=== PATIENT | female | born 1960 | race Caucasian/White ===

== ENCOUNTER 2019-05-01 16:54 | Observation (INO) | payer OTHER, SELFPAY ==
[2019-05-01 16:55] VITALS: BP 184/118; PULSE 87; RESP 17; TEMP 36.2; O2SAT 96; BMI 70.7
--- NOTE | 2019-05-01 18:08 | CT_ITS ---
HISTORY: PT STATED LOWER ABDOM PAIN, CONSTIPATION TECHNIQUE: Helically acquired images were obtained of the abdomen and pelvis without oral and with IV contrast. A radiation dose optimization technique was used for this scan. CONTRAST: 100 cc Isovue-300 administered intravenously. No oral contrast. COMPARISON: None FINDINGS: # of images incl. paperwork: 528 LOWER CHEST: No acute or concerning findings lung bases. LIVER: Heterogenous steatosis. Mild hepatomegaly. No focal mass. GALLBLADDER AND BILIARY TREE: Status post cholecystectomy. No intra- or extrahepatic biliary ductal dilation. KIDNEYS AND URETERS: Normal renal size and position. No hydronephrosis. ADRENAL GLANDS: Non-enlarged. SPLEEN: Normal size, no mass. PANCREAS: No pancreatic inflammation or mass. BOWEL: Normal appendix. No obstruction or inflammation of the bowel. Scattered left-sided colonic diverticula, no diverticulitis. Mildly prominent stool throughout the large bowel. Small hiatal hernia contains gastric fundus. LYMPH NODES: No enlarged mesenteric or retroperitoneal lymph nodes. PERITONEUM: No ascites or free air. No other fluid collection. VESSELS: No abdominal aortic aneurysm. URINARY BLADDER: Unremarkable. REPRODUCTIVE ORGANS: Bilateral tubal ligation clips. Small uterine fibroids. Ovaries unremarkable. PERINEUM: Subcutaneous edema in the bilateral medial buttocks at the level of the distal to the anus. No abscess. ABDOMINAL WALL: No concerning findings. BONES: No acute osseous abnormality. Degenerative changes lumbar spine with mild right scoliosis. CT/Abdomen/Pelvis W IV Cont ONLY IMPRESSION: Subcutaneous edema in the bilateral medial buttocks at the level of the distal to the anus. This could represent cellulitis or noninfectious edema. Please correlate with physical examination. No abscess. No other acute findings. Hepatic steatosis with mild hepatomegaly. Mildly prominent stool suggestive of constipation. Individualized dose optimization techniques were used for this CT. at 1947 Reported and signed by: iPeter Knutson MD Electronically Signed: Pieter Knutson, at 19:46 EDT Tel , Service support ,
[2019-05-01 18:20] VITALS: PULSE 88; RESP 18
[2019-05-01] MEDS: 0.9% Normal Saline 1,000 ML 1000 ML IV (18:34)
[2019-05-01] MEDS: Morphine 4 MG/ML Syringe IV (18:34)
[2019-05-01 18:51] LABS: Absolute Lymphocyte Count 1.03 X10^3/uL (0.83-4.51); Basophil# 0.03 X10^3/uL; Basophil% 0.2 % (0-1); Eosinophil# 0.22 X10^3/uL; Eosinophils% 1.6 % (0-5); Hematocrit 39.5 % (37-47); Hemoglobin 12.6 g/dL (12.0-15.0); Lymphocyte # 1.03 X10^3/ul (4.0); Lymphocyte % 7.5 % (19-41); Mean Corp Hgb Conc 31.9 g/dL (32-36); Mean Corpuscular Hgb 27.9 pg (27.0-32.0); Mean Corpuscular Volume 87.6 fL (81-99); Mean Platelet Vol. 9.9 fl (6.2-12.0); Monocyte# 1.81 X10^3/uL; Monocyte% 13.2 % (0-10); NRBC Flagged by Analyzer 0 % (0-5); Neutrophil # 10.51 X10^3/uL (2.7-7.7); Neutrophil % 76.9 % (47-70); POSITIVE DIFFERENTIAL YES; Platelet Count 384 K/mm3 (150-450); RBC Distribution Width CV 14.7 % (11.6-14.6); RBC Distribution Width SD 47.5 fl (35.1-43.9); Red Blood Count 4.51 M/mm3 (4.2-5.4); White Blood Count 13.7 K/mm3 (4.4-11.0)
[2019-05-01 19:07] LABS: Differential Indicated SCAN CRITERIA MET
[2019-05-01 19:10] LABS: ALB/GLOB Ratio 0.5 RATIO (0.9-2.4); AST(SGOT) 31 U/L (15-37); Alanine Aminotransfer ALT/SGPT 30 U/L (13-56); Albumin, Serum 2.5 g/dL (3.2-5.0); Alkaline Phosphatase 99 U/L (45-117); Anion Gap 7 (5-15); BUN 18 mg/dL (7-18); BUN/Creat Ratio 19.1 RATIO (10-20); Calcium,Total 9.1 mg/dL (8.5-10.1); Chloride 103 mmol/L (98-107); Creatinine, Serum 0.94 mg/dL (0.55-1.02); EST Glomerular Filtration Rate 65 mL/min (>60); Est Glom Filt Rate - Afr Amer 79 mL/min (>60); Estimated Creatinine Clearance 66.61 ml/min; Globulin 4.7 g/dL (2.2-4.2); Glucose 103 mg/dL (74-106); Lipase 57 U/L (73-393); Potassium 4.5 mmol/L (3.5-5.1); Protein, Total 7.2 g/dL (6.4-8.2); Sodium Level 138 mmol/L (136-145)
[2019-05-01 19:49] LABS: Platelet Estimate ADEQUATE (ADEQ); Red Cell Morphology NORM C+C NORMAL (NORM C&C)
[2019-05-01 20:02] LABS: Bacteria 0 SEEN /hpf (None Seen); Mucous, Urine 0 SEEN /hpf (<or=2+)
[2019-05-01 20:03] LABS: Color, Urine Yellow (Yellow); Glucose, Dipstick Normal (Normal); Ketone-Dipstick 15 mg/dl (Negative); Leukocyte Esterase-Dipstick 100 /ul (Negative); Nitrite-Dipstick Negative (Negative); Occult Blood-Urine 50 /ul (Negative); Protein-Dipstick 15 mg/dl (Negative); Urine Bilirubin Dipstick Negative (Negative); Urine Clarity Sl. Cloudy (Clear); Urine Urobilinogen Normal (Normal); Urine pH 6.5 (5.0 - 8.0)
[2019-05-01 20:19] LABS: Red Blood Cells-Urine 0-5 SEEN /hpf (0-5); Squamous Epithelial Cells - UA 5-10 SEEN /hpf (5-10); White Blood Cells 5-10 SEEN /hpf (0-5)
[2019-05-01 20:20] LABS: Transitional Epithelial - Ur 0-5 SEEN /hpf (0-5)
--- NOTE | 2019-05-01 21:17 | ED.DCSUM_ITS ---
- ER Visit Summary Date of Service: 05/01/19 Chief Complaint: Constipation History of Present Illness: The patient is a 59 F with constipation for several days. Patient also reports rectal pain and is concerned she has a hemorrhoid. No history of hemorrhoids. She is having fevers at home. She is having intermittent diarrhea. She tried Imodium with no improvement. She also tried Preparation H with no improvement. No history of diverticulitis. No history of abdominal surgeries. Physical Examination: Afebrile and vital signs unremarkable except blood pressure 184/118. Heart regular. Lungs clear. Abdomen tender in the lower hemiabdomen. Rectal exam chaperoned by Barbara JAIMES. She had erythema surrounding her buttocks and anus. No evidence of abscess. No masses or active bleeding noted. Test Results: White count 13.7. CMP and lipase normal. Urinalysis unremarkable. CT showed bilateral buttock edema concerning for cellulitis. She has constipation without obstruction. Emergency Department Course and Treatment: Patient received fluids, pain medicine. I believe she developed cellulitis from frequent and intermittent constipation with diarrhea and it is causing her rectal pain. She was treated with Unasyn. Hospitalist will observe. Treatment Plan: As above Disposition: [facility] observation Impression: 1. Bilateral buttock cellulitis 2. Constipation This note was generated with [employer] dictation software. It may contain incorrect words, spelling, and punctuation that were not noted in review of the chart prior to signing ED Disposition - Plan for ED Patient: Referrals: Fam Long [Primary Care Provider] -
[2019-05-01 21:46] VITALS: BP 169/71; PULSE 92; RESP 18; TEMP 37.1
[2019-05-01 22:23] VITALS: BP 140/74; PULSE 100; RESP 18; TEMP 37.5; O2SAT 99; BMI 70.7; BMI 73.1
[2019-05-01 22:26] VITALS: BP 145/94
--- NOTE | 2019-05-01 22:42 | HP.PCM_ITS ---
Problem List (1) Depression Status: Acute (2) Cellulitis Status: Acute (3) HTN (hypertension) Status: Chronic (4) Hypothyroidism Status: Acute (5) Hyperlipidemia Status: Acute (6) Personal history of DVT (deep vein thrombosis) Status: Acute History of Present Illness Date of Admission: 05/01/19 Chief Complaint: Rectal pain The patient is a 59 year old F with PMH as below who presented with perianal pain/rectal pain has been going on for a few days. She states that on Wednesday she had an episode of diarrhea and then the following morning she had pain in her anal area. She then developed fevers and chills and presented to the ER today with an elevated white count. CT scan of her abdomen and pelvis demonstrated stranding consistent with cellulitis but no abscess. She was started on IV Unasyn in the ER and she did not feel like she would be able to go home and therefore had asked for admission. Past Medical History Past Medical History (Chronic Problems): Chronic Problems HTN (hypertension) (Chronic) Allergies cephalexin [From Keflex] Allergy (Verified 05/01/19 22:39) Upset Stomach codeine Allergy (Verified 05/01/19 22:39) Upset Stomach Home Medications: Ambulatory Orders Medication Instructions Recorded Apixaban [Eliquis] 2.5 mg PO BID 05/01/19 Ascorbic Acid [Vitamin C] 1,000 mg PO DAILY 05/01/19 Bupropion HCl [Bupropion HCl Sr] 1 tab PO BID 05/01/19 Buspirone HCl 15 mg PO BID 05/01/19 Celecoxib [Celebrex] 200 mg PO DAILY 05/01/19 Enalapril Maleate 20 mg PO DAILY 05/01/19 Furosemide [Lasix] 40 mg PO DAILY 05/01/19 Lansoprazole [Prevacid] 30 mg PO DAILY 05/01/19 Levothyroxine [Synthroid] 200 mcg PO DAILY 05/01/19 Metoprolol Tartrate 50 mg PO BID 05/01/19 Surgical History: cholecystectomy, herniorrhaphy, - - Thyroidectomy, parathyroidectomy, Smoking Status: Former smoker Tobacco Use: Cigarettes Alcohol: None Drugs: None - *Family History Maternal History Items: Heart Disease Paternal History Items: Diabetes, - - Aneurysm Review of Systems Constitutional: Reports: Chills, Fever HEENT: Denies: Head Aches, Sinus Congestion, Sinus Drainage Cardiovascular: Denies: Chest Pain, Palpitations Respiratory: Denies: Cough, Shortness of breath at rest, Sputum production Gastrointestinal: Reports: - - Perianal pain. Denies: Abdominal Pain, Nausea, Vomiting Genitourinary: Denies: Dysuria Musculoskeletal: Denies: Joint Pain, Joint Tenderness Skin: Denies: Rash, Wounds Neurological: Denies: Numbness, Tingling, Focal weakness Psychiatric: Denies: Anxiety, Depression Hematologic/ Lymphatic: Denies: Easy Bruising, Easy Bleeding VTE Information - Inpt Only VTE Present on Admission: No Patient Problems: Active and Suspected Problems Depression (Acute) Cellulitis (Acute) Hypothyroidism (Acute) Hyperlipidemia (Acute) Personal history of DVT (deep vein thrombosis) (Acute) - Physical Exam General: Alert, Oriented x3, Cooperative, No apparent distress HEENT: Atraumatic, PERRLA, EOMI, Normocephalic Oral: Moist Mucosa Neck: Supple, No JVD Lungs: Clear to auscultation, Normal air movement, No rhonchi, No wheeze, No rales, Diminished Cardiovascular: Regular rate, Regular Rhythm, Normal S1, Normal S2, No murmurs Abdomen: Soft, Non Tender, Non-Distended, No Hepato-splenomegaly, Obese Extremities: No edema, Capillary Refill Less than 3 Seconds Skin: No breakdown, - - Slight redness in her perianal region without extension into either buttock Neurological: Neuro grossly intact, Sensory exam intact to light touch and pain Psych/Mental Status: Normal Affect, Appropriate Vital Signs Temp Pulse Resp BP Pulse Ox 99.5 F H 100 18 145/94 H 99 05/01/19 22:23 05/01/19 22:23 05/01/19 22:23 05/01/19 22:26 05/01/19 22:23 Oxygen Delivery Method Room Air Weight: 465 lb Body Mass Index (BMI) 70.7 Laboratory Tests Past 24 Hrs 05/01/19 05/01/19 05/01/19 18:35 18:35 19:50 WBC 13.7 H RBC 4.51 Hgb 12.6 Hct 39.5 MCV 87.6 MCH 27.9 MCHC 31.9 L RDW Std Deviation 47.5 H RDW Coeff of Jose Rafael 14.7 H Plt Count 384 MPV 9.9 Immature Gran % (Auto) 0.600 Neut % (Auto) 76.9 H Lymph % (Auto) 7.5 L [place] % (Auto) 13.2 H Eos % (Auto) 1.6 Baso % (Auto) 0.2 Absolute Neuts (auto) Not Reportable Absolute Lymphs (auto) 1.03 Absolute Nucleated RBC 0.00 Nucleated RBC % 0 Differential Comment SEE COMMENT Diff Path Review May foll Platelet Estimate ADEQUATE RBC Morphology NORM C+C Sodium 138 Potassium 4.5 Chloride 103 Carbon Dioxide 28.0 Anion Gap 7 BUN 18 Creatinine 0.94 Estim Creat Clear Calc 66.61 Est GFR (MDRD) Af Amer 79 Est GFR (MDRD) Non-Af 65 BUN/Creatinine Ratio 19.1 Glucose 103 Calcium 9.1 Total Bilirubin 0.60 AST 31 ALT 30 Alkaline Phosphatase 99 Total Protein 7.2 Albumin 2.5 L Globulin 4.7 H Albumin/Globulin Ratio 0.5 L Lipase 57 L Urine Color Yellow Urine Clarity Sl. Cloudy Urine pH 6.5 Ur Specific [place] 1.010 Urine Protein 15 H Urine Glucose (UA) Normal Urine Ketones 15 H Urine Occult Blood 50 H Urine Nitrite Negative Urine Bilirubin Negative Urine Urobilinogen Normal Ur Leukocyte Esterase 100 H Urine RBC 0-5 SEEN Urine WBC 5-10 SEEN Ur Squamous Epith Cells 5-10 SEEN Ur Transition Epith Cell 0-5 SEEN Urine Bacteria 0 SEEN Urine Mucus 0 SEEN Assessment/Plan All Active Problems Depression (Acute) Cellulitis (Acute) Hypothyroidism (Acute) Hyperlipidemia (Acute) Personal history of DVT (deep vein thrombosis) (Acute) 1. Perianal cellulitis -Leukocytosis 13.7, no other signs of sepsis -She has an upset stomach from Keflex therefore we will proceed with Unasyn -IV fluids at 100 2. 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 Hypothyroidism after thyroidectomy -Stable -Continue with Synthroid 4. HTN -Blood pressures in the 140s to 160s -Continue with metoprolol, will hold Lasix since she is getting fluids -Continue with lisinopril 5. GERD -Stable -Continue with PPI 6. Anxiety/depression -Stable -Continue with Wellbutrin and BuSpar DVT: Eliquis Code Visit OBSV E&M: 69733 Initial observation care L2
[2019-05-02] VITALS (7 sets, daily range): BP systolic 112–134; BP diastolic 61–77; PULSE 74–95; RESP 18; TEMP 37.2–38.1; O2SAT 94–98
[2019-05-02] MEDS: Acetaminophen 325 MG Tablet 650 MG PO ×2 (01:07→07:07)
[2019-05-02] MEDS: 0.9% Normal Saline 1,000 ML 100 ML IV ×2 (01:08→06:49)
[2019-05-02] MEDS: Levothyroxine 100 MCG Tablet 200 MCG PO (04:57)
[2019-05-02 06:30] LABS: Basophil# 0.04 X10^3/uL; Basophil% 0.3 % (0-1); Eosinophils% 0.7 % (0-5); Hematocrit 34.7 % (37-47); Hemoglobin 11.2 g/dL (12.0-15.0); Lymphocyte % 9.3 % (19-41); Mean Corp Hgb Conc 32.3 g/dL (32-36); Mean Corpuscular Hgb 28.1 pg (27.0-32.0); Mean Corpuscular Volume 87.2 fL (81-99); Mean Platelet Vol. 8.9 fl (6.2-12.0); Monocyte# 2.06 X10^3/uL; Monocyte% 14.7 % (0-10); NRBC Flagged by Analyzer 0 % (0-5); Neutrophil # 10.43 X10^3/uL (2.7-7.7); Neutrophil % 74.2 % (47-70); POSITIVE DIFFERENTIAL YES; Platelet Count 327 K/mm3 (150-450); RBC Distribution Width CV 14.6 % (11.6-14.6); RBC Distribution Width SD 46.5 fl (35.1-43.9); Red Blood Count 3.98 M/mm3 (4.2-5.4)
[2019-05-02 06:55] LABS: Anion Gap 8 (5-15); BUN 12 mg/dL (7-18); BUN/Creat Ratio 14.5 RATIO (10-20); Calcium,Total 8.5 mg/dL (8.5-10.1); Chloride 104 mmol/L (98-107); Creatinine, Serum 0.83 mg/dL (0.55-1.02); EST Glomerular Filtration Rate 76 mL/min (>60); Est Glom Filt Rate - Afr Amer 91 mL/min (>60); Estimated Creatinine Clearance 75.44 ml/min; Glucose 153 mg/dL (74-106); Potassium 3.3 mmol/L (3.5-5.1); Sodium Level 139 mmol/L (136-145)
[2019-05-02 06:58] LABS: Differential Indicated SCAN CRITERIA MET
[2019-05-02 06:59] LABS: Differential Comment SCANNED; Toxic Granulation 1+
[2019-05-02] MEDS: HYDROcodone Bitartrate/Apap 5/325 Tablet PO (09:42)
[2019-05-02] MEDS: Lisinopril 20 MG Tablet PO (09:43)
[2019-05-02] MEDS: busPIRone 15 MG TABLET PO (09:43)
[2019-05-02] MEDS: buPROPion (SR) 150 MG Tablet.SA PO (09:43)
[2019-05-02] MEDS: Celecoxib 200 MG Capsule PO (09:43)
[2019-05-02] MEDS: Pantoprazole Sodium 40 MG Tablet PO (09:43)
[2019-05-02] MEDS: APIXABAN 2.5 MG TABLET PO (09:44)
[2019-05-02] MEDS: Metoprolol Tartrate 50 MG Tablet PO (09:48)
[2019-05-02 11:50] LABS: Pathologist Review Reviewed
[2019-05-02 11:51] LABS: Pathologist Review Reviewed
--- NOTE | 2019-05-02 15:47 | DCINST_ITS ---
- Discharge Diagnoses Current Active Problems: Current Active and Chronic Problems Depression (Acute) Cellulitis (Acute) HTN (hypertension) (Chronic) Hypothyroidism (Acute) Hyperlipidemia (Acute) Personal history of DVT (deep vein thrombosis) (Acute) You will use the following diet at home:: No restrictions Your food should be the consistency of: Regular Your liquids should be the consistency of: Regular/Thin Discharge Activity: Return to Normal Activity Weight Bearing Status: Full weight bearing Allergies/Adverse Reactions: Allergies cephalexin [From Keflex] Allergy (Verified 05/01/19 22:39) Upset Stomach codeine Allergy (Verified 05/01/19 22:39) Upset Stomach Medications to take at Discharge Apixaban [Eliquis] 2.5 mg PO BID 05/01/19 Ascorbic Acid [Vitamin C] 1,000 mg PO DAILY 05/01/19 Bupropion HCl [Bupropion HCl Sr] 1 tab PO BID 05/01/19 Buspirone HCl 15 mg PO BID 05/01/19 Celecoxib [Celebrex] 200 mg PO DAILY 05/01/19 Enalapril Maleate 20 mg PO DAILY 05/01/19 Furosemide [Lasix] 40 mg PO DAILY 05/01/19 Lansoprazole [Prevacid] 30 mg PO DAILY 05/01/19 Levothyroxine [Synthroid] 200 mcg PO DAILY 05/01/19 Metoprolol Tartrate 50 mg PO BID 05/01/19 Cefdinir [Omnicef [equiv]] 300 mg PO BID #20 cap 05/02/19 Hydrocodone Bitart/Apap 5-325 [[place] 5/325] 2 tablet PO Q6H PRN PRN 7 Days #30 tablet 05/02/19 Triamcinolone 0.1% Cream [Kenalog] 1 applic TOPICAL BID #1 tube 05/02/19 The following prescriptions were given: Triamcinolone 0.1% Cream [Kenalog] 1 applic TOPICAL BID #1 tube Hydrocodone Bitart/Apap 5-325 [[place] 5/325] 2 tablet PO Q6H PRN PRN 7 Days #30 tablet PRN Reason: Severe Pain (6-07/20) Transmission Status: Received by ABILIO [id number] Cefdinir [Omnicef [equiv]] 300 mg PO BID #20 cap Primary Care Physician: Fam Long [Primary Care Provider] - Please follow up with your Primary Care Physician in: at next visit Test Results: Test results from this visit will be discussed in further detail at your follow- up appointment, if applicable.
--- NOTE | 2019-05-04 08:28 | PCM.DC.SUM ---
Discharge Date and Diagnosis Date of Admission: 05/01/19 Date of Discharge: 05/02/19 - Primary Discharge Diagnosis #1 perianal cellulitis #2 perianal contact dermatitis from stool #3 morbid obesity #4 hypertension - Secondary Discharge Diagnosis Chronic Problems HTN (hypertension) (Chronic) Hospital Course and Treatment Operations: None Procedures: None Summary of Care Provided: The patient is a 59 year old F was seen in the emergency room at [facility] with a chief complaint of rectal pain and constipation. Examination in the emergency room revealed her perirectal area to be reddened and tender, white blood cell count was elevated at 13.7. CT exam showed bilateral buttocks edema concerning for cellulitis. Patient was placed in observation status on PCU and placed on IV antibiotics, she was examined the following day and there was noted to be redness around the perirectal area-I was concerned that she also had contact dermatitis from stool contact on the buttocks-patient was morbidly obese and unable to carry out basic hygiene properly. On 05/02/2019, patient was seen and examined: On examination she appeared in good health and spirits, patient is morbidly obese. Vital signs as documented. Skin: Examination of the skin around the perirectal area reveals it to be reddened and tender, there are no open areas and no discharge noted from the area.. Neck without JVD. Lungs clear. Heart exam notable for regular rhythm, normal sounds and absence of murmurs, rubs or gallops. Abdomen unremarkable and without evidence of organomegaly, masses, or abdominal aortic enlargement. Extremities nonedematous. Neuro: Cranial nerves II through XII are grossly intact, no focal motor deficits were noted, sensation to light touch and pinprick is intact. Psych: Patient is alert and oriented x3, she does not appear anxious or depressed On 05/02/19, patient was seen and examined and felt to be in stable condition for discharge - Physical Exam Vital Signs Temp Pulse Resp BP Pulse Ox 99.0 F 74 18 128/77 H 98 05/02/19 16:23 05/02/19 16:23 05/02/19 16:23 05/02/19 16:23 05/02/19 16:23 Oxygen Delivery Method Room Air Weight: 218.3 kg Body Mass Index (BMI) 73.1 Intake and Output for Last 24 Hours 05/02/19 05/03/19 05/04/19 23:59 23:59 23:59 Intake Total 3037 Balance 3037 Discharge Activity: Return to Normal Activity Weight Bearing Status: Full weight bearing Home Medications: Medications to take at Discharge Apixaban [Eliquis] 2.5 mg PO BID 05/01/19 Ascorbic Acid [Vitamin C] 1,000 mg PO DAILY 05/01/19 Bupropion HCl [Bupropion HCl Sr] 1 tab PO BID 05/01/19 Buspirone HCl 15 mg PO BID 05/01/19 Celecoxib [Celebrex] 200 mg PO DAILY 05/01/19 Enalapril Maleate 20 mg PO DAILY 05/01/19 Furosemide [Lasix] 40 mg PO DAILY 05/01/19 Lansoprazole [Prevacid] 30 mg PO DAILY 05/01/19 Levothyroxine [Synthroid] 200 mcg PO DAILY 05/01/19 Metoprolol Tartrate 50 mg PO BID 05/01/19 Cefdinir [Omnicef [equiv]] 300 mg PO BID #20 cap 05/02/19 Hydrocodone Bitart/Apap 5-325 [[place] 5/325] 2 tab PO Q6H PRN PRN 7 Days #30 tab 05/02/19 Triamcinolone 0.1% Cream [Kenalog] 1 applic TOPICAL BID #1 tube 05/02/19 Following Prescrptions Were Given to Patient: Triamcinolone 0.1% Cream [Kenalog] 1 applic TOPICAL BID #1 tube Hydrocodone Bitart/Apap 5-325 [[place] 5/325] 2 tab PO Q6H PRN PRN 7 Days #30 tab PRN Reason: Severe Pain (6-07/20) Transmission Status: Received by ABILIO [address] Cefdinir [Omnicef [equiv]] 300 mg PO BID #20 cap Primary Care Physician: Fam Long [Primary Care Provider] - Please follow up with your Primary Care Physician in: at next visit Disposition: Home Minutes spent on discharge:: 32 Patient Condition:: Stable Medical Necessity - Tobacco Use Smoking Status: Former smoker Tobacco Use: Cigarettes Meaningful Use Info Meaningful Use Diagnoses (Choose all that apply): None applicable Code Visit OBSV E&M: 27898 Observation care discharge
== END 2019-05-02 15:48 | disposition home or self-care (01) ==
LOC: ED 18:17 → PCU 23:53
PROVIDERS: Admitting Provider Family Medicine; Emergency Provider Emergency Medicine; Family Provider Student in an Organized Health Care Education/Training Program; PCP Student in an Organized Health Care Education/Training Program; Visit Provider Internal Medicine
DX: K61.0 Anal abscess (principal); L24.9 Irritant contact dermatitis, unspecified cause; K59.00 Constipation, unspecified; L03.317 Cellulitis of buttock; E78.5 Hyperlipidemia, unspecified; I10 Essential (primary) hypertension; F32.9 Major depressive disorder, single episode, unspecified; E89.0 Postprocedural hypothyroidism; K21.9 Gastro-esophageal reflux disease without esophagitis; F41.9 Anxiety disorder, unspecified; E66.01 Morbid (severe) obesity due to excess calories; Z68.45 Body mass index [BMI] 70 or greater, adult; Z71.3 Dietary counseling and surveillance; Z79.899 Other long term (current) drug therapy; Z79.01 Long term (current) use of anticoagulants; Z87.891 Personal history of nicotine dependence; Z86.711 Personal history of pulmonary embolism; Z86.718 Personal history of other venous thrombosis and embolism
CPT/HCPCS: 36415; 74177; 80048; 80053; 81001; 83690; 85025; 96361; 96365; 96366; 96375; 97802; 99218; 99285; J7030; Q9967; G0378; J0295

== ENCOUNTER 2022-11-06 20:13 | Inpatient (IN) | payer OTHER, SELFPAY ==
[2022-11-06 20:14] VITALS: BP 97/69; PULSE 107; RESP 16; TEMP 37.3; O2SAT 95; BMI 60.0
--- NOTE | 2022-11-06 21:46 | EDS_ITS ---
HPI History of Present Illness Chief Complaint: Fever Informant: patient and spouse/S.O. Narrative Narrative: Patient presents with abdominal pain nausea vomiting fevers. Patient states she started with this a few days ago. She was eating and toe over the last about 24 hours. She is not really drinking. She has had fevers. She has had pain in the right flank but it is more in the right lower quadrant now. She has had gallbladder out but still has her appendix. She has never had kidney stone. She denies any urinary symptoms. She has not had diarrhea. No chest pain trouble breathing. She is on Eliquis for history of DVT and PEs but not having symptoms of this. She is not reporting any bleeding. Patient's states that the symptoms really all started yesterday. She has been eating and drinking totally normally. Last night she started to have pain in her right flank and right lower quadrant. She really is not eating or drinking today. She has had high fevers. When her fever goes up she is a little bit confused. When the fever goes down its better. Although patient denied any urinary symptoms, the states she is urinating more frequently today especially since she is not drinking fluids. [facility] Medical History (Updated 11/07/22 @ 00:[address] Pierce Meyer MD) Arthritis Depression DVT (deep venous thrombosis) Hyperlipidemia Hyperlipidemia Hypothyroid Morbid obesity Home Medications apixaban 2.5 mg tablet 2.5 mg PO BID 05/01/19 [History Last Taken Unknown] ascorbic acid (vitamin C) 1,000 mg tablet 1,000 mg PO DAILY 05/01/19 [History Last Taken Unknown] bupropion HCl 150 mg tablet,12 hr sustained-release 1 tab PO BID 05/01/19 [History Last Taken Unknown] buspirone 15 mg tablet 15 mg PO BID 05/01/19 [History Last Taken Unknown] celecoxib 200 mg capsule 200 mg PO DAILY 05/01/19 [History Last Taken Unknown] enalapril maleate 20 mg tablet 20 mg PO DAILY 05/01/19 [History Last Taken Unknown] furosemide 40 mg tablet 40 mg PO DAILY 05/01/19 [History Last Taken Unknown] lansoprazole 30 mg capsule,delayed release 30 mg PO DAILY 05/01/19 [History Last Taken Unknown] levothyroxine 50 mcg tablet 200 mcg PO DAILY 05/01/19 [History Last Taken Unknown] metoprolol tartrate 50 mg tablet 50 mg PO BID 05/01/19 [History Last Taken Unknown] cefdinir 300 mg capsule 300 mg PO BID #20 caps 05/02/19 [Rx Last Taken Unknown] triamcinolone acetonide 0.1 % topical cream 1 applic topical BID #1 tube 05/02/19 [Rx Last Taken Unknown] Allergy/AdvReac Type Severity Reaction Status Date / Time cephalexin [From Keflex] Allergy Upset Verified 11/06/22 20:18 Stomach codeine Allergy Upset Verified 11/06/22 20:18 Stomach Family History (Updated 11/06/22 @ 23:[address] Prudence Vasquez MD) Mother Heart disease Hypertension Father Diabetes Aneurysm Surgical History (Updated 11/06/22 @ 23:[address] Prudence Vasquez MD) History of herniorrhaphy History of parathyroidectomy Hx of cholecystectomy Hx of thyroidectomy Social History household members: spouse Smoking Status: Former smoker alcohol intake: never substance use type: does not use ROS ROS ED Constitutional Constitutional ED: Reports fever(s) Eyes Eyes: Denies change in vision ENT ENT ED: Denies rhinorrhea or sore throat Cardiovascular Cardiovascular: Denies chest pain, palpitations or racing heartbeat Respiratory/Chest Respiratory/Chest: Denies cough or dyspnea Gastrointestinal Gastrointestinal: Reports abdominal pain, diarrhea, nausea and vomiting Genitourinary Genitourinary ED: Denies dysuria, hematuria or urinary frequency Musculoskeletal Musculoskeletal: Reports back pain and other Details: Right flank pain. Integumentary Denies rash Neurologic Neurologic: Denies headache(s) Psychiatric Psychiatric: Denies anxiety Endocrine Endocrinology: Denies polydipsia or polyuria Hematologic/Lymphatic Hematologic/Lymphatic: Denies easy bleeding or easy bruising EXAM Physical Exam Narrative Exam Narrative: Patient is awake and alert. She is a little slow to answer questions but seems to be accurate other than on the timing of things. She does know her medications and her histories. She is ANO x3. HEENT: Mouth looks dry. No trauma. Neck shows no JVD or meningismus Lungs seem clear to auscultation and her saturations are normal on room air. Heart is tachycardic at about 115. But it is regular and appears to be sinus on the monitor. I hear no murmur. Peripheral pulses are equal. Abdomen is obese but bowel sounds are normal. She does have some tenderness toward the right lower quadrant but its not rebound. I see no rash. Mild CVA tenderness when reaching behind the patient. No notable suprapubic area tenderness Extremities are large but no specific asymmetry or tenderness is noted. Again, patient is ANO x3 but is a little bit slow to answer. I think her 's history is likely the most accurate. Const Vital Signs: 11/06/22 20:14 11/06/22 21:17 Temperature 99.1 F Temperature Source Temporal Pulse Rate 107 H Respiratory Rate 16 Respiratory Effort Normal Respiratory Pattern Normal Blood Pressure 97/69 Blood Pressure Mean 78 Pulse Ox 95 Oxygen Delivery Method Room Air MDM MDM MDM Narrative Medical decision making narrative: Patient CBC shows elevated hemoglobin of 15 for likely due to hemoconcentration with dehydration. White count is very high at 30,000 likely from infection. Electrolytes showed low bicarb, mildly low potassium, elevated BUN and elevated creatinine consistent with acute kidney injury. I did review prior labs that were available in the computer from outpatient and her normal creatinine would be closer to 0.8. This does show a significant acute kidney injury and her history is consistent with dehydration as a major source of this. Glucose is mildly elevated 154. Liver function test showed mild elevations of AST and bilirubin and alk phos. But she is not really having tenderness up high on the right. Its more low in the right flank. Lactate was found down to us and was 6.9 showing significant elevation. Patient's urine is cloudy, large leukocyte esterase, elevated urine white cells and 3+ bacteria. All of this is consistent with a UTI. Considering she has pain that radiates into her right flank this is most consistent with pyelonephritis. With her high heart rate, low blood pressure, white count, lactate over 6 and UTI I think this does represent sepsis with multiple organ dysfunction. Her blood pressure is running about 90-95/60 right now. She is only gotten 1 L of fluid in though. With her current weight, she would need approximately 5375 cc of fluid. This is a very large amount to give acutely. We have gotten 1 L of fluid and are ready. The nurses put in the second IV and is starting second liter. I have put an order for third liter. This would be closer to an appropriate fluid bolus for an ideal body weight at her height even if she had a 30 BMI. She can be reassessed after that. She is more alert. She is answering questions quicker. Her heart rate is already come down 30 bpm. Her blood pressure is about the same though. But she has shown clear clinical improvement. With her illness, mild confusion with fever, blood pressure, heart rate, elevated lactate and infection she will be placed in the ICU. I discussed all these details with hospitalist is coming down the department to see the patient We are still awaiting CT to be done. I had originally ordered a CT with contrast. However, with her acute kidney injury we will do 1 without contrast. She should have enough intraperitoneal fat to be able to see stranding or other acute issues. Lab Data Attestation: I reviewed the patient's lab results. Labs: Laboratory Results - last 24 hr 11/06/22 11/06/22 11/06/22 22:44 22:44 23:18 RBC 5.16 Hgb 15.4 H Hct 49.8 H MCV 96.5 MCH 29.8 MCHC 30.9 L RDW Std Deviation 51.0 H RDW Coeff of Jose Rafael 14.2 Plt Count 302 MPV 10.2 Immature Gran % (Auto) 4.200 H Neut % (Auto) 86.2 H Lymph % (Auto) 2.0 L [place] % (Auto) 6.5 Eos % (Auto) 0.6 Baso % (Auto) 0.5 Absolute Neuts (auto) 26.4 H Absolute Lymphs (auto) 0.60 L Nucleated RBC % 0 Sodium 143 Potassium 3.3 L Chloride 108 H Carbon Dioxide 18.0 L Anion Gap 17 H BUN 33 H Creatinine 2.77 H Estim Creat Clear Calc 21.79 Est GFR (MDRD) Af Amer 22 L Est GFR (MDRD) Non-Af 19 L BUN/Creatinine Ratio 11.9 Glucose 154 H Calcium 10.0 Total Bilirubin 1.10 H AST 62 H ALT 43 Alkaline Phosphatase 136 H Total Protein 7.0 Albumin 3.1 L Globulin 3.9 Albumin/Globulin Ratio 0.8 L Lipase 71 L Urine Color Yellow Urine Clarity Cloudy Urine pH 6.0 Ur Specific [place] 1.015 Urine Protein 15 H Urine Glucose (UA) Normal Urine Ketones Negative Urine Occult Blood 250 H Urine Nitrite Negative Urine Bilirubin Negative Urine Urobilinogen Normal Ur Leukocyte Esterase 500 H Urine RBC 10-25 SEEN Urine WBC 10-25 SEEN Ur Squamous Epith Cells 0 SEEN Urine Bacteria 3+ Urine Mucus 0 SEEN Critical Care Time Critical Care Time: Yes Critical care time (excluding procedures): 30-74 minutes, Discussing w/Patient &/or Family/Textile Slitting Machine Operator, Discussing w/Consultants, Arranging Admission or Transfer, Performing Direct Patient Care at Bedside and - (40 minutes, repeat evaluations, repeat fluids, antibiotics, reviewing results, reviewing old records, discussing with hospitalist.) Discharge Plan Dx/Rx/DC Orders Clinical Impression: Pyelonephritis, Sepsis, Acute kidney injury, Acidosis, lactic Disposition Disposition: Acute Care [facility]
[2022-11-06 22:14] VITALS: BP 91/62; PULSE 100; RESP 22; O2SAT 100
[2022-11-06 22:17] VITALS: BP 91/62; PULSE 100; RESP 22; TEMP 37.2; O2SAT 100
[2022-11-06] MEDS: 0.9% Normal Saline 1,000 ML 1000 ML IV (22:42)
[2022-11-06] MEDS: Ondansetron 4 MG/2 ML Vial IV (22:42)
[2022-11-06 23:04] LABS: Hematocrit 49.8 % (37-47); Hemoglobin 15.4 g/dL (12.0-15.0); Mean Corp Hgb Conc 30.9 g/dL (32-36); Mean Corpuscular Hgb 29.8 pg (27.0-32.0); Mean Corpuscular Volume 96.5 fL (81-99); Mean Platelet Vol. 10.2 fl (6.2-12.0); POSITIVE COUNT YES; POSITIVE DIFFERENTIAL YES; POSITIVE MORPHOLOGY YES; Platelet Count 302 K/mm3 (150-450); RBC Distribution Width CV 14.2 % (11.6-14.6); Red Blood Count 5.16 M/mm3 (4.2-5.4)
[2022-11-06 23:09] LABS: White Blood Count 30.6 K/mm3 (4.4-11.0)
[2022-11-06 23:16] LABS: ALB/GLOB Ratio 0.8 RATIO (0.9-2.4); AST(SGOT) 62 U/L (15-37); Alanine Aminotransfer ALT/SGPT 43 U/L (13-56); Albumin, Serum 3.1 g/dL (3.2-5.0); Alkaline Phosphatase 136 U/L (45-117); Anion Gap 17 (5-15); BUN 33 mg/dL (7-18); BUN/Creat Ratio 11.9 RATIO (10-20); Chloride 108 mmol/L (98-107); Creatinine, Serum 2.77 mg/dL (0.55-1.02); EST Glomerular Filtration Rate 19 mL/min (>60); Est Glom Filt Rate - Afr Amer 22 mL/min (>60); Estimated Creatinine Clearance 21.79 ml/min; Globulin 3.9 g/dL (2.2-4.2); Glucose 154 mg/dL (74-106); Lipase 71 U/L (73-393); Potassium 3.3 mmol/L (3.5-5.1); Sodium Level 143 mmol/L (136-145)
[2022-11-06 23:21] LABS: Mucous, Urine 0 SEEN /hpf (<or=2+); Squamous Epithelial Cells - UA 0 SEEN /hpf (5-10)
[2022-11-06 23:24] LABS: Color, Urine Yellow (Yellow); Glucose, Dipstick Normal (Normal); Ketone-Dipstick Negative (Negative); Leukocyte Esterase-Dipstick 500 /ul (Negative); Nitrite-Dipstick Negative (Negative); Occult Blood-Urine 250 /ul (Negative); Protein-Dipstick 15 mg/dl (Negative); Specific Gravity, Urine 1.015 (1.002-1.030); Urine Bilirubin Dipstick Negative (Negative); Urine Clarity Cloudy (Clear); Urine Urobilinogen Normal (Normal)
[2022-11-06 23:30] LABS: Bacteria 3+ /hpf (None Seen); Red Blood Cells-Urine 10-25 SEEN /hpf (0-5); White Blood Cells 10-25 SEEN /hpf (0-5)
[2022-11-06 23:36] LABS: Differential Indicated MANUAL DIFF
[2022-11-06 23:40] LABS: Eosinophil 1 % (0-5); Lymphocyte 2 % (19-41); Metamyelocyte 14 % (0-1); Monocyte 6 % (0-10); Neutrophil-Band 18 % (0-5); Neutrophil-Segmented 59 % (47-70); Platelet Estimate ADEQUATE (ADEQ); Total Cells Counted 100 (MANUAL DIFF)
--- NOTE | 2022-11-06 23:40 | CT_ITS ---
EXAM: CT ABDOMEN AND PELVIS WITHOUT INTRAVENOUS CONTRAST CLINICAL INDICATION: Pain TECHNIQUE: Helically acquired images were obtained of the abdomen and pelvis without intravenous contrast. This CT exam was performed using one or more of the following dose reduction techniques: automated exposure control, adjustment of the mA and/or kV according to patient size, and/or use of iterative reconstruction technique. This report was created using [employer] report generation technology. COMPARISON: 05/01/2019 FINDINGS: LOWER THORAX: Unremarkable. Lung bases are clear. No cardiomegaly. No significant pericardial effusion. ABDOMEN: LIVER: Hepatomegaly with fatty infiltration. GALLBLADDER AND BILE DUCTS: Cholecystectomy. No intra- or extrahepatic biliary ductal dilation. PANCREAS: Unremarkable. No focal cystic mass. SPLEEN: Unremarkable. Normal size without focal cystic or solid mass. ADRENALS: Unremarkable. No nodules. KIDNEYS AND URETERS: There is a 5 mm stone in the distal right ureter causing mild obstructive changes. Normal renal size and position. STOMACH AND BOWEL: Diverticular disease of the colon but no diverticulitis. No stomach or bowel distention. PELVIS: APPENDIX: The appendix is normal. BLADDER: Unremarkable. REPRODUCTIVE: Small calcified fibroids in the uterus. ABDOMEN and PELVIS: INTRAPERITONEAL SPACE: Unremarkable. No ascites or other fluid collection. No free air. BONES/JOINTS: Diffuse degenerative changes of the spine. No suspicious lytic or blastic abnormality. SOFT TISSUES: Unremarkable. No discrete abdominal or pelvic wall hernia. VASCULATURE: Moderate atherosclerotic changes of the abdominal aorta without aneurysm. LYMPH NODES: Unremarkable. No enlarged lymph nodes. CT/Abdomen/Pelvis without Cont IMPRESSION: There is a 5 mm stone in the distal right ureter causing mild obstructive changes. Electronically Signed: Colt Lopez MD at 0:46 EST ,
[2022-11-06 23:41] LABS: Red Cell Morphology NORM C+C NORMAL (NORM C&C)
[2022-11-06] MEDS: 0.9% Normal Saline 1,000 ML 999 ML IV (23:56)
[2022-11-07] VITALS (27 sets, daily range): BP systolic 74–152; BP diastolic 52–132; PULSE 85–113; RESP 16–24; TEMP 36.2–37.6; O2SAT 92–100; BMI 63.5; BMI 61.4
[2022-11-07 00:02] LABS: Lactic Acid 6.9 mmol/L (0.4-1.9)
[2022-11-07 00:26] LABS: Absolute Lymphocyte Count 0.61 X10^3/uL (0.83-4.51); Absolute Neutrophil Count 24.8 X10^3/uL (2.0-7.7); Lymphocyte # 0.61 X10^3/ul (0.83-4.51); Neutrophil # 24.78 X10^3/uL (2.7-7.7)
[2022-11-07] MEDS: 0.9% Normal Saline 1,000 ML 999 ML IV ×2 (00:32→02:25)
--- NOTE | 2022-11-07 00:39 | ED.RN ---
Per Dr. Meyer pt is to receive 3l of NS.
--- NOTE | 2022-11-07 00:48 | PCM.HP.STD ---
HPI - General General Date of Admission: 11/07/22 Date of Service: 11/07/22 Chief Complaint: Encephalopathy, N/V, R flank pain, urinary frequency. HPI Narrative The patient is a 62 y/o F w/ PMHx: Depression and Anxiety, Hx VTE, HTN, HLD, Former tobacco use, Hypothyroidism s/p thyroidectomy, Morbid Obesity, Hx prior pyelonephritis who presents to the [facility] ED on 11/07/22 with history of onset over the last 12-24 hours of fatigue and malaise, decreased oral intake with onset of nausea and emesis as well as right-sided flank discomfort radiating toward her RLQ with increased urinary frequency with notable fevers and chills and notable confusion with fevers per her spouse prompting spouse to bring her in for evaluation. Work-up in the ED included T99.1, heart rate initially 107 with most recent repeat 100, BP 97/69 with most recent repeat BP 91/62, respiratory rate 16-22, 95 100% on room air, CBC with WBC 30.6, hemoglobin 15.4, platelet 302, CMP remarkable for potassium 3.3, chloride 108, carbon oxide 18, anion gap 17, BUN/creat 33/2.77, glucose 154, total bilirubin 1.10, AST/ALT 62/43, alk phos 136, lipase 71, urinalysis with protein 15, occult blood 250, negative nitrite, leukocyte Estrace 500, urine RBC and WBC 10-25 with 3+ urine bacteria, lactic acid 6.9, urine culture pending per ED, blood culture x2 pending per ED. In the ED patient administered IV zosyn, NS 2L with ongoing infusion based on ideal body weight given notable morbid obese habitus w/ 30 cc/kg as well zofran IV x 1. Discussed with ED physician and CT abdomen and pelvis without contrast has been obtained and is pending upon evaluation of patient. Certainly if any other intra-abdominal processes going on including even potentially acute appendicitis given patient still has her appendix may necessitate alternate intervention or treatment plan. [facility] Medical History (Updated 11/07/22 @ 00:[address] Prudence Vasquez MD) Anxiety and depression Arthritis History of venous thromboembolism HTN (hypertension) Hyperlipidemia Hypothyroid Morbid obesity Home Medications apixaban 2.5 mg tablet 2.5 mg PO BID 05/01/19 [History Last Taken Unknown] ascorbic acid (vitamin C) 1,000 mg tablet 1,000 mg PO DAILY 05/01/19 [History Last Taken Unknown] bupropion HCl 150 mg tablet,12 hr sustained-release 1 tab PO BID 05/01/19 [History Last Taken Unknown] buspirone 15 mg tablet 15 mg PO BID 05/01/19 [History Last Taken Unknown] celecoxib 200 mg capsule 200 mg PO DAILY 05/01/19 [History Last Taken Unknown] enalapril maleate 20 mg tablet 20 mg PO DAILY 05/01/19 [History Last Taken Unknown] furosemide 40 mg tablet 40 mg PO DAILY 05/01/19 [History Last Taken Unknown] lansoprazole 30 mg capsule,delayed release 30 mg PO DAILY 05/01/19 [History Last Taken Unknown] levothyroxine 50 mcg tablet 200 mcg PO DAILY 05/01/19 [History Last Taken Unknown] metoprolol tartrate 50 mg tablet 50 mg PO BID 05/01/19 [History Last Taken Unknown] cefdinir 300 mg capsule 300 mg PO BID #20 caps 05/02/19 [Rx Last Taken Unknown] triamcinolone acetonide 0.1 % topical cream 1 applic topical BID #1 tube 05/02/19 [Rx Last Taken Unknown] hydrocodone-acetaminophen 5-325mg 5mg-325mg 1 - 2 tab PO BID PRN PRN Pain 11/07/22 [History Last Taken Unknown] pregabalin 25 mg capsule 50 mg PO BID 11/07/22 [History Last Taken Unknown] semaglutide (weight loss) 2.4 mg/0.75 mL subcutaneous pen injector (Wegovy) 2.4 mg subcut TH 11/07/22 [History Last Taken Unknown] Allergy/AdvReac Type Severity Reaction Status Date / Time cephalexin [From Keflex] Allergy Upset Verified 11/06/22 20:18 Stomach codeine Allergy Upset Verified 11/06/22 20:18 Stomach Family History (Updated 11/06/22 @ 23:[address] Prudence Vasquez MD) Mother Heart disease Hypertension Father Diabetes Aneurysm Surgical History (Updated 11/06/22 @ 23:[address] Prudence Vasquez MD) History of herniorrhaphy History of parathyroidectomy Hx of cholecystectomy Hx of thyroidectomy Social History (Updated 11/06/22 @ 23:[address] Prudence Vasquez MD) household members: spouse Smoking Status: Former smoker alcohol intake: never substance use type: does not use ROS ROS Narrative Admission Review of Systems: CONSTITUTIONAL: No weight loss, + fever, chills, weakness or fatigue. HEENT: Eyes: No visual loss, blurred vision, double vision or yellow sclerae. Ears, Nose, Throat: No hearing loss, sneezing, congestion, runny nose or sore throat. SKIN: No rash or itching, lesions, wounds. CARDIOVASCULAR: No chest pain, chest pressure or chest discomfort, palpitations, edema, orthopnea, syncopal events. RESPIRATORY: No shortness of breath, cough or sputum, wheezing, hemoptysis. GASTROINTESTINAL: + anorexia, nausea, vomiting, abdominal pain, occasional loose stool, No melena, BRBPR. GENITOURINARY: + Urinary frequency, No dysuria, urgency or retention. NEUROLOGICAL: + Confusion. No headache, dizziness, syncope, paralysis, ataxia, numbness or tingling in the extremities, focal weakness, change in bowel or bladder control, seizure. MUSCULOSKELETAL: + muscle, back pain, joint pain or stiffness. HEMATOLOGIC: No anemia, bleeding or bruising. LYMPHATICS: No enlarged nodes. No history of splenectomy. PSYCHIATRIC: + history of depression or anxiety. ENDOCRINOLOGIC: No reports of sweating, cold or heat intolerance. No polyuria or polydipsia. ALLERGIES: No history of asthma, hives, eczema or rhinitis. Vital Signs Vital Signs Vital Signs: 11/06/22 20:14 11/06/22 21:17 11/06/22 22:14 Temperature 99.1 F Temperature Source Temporal Pulse Rate 107 H 100 Respiratory Rate 16 22 H Respiratory Effort Normal Respiratory Pattern Normal Blood Pressure 97/69 91/62 Blood Pressure Mean 78 71 Pulse Ox 95 100 Oxygen Delivery Method Room Air Room Air 11/06/22 22:17 11/07/22 00:00 Temperature 99 F Temperature Source Temporal Pulse Rate 100 92 Respiratory Rate 22 H 22 H Respiratory Effort Respiratory Pattern Blood Pressure 91/62 92/56 L Blood Pressure Mean 71 68 Pulse Ox 100 100 Oxygen Delivery Method Room Air Room Air Weight Weight: 395 lb Body Mass Index (BMI) 60.0 Physical Exam Narrative Physical Examination: General: Awake, alert, oriented currently to self, place and recent events but had been confused which has been reports has occurred primarily with fevers, currently cooperative, laying in the ED bed, fatigued and ill-appearing. Skin: Normal color, normal turgor, no icterus, no cyanosis. HEENT: AT/NC, EOMI, PERRLA, dry MM, no carotid bruits or JVD noted; however, habitus makes evaluation difficult. Lungs: Diminished, distant, mildly increased respiratory rate but no distress, no rales, ronchi or wheezing. Heart: Improving, still mildly tachycardic with regular rhythm; no gallop, rub audible. Abdomen: Soft, discomfort to bilateral lower quadrant palpation however no rebound or marked guarding, mild right CVA tenderness but not severe although with morbidly obese habitus evaluation difficult, difficult assess distention, distant bowel sounds, unable to discern HSM given habitus. Extremities: No cyanosis, clubbing, or edema. Neurological: Patient awake, alert, oriented as noted, cognitive function improving since fever subsiding, nearing baseline intact; pupils equally reactive to light and accommodation, cranial nerves grossly normal, moving all 4 extremities, no focal deficits, strength moderately to severely global decrease secondary to acute presentation. Psychiatric: Affect appears flat, fatigued, ill-appearing, no acute evidence of depressive or anxiety feelings but does have underlying history. Results Lab / Micro Data Result Diagrams: 11/06/22 22:44 11/06/22 22:44 Labs: Laboratory Results - last 24 hr 11/06/22 22:44: WBC 30.6 H*, RBC 5.16, Hgb 15.4 H, Hct 49.8 H, MCV 96.5, MCH 29.8, MCHC 30.9 L, RDW Std Deviation 51.0 H, RDW Coeff of Jose Rafael 14.2, Plt Count 302, MPV 10.2, Immature Gran % (Auto) [employer], Neut % (Auto) [employer], Lymph % (Auto) [employer], [place] % (Auto) [employer], Eos % (Auto) [employer], Baso % (Auto) [employer], Total Counted 100, Neutrophils % (Manual) 59, Band Neutrophils % 18 H, Lymphocytes % (Manual) 2 L, Monocytes % (Manual) 6, Eosinophils % (Manual) 1, Metamyelocytes % 14 H, Nucleated RBC % [employer], Diff Path Review May , Platelet Estimate ADEQUATE, RBC Morphology NORM C+C 11/06/22 22:44: Sodium 143, Potassium 3.3 L, Chloride 108 H, Carbon Dioxide 18.0 L, Anion Gap 17 H, BUN 33 H, Creatinine 2.77 H, Estim Creat Clear Calc 21.79, Est GFR (MDRD) Af Amer 22 L, Est GFR (MDRD) Non-Af 19 L, BUN/Creatinine Ratio 11.9, Glucose 154 H, Calcium 10.0, Total Bilirubin 1.10 H, AST 62 H, ALT 43, Alkaline Phosphatase 136 H, Total Protein 7.0, Albumin 3.1 L, Globulin 3.9, Albumin/Globulin Ratio 0.8 L, Lipase 71 L 11/06/22 22:44: Lactic Acid 6.9 H* 11/06/22 23:18: Urine Color Yellow, Urine Clarity Cloudy, Urine pH 6.0, Ur Specific [place] 1.015, Urine Protein 15 H, Urine Glucose (UA) Normal, Urine Ketones Negative, Urine Occult Blood 250 H, Urine Nitrite Negative, Urine Bilirubin Negative, Urine Urobilinogen Normal, Ur Leukocyte Esterase 500 H, Urine RBC 10-25 SEEN, Urine WBC 10-25 SEEN, Ur Squamous Epith Cells 0 SEEN, Urine Bacteria 3+, Urine Mucus 0 SEEN Assessment & Plan Assessment/Plan (1) Sepsis: PLAN: Plan The patient is a 62 y/o F w/ PMHx: Depression and Anxiety, Hx VTE, HTN, HLD, Former tobacco use, Hypothyroidism s/p thyroidectomy, Morbid Obesity, Hx prior pyelonephritis who presents to the [facility] ED on 11/07/22 with history of onset over the last 12-24 hours of fatigue and malaise, decreased oral intake with onset of nausea and emesis as well as right-sided flank discomfort radiating toward her RLQ with increased urinary frequency with notable fevers and chills and notable confusion with fevers per her spouse prompting spouse to bring her in for evaluation. #1. Acute Infectious Encephalopathy secondary to Acute Sepsis secondary to Acute Urinary Tract Infection, Suspected Acute Pyelonephritis with [place] and Severe Lactic Acidosis: CT abdomen pelvis without IV contrast is pending upon requested evaluation of patient but given presentation and history as well as labs do suspect pyelonephritis is the likely etiology but again patient does have lower quadrant discomfort especially on the right side and still does have her appendix. 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 Bld cx x 2 obtained in the ED. #2. Acute kidney injury: Secondary to acute presentation as noted. Admission BUN/Cr 33/2.77, prior baseline creatinine noted to be 0.8-0.9. Will aggressively hydrate, hold nephrotoxic medications, obtain FeNa assessment, obtain renal US with repeat level in AM. #3. Hypokalemia: Admission K+ 3.3, magnesium level requested, supplementation given, repeat level in AM. #4. Hyperglycemia: Suspect stress response, AG mildly elevated but UA without ketones, will obtain HgbA1c to be cautious. #5. Hypertension: Given presentation with low BP we will hold patient, resume once appropriate blood pressure and renal function improved for nephrotoxic BP regimen. #6. Anxiety and depression continue patient home BuSpar and bupropion home regimen with hold for sedation given current presentation. #7. Morbid Obesity: Weight loss and lifestyle changes encouraged, patient reports having lost at least 100 pounds and is being assessed later in the year for possible gastric bypass. #8. Hypothyroidism: Status post prior thyroidectomy, we will continue patient home levothyroxine regimen. #9. History VTE: Noted history of multiple clots including PE and DVT, unclear hypercoagulable history, most recent 2009, we will continue patient home apixaban regimen. #10. GERD: We will continue patient home PPI. #11. DAVID: Patient is supposed to use a CPAP but does not. #12. DVT prophylaxis: SCDs, continue home apixaban regimen. Admission Evaluation Time spent evaluating chart, patient history, patient evaluation, care planning and discussion with specialists: 75 minutes. Charges/Coding Visit Charges Inpatient E&M: 10083 Init Hosp L3
[2022-11-07 01:18] LABS: Magnesium 1.7 mg/dL (1.6-2.6)
[2022-11-07] MEDS: 0.9% Normal Saline 1,000 ML 150 ML IV ×4 (01:41→23:48)
[2022-11-07 01:58] LABS: Urine Sodium 38 mmol/L (Not Establ.)
[2022-11-07] MEDS: Potassium Chloride Oral Tablet 20 MEQ 40 MEQ PO ×2 (02:25→06:29)
[2022-11-07] MEDS: fentaNYL 100 MCG/2 ML Ampul 25 MCG IV (02:30)
--- NOTE | 2022-11-07 02:43 | PCM.HOSP.N ---
Hospitalist Note Patient with stools concerning for possible bleeding. Guiac sent. If positive may need to temporarily hold her anticoagulation.
[2022-11-07 02:49] LABS: Reflex Lactate? Y
[2022-11-07 04:02] LABS: Hematocrit 46.4 % (37-47); Hemoglobin 14.2 g/dL (12.0-15.0); Mean Corp Hgb Conc 30.6 g/dL (32-36); Mean Corpuscular Hgb 29.8 pg (27.0-32.0); Mean Corpuscular Volume 97.3 fL (81-99); Mean Platelet Vol. 10.2 fl (6.2-12.0); POSITIVE DIFFERENTIAL YES; POSITIVE MORPHOLOGY YES; Platelet Count 215 K/mm3 (150-450); RBC Distribution Width CV 14.2 % (11.6-14.6); RBC Distribution Width SD 51.2 fl (35.1-43.9); Red Blood Count 4.77 M/mm3 (4.2-5.4); White Blood Count 29.9 K/mm3 (4.4-11.0)
[2022-11-07] MEDS: 0.9% Saline Lock 10 ML Syringe IV (04:02)
[2022-11-07 04:41] LABS: Differential Indicated MANUAL DIFF
[2022-11-07 04:45] LABS: Eosinophil 1 % (0-5); Lymphocyte 3 % (19-41); Metamyelocyte 18 % (0-1); Monocyte 3 % (0-10); Neutrophil-Band 9 % (0-5); Neutrophil-Segmented 66 % (47-70); Total Cells Counted 100 (MANUAL DIFF)
[2022-11-07 04:47] LABS: Absolute Neutrophil Count 27.8 X10^3/uL (2.0-7.7); Neutrophil # 27.82 X10^3/uL (2.7-7.7); Platelet Morphology ADEQ
[2022-11-07 04:53] LABS: Lactic Acid 3.7 mmol/L (0.4-1.9)
[2022-11-07 05:19] LABS: ALB/GLOB Ratio 0.8 RATIO (0.9-2.4); AST(SGOT) 46 U/L (15-37); Alanine Aminotransfer ALT/SGPT 36 U/L (13-56); Albumin, Serum 2.5 g/dL (3.2-5.0); Alkaline Phosphatase 83 U/L (45-117); Anion Gap 11 (5-15); BUN 36 mg/dL (7-18); BUN/Creat Ratio 14.6 RATIO (10-20); Calcium,Total 8.4 mg/dL (8.5-10.1); Chloride 113 mmol/L (98-107); Creatinine, Serum 2.46 mg/dL (0.55-1.02); EST Glomerular Filtration Rate 21 mL/min (>60); Est Glom Filt Rate - Afr Amer 26 mL/min (>60); Estimated Creatinine Clearance 24.53 ml/min; Globulin 3.3 g/dL (2.2-4.2); Glucose 139 mg/dL (74-106); Potassium 3.2 mmol/L (3.5-5.1); Protein, Total 5.8 g/dL (6.4-8.2); Sodium Level 144 mmol/L (136-145)
--- NOTE | 2022-11-07 06:05 | CON.PCM.CC_ITS ---
Assessment & Plan Assessment/Plan (1) Sepsis: PLAN: Plan RECOMMENDATIONS: 1. Continue antimicrobials as ordered. 2. Cystoscopy per urology this morning. 3. Encourage incentive spirometer use and mobilize patient as tolerated. 4. Given the patient's lack of further ICU or pulmonary needs, will sign off. Please call with any additional questions. IMPRESSIONS: 1. Sepsis The patient presented to the hospital with sepsis due to probable urinary tract source of infection/pyelonephritis with acute sepsis related organ dysfunction as evidenced by lactic acidemia and acute kidney injury. The patient has been volume resuscitated and remains hemodynamically stable. She has been initiated on appropriate broad-spectrum antimicrobials. Urology has been consulted with tentative plans for cystoscopy this morning. 2. Acute kidney injury Most likely prerenal in etiology in the setting of sepsis. Creatinine is improving with volume expansion. Continue to monitor urine output. No current indication for renal replacement therapy. 3. Morbid obesity/hypertension/hyperlipidemia/anxiety/hypothyroidism/history of VTE Complicates care, management, recovery and prognosis. Eliquis is currently on hold. Home medications can be resumed from my perspective. This note was generated with [employer] dictation software. It may contain incorrect words, spelling, and punctuation that were not noted in checking the note before signing. HPI Consult Data Date of Consult: 11/08/22 HPI Narrative Reason for Consultation: Sepsis HPI Narrative: The patient is a 62-year-old female, with a history as outlined below, who presented to the emergency department on November 06 with abdominal pain, nausea, vomiting and subjective fevers. The patient does have a history of VTE on anticoagulation, prior tobacco dependency, hypothyroidism and morbid obesity. On presentation to the emergency department, the patient was noted to have a low-grade fever. Her blood pressures were somewhat tenuous with tachypnea note d. Initial laboratory evaluation revealed an elevated white blood cell count of 30,000. 18% bands were noted. Chemistry profile was notable for a creatinine of 2.7 with a potassium of 3.3 and bicarbonate of 18. Anion gap was elevated at 17 with a lactate of 6.9. Urine analysis was positive for leukocyte esterase, 10-25 white cells and 3+ urine bacteria. CT abdomen/pelvis demonstrated a 5 mm stone in the distal right ureter causing mild obstructive changes. The patient received supplemental IV fluid hydration and antimicrobials. She was subsequently admitted to the medical intensive care unit for further management. The patient has remained clinically stable overnight. She has been evaluated by urology with tentative plans for cystoscopy this morning. She does report ongoing diarrhea. [facility] Medical History Anxiety and depression Arthritis History of venous thromboembolism HTN (hypertension) Hyperlipidemia Hypothyroid Morbid obesity Home Medications apixaban 2.5 mg tablet 2.5 mg PO BID 05/01/19 [History Last Taken Unknown] ascorbic acid (vitamin C) 1,000 mg tablet 1,000 mg PO DAILY 05/01/19 [History Last Taken Unknown] bupropion HCl 150 mg tablet,12 hr sustained-release 1 tab PO BID 05/01/19 [History Last Taken Unknown] buspirone 15 mg tablet 15 mg PO BID 05/01/19 [History Last Taken Unknown] celecoxib 200 mg capsule 200 mg PO DAILY 05/01/19 [History Last Taken Unknown] enalapril maleate 20 mg tablet 20 mg PO DAILY 05/01/19 [History Last Taken Unknown] furosemide 40 mg tablet 40 mg PO DAILY 05/01/19 [History Last Taken Unknown] lansoprazole 30 mg capsule,delayed release 30 mg PO DAILY 05/01/19 [History Last Taken Unknown] levothyroxine 50 mcg tablet 200 mcg PO DAILY 05/01/19 [History Last Taken Unk nown] metoprolol tartrate 50 mg tablet 50 mg PO BID 05/01/19 [History Last Taken Unknown] cefdinir 300 mg capsule 300 mg PO BID #20 caps 05/02/19 [Rx Last Taken Unknown] triamcinolone acetonide 0.1 % topical cream 1 applic topical BID #1 tube 05/02/19 [Rx Last Taken Unknown] hydrocodone-acetaminophen 5-325mg 5mg-325mg 1 - 2 tab PO BID PRN PRN Pain 11/07/22 [History Last Taken Unknown] pregabalin 25 mg capsule 50 mg PO BID 11/07/22 [History Last Taken Unknown] semaglutide (weight loss) 2.4 mg/0.75 mL subcutaneous pen injector (Wegovy) 2.4 mg subcut TH 11/07/22 [History Last Taken Unknown] Allergy/AdvReac Type Severity Reaction Status Date / Time cephalexin [From Keflex] Allergy Upset Verified 11/06/22 20:18 Stomach codeine Allergy Upset Verified 11/06/22 20:18 Stomach Family History Mother Heart disease Hypertension Father Diabetes Aneurysm Surgical History History of herniorrhaphy History of parathyroidectomy Hx of cholecystectomy Hx of thyroidectomy Social History household members: spouse Smoking Status: Former smoker alcohol intake: never substance use type: does not use ROS ROS Narrative 10 systems were reviewed with pertinent positives as noted in the HPI above. Physical Exam Const alert, oriented x3 and no apparent distress General Appearance: cooperative Nutritional Appearance: morbidly obese HEENT normocephalic, head/scalp atraumatic and moist oral mucous membranes Eyes PERRL, EOMs intact bilaterally and conjunctivae normal Neck supple General: trachea midline Chest inspection of chest normal Resp normal respiratory effort Auscultation: Negative for rales, rhonchi or wheezes Cardio regular rate and regular rhythm GI normal to inspection, nondistended, normoactive bowel sounds Extremity no clubbing, cyanosis or edema Skin no rashes or lesions noted Neuro CN's II-XII intact bilaterally and no focal motor deficits Psych cooperative and affect normal Lab / Micro Data Result Diagrams: 11/08/22 04:45 11/08/22 04:45 Labs: Laboratory Results - last 24 hr 11/06/22 22:44: WBC 30.6 H*, RBC 5.16, Hgb 15.4 H, Hct 49.8 H, MCV 96.5, MCH 29.8, MCHC 30.9 L, RDW Std Deviation 51.0 H, RDW Coeff of Jose Rafael 14.2, Plt Count 302, MPV 10.2, Immature Gran % (Auto) [employer], Neut % (Auto) [employer], Lymph % (Auto) [employer], [place] % (Auto) [employer], Eos % (Auto) [employer], Baso % (Auto) [employer], Absolute Neuts (auto) 24.8 H, Absolute Lymphs (auto) 0.61 L, Total Counted 100, Neutrophils % (Manual) 59, Band Neutrophils % 18 H, Lymphocytes % (Manual) 2 L, Monocytes % (Manual) 6, Eosinophils % (Manual) 1, Metamyelocytes % 14 H, Nucleated RBC % [employer], Diff Path Review May santos, Platelet Estimate ADEQUATE, RBC Morphology NORM C+C 11/06/22 22:44: Sodium 143, Potassium 3.3 L, Chloride 108 H, Carbon Dioxide 18.0 L, Anion Gap 17 H, BUN 33 H, Creatinine 2.77 H, Estim Creat Clear Calc 21.79, Est GFR (MDRD) Af Amer 22 L, Est GFR (MDRD) Non-Af 19 L, BUN/Creatinine Ratio 11.9, Glucose 154 H, Calcium 10.0, Total Bilirubin 1.10 H, AST 62 H, ALT 43, Alkaline Phosphatase 136 H, Total Protein 7.0, Albumin 3.1 L, Globulin 3.9, Albumin/Globulin Ratio 0.8 L, Lipase 71 L 11/06/22 22:44: Lactic Acid 6.9 H* 11/06/22 22:44: Magnesium 1.7 11/06/22 23:18: Urine Color Yellow, Urine Clarity Cloudy, Urine pH 6.0, Ur Specific [place] 1.015, Urine Protein 15 H, Urine Glucose (UA) Normal, Urine Ketones Negative, Urine Occult Blood 250 H, Urine Nitrite Negative, Urine Bilirubin Negative, Urine Urobilinogen Normal, Ur Leukocyte Esterase 500 H, Urine RBC 10-25 SEEN, Urine WBC 10-25 SEEN, Ur Squamous Epith Cells 0 SEEN, Urine Bacteria 3+, Urine Mucus 0 SEEN 11/06/22 23:18: Ur Random Sodium 38, Urine Creatinine 135.00 11/07/22 03:50: WBC 29.9 H, RBC 4.77, Hgb 14.2, Hct 46.4, MCV 97.3, MCH 29.8, MCHC 30.6 L, RDW Std Deviation 51.2 H, RDW Coeff of Jose Rafael 14.2, Plt Count 215, MPV 10.2, Neut % (Auto) Not Reportable, Absolute Neuts (auto) 27.8 H, Absolute Lymphs (auto) 0.90, Total Counted 100, Neutrophils % (Manual) 66, Band Neutrophi ls % 9 H, Lymphocytes % (Manual) 3 L, Monocytes % (Manual) 3, Eosinophils % (Manual) 1, Metamyelocytes % 18 H, Diff Path Review May santos, Plt Morphology Comment ADEQ, Marguerite Cells NCNK 11/07/22 03:50: Sodium 144, Potassium 3.2 L, Chloride 113 H, Carbon Dioxide 20.0 L, Anion Gap 11, BUN 36 H, Creatinine 2.46 H, Estim Creat Clear Calc 24.53, Est GFR (MDRD) Af Amer 26 L, Est GFR (MDRD) Non-Af 21 L, BUN/Creatinine Ratio 14.6, Glucose 139 H, Calcium 8.4 L, Total Bilirubin 0.90, AST 46 H, ALT 36, Alkaline Phosphatase 83, Total Protein 5.8 L, Albumin 2.5 L, Globulin 3.3, Albumin/Globulin Ratio 0.8 L 11/07/22 03:50: Lactic Acid 3.7 H* Micro: Microbiology 11/07/22 02:25 Stool Stool Occult Blood (ANGELA) - Final Occult Blood Positive Radiology Impression Abdomen/Pelvis CT 11/06/22 23:40 IMPRESSION: There is a 5 mm stone in the distal right ureter causing mild obstructive changes. Electronically Signed: Colt Lopez MD at 0:46 EST , Charges/Coding Visit Charges Inpatient E&M: 66538 Init Hosp L3
[2022-11-07] MEDS: Levothyroxine 100 MCG Tablet 200 MCG PO (06:29)
--- NOTE | 2022-11-07 07:14 | PN.HOSP_ITS ---
Subjective Subjective A 62-year-old admitted with sepsis secondary to suspected pyelonephritis. Admitted to the intensive care unit where patient is currently being managed Objective Data Objective Data Vital Signs: Vital Signs Temp Pulse Resp BP Pulse Ox O2 Del Method 98.6 F 111 H 21 H 112/69 98 Room Air 11/07/22 06:00 11/07/22 06:00 11/07/22 06:00 11/07/22 06:00 11/07/22 06:00 11/07/22 06:00 Oxygen Delivery Method Room Air Weight: 183.4 kg Body Mass Index (BMI) 61.4 Intake & Output: Intake and Output for Last 24 Hours 11/05/22 11/06/22 11/07/22 23:59 23:59 23:59 Intake Total 1000 / 1000 3827.5 / 3827.5 Output Total 350 / 350 Balance 1000 / 1000 3477.5 / 3477.5 Lab / Micro Data Result Diagrams: 11/07/22 03:50 11/07/22 03:50 Labs: Laboratory Results - last 24 hr 11/06/22 22:44: WBC 30.6 H*, RBC 5.16, Hgb 15.4 H, Hct 49.8 H, MCV 96.5, MCH 29.8, MCHC 30.9 L, RDW Std Deviation 51.0 H, RDW Coeff of Jose Rafael 14.2, Plt Count 302, MPV 10.2, Immature Gran % (Auto) SENIOR QA AUTOMATION ENGINEER, Neut % (Auto) SENIOR QA AUTOMATION ENGINEER, Lymph % (Auto) SENIOR QA AUTOMATION ENGINEER, [place] % (Auto) SENIOR QA AUTOMATION ENGINEER, Eos % (Auto) SENIOR QA AUTOMATION ENGINEER, Baso % (Auto) SENIOR QA AUTOMATION ENGINEER, Absolute Neuts (auto) 24.8 H, Absolute Lymphs (auto) 0.61 L, Total Counted 100, Neutrophils % (Manual) 59, Band Neutrophils % 18 H, Lymphocytes % (Manual) 2 L, Monocytes % (Manual) 6, Eosinophils % (Manual) 1, Metamyelocytes % 14 H, Nucleated RBC % SENIOR QA AUTOMATION ENGINEER, Diff Path Review February, Platelet Estimate ADEQUATE, RBC Morphology NORM C+C 11/06/22 22:44: Sodium 143, Potassium 3.3 L, Chloride 108 H, Carbon Dioxide 18.0 L, Anion Gap 17 H, BUN 33 H, Creatinine 2.77 H, Estim Creat Clear Calc 21.79, Est GFR (MDRD) Af Amer 22 L, Est GFR (MDRD) Non-Af 19 L, BUN/Creatinine Ratio 11.9, Glucose 154 H, Calcium 10.0, Total Bilirubin 1.10 H, AST 62 H, ALT 43, Alkaline Phosphatase 136 H, Total Protein 7.0, Albumin 3.1 L, Globulin 3.9, Albumin/Globulin Ratio 0.8 L, Lipase 71 L 11/06/22 22:44: Lactic Acid 6.9 H* 11/06/22 22:44: Magnesium 1.7 11/06/22 23:18: Urine Color Yellow, Urine Clarity Cloudy, Urine pH 6.0, Ur Specific [place] 1.015, Urine Protein 15 H, Urine Glucose (UA) Normal, Urine Ketones Negative, Urine Occult Blood 250 H, Urine Nitrite Negative, Urine Bilirubin Negative, Urine Urobilinogen Normal, Ur Leukocyte Esterase 500 H, Urine RBC 10-25 SEEN, Urine WBC 10-25 SEEN, Ur Squamous Epith Cells 0 SEEN, Uri ne Bacteria 3+, Urine Mucus 0 SEEN 11/06/22 23:18: Ur Random Sodium 38, Urine Creatinine 135.00 11/07/22 03:50: WBC 29.9 H, RBC 4.77, Hgb 14.2, Hct 46.4, MCV 97.3, MCH 29.8, MCHC 30.6 L, RDW Std Deviation 51.2 H, RDW Coeff of Jose Rafael 14.2, Plt Count 215, MPV 10.2, Neut % (Auto) Not Reportable, Absolute Neuts (auto) 27.8 H, Absolute Lymphs (auto) 0.90, Total Counted 100, Neutrophils % (Manual) 66, Band Neutrophils % 9 H, Lymphocytes % (Manual) 3 L, Monocytes % (Manual) 3, Eosinophils % (Manual) 1, Metamyelocytes % 18 H, Diff Path Review May foll, Plt Morphology Comment ADEQ, [place]ite Cells NCNK 11/07/22 03:50: Sodium 144, Potassium 3.2 L, Chloride 113 H, Carbon Dioxide 20.0 L, Anion Gap 11, BUN 36 H, Creatinine 2.46 H, Estim Creat Clear Calc 24.53, Est GFR (MDRD) Af Amer 26 L, Est GFR (MDRD) Non-Af 21 L, BUN/Creatinine Ratio 14.6, Glucose 139 H, Calcium 8.4 L, Total Bilirubin 0.90, AST 46 H, ALT 36, Alkaline Phosphatase 83, Total Protein 5.8 L, Albumin 2.5 L, Globulin 3.3, Alb umin/Globulin Ratio 0.8 L 11/07/22 03:50: Lactic Acid 3.7 H* Micro: Microbiology 11/07/22 02:25 Stool Stool Occult Blood (ANGELA) - Final Occult Blood Positive Radiography Diagnostic Testing: Radiology Impression Abdomen/Pelvis CT 11/06/22 23:40 IMPRESSION: There is a 5 mm stone in the distal right ureter causing mild obstructive changes. Electronically Signed: Colt Lopez MD at 0:46 EST , Physical Exam Narrative GENERAL: cooperative HEENT: Atraumatic; normocephalic EYES; Anicteric, Normal Conjunctiva NECK; supple, normal thyroid, RESPIRATORY: Diminished to auscultation CARDIOVASCULAR: Regular S1 S2, GI: soft, normoactive bowel sounds, : No Renal angle tenderness; EXTREMITIES: No edema, no clubbing, MUSCULOSKELETAL: no muscle wasting NEURO: Awake; no lateralizing signs. SKIN: No Rash PSYCH; Flat affect Assessment & Plan Assessment/Plan (1) Sepsis: PLAN: Plan A 62-year-old admitted with sepsis secondary to suspected pyelonephritis. Admitted to the intensive care unit where patient is currently being managed 1. Acute metabolic encephalopathy Is secondary to sepsis secondary as a result of acute pyelonephritis 2. Sepsis ? Suspected to be secondary to acute pyelonephritis patient started on broad- spectrum antibiotic therapy IV fluid cultures sent. Patient blood cultures so far positive for gram-positive cocci and vancomycin added to therapy. Patient was seen in consultation by Dr Borrero with urology for right obstructing ureteral calculus for which patient underwent cystoscopy with right stent placement 3. Nephrolithiasis management as discussed above 4. Acute kidney injury ? Suspected to be secondary to ATN as a result of sepsis Baseline creatinine 0.9 creatinine on admission was 2.77 started on IV fluid with monitoring of electrolytes ordered 5. Acute GI bleed ? Stool for guaiac came back positive. Patient is on apixaban held 6. Hypokalemia ? Corrected per protocol repeat labs ordered for a.m. 7. Hypothyroidism ? Following thyroidectomy patient is on replacement therapy with levothyroxine did continue 8. History of multiple VTE's ? Patient is on apixaban held in view of GI bleed 9. Class III obesity with BMI of 61.5 ? Complicating patient's care weight loss advised patient is on semaglutide weight loss 10. Obstructive sleep apnea ? Consistent use of CPAP encouraged 11. GERD ? Patient Protonix at home did continue 12. Essential hypertension ? Patient antihypertensives held on admission 13. DVT prophylaxis -SCDs for now until apixaban is resumed Time spent in the patient's overall evaluation,decision-making process, review of diagnostic data, adjustment of management, discussion with other providers, nursing nursing and ancillary staff involved in patient's care documentation, 55 Minutes Charges/Coding Visit Charges Inpatient E&M: 78279 [facility] Hosp L3
[2022-11-07 07:17] LABS: Hemoglobin A1c 5.2 % (3.8-5.6)
--- NOTE | 2022-11-07 07:28 | PCM.CONS.U ---
Assessment & Plan Assessment/Plan (1) Acidosis, lactic: PLAN: Continue with IV antibiotics medical management (2) Sepsis: PLAN: Continue with antibiotics (3) Right ureteral calculus: PLAN: Cystoscopy stent placement urgently this morning. HPI Consult Data Date of Consult: 11/07/22 HPI Narrative Reason for Consultation: Right ureteral calculi and sepsis HPI Narrative: TAYLER CAMPOS, is a 62 F who presents obstructing stone in the distal right ureter she has elevated white count of 30,000 she had encephalopathy signs of sepsis she has been admitted into the intensive care unit. I was called regarding the patient last night this morning I saw the patient she is clinically stable but working to proceed with a cystoscopy and right stent placement for an obstructing stone and a infection in the right kidney, pyelonephritis with signs of sepsis. [facility] Medical History Anxiety and depression Arthritis History of venous thromboembolism HTN (hypertension) Hyperlipidemia Hypothyroid Morbid obesity Home Medications apixaban 2.5 mg tablet 2.5 mg PO BID 05/01/19 [History Last Taken Unknown] ascorbic acid (vitamin C) 1,000 mg tablet 1,000 mg PO DAILY 05/01/19 [History Last Taken Unknown] bupropion HCl 150 mg tablet,12 hr sustained-release 1 tab PO BID 05/01/19 [History Last Taken Unknown] buspirone 15 mg tablet 15 mg PO BID 05/01/19 [History Last Taken Unknown] celecoxib 200 mg capsule 200 mg PO DAILY 05/01/19 [History Last Taken Unknown] enalapril maleate 20 mg tablet 20 mg PO DAILY 05/01/19 [History Last Taken Unknown] furosemide 40 mg tablet 40 mg PO DAILY 05/01/19 [History Last Taken Unknown] lansoprazole 30 mg capsule,delayed release 30 mg PO DAILY 05/01/19 [History Last Taken Unknown] levothyroxine 50 mcg tablet 200 mcg PO DAILY 05/01/19 [History Last Taken Unknown] metoprolol tartrate 50 mg tablet 50 mg PO BID 05/01/19 [History Last Taken Unknown] cefdinir 300 mg capsule 300 mg PO BID #20 caps 05/02/19 [Rx Last Taken Unknown] triamcinolone acetonide 0.1 % topical cream 1 applic topical BID #1 tube 05/02/19 [Rx Last Taken Unknown] hydrocodone-acetaminophen 5-325mg 5mg-325mg 1 - 2 tab PO BID PRN PRN Pain 11/07/22 [History Last Taken Unknown] pregabalin 25 mg capsule 50 mg PO BID 11/07/22 [History Last Taken Unknown] semaglutide (weight loss) 2.4 mg/0.75 mL subcutaneous pen injector (Wegovy) 2.4 mg subcut TH 11/07/22 [History Last Taken Unknown] Allergy/AdvReac Type Severity Reaction Status Date / Time cephalexin [From Keflex] Allergy Upset Verified 11/06/22 20:18 Stomach codeine Allergy Upset Verified 11/06/22 20:18 Stomach Family History Mother Heart disease Hypertension Father Diabetes Aneurysm Surgical History History of herniorrhaphy History of parathyroidectomy Hx of cholecystectomy Hx of thyroidectomy Social History household members: spouse Smoking Status: Former smoker alcohol intake: never substance use type: does not use ROS Constitutional Constitutional: Denies chills, fever(s) or malaise Eyes Eyes: Denies blurry vision or change in vision ENT HEENT: Reports none Cardiovascular Cardiovascular: Denies chest pain or palpitations Respiratory/Chest Respiratory/Chest: Denies cough or shortness of breath with exertion Gastrointestinal Gastrointestinal: Denies abdominal pain, constipation or diarrhea Musculoskeletal Musculoskeletal: Denies back pain, joint stiffness or joint swelling Integumentary Integumentary: Denies dry skin, jaundice, lesions or rash Neurologic Neurologic: Denies confusion, syncope or weakness Psychiatric Psychiatric: Reports none; Denies anxiety or depression Endocrine Endocrinology: Denies excessive sweating, fatigue or flushing Hematologic/Lymphatic Hematologic/Lymphatic: Denies anemia, easy bleeding or easy bruising Physical Exam Narrative Patient is responsive but fairly lethargic Const alert and oriented x3 General Appearance: cooperative HEENT normocephalic, head/scalp atraumatic, EAC's normal and TM's normal bilaterally Eyes PERRL and EOMs intact bilaterally Pupil: sluggish Neck no lymphadenopathy, supple and no JVD General: trachea midline Lymph Lymphatic: no lymphadenopathy noted, lymphedema and lymphadenopathy Resp normal respiratory effort, normal air movement and clear to auscultation bilaterally Cardio regular rate, regular rhythm and peripheral pulses 2+ throughout GI soft to palpation, non-tender and non-distended Extremity normal capillary refill and no clubbing, cyanosis or edema General Extremity: no tenderness to palpation of joints or extremities Skin no rashes or lesions noted General Skin Exam: turgor normal Lesions: no lesions Rashes: no rashes Neuro CN's II-XII intact bilaterally Speech: speech normal Motor Exam: strength 5/5 throughout; Negative for general weakness Psych thought process normal, cooperative and affect normal Appearance: appropriate Lab / Micro Data Result Diagrams: 11/07/22 03:50 11/07/22 03:50 Labs: Laboratory Results - last 24 hr 11/06/22 22:44: WBC 30.6 H*, RBC 5.16, Hgb 15.4 H, Hct 49.8 H, MCV 96.5, MCH 29.8, MCHC 30.9 L, RDW Std Deviation 51.0 H, RDW Coeff of Jose Rafael 14.2, Plt Count 302, MPV 10.2, Immature Gran % (Auto) MEDICAL CLAIMS PROCESSOR, Neut % (Auto) MEDICAL CLAIMS PROCESSOR, Lymph % (Auto) MEDICAL CLAIMS PROCESSOR, [place] % (Auto) MEDICAL CLAIMS PROCESSOR, Eos % (Auto) MEDICAL CLAIMS PROCESSOR, Baso % (Auto) MEDICAL CLAIMS PROCESSOR, Absolute Neuts (auto) 24.8 H, Absolute Lymphs (auto) 0.61 L, Total Counted 100, Neutrophils % (Manual) 59, Band Neutrophils % 18 H, Lymphocytes % (Manual) 2 L, Monocytes % (Manual) 6, Eosinophils % (Manual) 1, Metamyelocytes % 14 H, Nucleated RBC % MEDICAL CLAIMS PROCESSOR, Diff Path Review May foll, Platelet Estimate ADEQUATE, RBC Morphology NORM C+C 11/06/22 22:44: Sodium 143, Potassium 3.3 L, Chloride 108 H, Carbon Dioxide 18.0 L, Anion Gap 17 H, BUN 33 H, Creatinine 2.77 H, Estim Creat Clear Calc 21.79, Est GFR (MDRD) Af Amer 22 L, Est GFR (MDRD) Non-Af 19 L, BUN/Creatinine Ratio 11.9, Glucose 154 H, Calcium 10.0, Total Bilirubin 1.10 H, AST 62 H, ALT 43, Alkaline Phosphatase 136 H, Total Protein 7.0, Albumin 3.1 L, Globulin 3.9, Albumin/Globulin Ratio 0.8 L, Lipase 71 L 11/06/22 22:44: Lactic Acid 6.9 H* 11/06/22 22:44: Magnesium 1.7 11/06/22 23:18: Urine Color Yellow, Urine Clarity Cloudy, Urine pH 6.0, Ur Specific [place] 1.015, Urine Protein 15 H, Urine Glucose (UA) Normal, Urine Ketones Negative, Urine Occult Blood 250 H, Urine Nitrite Negative, Urine Bilirubin Negative, Urine Urobilinogen Normal, Ur Leukocyte Esterase 500 H, Urine RBC 10-25 SEEN, Urine WBC 10-25 SEEN, Ur Squamous Epith Cells 0 SEEN, Urine Bacteria 3+, Urine Mucus 0 SEEN 11/06/22 23:18: Ur Random Sodium 38, Urine Creatinine 135.00 11/07/22 03:50: WBC 29.9 H, RBC 4.77, Hgb 14.2, Hct 46.4, MCV 97.3, MCH 29.8, MCHC 30.6 L, RDW Std Deviation 51.2 H, RDW Coeff of Jose Rafael 14.2, Plt Count 215, MPV 10.2, Neut % (Auto) Not Reportable, Absolute Neuts (auto) 27.8 H, Absolute Lymphs (auto) 0.90, Total Counted 100, Neutrophils % (Manual) 66, Band Neutrophils % 9 H, Lymphocytes % (Manual) 3 L, Monocytes % (Manual) 3, Eosinophils % (Manual) 1, Metamyelocytes % 18 H, Diff Path Review May foll, Plt Morphology Comment ADEQ, [place] Cells NCNK 11/07/22 03:50: Sodium 144, Potassium 3.2 L, Chloride 113 H, Carbon Dioxide 20.0 L, Anion Gap 11, BUN 36 H, Creatinine 2.46 H, Estim Creat Clear Calc 24.53, Est GFR (MDRD) Af Amer 26 L, Est GFR (MDRD) Non-Af 21 L, BUN/Creatinine Ratio 14.6, Glucose 139 H, Calcium 8.4 L, Total Bilirubin 0.90, AST 46 H, ALT 36, Alkaline Phosphatase 83, Total Protein 5.8 L, Albumin 2.5 L, Globulin 3.3, Albumin/Globulin Ratio 0.8 L 11/07/22 03:50: Hemoglobin A1c 5.2 11/07/22 03:50: Lactic Acid 3.7 H* Micro: Microbiology 11/07/22 02:25 Stool Stool Occult Blood (ANGELA) - Final Occult Blood Positive Radiology Impression Abdomen/Pelvis CT 11/06/22 23:40 IMPRESSION: There is a 5 mm stone in the distal right ureter causing mild obstructive changes. Electronically Signed: Colt Lopez MD at 0:46 EST ,
--- NOTE | 2022-11-07 08:00 | PCM.OPRPT ---
Report of Operation Date of Procedure: 11/07/22 Pre-Operative Diagnosis: Right obstructing ureteral calculus Post-Operative Diagnosis: Same Surgery/Procedure Performed:: Cystoscopy right stent placement Description of Surgical Findings:: Patient was taken back to the operating room after induction of general anesthesia, the patient was placed in dorsolithotomy position. The urethra and genitals were prepped and draped in usual sterile fashion. Using a 21 [place] rigid cystourethroscope the entire length of the urethra was normal then went into the bladder. Identified the trigone the left and right ureteral orifice. I then cannulated the right ureteral orifice and advanced a wire up into the kidney. I then backloaded a 5 [place] open ended catheter over the wire and injected contrast to delineate the anatomy. After the retrograde was performed I then used fluoroscopic images and guidance to advanced a wire up into the kidney and over the 0.038 glidewire I advanced a 6 [place] by 26 cm double pigtail stent. I then pulled the 0.038 Glidewire off and the stent coiled in the kidney bladder good position. The bladder was then drained. We confirmed the position of the stent by fluoroscopy. Patient anesthetic was reversed and was taken back to the PACU in good condition. Surgeon: Pedrito Borrero Type of Anesthesia: General Drains: right stent Admit VTE Documentation VTE Present on Admission: No VTE Mechan Device Prophylaxis: SCD's VTE Pharm Prophylaxis ordered?: No
--- NOTE | 2022-11-07 11:17 | PCM.RX.CS ---
Consult Pharmacy has been consulted to manage selected antiobiotic: Vancomycin Type of Consult: New start Suspected Infection: Sepsis Labs: Sodium 144 mmol/L (136-145) 11/07/22 03:50 Potassium 3.2 mmol/L (3.5-5.1) L 11/07/22 03:50 Chloride 113 mmol/L (98-107) H 11/07/22 03:50 Carbon Dioxide 20.0 mmol/L (21.0-32.0) L 11/07/22 03:50 Anion Gap 11 (5-15) 11/07/22 03:50 BUN 36 mg/dL (7-18) H 11/07/22 03:50 Creatinine 2.46 mg/dL (0.55-1.02) H 11/07/22 03:50 Est GFR (MDRD) Af Amer 26 mL/min (>60) L 11/07/22 03:50 Est GFR (MDRD) Non-Af 21 mL/min (>60) L 11/07/22 03:50 BUN/Creatinine Ratio 14.6 RATIO (10-20) 11/07/22 03:50 Glucose 139 mg/dL (74-106) H 11/07/22 03:50 Microbiology: Microbiology 11/06/22 22:35 Blood Culture (Wb) - Left Hand Blood Culture - Preliminary 11/06/22 22:49 Blood Culture (Wb) - Anticubital Right Blood Culture - Preliminary 11/07/22 02:25 Stool Stool Occult Blood (ANGELA) - Final Occult Blood Positive Weight used for dosin.4 kg Estimated Creatinine Clearance: 42.9ML/MIN Goal Trough: 10-15 mcg/mL Pharmacy Plan for Drug Dosing: Give initial standard dose of 2000mg IV x1, then continue with 1500mg IV q24h per [facility] dosing protocol. Will order a trough to be drawn before the 3rd total dose. The patient's CrCl of 42.9ml/min was calculated using an adjusted body weight. Pharmacy Service will continue to monitor and adjust dosing as required. Follow-Up Labs: Trough Vancomycin Labs to be done on [date and time ordered]: 11/09/22 09:30
--- NOTE | 2022-11-07 15:00 | CASEMGMT ---
RN?CM?PROTECTIVE SIGNAL REPAIRER?CM?to room to meet with patient for initial transition planning/care coordination?assessment.?RN?CM?introduced self and role at [facility].? Pt voices understanding and consents to?assessment?at this time.? Pt resting in bed in no distress at this time.? @ bedside. Pt is A/O at this time and answers all questions appropriately.?? Care providers, pharmacy, and demographics verified/updated at this time.? PCP:?Dr Long Specialists:?[facility] Preferred Pharmacy:?[facility] Insurance:?[facility] Prescription Benefit:??Yes LNOK:? , [employer] Living Arrangements:?Lives w/ in 2-story home w/3 steps to enter. Bedroom and bathroom on 2nd floor. No bathroom on first floor. Pt states she stays upstairs on the 2nd floor and only goes downstairs about 3-4 x's/week. works from home and is w/pt 03/05. He takes meals upstairs to her. Transportation:? DME: Pt uses a cane and RTS. Has a BSC and walker, but states has not taken them out of the box yet. Suppose to wear a PAP, but has not worn it for about a year. She states when she did try it, she would rip it off during the night and it was frustrating. She tried to get used to it for about 3 months. She states will try to use again in the future, as it is a requirement for bariatric surgery. Pt states no need for further DME at this time.?? HHC/SNF:?No hx of either. Pt states if [facility]CU is an option for her to go to, then that is her 1st choice. Otherwise, she refuses a list of other SNF's, stating she will not go anywhere else and will go home. Pt has been a 2-3 assist since admission. Pt states if unable to go to TCU, she will go home and is interested in [facility]. She declines wanting a [facility] list of other options at this time. Pt and voice no further concerns/needs at this time.? PLAN:??TBD. [facility] TCU vs home w/HHC DGiauemiliano BSN?RN?CM
--- NOTE | 2022-11-07 16:29 | CON.PCM.GI_ITS ---
HPI Consult Data Date of Consult: 11/07/22 HPI Narrative Reason for Consultation: GI bleed HPI Narrative: TAYLER CAMPOS, is a 62 F who presents with abdominal pain nausea vomiting fevers. Patient states she started with this a few days ago.? She was eating and toe over the last about 24 hours.? She is not really drinking.? She has had fe vers.? She has had pain in the right flank but it is more in the right lower quadrant now.? She has had gallbladder out but still has her appendix.? She has never had kidney stone.? She denies any urinary symptoms.? She has not had diarrhea.? No chest pain trouble breathing. She is on Eliquis for history of DVT and PEs but not having symptoms of this.? She is not reporting any bleeding. She had a CT scan abdomen pelvis that showed an obstructive uropathy secondary to nephrolithiasis. She underwent a stent placement by urology. I was called to see her due to recurrent abdominal pain and lower GI bleeding. Her stools were checked and they are occult positive. I requested that she get stools checked for enteric pathogen and C. difficile. Her C. difficile toxin, antigen a and B and PCR came back positive. [facility] Medical History Anxiety and depression Arthritis History of venous thromboembolism HTN (hypertension) Hyperlipidemia Hypothyroid Morbid obesity Home Medications apixaban 2.5 mg tablet 2.5 mg PO BID 05/01/19 [History Last Taken Unknown] ascorbic acid (vitamin C) 1,000 mg tablet 1,000 mg PO DAILY 05/01/19 [History Last Taken Unknown] bupropion HCl 150 mg tablet,12 hr sustained-release 1 tab PO BID 05/01/19 [H istory Last Taken Unknown] buspirone 15 mg tablet 15 mg PO BID 05/01/19 [History Last Taken Unknown] celecoxib 200 mg capsule 200 mg PO DAILY 05/01/19 [History Last Taken Unknown] enalapril maleate 20 mg tablet 20 mg PO DAILY 05/01/19 [History Last Taken Unknown] furosemide 40 mg tablet 40 mg PO DAILY 05/01/19 [History Last Taken Unknown] lansoprazole 30 mg capsule,delayed release 30 mg PO DAILY 05/01/19 [History Last Taken Unknown] levothyroxine 50 mcg tablet 200 mcg PO DAILY 05/01/19 [History Last Taken Unknown] metoprolol tartrate 50 mg tablet 50 mg PO BID 05/01/19 [History Last Taken Unkno wn] cefdinir 300 mg capsule 300 mg PO BID #20 caps 05/02/19 [Rx Last Taken Unknown] triamcinolone acetonide 0.1 % topical cream 1 applic topical BID #1 tube 05/02/19 [Rx Last Taken Unknown] hydrocodone-acetaminophen 5-325mg 5mg-325mg 1 - 2 tab PO BID PRN PRN Pain 11/07/22 [History Last Taken Unknown] pregabalin 25 mg capsule 50 mg PO BID 11/07/22 [History Last Taken Unknown] semaglutide (weight loss) 2.4 mg/0.75 mL subcutaneous pen injector (Wegovy) 2.4 mg subcut TH 11/07/22 [History Last Taken Unknown] Allergy/AdvReac Type Severity Reaction Status Date / Time cephalexin [From Keflex] Allergy Upset Verified 11/06/22 20:18 Stomach codeine Allergy Upset Verified 11/06/22 20:18 Stomach Family History Mother Heart disease Hypertension Father Diabetes Aneurysm Surgical History History of herniorrhaphy History of parathyroidectomy Hx of cholecystectomy Hx of thyroidectomy Social History household members: spouse Smoking Status: Former smoker alcohol intake: never substance use type: does not use ROS Constitutional Constitutional: Denies chills, fever(s) or malaise Eyes Eyes: Denies blurry vision or change in vision ENT HEENT: Reports none Cardiovascular Cardiovascular: Denies chest pain or palpitations Respiratory/Chest Respiratory/Chest: Denies cough or shortness of breath with exertion Gastrointestinal Gastrointestinal: Denies abdominal pain, constipation or diarrhea Musculoskeletal Musculoskeletal: Denies back pain, joint stiffness or joint swelling Integumentary Integumentary: Denies dry skin, jaundice, lesions or rash Neurologic Neurologic: Denies confusion, syncope or weakness Psychiatric Psychiatric: Reports none; Denies anxiety or depression Endocrine Endocrinology: Denies excessive sweating, fatigue or flushing Hematologic/Lymphatic Hematologic/Lymphatic: Denies anemia, easy bleeding or easy bruising Physical Exam Const alert and oriented x3 General Appearance: cooperative HEENT normocephalic, head/scalp atraumatic, EAC's normal and TM's normal bilaterally Eyes PERRL and EOMs intact bilaterally Pupil: sluggish Neck no lymphadenopathy, supple and no JVD General: trachea midline Lymph Lymphatic: no lymphadenopathy noted, lymphedema and lymphadenopathy Resp normal respiratory effort, normal air movement and clear to auscultation bilaterally Cardio regular rate, regular rhythm and peripheral pulses 2+ throughout GI soft to palpation, non-tender and non-distended Extremity normal capillary refill and no clubbing, cyanosis or edema General Extremity: no tenderness to palpation of joints or extremities Skin no rashes or lesions noted General Skin Exam: turgor normal Lesions: no lesions Rashes: no rashes Neuro CN's II-XII intact bilaterally Speech: speech normal Motor Exam: strength 5/5 throughout; Negative for general weakness Psych thought process normal, cooperative and affect normal Appearance: appropriate Lab / Micro Data Result Diagrams: 11/07/22 03:50 11/07/22 03:50 Labs: Laboratory Results - last 24 hr 11/06/22 22:44: WBC 30.6 H*, RBC 5.16, Hgb 15.4 H, Hct 49.8 H, MCV 96.5, MCH 29.8, MCHC 30.9 L, RDW Std Deviation 51.0 H, RDW Coeff of Jose Rafael 14.2, Plt Count 302, MPV 10.2, Immature Gran % (Auto) [employer]PER[employer]END[employer], Neut % (Auto) [employer]ENT, Lymph % (Auto) [employer]ENT, [place] % (Auto) [employer] SUPER[employer]ENDENT, Eos % (Auto) [employer]ENT, Baso % (Auto) [employer], Absolute Neuts (auto) 24.8 H, Absolute Lymphs (auto) 0.61 L, Total Counted 100, Neutrophils % (Manual) 59, Band Neutrophils % 18 H, Lymphocytes % (Manual) 2 L, Monocytes % (Manual) 6, Eosinophils % (Manual) 1, Metamyelocytes % 14 H, Nucleated RBC % [employer], Diff Path Review May , Platelet Estimate ADEQUATE, RBC Morphology NORM C+C 11/06/22 22:44: Sodium 143, Potassium 3.3 L, Chloride 108 H, Carbon Dioxide 18.0 L, Anion Gap 17 H, BUN 33 H, Creatinine 2.77 H, Estim Creat Clear Calc 21.79, Est GFR (MDRD) Af Amer 22 L, Est GFR (MDRD) Non-Af 19 L, BUN/Creatinine Ratio 11.9, Glucose 154 H, Calcium 10.0, Total Bilirubin 1.10 H, AST 62 H, ALT 43, Alkaline Phosphatase 136 H, Total Protein 7.0, Albumin 3.1 L, Globulin 3.9, Albumin/Globulin Ratio 0.8 L, Lipase 71 L 11/06/22 22:44: Lactic Acid 6.9 H* 11/06/22 22:44: Magnesium 1.7 11/06/22 23:18: Urine Color Yellow, Urine Clarity Cloudy, Urine pH 6.0, Ur Specific [place] 1.015, Urine Protein 15 H, Urine Glucose (UA) Normal, Urine Ketones Negative, Urine Occult Blood 250 H, Urine Nitrite Negative, Urine Bilirubin Negative, Urine Urobilinogen Normal, Ur Leukocyte Esterase 500 H, Urine RBC 10-25 SEEN, Urine WBC 10-25 SEEN, Ur Squamous Epith Cells 0 SEEN, Urine Bacteria 3+, Urine Mucus 0 SEEN 11/06/22 23:18: Ur Random Sodium 38, Urine Creatinine 135.00 11/07/22 03:50: WBC 29.9 H, RBC 4.77, Hgb 14.2, Hct 46.4, MCV 97.3, MCH 29.8, MCHC 30.6 L, RDW Std Deviation 51.2 H, RDW Coeff of Jose Rafael 14.2, Plt Count 215, MPV 10.2, Neut % (Auto) Not Reportable, Absolute Neuts (auto) 27.8 H, Absolute Lymphs (auto) 0.90, Total Counted 100, Neutrophils % (Manual) 66, Band Neutrophils % 9 H, Lymphocytes % (Manual) 3 L, Monocytes % (Manual) 3, Eosinophils % (Manual) 1, Metamyelocytes % 18 H, Diff Path Review Jeanna graham, Plt Morphology Comment ADEQ, Marguerite Cells NCNK 11/07/22 03:50: Sodium 144, Potassium 3.2 L, Chloride 113 H, Carbon Dioxide 20.0 L, Anion Gap 11, BUN 36 H, Creatinine 2.46 H, Estim Creat Clear Calc 24.53, Est GFR (MDRD) Af Amer 26 L, Est GFR (MDRD) Non-Af 21 L, BUN/Creatinine Ratio 14.6, Glucose 139 H, Calcium 8.4 L, Total Bilirubin 0.90, AST 46 H, ALT 36, Alkaline Phosphatase 83, Total Protein 5.8 L, Albumin 2.5 L, Globulin 3.3, Albumin/Globulin Ratio 0.8 L 11/07/22 03:50: Hemoglobin A1c 5.2 11/07/22 03:50: Lactic Acid 3.7 H* Micro: Microbiology 11/07/22 02:25 Stool Enteric Bacteriology - Final 11/07/22 02:25 Stool C. difficile GDH Antigen & Toxins - Final 11/07/22 02:25 Stool C. difficile DNA Amplification - Final 11/06/22 22:49 Blood Culture (Wb) - Anticubital Right Blood Culture - Preliminary 11/06/22 22:35 Blood Culture (Wb) - Left Hand Blood Culture - Preliminary 11/07/22 02:25 Stool Stool Occult Blood (ANGELA) - Final Occult Blood Positive Radiology Impression Abdomen/Pelvis CT 11/06/22 23:40 IMPRESSION: There is a 5 mm stone in the distal right ureter causing mild obstructive changes. Electronically Signed: Colt Lopez MD at 0:46 EST , Assessment & Plan Assessment/Plan (1) C. difficile colitis: PLAN: Septic shock secondary to obstructive uropathy plus C. difficile colitis resulting in bloody diarrhea .C. difficile confirmed by the presence of a positive A&B antigen for C. difficile, C. difficile toxin positive and PCR positive. Recommend vancomycin 125 mg p.o. every 6 hours [id number]. I d o not think she needs colonoscopy at this time. Recommend serial KUB x-rays to ensure she does not develop megacolon. I would switch the IV vancomycin to IV Flagyl. Charges/Coding Visit Charges Inpatient E&M: 54165 Init Hosp L3
[2022-11-07] MEDS: Potassium Chloride Oral Tablet 20 MEQ PO (17:43)
[2022-11-07] MEDS: Vancomycin 125 MG/5 ML Susp PO.SYRINGE PO ×2 (17:43→23:49)
[2022-11-07] MEDS: oxyCODONE 5 MG Tablet PO (20:47)
[2022-11-07] MEDS: MELATONIN 3 MG TABLET PO (20:47)
[2022-11-07] MEDS: buPROPion (SR) 150 MG Tablet.SA PO (20:57)
[2022-11-07] MEDS: Pregabalin 50 MG Capsule PO (20:57)
[2022-11-07] MEDS: busPIRone 15 MG TABLET PO (20:57)
[2022-11-08 02:47] VITALS: BP 119/73; PULSE 112; RESP 16; TEMP 36.6; O2SAT 97
[2022-11-08 05:03] LABS: Absolute Lymphocyte Count 0.78 X10^3/uL (0.83-4.51); Absolute Neutrophil Count 15.1 X10^3/uL (2.0-7.7); Basophil# 0.09 X10^3/uL; Basophil% 0.5 % (0-1); Hemoglobin 12.8 g/dL (12.0-15.0); Lymphocyte # 0.78 X10^3/ul (0.83-4.51); Lymphocyte % 4.5 % (19-41); Mean Corp Hgb Conc 30.5 g/dL (32-36); Mean Corpuscular Hgb 29.4 pg (27.0-32.0); Mean Corpuscular Volume 96.6 fL (81-99); Mean Platelet Vol. 10.8 fl (6.2-12.0); Monocyte# 1.13 X10^3/uL; Monocyte% 6.5 % (0-10); NRBC Flagged by Analyzer 0 % (0-5); Neutrophil # 15.13 X10^3/uL (2.7-7.7); Neutrophil % 86.4 % (47-70); POSITIVE MORPHOLOGY YES; Platelet Count 161 K/mm3 (150-450); RBC Distribution Width CV 14.4 % (11.6-14.6); RBC Distribution Width SD 50.7 fl (35.1-43.9); Red Blood Count 4.35 M/mm3 (4.2-5.4); White Blood Count 17.5 K/mm3 (4.4-11.0)
[2022-11-08 05:08] LABS: Differential Indicated SCAN CRITERIA MET
[2022-11-08 05:27] LABS: Anion Gap 10 (5-15); BUN 53 mg/dL (7-18); Calcium,Total 8.7 mg/dL (8.5-10.1); Chloride 117 mmol/L (98-107); Creatinine, Serum 3.12 mg/dL (0.55-1.02); EST Glomerular Filtration Rate 16 mL/min (>60); Est Glom Filt Rate - Afr Amer 20 mL/min (>60); Estimated Creatinine Clearance 19.34 ml/min; Glucose 128 mg/dL (74-106); Magnesium 1.4 mg/dL (1.6-2.6); Phosphorus 3.2 mg/dL (2.5-4.9); Sodium Level 146 mmol/L (136-145)
[2022-11-08] MEDS: Vancomycin 125 MG/5 ML Susp PO.SYRINGE PO ×4 (05:40→23:24)
[2022-11-08] MEDS: 0.9% Normal Saline 1,000 ML 150 ML IV ×3 (05:41→23:24)
[2022-11-08] MEDS: Levothyroxine 100 MCG Tablet 200 MCG PO (05:45)
[2022-11-08 06:24] LABS: Differential Comment SCANNED
[2022-11-08 07:44] VITALS: O2SAT 95
--- NOTE | 2022-11-08 07:49 | PN.HOSP_ITS ---
Subjective Subjective Patient did develop bloody diarrhea following her admission. Studies for C. difficile came back positive patient subsequently placed on p.o. vancomycin Objective Data Objective Data Vital Signs: Vital Signs Temp Pulse Resp BP Pulse Ox O2 Del Method 97.9 F 112 H 16 119/73 95 Room Air 11/08/22 02:47 11/08/22 02:47 11/08/22 02:47 11/08/22 02:47 11/08/22 07:44 11/08/22 07:44 Oxygen Delivery Method Room Air Weight: 185.4 kg Body Mass Index (BMI) 61.4 Intake & Output: Intake and Output for Last 24 Hours 11/06/22 11/07/22 11/08/22 23:59 23:59 23:59 Intake Total 1000 / 1000 6497.5 / 6497.5 932.5 / 932.5 Output Total 350 / 350 Balance 1000 / 1000 6147.5 / 6147.5 932.5 / 932.5 Lab / Micro Data Result Diagrams: 11/08/22 04:45 11/08/22 04:45 Labs: Laboratory Results - last 24 hr 11/08/22 04:45: WBC 17.5 H, RBC 4.35, Hgb 12.8, Hct 42.0, MCV 96.6, MCH 29.4, MCHC 30.5 L, RDW Std Deviation 50.7 H, RDW Coeff of Jose Rafael 14.4, Plt Count 161, MPV 10.8, Immature Gran % (Auto) 2.100 H, Neut % (Auto) 86.4 H, Lymph % (Auto) 4.5 L , [place] % (Auto) 6.5, Eos % (Auto) 0.0, Baso % (Auto) 0.5, Absolute Neuts (auto) 15.1 H, Absolute Lymphs (auto) 0.78 L, Nucleated RBC % 0, Differential Comment SCANNED 11/08/22 04:45: Sodium 146 H, Potassium 4.0, Chloride 117 H, Carbon Dioxide 19.0 L, Anion Gap 10, BUN 53 H, Creatinine 3.12 H, Estim Creat Clear Calc 19.34, Est GFR (MDRD) Af Amer 20 L, Est GFR (MDRD) Non-Af 16 L, BUN/Creatinine Ratio 17.0, Glucose 128 H, Calcium 8.7, Phosphorus 3.2, Magnesium 1.4 L Micro: Microbiology 11/06/22 22:49 Blood Culture (Wb) - Anticubital Right Blood Culture - Preliminary Gram negative maurice 11/06/22 22:35 Blood Culture (Wb) - Left Hand Blood Culture - Preliminary Gram negative maurice 11/07/22 02:25 Stool Enteric Bacteriology - Final 11/07/22 02:25 Stool C. difficile GDH Antigen & Toxins - Final 11/07/22 02:25 Stool C. difficile DNA Amplification - Final 11/07/22 02:25 Stool Stool Occult Blood (ANGELA) - Final Occult Blood Positive Physical Exam Narrative GENERAL: cooperative HEENT: Atraumatic; normocephalic EYES; Anicteric, Normal Conjunctiva NECK; supple, normal thyroid, RESPIRATORY: Diminished to auscultation CARDIOVASCULAR: Regular S1 S2, GI: soft, normoactive bowel sounds, : No Renal angle tenderness; EXTREMITIES: No edema, no clubbing, MUSCULOSKELETAL: no muscle wasting NEURO: Awake; no lateralizing signs. SKIN: No Rash PSYCH; Flat affect Assessment & Plan Assessment/Plan (1) Sepsis: PLAN: Plan A 62-year-old admitted with sepsis secondary to suspected pyelonephritis. Admitted to the intensive care unit where patient is currently being managed 1. Acute metabolic encephalopathy Is secondary to sepsis secondary as a result of acute pyelonephritis 2. Sepsis ? Suspected to be secondary to acute pyelonephritis as well as C. difficile colitis. Patient started on broad-spectrum antibiotic therapy IV fluid cultures sent. Patient was seen in consultation by Dr Borrero with urology for right obstructing ureteral calculus for which patient underwent cystoscopy with right stent placement ? 11/08/2022; patient blood cultures so far positive for gram-negative rods final identification and sensitivities pending 3. Nephrolithiasis ? Management as discussed above 4. Acute C. difficile colitis ? Patient started on p.o. vancomycin Case discussed with Dr. Lauren 5. Acute kidney injury ? Suspected to be secondary to ATN as a result of sepsis Baseline creatinine 0.9 creatinine on admission was 2.77 started on IV fluid with monitoring of electrolytes ordered ? 11/08/2022 patient kidney function continues to worsen on IV fluid consultation placed to nephrology 6. Acute GI bleed ? Stool for guaiac came back positive. Patient is on apixaban held ? 11/08/2022 patient with GI bleed secondary to C. difficile colitis as well as concomitant use of apixaban which is currently being held. Patient is on p.o. vancomycin for the C. difficile 7. Hypokalemia ? Corrected per protocol repeat labs ordered for a.m. 8. Hypothyroidism ? Following thyroidectomy patient is on replacement therapy with levothyroxine did continue 9. History of multiple VTE's ? Patient is on apixaban held in view of GI bleed ? 10. Class III obesity with BMI of 61.5 ? Complicating patient's care weight loss advised patient is on semaglutide weight loss 11. Obstructive sleep apnea ? Consistent use of CPAP encouraged 12. GERD ? Patient Protonix at home did continue 13. Essential hypertension ? Patient antihypertensives held on admission 14. DVT prophylaxis -SCDs for now until apixaban is resumed 15. Hypomagnesemia ? Corrected per protocol repeat magnesium ordered for a.m. Time spent in the patient's overall evaluation,decision-making process, review of diagnostic data, adjustment of management, discussion with other providers, nursing nursing and ancillary staff involved in patient's care documentation, 55 Minutes Charges/Coding Visit Charges Inpatient E&M: 07293 [facility] Hosp L3
[2022-11-08 08:00] VITALS: BP 140/80; PULSE 100; RESP 18; TEMP 36.9; O2SAT 98
[2022-11-08] MEDS: Potassium Chloride Oral Tablet 20 MEQ PO ×2 (08:18→17:01)
[2022-11-08] MEDS: FLU VACC QS2022-23(6MOS UP)/PF 60 MCG/0.5 ML SYRINGE IM (09:54)
[2022-11-08] MEDS: busPIRone 15 MG TABLET PO ×2 (09:55→22:12)
[2022-11-08] MEDS: APIXABAN 2.5 MG TABLET (WCH) PO ×2 (09:56→22:12)
[2022-11-08] MEDS: buPROPion (SR) 150 MG Tablet.SA PO ×2 (09:57→22:13)
[2022-11-08] MEDS: Pregabalin 50 MG Capsule PO ×2 (10:52→22:10)
[2022-11-08] MEDS: oxyCODONE 5 MG Tablet PO ×2 (13:11→22:10)
[2022-11-08 14:00] VITALS: BP 125/76; PULSE 108; RESP 18; TEMP 37.1; O2SAT 98
--- NOTE | 2022-11-08 17:23 | CON.PCM.RE_ITS ---
Assessment & Plan Assessment/Plan (1) Acute kidney injury: (2) Hypernatremia: (3) Metabolic acidosis: (4) Hypomagnesemia: (5) Sepsis: PLAN: Plan Impression/Plan: The patient is a 62-year-old woman with past history of hypertension, VTE on oral anticoagulation, hypothyroidism, hyperlipidemia, morbid obesity, and depression/anxiety. The patient was admitted to the hospital on 10/30/2022 with sepsis due to right pyelonephritis, right obstructing ureteral stone, and C. difficile colitis. Nephrology is asked to see the patient because of PARIS. Acute kidney injury. There is no prior history of chronic kidney disease. The last available serum creatinine in April 2019 was normal at 0.89 mg/dL. The patient presented to the hospital with serum creatinine of 2.77 mg/dL on 11/06/2022. Serum creatinine has increased to 3.12 mg deciliter today. Initial PARIS was likely due to prerenal azotemia related to sepsis syndrome and volume depletion. The patient was also on MARIA E inhibitor, diuretic, and Banks 2 inhibitor prior to admission. Prerenal PARIS has likely progressed to ischemic ATN. Low suspicion for other causes of PARIS at this point. Agree with current volume expansion using isotonic crystalloid. The patient does not appear to be volume overloaded, and she still has significant diarrhea and poor appetite. She is not hyperkalemic. Although she has low serum bicarbonate level, it has been relatively stable. Therefore, there is no need for kidney replacement therapy today. Recheck renal function, volume status, electrolytes, and acid-base status again tomorrow. Metabolic acidosis. Likely due to PARIS along with diarrhea from C. difficile colitis. Serum bicarbonate level is low but stable at 19 mmol/L today. No need for supplemental sodium bicarbonate at this point. We will continue to monitor serum bicarbonate. Hypernatremia. The patient has mild hyponatremia due to relative dehydration with diarrhea and poor p.o. intake. Continue to encourage oral fluid intake when she is thirsty. Recheck serum sodium tomorrow. Hypokalemia. The patient had a potassium level of 3.2 mmol/L on 11/07/2022. I suspect patient has GI loss of potassium and magnesium as the initial cause of hypokalemia. Serum potassium level is better today at 4.0 mmol/L although she is on potassium chloride supplementation. Since renal function has declined and potassium level is now back to normal rang e, I would stop potassium chloride supplementation for now. We can treat potassium deficit on a day-to-day basis. Hypomagnesemia. Magnesium level is just slightly low at 1.4 mg/dL. I suspect that hypomagnesemia is also from GI loss. The patient was treated with IV magnesium sulfate today. Recheck magnesium level tomorrow. Sepsis. The patient is being treated for complicated UTI/pyelonephritis and C. difficile colitis. The patient is status post right ureteral stent for obstructing nephrolithiasis. Antimicrobial as per hospital medicine service. Antimicrobial are appropriately dosed for the patient's renal function. HPI Consult Data Date of Consult: 11/08/22 HPI Narrative Reason for Consultation: PARIS HPI Narrative: The patient is a 62-year-old woman with past history of hypertension, VTE on oral anticoagulation, hypothyroidism, hyperlipidemia, morbid obesity, and depression/anxiety. The patient was admitted to the hospital on 11/07/2022 with pyelonephritis and acute encephalopathy. She was found to have right obstructing ureteral nephrolithiasis. She is status post right ureteral stent placement. The patient is subsequently been diagnosed with C. difficile colitis as well. Nephrology is asked to see the patient because of PARIS. The patient has no prior history of chronic kidney disease. However, last available serum creatinine before this admission was from April 2019. At that time, serum creatinine was 0.83 mg/dL. On presentation to the hospital, serum creatinine was 2.77 mg/dL on 11/06/2022. Serum creatinine has increased to 3.12 mg/dL today on 11/08/2022. The patient reports right flank pain that began on 11/05/2022. Prior to 11/05/2022, the patient had been feeling well. She reports poor oral intake since 11/05/2022 with diarrhea starting after admission to the hospital. There is no current chest pain. She does have mild shortness of breath. There is intermittent nausea without vomiting. Her appetite remains poor. She denies increasing edema of the lower extremities. Prior to admission, the patient had been on enalapril, furosemide, and celecoxib. [facility] Medical History Anxiety and depression Arthritis History of venous thromboembolism HTN (hypertension) Hyperlipidemia Hypothyroid Morbid obesity Home Medications apixaban 2.5 mg tablet 2.5 mg PO BID 05/01/19 [History Last Taken Unknown] ascorbic acid (vitamin C) 1,000 mg tablet 1,000 mg PO DAILY 05/01/19 [History Last Taken Unknown] bupropion HCl 150 mg tablet,12 hr sustained-release 1 tab PO BID 05/01/19 [History Last Taken Unknown] buspirone 15 mg tablet 15 mg PO BID 05/01/19 [History Last Taken Unknown] celecoxib 200 mg capsule 200 mg PO DAILY 05/01/19 [History Last Taken Unknown] enalapril maleate 20 mg tablet 20 mg PO DAILY 05/01/19 [History Last Taken Unknown] furosemide 40 mg tablet 40 mg PO DAILY 05/01/19 [History Last Taken Unknown] lansoprazole 30 mg capsule,delayed release 30 mg PO DAILY 05/01/19 [History Last Taken Unknown] levothyroxine 50 mcg tablet 200 mcg PO DAILY 05/01/19 [History Last Taken Unknown] metoprolol tartrate 50 mg tablet 50 mg PO BID 05/01/19 [History Last Taken Unk nown] cefdinir 300 mg capsule 300 mg PO BID #20 caps 05/02/19 [Rx Last Taken Unknown] triamcinolone acetonide 0.1 % topical cream 1 applic topical BID #1 tube 05/02/19 [Rx Last Taken Unknown] hydrocodone-acetaminophen 5-325mg 5mg-325mg 1 - 2 tab PO BID PRN PRN Pain 11/07/22 [History Last Taken Unknown] pregabalin 25 mg capsule 50 mg PO BID 11/07/22 [History Last Taken Unknown] semaglutide (weight loss) 2.4 mg/0.75 mL subcutaneous pen injector (Wegovy) 2.4 mg subcut TH 11/07/22 [History Last Taken Unknown] Allergy/AdvReac Type Severity Reaction Status Date / Time cephalexin [From Keflex] Allergy Upset Verified 11/06/22 20:18 Stomach codeine Allergy Upset Verified 11/06/22 20:18 Stomach Family History Mother Heart disease Hypertension Father Diabetes Aneurysm Surgical History History of herniorrhaphy History of parathyroidectomy Hx of cholecystectomy Hx of thyroidectomy Social History household members: spouse Smoking Status: Former smoker alcohol intake: never substance use type: does not use ROS ROS Narrative 07/20 ROS was done and is otherwise noncontributory to what is already docu mented in [facility]. Physical Exam Narrative General: Alert and oriented x3, NAD. HEENT: Normocephalic, atraumatic, PERRLA, EOMI, hearing is intact, mucous membrane dry without erythema. Neck: Supple, no JVD, trachea is midline. Cardiovascular: Normal S1, S2. No rubs, murmurs, or gallops. Lungs: Decreased breath sound at bases bilaterally. Abdomen: Obese, normal bowel sound, soft, nontender, no guarding or rebound. Extremities: No clubbing, cyanosis, or edema. Musculoskeletal: Full passive range of motion, no joint swelling. Psychiatric: Normal mood and affect. Skin: Warm and dry without rash. Neurologic: No focal neurologic deficit, cranial nerves II through XII are grossly intact. Lab / Micro Data Result Diagrams: 11/08/22 04:45 11/08/22 04:45 Labs: Laboratory Results - last 24 hr 11/08/22 04:45: WBC 17.5 H, RBC 4.35, Hgb 12.8, Hct 42.0, MCV 96.6, MCH 29.4, MCHC 30.5 L, RDW Std Deviation 50.7 H, RDW Coeff of Jose Rafael 14.4, Plt Count 161, MPV 10.8, Immature Gran % (Auto) 2.100 H, Neut % (Auto) 86.4 H, Lymph % (Auto) 4.5 L , [place] % (Auto) 6.5, Eos % (Auto) 0.0, Baso % (Auto) 0.5, Absolute Neuts (auto) 15.1 H, Absolute Lymphs (auto) 0.78 L, Nucleated RBC % 0, Differential Comment SCANNED 11/08/22 04:45: Sodium 146 H, Potassium 4.0, Chloride 117 H, Carbon Dioxide 19.0 L, Anion Gap 10, BUN 53 H, Creatinine 3.12 H, Estim Creat Clear Calc 19.34, Est GFR (MDRD) Af Amer 20 L, Est GFR (MDRD) Non-Af 16 L, BUN/Creatinine Ratio 17.0, Glucose 128 H, Calcium 8.7, Phosphorus 3.2, Magnesium 1.4 L Micro: Microbiology 11/06/22 22:35 Blood Culture (Wb) - Left Hand Blood Culture - Preliminary Gram negative maurice 11/06/22 22:49 Blood Culture (Wb) - Anticubital Right Blood Culture - Preliminary Escherichia coli Enterobacter cloacae complex 11/06/22 23:18 Urine, Clean Catch Urine Culture - Preliminary Presumptive E. coli 11/07/22 02:25 Stool Enteric Bacteriology - Final 11/07/22 02:25 Stool C. difficile GDH Antigen & Toxins - Final 11/07/22 02:25 Stool C. difficile DNA Amplification - Final
[2022-11-08 20:43] VITALS: RESP 16; O2SAT 95
[2022-11-08 20:51] VITALS: BP 148/77; PULSE 115; RESP 18; TEMP 37.7; O2SAT 95
[2022-11-08] MEDS: MELATONIN 3 MG TABLET PO (22:10)
[2022-11-09 02:00] VITALS: BP 122/79; PULSE 99; RESP 16; TEMP 37.2; O2SAT 95
[2022-11-09] MEDS: Vancomycin 125 MG/5 ML Susp PO.SYRINGE PO ×4 (05:03→23:48)
[2022-11-09] MEDS: Levothyroxine 100 MCG Tablet 200 MCG PO (05:04)
[2022-11-09 06:51] LABS: Absolute Lymphocyte Count 0.82 X10^3/uL (0.83-4.51); Absolute Neutrophil Count 9.8 X10^3/uL (2.0-7.7); Basophil# 0.05 X10^3/uL; Basophil% 0.4 % (0-1); Eosinophil# 0.05 X10^3/uL; Eosinophils% 0.4 % (0-5); Hematocrit 37.6 % (37-47); Hemoglobin 12.1 g/dL (12.0-15.0); Lymphocyte # 0.82 X10^3/ul (0.83-4.51); Lymphocyte % 6.9 % (19-41); Mean Corp Hgb Conc 32.2 g/dL (32-36); Mean Corpuscular Hgb 30.1 pg (27.0-32.0); Mean Corpuscular Volume 93.5 fL (81-99); Monocyte# 1.14 X10^3/uL; Monocyte% 9.6 % (0-10); NRBC Flagged by Analyzer 0 % (0-5); Neutrophil # 9.76 X10^3/uL (2.7-7.7); Neutrophil % 82.1 % (47-70); POSITIVE MORPHOLOGY YES; Platelet Count 145 K/mm3 (150-450); RBC Distribution Width CV 14.6 % (11.6-14.6); RBC Distribution Width SD 50.4 fl (35.1-43.9); Red Blood Count 4.02 M/mm3 (4.2-5.4); White Blood Count 11.9 K/mm3 (4.4-11.0)
[2022-11-09 06:53] LABS: Differential Indicated SCAN CRITERIA MET
[2022-11-09 07:24] LABS: Anion Gap 10 (5-15); BUN 51 mg/dL (7-18); BUN/Creat Ratio 18.1 RATIO (10-20); Calcium,Total 8.9 mg/dL (8.5-10.1); Chloride 116 mmol/L (98-107); Creatinine, Serum 2.81 mg/dL (0.55-1.02); EST Glomerular Filtration Rate 18 mL/min (>60); Est Glom Filt Rate - Afr Amer 22 mL/min (>60); Estimated Creatinine Clearance 21.48 ml/min; Glucose 119 mg/dL (74-106); Magnesium 2.1 mg/dL (1.6-2.6); Platelet Estimate SLT DEC (ADEQ); Potassium 3.9 mmol/L (3.5-5.1); Sodium Level 144 mmol/L (136-145)
--- NOTE | 2022-11-09 07:45 | PN.HOSP_ITS ---
Subjective Subjective Abdominal pain improving, reports appetite improving as well and her diarrhea she believes is also somewhat better. Objective Data Objective Data Vital Signs: Vital Signs Temp Pulse Resp BP Pulse Ox O2 Del Method 98.9 F 99 16 122/79 H 95 Room Air 11/09/22 02:00 11/09/22 02:00 11/09/22 02:00 11/09/22 02:00 11/09/22 02:00 11/09/22 02:00 Oxygen Delivery Method Room Air Weight: 183.2 kg Body Mass Index (BMI) 61.4 Intake & Output: Intake and Output for Last 24 Hours 11/07/22 11/08/22 11/09/22 23:59 23:59 23:59 Intake Total 6497.5 / 6497.5 3261.5 / 3261.5 1050 / 1050 Output Total 350 / 350 300 / 300 Balance 6147.5 / 6147.5 3261.5 / 2961.5 750 / 750 Lab / Micro Data Result Diagrams: 11/09/22 06:13 11/09/22 06:13 Labs: Laboratory Results - last 24 hr 11/09/22 06:13: WBC 11.9 H, RBC 4.02 L, Hgb 12.1, Hct 37.6, MCV 93.5, MCH 30.1, MCHC 32.2 D, RDW Std Deviation 50.4 H, RDW Coeff of Jose Rafael 14.6, Plt Count 145 L, MPV 11.0, Immature Gran % (Auto) 0.600, Neut % (Auto) 82.1 H, Lymph % (Auto) 6.9 L, [place] % (Auto) 9.6, Eos % (Auto) 0.4, Baso % (Auto) 0.4, Absolute Neuts (auto) 9.8 H, Absolute Lymphs (auto) 0.82 L, Nucleated RBC % 0, Platelet Estimate SLT 11/09/22 06:13: Sodium 144, Potassium 3.9, Chloride 116 H, Carbon Dioxide 18.0 L , Anion Gap 10, BUN 51 H, Creatinine 2.81 H, Estim Creat Clear Calc 21.48, Est GFR (MDRD) Af Amer 22 L, Est GFR (MDRD) Non-Af 18 L, BUN/Creatinine Ratio 18.1, Glucose 119 H, Calcium 8.9, Magnesium 2.1 Micro: Microbiology 11/06/22 22:35 Blood Culture (Wb) - Left Hand Blood Culture - Preliminary Gram negative maurice 11/06/22 22:49 Blood Culture (Wb) - Anticubital Right Blood Culture - Preliminary Escherichia coli Enterobacter cloacae complex 11/06/22 23:18 Urine, Clean Catch Urine Culture - Preliminary Presumptive E. coli 11/07/22 02:25 Stool Enteric Bacteriology - Final 11/07/22 02:25 Stool C. difficile GDH Antigen & Toxins - Final 11/07/22 02:25 Stool C. difficile DNA Amplification - Final 11/07/22 02:25 Stool Stool Occult Blood (ANGELA) - Final Occult Blood Positive Physical Exam Narrative General: Alert, oriented, no apparent distress HEENT: Atraumatic, normocephalic Eyes: Anicteric, normal conjunctiva, extraocular movements grossly intact Neck: Supple Respiratory: Diminished breath sounds bilaterally secondary to body habitus Cardiovascular: Regular rate and rhythm GI: Soft, nontender, nondistended, no rebound, guarding, rigidity Extremities: No edema Musculoskeletal: Moving all extremities Neuro: No overt focal neurological deficits Skin: No rashes appreciated Psych: Cooperative Assessment & Plan Assessment/Plan (1) Acute kidney injury: (2) Hypernatremia: (3) Metabolic acidosis: (4) Hypomagnesemia: (5) Sepsis: PLAN: Plan #Sepsis secondary to acute pyelonephritis secondary to right obstructing ureteral calculus Was found to have a right obstructing ureteral calculus for which she underwent cystoscopy with right stent placement by Dr. Borrero 11/07 Blood cultures positive for E. coli and Enterobacter clocae complex E. coli sensitivities pending but Enterobacter sensitive only to cefepime, gentamicin, imipenem, tobramycin Will consult infectious disease as given sensitivities may require IV antibiotics or further tailoring of antibiotic therapy #Acute C. difficile colitis On p.o. vancomycin GI consult GI recommended KUBs to monitor for megacolon, ordered for this a.m., read is pending #PARIS Baseline 0.9 and on admission 2.77 Initially felt to be prerenal given her sepsis and volume depletion as well as her medications of MARIA E inhibitor, diuretic, Banks 2 prior to admission Concerned that there had been progression to ischemic ATN Has remained on fluids and does not appear overloaded, still significant diarrhea poor appetite Monitor electrolytes Is slightly improved today #FOBT positive Apixaban was held initially but resumed as it was felt to be positive due to C. difficile colitis P.o. vancomycin GI following Will stop twice daily IV PPI #History of multiple VTE's Maira #Class III obesity with BMI of 61.5 Complicates care #History of GERD Continue home PPI #Acute metabolic encephalopathy [place] to be due to sepsis secondary to acute [place] #DVT ppx: maira Fernandez MD Time spent in the patient's overall evaluation,decision-making process, review of diagnostic data, adjustment of management, discussion with other providers, nursing nursing and ancillary staff involved in patient's care documentation, 30 minutes Charges/Coding Visit Charges Inpatient E&M: 68449 Subs Hosp L2
[2022-11-09 08:54] VITALS: BP 134/72; PULSE 94; RESP 20; TEMP 37.2; O2SAT 95
[2022-11-09] MEDS: Pregabalin 50 MG Capsule PO ×2 (09:04→21:57)
[2022-11-09] MEDS: APIXABAN 2.5 MG TABLET (WCH) PO ×2 (09:04→21:58)
[2022-11-09] MEDS: buPROPion (SR) 150 MG Tablet.SA PO (09:04)
[2022-11-09] MEDS: busPIRone 15 MG TABLET PO ×2 (09:05→21:58)
--- NOTE | 2022-11-09 10:00 | RAD_ITS ---
STUDY: X-RAY - ABDOMEN/PELVIS REASON FOR EXAM: Female, 62 years old. eval for megacolon TECHNIQUE: Abdominal series COMPARISON: None. FINDINGS: Normal visualized lung bases. Nonspecific distention of the stomach and mild diffuse colonic ileus. There is no demonstrated free abdominal air. The visualized liver, spleen and kidneys are grossly normal in size and morphology. Postop change status post cholecystectomy. Ureterovesical stent is noted. Postsurgical changes status post bilateral tubal ligation.. Normal visualized osseous structures. RAD/Abdomen Single View (Portable) IMPRESSION: Nonspecific gastric distention and mild diffuse colonic ileus.. Electronically Signed: Frank Badillo MD at 20:21 EST ,
[2022-11-09] MEDS: 0.9% Saline Lock 10 ML Syringe IV (10:24)
[2022-11-09] MEDS: 0.9% Normal Saline 1,000 ML 150 ML IV ×3 (10:24→23:40)
[2022-11-09] MEDS: Acetaminophen 325 MG Tablet 650 MG PO (10:28)
[2022-11-09 11:31] VITALS: PULSE 80; RESP 18
[2022-11-09] MEDS: Albuterol 2.5 MG/3 ML VIAL.NEB. INHALATION (11:31)
[2022-11-09 13:32] LABS: Pathologist Review Reviewed
[2022-11-09 13:48] LABS: Pathologist Review Reviewed
[2022-11-09 14:16] VITALS: BP 121/77; PULSE 89; RESP 18; TEMP 36.3; O2SAT 98
--- NOTE | 2022-11-09 14:43 | CON.PCM.ID_ITS ---
Assessment & Plan Assessment/Plan (1) Pyelonephritis: (2) Sepsis: PLAN: sepsis with PARIS due to ecoli and enterobacter bacteremia due to R sided pyelo with obstructing stone - R ureteral stent placed 11/07/[address] Borrero. On zosyn. Will change back to cefepime for more reliable enterobacter coverage. Cdiff toxin neg, will cont po vanc. No colitis seen on CT. Will follow, thank you (3) Acute kidney injury: HPI Consult Data Date of Consult: 11/09/22 HPI Narrative Reason for Consultation: bacteremia HPI Narrative: TAYLER CAMPOS, is a 62 F who presented 11/07 with one day h/o R flank pain (stabbing, severe), fatigue, nausea, fever, shakes, chills. No prior h/o kidney stones. Came to ED, admitted on zosyn. Cdiff also (+), started on po vanc. Taken to OR 11/[address] Borrero for R sided stent placement. Feeling better, pain much improved. Full ROS performed and neg except as noted above. [facility] Medical History Anxiety and depression Arthritis History of venous thromboembolism HTN (hypertension) Hyperlipidemia Hypothyroid Morbid obesity Home Medications ascorbic acid (vitamin C) 1,000 mg tablet 500 mg PO DAILY vitamin 05/01/19 [History Last Taken Unknown] bupropion HCl 150 mg tablet,12 hr sustained-release 1 tab PO BID depression 05/01/19 [History Last Taken Unknown] buspirone 15 mg tablet 15 mg PO BID anxiety 05/01/19 [History Last Taken Unknown] celecoxib 200 mg capsule 200 mg PO DAILY pain 05/01/19 [History Last Taken Unknown] enalapril maleate 20 mg tablet 20 mg PO BID bp 05/01/19 [History Last Taken Unknown] furosemide 40 mg tablet 40 mg PO DAILY water pill 05/01/19 [History Last Taken Unknown] lansoprazole 30 mg capsule,delayed release 30 mg PO DAILY gerd 05/01/19 [History Last Taken Unknown] levothyroxine 50 mcg tablet 200 mcg PO DAILY thyroid 05/01/19 [History Last Taken Unknown] metoprolol tartrate 50 mg tablet 50 mg PO BID bp 05/01/19 [History Last Taken Unknown] triamcinolone acetonide 0.1 % topical cream 1 applic topical BID #1 tube 05/02/19 [Rx Last Taken Unknown] hydrocodone-acetaminophen 5-325mg 5mg-325mg 1 - 2 tab PO BID PRN PRN Pain 11/07/22 [History Last Taken Unknown] pregabalin 25 mg capsule 50 mg PO BID pain 11/07/22 [History Last Taken Unknown] semaglutide (weight loss) 2.4 mg/0.75 mL subcutaneous pen injector (Wegovy) 2.4 mg subcut TH weight loss 11/07/22 [History Last Taken Unknown] apixaban 2.5 mg tablet (Eliquis) 2.5 mg PO BID dvt 11/09/22 [History Last Taken Unknown] estradiol 0.01% (0.1 mg/gram) vaginal cream 1 appful vaginal MOWEFR hormone 11/09/22 [History Last Taken Unknown] multivitamin 1 tab PO DAILY vitamin 11/09/22 [History Last Taken Unknown] pregabalin 25 mg capsule (Lyrica) 25 mg PO DAILY pain 11/09/22 [History Last Taken Unknown] topiramate 100 mg tablet (Topamax) 100 mg PO DAILY pain 11/09/22 [History Last Taken Unknown] Allergy/AdvReac Type Severity Reaction Status Date / Time cephalexin [From Keflex] Allergy Upset Verified 11/06/22 20:18 Stomach codeine Allergy Upset Verified 11/06/22 20:18 Stomach Family History Mother Heart disease Hypertension Father Diabetes Aneurysm Surgical History History of herniorrhaphy History of parathyroidectomy Hx of cholecystectomy Hx of thyroidectomy Social History household members: spouse Smoking Status: Former smoker alcohol intake: never substance use type: does not use Physical Exam Const alert, oriented x3 and no apparent distress General Appearance: cooperative and well developed HEENT normocephalic and head/scalp atraumatic Eyes PERRL and EOMs intact bilaterally Neck supple and No nodes Resp normal air movement and clear to auscultation bilaterally Cardio regular rate and regular rhythm GI soft to palpation, non-tender and non-distended Extremity General Extremity: edema Skin no rashes or lesions noted Neuro CN's II-XII intact bilaterally Lab / Micro Data Attestation: I reviewed the patient's lab results. Result Diagrams: 11/09/22 06:13 11/09/22 06:13 Labs: Laboratory Results - last 24 hr 11/06/22 22:44: Diff Path Review Reviewed 11/07/22 03:50: Diff Path Review Reviewed 11/09/22 06:13: WBC 11.9 H, RBC 4.02 L, Hgb 12.1, Hct 37.6, MCV 93.5, MCH 30.1, MCHC 32.2 D, RDW Std Deviation 50.4 H, RDW Coeff of Jose Rafael 14.6, Plt Count 145 L, MPV 11.0, Immature Gran % (Auto) 0.600, Neut % (Auto) 82.1 H, Lymph % (Auto) 6.9 L, [place] % (Auto) 9.6, Eos % (Auto) 0.4, Baso % (Auto) 0.4, Absolute Neuts (auto) 9.8 H, Absolute Lymphs (auto) 0.82 L, Nucleated RBC % 0, Platelet Estimate SLT 11/09/22 06:13: Sodium 144, Potassium 3.9, Chloride 116 H, Carbon Dioxide 18.0 L , Anion Gap 10, BUN 51 H, Creatinine 2.81 H, Estim Creat Clear Calc 21.48, Est GFR (MDRD) Af Amer 22 L, Est GFR (MDRD) Non-Af 18 L, BUN/Creatinine Ratio 18.1, Glucose 119 H, Calcium 8.9, Magnesium 2.1 Micro: Microbiology 11/06/22 23:18 Urine, Clean Catch Urine Culture - Final Presumptive E. coli 11/06/22 22:49 Blood Culture (Wb) - Anticubital Right Blood Culture - Preliminary Escherichia coli Enterobacter cloacae complex 11/06/22 22:35 Blood Culture (Wb) - Left Hand Blood Culture - Final Gram negative maurice Gram negative maurice#2
--- NOTE | 2022-11-09 14:44 | PN.RENAL_ITS ---
Subjective Subjective No new complaints Objective Data Objective Data Vital Signs: Vital Signs Temp Pulse Resp BP Pulse Ox O2 Del Method 97.3 F L 89 18 121/77 H 98 Room Air 11/09/22 14:16 11/09/22 14:16 11/09/22 14:16 11/09/22 14:16 11/09/22 14:16 11/09/22 14:16 Oxygen Delivery Method Room Air Weight: 183.2 kg Body Mass Index (BMI) 61.4 Intake & Output: Intake and Output for Last 24 Hours 11/07/22 11/08/22 11/09/22 23:59 23:59 23:59 Intake Total 6497.5 / 6497.5 3261.5 / 3261.5 1100 / 1100 Output Total 350 / 350 300 / 300 Balance 6147.5 / 6147.5 3261.5 / 2961.5 800 / 800 Lab / Micro Data Result Diagrams: 11/09/22 06:13 11/09/22 06:13 Labs: Laboratory Results - last 24 hr 11/06/22 22:44: Diff Path Review Reviewed 11/07/22 03:50: Diff Path Review Reviewed 11/09/22 06:13: WBC 11.9 H, RBC 4.02 L, Hgb 12.1, Hct 37.6, MCV 93.5, MCH 30.1, MCHC 32.2 D, RDW Std Deviation 50.4 H, RDW Coeff of Jose Rafael 14.6, Plt Count 145 L, MPV 11.0, Immature Gran % (Auto) 0.600, Neut % (Auto) 82.1 H, Lymph % (Auto) 6.9 L, [place] % (Auto) 9.6, Eos % (Auto) 0.4, Baso % (Auto) 0.4, Absolute Neuts (auto) 9.8 H, Absolute Lymphs (auto) 0.82 L, Nucleated RBC % 0, Platelet Estimate SLT 11/09/22 06:13: Sodium 144, Potassium 3.9, Chloride 116 H, Carbon Dioxide 18.0 L , Anion Gap 10, BUN 51 H, Creatinine 2.81 H, Estim Creat Clear Calc 21.48, Est GFR (MDRD) Af Amer 22 L, Est GFR (MDRD) Non-Af 18 L, BUN/Creatinine Ratio 18.1, Glucose 119 H, Calcium 8.9, Magnesium 2.1 Micro: Microbiology 11/06/22 23:18 Urine, Clean Catch Urine Culture - Final Presumptive E. coli 11/06/22 22:49 Blood Culture (Wb) - Anticubital Right Blood Culture - Preliminary Escherichia coli Enterobacter cloacae complex 11/06/22 22:35 Blood Culture (Wb) - Left Hand Blood Culture - Final Gram negative maurice Gram negative maurice#2 11/07/22 02:25 Stool Enteric Bacteriology - Final 11/07/22 02:25 Stool C. difficile GDH Antigen & Toxins - Final 11/07/22 02:25 Stool C. difficile DNA Amplification - Final 11/07/22 02:25 Stool Stool Occult Blood (ANGELA) - Final Occult Blood Positive Physical Exam Narrative General: Alert and oriented x3, NAD. HEENT: Normocephalic, atraumatic, PERRLA, EOMI, hearing is intact, mucous membrane dry without erythema. Neck: Supple, no JVD, trachea is midline. Cardiovascular: Normal S1, S2. No rubs, murmurs, or gallops. Lungs: Decreased breath sound at bases bilaterally. Abdomen: Obese, normal bowel sound, soft, nontender, no guarding or rebound. Extremities: No clubbing, cyanosis, or edema. Musculoskeletal: Full passive range of motion, no joint swelling. Psychiatric: Normal mood and affect. Skin: Warm and dry without rash. Neurologic: No focal neurologic deficit, cranial nerves II through XII are grossly intact. Assessment & Plan Assessment/Plan (1) Acute kidney injury: (2) Hypernatremia: (3) Metabolic acidosis: (4) Hypomagnesemia: (5) Sepsis: PLAN: Plan Impression/Plan: The patient is a 62-year-old woman with past history of hypertension, VTE on oral anticoagulation, hypothyroidism, hyperlipidemia, morbid obesity, and depression/anxiety. The patient was admitted to the hospital on 10/30/2022 with sepsis due to right pyelonephritis, right obstructing ureteral stone, and C. difficile colitis. Nephrology is asked to see the patient because of PARIS. Acute renal failure. Her primary care physician is Dr. Fam Long. Last known baseline creatinine is 1.09 as of February 2022. Came in with a creatinine of 2.4, peaked yesterday, somewhat better today. CT abdomen shows 5 mm kidney stone in the right ureter, s/p stenting Urine culture and blood culture positive for E. coli, blood also positive for Enterobacter Urine analysis has leukocytes consistent with UTI/pyelonephritis Acute renal failure is likely ATN. Creatinine is improving somewhat.
--- NOTE | 2022-11-09 14:56 | CASEMGMT ---
Spoke with ID who states pt may dc on IV antibiotics. RN CM in to pt room, pt lying in bed in no distress. Pt is declining SNF placement as [facility] cannot take her. Pt would like [facility] only. She states should she need IV atb her will be able to learn and perform. Discussed [facility] expectations. Provided pt with a verbal local in network list of Infusion companies, pt chose [facility]. TC to [facility] to see if able to accept pt for SN, PT and OT. Will await returned call from Kathy.
--- NOTE | 2022-11-09 15:41 | CHAPLAIN ---
Type of Pastoral Visit _x__ Initial Visit ___ Follow-up Visit ___ On-call Visit ___ General Patient Visit ___ Spiritual Assessment ___ Family Conference ___ Bereavement ___ Rapid Response ___ Code Blue ___ Other (describe below) Pastoral Care Referral From _x__ Patient ___ Family ___ Nurse ___ Physician ___ Lamp Decorator ___ Salesperson Surgical Appliances ___ Other (describe below) Sacrament/Intervention _x__ Active listening ___ Anointing ___ Holiness ___ Bereavement ___ Communion ___ Yudi exploration ___ ___ Life review _x__ Prayer ___ Reconciliation ___ Sacrament of Sick ___ Supportive presence ___ Wedding ___ Other (describe below) Pastoral Comments patient states she is feeling much better and has good family support; pt says that she has a yudi connection and does not have any worries at this time; prayer is welcomed
[2022-11-09] MEDS: oxyCODONE 5 MG Tablet PO (21:57)
[2022-11-09] MEDS: MELATONIN 3 MG TABLET PO (21:57)
[2022-11-09 22:00] VITALS: BP 144/85; PULSE 100; RESP 18; TEMP 37.3; O2SAT 96
[2022-11-10 03:29] VITALS: BP 139/75; PULSE 100; RESP 16; TEMP 37.2; O2SAT 96
[2022-11-10] MEDS: Levothyroxine 100 MCG Tablet 200 MCG PO (05:03)
[2022-11-10] MEDS: Vancomycin 125 MG/5 ML Susp PO.SYRINGE PO ×4 (05:04→22:58)
[2022-11-10] MEDS: 0.9% Normal Saline 1,000 ML 150 ML IV ×2 (05:59→14:31)
[2022-11-10 06:48] LABS: Absolute Lymphocyte Count 1.09 X10^3/uL (0.83-4.51); Absolute Neutrophil Count 7.6 X10^3/uL (2.0-7.7); Basophil# 0.06 X10^3/uL; Basophil% 0.5 % (0-1); Eosinophil# 0.24 X10^3/uL; Eosinophils% 2.2 % (0-5); Hematocrit 36.1 % (37-47); Hemoglobin 11.5 g/dL (12.0-15.0); Lymphocyte # 1.09 X10^3/ul (0.83-4.51); Lymphocyte % 9.8 % (19-41); Mean Corp Hgb Conc 31.9 g/dL (32-36); Mean Corpuscular Hgb 29.7 pg (27.0-32.0); Mean Corpuscular Volume 93.3 fL (81-99); Mean Platelet Vol. 10.7 fl (6.2-12.0); Monocyte# 1.82 X10^3/uL; Monocyte% 16.4 % (0-10); NRBC Flagged by Analyzer 0.3 % (0-5); Neutrophil # 7.56 X10^3/uL (2.7-7.7); Neutrophil % 68.4 % (47-70); POSITIVE DIFFERENTIAL YES; Platelet Count 131 K/mm3 (150-450); RBC Distribution Width CV 14.6 % (11.6-14.6); Red Blood Count 3.87 M/mm3 (4.2-5.4); White Blood Count 11.1 K/mm3 (4.4-11.0)
[2022-11-10 06:53] LABS: Differential Indicated SCAN CRITERIA MET
[2022-11-10 07:11] LABS: Differential Comment SCANNED
[2022-11-10 07:30] LABS: Anion Gap 7 (5-15); BUN 40 mg/dL (7-18); BUN/Creat Ratio 17.2 RATIO (10-20); Calcium,Total 8.9 mg/dL (8.5-10.1); Chloride 116 mmol/L (98-107); Creatinine, Serum 2.33 mg/dL (0.55-1.02); EST Glomerular Filtration Rate 23 mL/min (>60); Est Glom Filt Rate - Afr Amer 27 mL/min (>60); Glucose 104 mg/dL (74-106); Sodium Level 143 mmol/L (136-145)
--- NOTE | 2022-11-10 08:54 | PN.HOSP_ITS ---
Subjective Subjective Continues to have some abdominal pain, improving, bowel movements lessening. Has been able to get up and move around and does not feel like she will need placed on discharge Objective Data Objective Data Vital Signs: Vital Signs Temp Pulse Resp BP Pulse Ox O2 Del Method 99.0 F 100 16 139/75 H 96 Room Air 11/10/22 03:29 11/10/22 03:29 11/10/22 03:29 11/10/22 03:29 11/10/22 03:29 11/10/22 03:29 Oxygen Delivery Method Room Air Weight: 183.2 kg Body Mass Index (BMI) 61.4 Intake & Output: Intake and Output for Last 24 Hours 11/08/22 11/09/22 11/10/22 23:59 23:59 23:59 Intake Total 3261.5 / 3261.5 3115.83 / 3115.83 947.5 / 947.5 Output Total 300 / 300 Balance 3261.5 / 2961.5 2815.83 / 2815.83 947.5 / 947.5 Lab / Micro Data Result Diagrams: 11/10/22 06:00 11/10/22 06:00 Labs: Laboratory Results - last 24 hr 11/06/22 22:44: Diff Path Review Reviewed 11/07/22 03:50: Diff Path Review Reviewed 11/10/22 06:00: WBC 11.1 H, RBC 3.87 L, Hgb 11.5 L, Hct 36.1 L, MCV 93.3, MCH 29.7, MCHC 31.9 L, RDW Std Deviation 50.0 H, RDW Coeff of Jose Rafael 14.6, Plt Count 131 L, MPV 10.7, Immature Gran % (Auto) 2.700 H, Neut % (Auto) 68.4, Lymph % (Auto) 9.8 L, [place] % (Auto) 16.4 H, Eos % (Auto) 2.2, Baso % (Auto) 0.5, Absolute Neuts (auto) 7.6, Absolute Lymphs (auto) 1.09, Nucleated RBC % 0.3, Differential Comment SCANNED, Diff Path Review February11/10/22 06:00: Sodium 143, Potassium 4.0, Chloride 116 H, Carbon Dioxide 20.0 L , Anion Gap 7, BUN 40 H, Creatinine 2.33 H, Estim Creat Clear Calc 25.90, Est GFR (MDRD) Af Amer 27 L, Est GFR (MDRD) Non-Af 23 L, BUN/Creatinine Ratio 17.2, Glucose 104, Calcium 8.9 Micro: Microbiology 11/06/22 22:49 Blood Culture (Wb) - Anticubital Right Blood Culture - Final Escherichia coli Enterobacter cloacae complex 11/06/22 23:18 Urine, Clean Catch Urine Culture - Final Presumptive E. coli 11/06/22 22:35 Blood Culture (Wb) - Left Hand Blood Culture - Final Gram negative maurice Gram negative maurice#2 11/07/22 02:25 Stool Enteric Bacteriology - Final 11/07/22 02:25 Stool C. difficile GDH Antigen & Toxins - Final 11/07/22 02:25 Stool C. difficile DNA Amplification - Final 11/07/22 02:25 Stool Stool Occult Blood (ANGELA) - Final Occult Blood Positive Radiography Diagnostic Testing: Radiology Impression KUB X-Ray 11/09/22 10:00 IMPRESSION: Nonspecific gastric distention and mild diffuse colonic ileus.. Electronically Signed: Frank Badillo MD at 20:21 EST Reading Location ID and State: [address] [place] [address] , Service support , Physical Exam Narrative General: Alert, oriented, no apparent distress HEENT: Atraumatic, normocephalic Eyes: Anicteric, normal conjunctiva, extraocular movements grossly intact Neck: Supple Respiratory: Diminished breath sounds bilaterally secondary to body habitus Cardiovascular: Regular rate and rhythm GI: Soft, nontender, nondistended, no rebound, guarding, rigidity Extremities: No edema Musculoskeletal: Moving all extremities Neuro: No overt focal neurological deficits Skin: No rashes appreciated Psych: Cooperative Assessment & Plan Assessment/Plan (1) Acute kidney injury: (2) Hypernatremia: (3) Metabolic acidosis: (4) Hypomagnesemia: (5) Sepsis: PLAN: Plan #Sepsis secondary to acute pyelonephritis secondary to right obstructing ureteral calculus Was found to have a right obstructing ureteral calculus for which she underwent cystoscopy with right stent placement by Dr. Borrero 11/07 Blood cultures positive for E. coli and Enterobacter clocae complex E. coli sensitivities pending but Enterobacter sensitive only to cefepime, gentamicin, imipenem, tobramycin Will consult infectious disease as given sensitivities may require IV antibiotics or further tailoring of antibiotic therapy 11/10: Antibiotics changed from cefepime will change to ertapenem for 7 more days at discharge and will need 1 dose prior to discharge and additionally will take p.o. vancomycin for 10 more days. We will need to verify plan for stent removal with urology prior to discharge and then can likely DC home tomorrow if continuing to do well #Acute C. difficile colitis On p.o. vancomycin GI consult GI recommended KUBs to monitor for megacolon, ordered for this a.m., read is pending 11/10: KUB nonspecific, will repeat in the a.m. but abdomen benign #PARIS Baseline 0.9 and on admission 2.77 Initially felt to be prerenal given her sepsis and volume depletion as well as her medications of MARIA E inhibitor, diuretic, Banks 2 prior to admission Concerned that there had been progression to ischemic ATN Has remained on fluids and does not appear overloaded, still significant diarrhea poor appetite Monitor electrolytes Is slightly improved today #FOBT positive Apixaban was held initially but resumed as it was felt to be positive due to C. difficile colitis P.o. vancomycin GI following Will stop twice daily IV PPI #History of multiple VTE's Imaniqudarin #Class III obesity with BMI of 61.5 Complicates care #History of GERD Continue home PPI #Acute metabolic encephalopathy?resolved [place] to be due to sepsis secondary to acute Pyelo #DVT ppx: maira Fernandez MD Time spent in the patient's overall evaluation,decision-making process, review of diagnostic data, adjustment of management, discussion with other providers, nursing nursing and ancillary staff involved in patient's care documentation, 30 minutes Charges/Coding Visit Charges Inpatient E&M: 89290 Subs Hosp L2
[2022-11-10 09:20] VITALS: BP 143/80; PULSE 92; RESP 18; TEMP 36.8; O2SAT 97
[2022-11-10] MEDS: Pregabalin 50 MG Capsule PO ×2 (09:33→21:17)
[2022-11-10] MEDS: oxyCODONE 5 MG Tablet PO ×2 (09:33→21:17)
[2022-11-10] MEDS: Acetaminophen 325 MG Tablet 650 MG PO ×2 (09:34→17:52)
[2022-11-10] MEDS: APIXABAN 2.5 MG TABLET (WCH) PO ×2 (09:35→22:58)
[2022-11-10] MEDS: buPROPion (SR) 150 MG Tablet.SA PO (09:35)
[2022-11-10] MEDS: busPIRone 15 MG TABLET PO ×2 (10:36→23:20)
--- NOTE | 2022-11-10 10:37 | PCM.PN.ID ---
Physical Exam Narrative Feeling better, no fever, abd pain improved Const alert and no apparent distress Resp normal air movement and clear to auscultation bilaterally Cardio regular rate and regular rhythm GI soft to palpation, non-tender and non-distended Skin no rashes or lesions noted ID ID: Route of nutrition/ use of supplements: [] Nutritional Intake: [] IV Site: [] Boyce Catheter: [] Assessment & Plan Assessment/Plan (1) Pyelonephritis: (2) Sepsis: PLAN: sepsis with PARIS due to ecoli and enterobacter bacteremia due to R sided pyelo with obstructing stone - R ureteral stent placed 11/07/[address] Borrero. On cefepime. Cdiff toxin neg, will cont po vanc. No colitis seen on CT. Discussed options with her. Will order 7 more days IV ertapenem at discharge, along with po vanc x10 more days. Will need midline if ok with nephrology. Will need dose of ertapenem 500mg prior to discharge. Will follow, d/w supervisor case loading (3) Acute kidney injury:
--- NOTE | 2022-11-10 11:12 | CASEMGMT ---
Addendum entered by Christine Lau 11/10/22 14:09: Faxed IV rx to [facility]. Addendum entered by Christine Lau 11/10/22 13:52: Received notification of benefits for IV atb- Home infusion covered at 90% after $3000.00 DED met /$13.43 met to date. Once $4000.00 OOP met then covered at 100%/$57.95 met to date, cost per week is $637.77 for supplies and Ertapenem.?RN CM in to pt room, she states this is fine to proceed with and her will be the cg to administer. She denies need for RN CM to call him to discuss. She states she has already discussed with him. Notified [facility] of anticipated dc and to proceed. Addendum entered by Christine Lau 11/10/22 13:41: Updated [facility] Kathy that pt should dc tomorrow with IV atb x 7 days. Original Note: Received confirmation from Kathy at [facility] that pt is accepted. Spoke with ID who has given rx for IV atb Ertapenem for 7 days pending nephrology ok with midline and first dose to be given at hospital. Referral for IV atb sent via careport to [facility].
[2022-11-10 12:32] LABS: Pathologist Review Reviewed
--- NOTE | 2022-11-10 15:07 | PCM.PN.REN ---
Subjective Subjective No new complaints. Says she has been voiding okay. Objective Data Objective Data Vital Signs: Vital Signs Temp Pulse Resp BP Pulse Ox O2 Del Method 98.2 F 92 18 143/80 H 97 Room Air 11/10/22 09:20 11/10/22 09:20 11/10/22 09:20 11/10/22 09:20 11/10/22 09:20 11/10/22 09:25 Oxygen Delivery Method Room Air Weight: 183.2 kg Body Mass Index (BMI) 61.4 Intake & Output: Intake and Output for Last 24 Hours 11/08/22 11/09/22 11/10/22 23:59 23:59 23:59 Intake Total 3261.5 / 3261.5 3115.83 / 3115.83 2547.5 / 2547.5 Output Total 300 / 300 Balance 3261.5 / 2961.5 2815.83 / 2815.83 2547.5 / 2547.5 Lab / Micro Data Result Diagrams: 11/10/22 06:00 11/10/22 06:00 Labs: Laboratory Results - last 24 hr 11/10/22 06:00: WBC 11.1 H, RBC 3.87 L, Hgb 11.5 L, Hct 36.1 L, MCV 93.3, MCH 29.7, MCHC 31.9 L, RDW Std Deviation 50.0 H, RDW Coeff of Jose Rafael 14.6, Plt Count 131 L, MPV 10.7, Immature Gran % (Auto) 2.700 H, Neut % (Auto) 68.4, Lymph % (Auto) 9.8 L, [place] % (Auto) 16.4 H, Eos % (Auto) 2.2, Baso % (Auto) 0.5, Absolute Neuts (auto) 7.6, Absolute Lymphs (auto) 1.09, Nucleated RBC % 0.3, Differential Comment SCANNED, Diff Path Review Reviewed 11/10/22 06:00: Sodium 143, Potassium 4.0, Chloride 116 H, Carbon Dioxide 20.0 L, Anion Gap 7, BUN 40 H, Creatinine 2.33 H, Estim Creat Clear Calc 25.90, Est GFR (MDRD) Af Amer 27 L, Est GFR (MDRD) Non-Af 23 L, BUN/Creatinine Ratio 17.2, Glucose 104, Calcium 8.9 Micro: Microbiology 11/06/22 22:49 Blood Culture (Wb) - Anticubital Right Blood Culture - Final Escherichia coli Enterobacter cloacae complex 11/06/22 23:18 Urine, Clean Catch Urine Culture - Final Presumptive E. coli 11/06/22 22:35 Blood Culture (Wb) - Left Hand Blood Culture - Final Gram negative maurice Gram negative maurice#2 11/07/22 02:25 Stool Enteric Bacteriology - Final 11/07/22 02:25 Stool C. difficile GDH Antigen & Toxins - Final 11/07/22 02:25 Stool C. difficile DNA Amplification - Final 11/07/22 02:25 Stool Stool Occult Blood (ANGELA) - Final Occult Blood Positive Radiography Diagnostic Testing: Radiology Impression KUB X-Ray 11/09/22 10:00 IMPRESSION: Nonspecific gastric distention and mild diffuse colonic ileus.. Electronically Signed: Frank Badillo MD at 20:21 EST Reading Location ID and State: [facility] / [place] , Service support , Physical Exam Narrative General: Alert and oriented x3, NAD. HEENT: Normocephalic, atraumatic, PERRLA, EOMI, hearing is intact, mucous membrane dry without erythema. Neck: Supple, no JVD, trachea is midline. Cardiovascular: Normal S1, S2. No rubs, murmurs, or gallops. Lungs: Decreased breath sound at bases bilaterally. Abdomen: Obese, normal bowel sound, soft, nontender, no guarding or rebound. Extremities: No clubbing, cyanosis, or edema. Musculoskeletal: Full passive range of motion, no joint swelling. Psychiatric: Normal mood and affect. Skin: Warm and dry without rash. Neurologic: No focal neurologic deficit, cranial nerves II through XII are grossly intact. Assessment & Plan Assessment/Plan (1) Acute kidney injury: (2) Hypernatremia: (3) Metabolic acidosis: (4) Hypomagnesemia: (5) Sepsis: PLAN: Plan Impression/Plan: The patient is a 62-year-old woman with past history of hypertension, VTE on oral anticoagulation, hypothyroidism, hyperlipidemia, morbid obesity, and depression/anxiety. The patient was admitted to the hospital on 10/30/2022 with sepsis due to right pyelonephritis, right obstructing ureteral stone, and C. difficile colitis. Nephrology is asked to see the patient because of PARIS. Acute renal failure. Her primary care physician is Dr. Fam Long. Last known baseline creatinine is 1.09 as of February 2022. Came in with a creatinine of 2.4, peak 2.8, somewhat better today. CT abdomen shows 5 mm kidney stone in the right ureter, s/p stenting Urine culture and blood culture positive for E. coli, blood also positive for Enterobacter Urine analysis has leukocytes consistent with UTI/pyelonephritis Acute renal failure is likely ATN. Creatinine is improving somewhat. electrolytes are acceptable. Blood pressure is stable. No further workup from nephrology standpoint. Since baseline creatinine is normal/close to normal and okay with PICC line or midline as necessary
[2022-11-10 17:44] VITALS: BP 143/91; PULSE 80; RESP 20; TEMP 36.7; O2SAT 100
[2022-11-10] MEDS: 0.9% Saline Lock 10 ML Syringe IV (17:50)
[2022-11-10] MEDS: MELATONIN 3 MG TABLET PO (21:17)
[2022-11-10 21:20] VITALS: BP 152/91; PULSE 87; RESP 18; TEMP 36.6; O2SAT 98
[2022-11-10 22:49] VITALS: BP 152/91; PULSE 87; RESP 16; TEMP 36.7; O2SAT 98
[2022-11-11] VITALS (10 sets, daily range): BP systolic 133–159; BP diastolic 76–96; PULSE 80–96; RESP 16–18; TEMP 36.6–36.9; O2SAT 95–99
[2022-11-11] MEDS: Vancomycin 125 MG/5 ML Susp PO.SYRINGE PO ×3 (05:00→17:25)
[2022-11-11] MEDS: Levothyroxine 100 MCG Tablet 200 MCG PO (05:00)
[2022-11-11 06:20] LABS: Hematocrit 37.6 % (37-47); Hemoglobin 11.9 g/dL (12.0-15.0); Mean Corp Hgb Conc 31.6 g/dL (32-36); Mean Corpuscular Hgb 29.6 pg (27.0-32.0); Mean Corpuscular Volume 93.5 fL (81-99); Mean Platelet Vol. 10.8 fl (6.2-12.0); POSITIVE COUNT YES; POSITIVE DIFFERENTIAL YES; POSITIVE MORPHOLOGY YES; Platelet Count 151 K/mm3 (150-450); RBC Distribution Width CV 14.4 % (11.6-14.6); RBC Distribution Width SD 50.2 fl (35.1-43.9); Red Blood Count 4.02 M/mm3 (4.2-5.4)
[2022-11-11 06:37] LABS: Differential Indicated MANUAL DIFF
[2022-11-11 06:50] LABS: Anion Gap 7 (5-15); BUN 35 mg/dL (7-18); BUN/Creat Ratio 18.1 RATIO (10-20); Calcium,Total 9.1 mg/dL (8.5-10.1); Chloride 114 mmol/L (98-107); Creatinine, Serum 1.93 mg/dL (0.55-1.02); EST Glomerular Filtration Rate 28 mL/min (>60); Est Glom Filt Rate - Afr Amer 34 mL/min (>60); Estimated Creatinine Clearance 31.27 ml/min; Glucose 107 mg/dL (74-106); Sodium Level 142 mmol/L (136-145)
[2022-11-11 06:51] LABS: Total Cells Counted 100 (MANUAL DIFF)
[2022-11-11 06:52] LABS: Neutrophil-Band 4 % (0-5); Neutrophil-Segmented 66 % (47-70)
[2022-11-11 06:55] LABS: Eosinophil 2 % (0-5); Lymphocyte 9 % (19-41); Metamyelocyte 2 % (0-1); Monocyte 15 % (0-10); Myelocyte 2 % (0-0); Platelet Estimate ADEQUATE (ADEQ)
[2022-11-11 06:58] LABS: Red Cell Morphology NORM C+C NORMAL (NORM C&C)
[2022-11-11 07:01] LABS: Absolute Lymphocyte Count 1.08 X10^3/uL (0.83-4.51); Absolute Neutrophil Count 8.4 X10^3/uL (2.0-7.7); Lymphocyte # 1.08 X10^3/ul (0.83-4.51)
--- NOTE | 2022-11-11 07:17 | PCM.PN.HOSP ---
Objective Data Objective Data Vital Signs: Vital Signs Temp Pulse Resp BP Pulse Ox O2 Del Method 98.0 F 88 18 133/89 H 95 Room Air 11/11/22 05:01 11/11/22 05:01 11/11/22 05:01 11/11/22 05:01 11/11/22 06:48 11/11/22 06:48 Oxygen Delivery Method Room Air Weight: 183.2 kg Body Mass Index (BMI) 61.4 Intake & Output: Intake and Output for Last 24 Hours 11/09/22 11/10/22 11/11/22 23:59 23:59 23:59 Intake Total 3115.83 / 3115.83 3575.0 / 3575.0 Output Total 300 / 300 275 / 275 Balance 2815.83 / 2815.83 3300.0 / 3300.0 Lab / Micro Data Result Diagrams: 11/11/22 06:08 11/11/22 06:08 Labs: Laboratory Results - last 24 hr 11/10/22 06:00: Diff Path Review Reviewed 11/10/22 06:00: Sodium 143, Potassium 4.0, Chloride 116 H, Carbon Dioxide 20.0 L, Anion Gap 7, BUN 40 H, Creatinine 2.33 H, Estim Creat Clear Calc 25.90, Est GFR (MDRD) Af Amer 27 L, Est GFR (MDRD) Non-Af 23 L, BUN/Creatinine Ratio 17.2, Glucose 104, Calcium 8.9 11/11/22 06:08: WBC 12.0 H, RBC 4.02 L, Hgb 11.9 L, Hct 37.6, MCV 93.5, MCH 29.6, MCHC 31.6 L, RDW Std Deviation 50.2 H, RDW Coeff of Jose Rafael 14.4, Plt Count 151, MPV 10.8, Neut % (Auto) Not Reportable, Absolute Neuts (auto) 8.4 H, Absolute Lymphs (auto) 1.08, Total Counted 100, Neutrophils % (Manual) 66, Band Neutrophils % 4, Lymphocytes % (Manual) 9 L, Monocytes % (Manual) 15 H, Eosinophils % (Manual) 2, Metamyelocytes % 2 H, Myelocytes % 2 H, Diff Path Review May foll, Platelet Estimate ADEQUATE, RBC Morphology NORM C+C 11/11/22 06:08: Sodium 142, Potassium 4.0, Chloride 114 H, Carbon Dioxide 21.0, Anion Gap 7, BUN 35 H, Creatinine 1.93 H, Estim Creat Clear Calc 31.27, Est GFR (MDRD) Af Amer 34 L, Est GFR (MDRD) Non-Af 28 L, BUN/Creatinine Ratio 18.1, Glucose 107 H, Calcium 9.1 Micro: Microbiology 11/06/22 22:49 Blood Culture (Wb) - Anticubital Right Blood Culture - Final Escherichia coli Enterobacter cloacae complex 11/06/22 23:18 Urine, Clean Catch Urine Culture - Final Presumptive E. coli 11/06/22 22:35 Blood Culture (Wb) - Left Hand Blood Culture - Final Gram negative maurice Gram negative maurice#2 11/07/22 02:25 Stool Enteric Bacteriology - Final 11/07/22 02:25 Stool C. difficile GDH Antigen & Toxins - Final 11/07/22 02:25 Stool C. difficile DNA Amplification - Final 11/07/22 02:25 Stool Stool Occult Blood (ANGELA) - Final Occult Blood Positive Assessment & Plan Assessment/Plan (1) Acute kidney injury: (2) Hypernatremia: (3) Metabolic acidosis: (4) Hypomagnesemia: (5) Sepsis: PLAN: Plan #Sepsis secondary to acute pyelonephritis secondary to right obstructing ureteral calculus Was found to have a right obstructing ureteral calculus for which she underwent cystoscopy with right stent placement by Dr. Borrero 11/07 Blood cultures positive for E. coli and Enterobacter clocae complex E. coli sensitivities pending but Enterobacter sensitive only to cefepime, gentamicin, imipenem, tobramycin Will consult infectious disease as given sensitivities may require IV antibiotics or further tailoring of antibiotic therapy 11/10: Antibiotics changed from cefepime will change to ertapenem for 7 more days at discharge and will need 1 dose prior to discharge and additionally will take p.o. vancomycin for 10 more days. We will need to verify plan for stent removal with urology prior to discharge and then can likely DC home tomorrow if continuing to do well 11/11: We will discuss with urology today, midline, will transition to ertapenem at discharge #Acute C. difficile colitis On p.o. vancomycin GI consult GI recommended KUBs to monitor for megacolon, ordered for this a.m., read is pending 11/10: KUB nonspecific, will repeat in the a.m. but abdomen benign 11/11: KUB today #PARIS Baseline 0.9 and on admission 2.77 Initially felt to be prerenal given her sepsis and volume depletion as well as her medications of MARIA E inhibitor, diuretic, Banks 2 prior to admission Concerned that there had been progression to ischemic ATN Has remained on fluids and does not appear overloaded, still significant diarrhea poor appetite Monitor electrolytes Is slightly improved today 11/11: Continues to improve, no further nephrology work-up #FOBT positive Apixaban was held initially but resumed as it was felt to be positive due to C. difficile colitis P.o. vancomycin GI following Will stop twice daily IV PPI #History of multiple VTE's Maira #Class III obesity with BMI of 61.5 Complicates care #History of GERD Continue home PPI #Acute metabolic encephalopathy?resolved [place] to be due to sepsis secondary to acute Pyelo #DVT ppx: maira Fernandez MD Time spent in the patient's overall evaluation,decision-making process, review of diagnostic data, adjustment of management, discussion with other providers, nursing nursing and ancillary staff involved in patient's care documentation, 30 minutes
--- NOTE | 2022-11-11 10:45 | RAD_ITS ---
STUDY: X-RAY - ABDOMEN/PELVIS REASON FOR EXAM: Female, 62 years old. Monitor for megacolon TECHNIQUE: Single AP view of the abdomen / pelvis. COMPARISON: Comparison is made with prior study dated 11/09/2022. FINDINGS: There is an unremarkable bowel gas pattern. A right-sided double-J stent catheter is seen. This is unchanged. Bilateral tubal ligation clips are seen. Prior cholecystectomy. Normal visualized osseous structures. RAD/Abdomen Single View (Portable) IMPRESSION: Nonspecific gas pattern. Stable appearance of the right double-J stent catheter Electronically Signed: Fred Monet MD at 14:55 EST ,
--- NOTE | 2022-11-11 11:05 | PCM.PN.REN ---
Subjective Subjective Follow-up on acute kidney injury. Baseline creatinine is normal, improving rather fast. I came over to see patient but she was on the procedure, case was discussed with the patient's relative Objective Data Objective Data Vital Signs: Vital Signs Temp Pulse Resp BP Pulse Ox O2 Del Method 98 F 90 16 147/81 H 97 Room Air 11/11/22 08:44 11/11/22 08:44 11/11/22 08:44 11/11/22 08:44 11/11/22 08:44 11/11/22 08:44 Oxygen Delivery Method Room Air Weight: 183.2 kg Body Mass Index (BMI) 61.4 Intake & Output: Intake and Output for Last 24 Hours 11/09/22 11/10/22 11/11/22 23:59 23:59 23:59 Intake Total 3115.83 / 3115.83 3575.0 / 3575.0 Output Total 300 / 300 275 / 275 Balance 2815.83 / 2815.83 3300.0 / 3300.0 Lab / Micro Data Attestation: I reviewed the patient's lab results. Result Diagrams: 11/11/22 06:08 11/11/22 06:08 Labs: Laboratory Results - last 24 hr 11/10/22 06:00: Diff Path Review Reviewed 11/11/22 06:08: WBC 12.0 H, RBC 4.02 L, Hgb 11.9 L, Hct 37.6, MCV 93.5, MCH 29.6, MCHC 31.6 L, RDW Std Deviation 50.2 H, RDW Coeff of Jose Rafael 14.4, Plt Count 151, MPV 10.8, Neut % (Auto) Not Reportable, Absolute Neuts (auto) 8.4 H, Absolute Lymphs (auto) 1.08, Total Counted 100, Neutrophils % (Manual) 66, Band Neutrophils % 4, Lymphocytes % (Manual) 9 L, Monocytes % (Manual) 15 H, Eosinophils % (Manual) 2, Metamyelocytes % 2 H, Myelocytes % 2 H, Diff Path Review May , Platelet Estimate ADEQUATE, RBC Morphology NORM C+C 11/11/22 06:08: Sodium 142, Potassium 4.0, Chloride 114 H, Carbon Dioxide 21.0, Anion Gap 7, BUN 35 H, Creatinine 1.93 H, Estim Creat Clear Calc 31.27, Est GFR (MDRD) Af Amer 34 L, Est GFR (MDRD) Non-Af 28 L, BUN/Creatinine Ratio 18.1, Glucose 107 H, Calcium 9.1 Micro: Microbiology 11/06/22 22:49 Blood Culture (Wb) - Anticubital Right Blood Culture - Final Escherichia coli Enterobacter cloacae complex 11/06/22 23:18 Urine, Clean Catch Urine Culture - Final Presumptive E. coli 11/06/22 22:35 Blood Culture (Wb) - Left Hand Blood Culture - Final Gram negative maurice Gram negative maurice#2 11/07/22 02:25 Stool Enteric Bacteriology - Final 11/07/22 02:25 Stool C. difficile GDH Antigen & Toxins - Final 11/07/22 02:25 Stool C. difficile DNA Amplification - Final 11/07/22 02:25 Stool Stool Occult Blood (ANGELA) - Final Occult Blood Positive Assessment & Plan Assessment/Plan (1) Metabolic acidosis: PLAN: It is improving, no need for supplemental bicarb (2) Acute kidney injury: PLAN: Creatinine moving down around the past, urine output is good, no need for dialysis (3) Hypernatremia: PLAN: That has finally normalized
[2022-11-11] MEDS: oxyCODONE 5 MG Tablet PO ×3 (11:43→21:32)
[2022-11-11] MEDS: Acetaminophen 325 MG Tablet 650 MG PO ×3 (11:43→21:32)
--- NOTE | 2022-11-11 12:19 | CASEMGMT ---
Addendum entered by Christine Lau 11/11/22 13:49: [facility] responded via careport that delivery of med will be this evening and they have spoken with pt. Original Note: Midline insertion info sent via careport to [facility] with plan for SOC tomorrow morning from [facility].
[2022-11-11 12:40] LABS: Pathologist Review Reviewed
[2022-11-11] MEDS: 0.9% Saline Lock 10 ML Syringe IV ×2 (12:40→16:08)
[2022-11-11] MEDS: buPROPion (SR) 150 MG Tablet.SA PO (12:52)
[2022-11-11] MEDS: APIXABAN 2.5 MG TABLET (WCH) PO ×2 (12:52→21:32)
[2022-11-11] MEDS: busPIRone 15 MG TABLET PO ×2 (12:52→21:31)
[2022-11-11] MEDS: Pregabalin 50 MG Capsule PO ×2 (12:56→21:32)
--- NOTE | 2022-11-11 15:15 | DCINST_ITS ---
Discharge Instructions Diet Discharge Diet: Carb Control Diet Activity Discharge Activity: - (Continue with physical therapy on discharge) Follow Up Care Test Results: Test results from this visit will be discussed in further detail at your follow- up appointment, if applicable. Discharge Plan Admission Admit Date/Time: 11/07/22 00:48 Primary Reason for Your Visit: Fatigue and nausea Attending Provider: Callie Fernandez Primary Care Provider: Fam Long Consulting Providers: Prudence Vasquez ; Joaquin Luong ; Pedrito Borrero ; Shaista Luu ; Clint Kamara ; Aniceto Leblanc Instructions Patient Instructions: Having a Ureteral Stent, Clostridium Difficile Infection, ED Kidney Stone w/ Colic Additional Instructions / Restrictions: DISCHARGE INSTRUCTIONS PLEASE READ *Please take this with you to your next doctors appointment* ?Due to your infection in your urine and blood you will be discharged on ertapenem 1 g daily for another 7 days and you will need a weekly BMP, CBC, LFTs which can be faxed to [phone]. ? Due to your infection in your stool you will also need to take vancomycin (Firvanq) every 6 hours at home for another 10 days ?You will need to call Dr. Borrero's office (urologist) upon discharge to set up an appointment to have your stent removed (ph [phone]) - Would recommend lab work (BMP) to check your kidney function in 3 to 5 days through your primary care physician's office. Please call their office upon discharge to obtain order for lab work. ?Your kidney function has continued to improve during hospitalization but it is recommended that you follow-up with nephrology (kidney doctor), Dr. Luu, upon discharge. Please call his office to schedule hospital follow-up appointment ?Due to your kidney function your celecoxib and enalapril have been held. Please do not resume this until your physician follows up on your kidney function and gives you further instruction. Also be important that you do not take ibuprofen/Aleve or any other NSAIDs until approved by your doctor and your kidney function improves. ? You indicated that you are no longer taking the furosemide (water pill) to this has been discontinued from your medication list ?Due to your kidney stone your Topamax has been discontinued as this increases your risk of kidney stones ?You are diagnosed with a kidney stone so will be important that you drink plenty of fluids. -Please call your primary care provider's office upon discharge to schedule a hospital follow up within 1 week. -For any concerning signs or symptoms please call 911 or proceed to the nearest emergency department Discharge Orders/Prescriptions Prescriptions: New ertapenem 1 gram recon soln 0.5 g IV Q24H 7 Days Qty: 7 0RF Rx Instructions: weekly bmp, cbc, LFT. Fax to [phone] dx: GNR bacteremia Firvanq 25 mg/mL Recon Soln 125 mg PO Q6 10 Days Qty: 200 0RF Continued bupropion HCl 150 MG tablet sustained-release 12 hr 1 tab PO BID ascorbic acid (vitamin C) 1,000 MG tablet 500 mg PO DAILY levothyroxine 50 MCG tablet 200 mcg PO DAILY lansoprazole 30 MG capsule 30 mg PO DAILY metoprolol tartrate 50 MG tablet 50 mg PO BID buspirone 15 MG tablet 15 mg PO BID triamcinolone acetonide 1 APPLIC cream 1 applic topical BID Qty: 1 0RF pregabalin 25 mg capsule 50 mg PO BID Label Comments: TAKE 2 CAPSULES BY MOUTH EVERY MORNING 1 CAPSULE IN THE AFTERNOON AND 2 CAPSULES AT BEDTIME Rx Instructions: takes 50 mg am and pm, and 25 mg in afternoon Wegovy 2.4 mg/0.75 mL pen injector 2.4 mg SUBCUT TH Label Comments: INJECT 0.75 ML SUBCUTANEOUSLY ONE TIME A WEEK. hydrocodone-acetaminophen 5-325 mg tablet 1 - 2 tab PO BID PRN PRN (Reason: Pain) Label Comments: TAKE 1-2 TABLETS BY MOUTH TWICE DAILY NEEDED FOR PAIN (KNEE PAIN) FOR UP TO 30 DAYS. multivitamin Tablet 1 tab PO DAILY estradiol 0.01 % (0.1 mg/gram) Cream 1 appful VAGINAL MOWEFR Rx Instructions: m,w,f, apply pea sized amt vaginally pregabalin [Lyrica] 25 mg Capsule 25 mg PO DAILY Rx Instructions: takes 50 mg am, and pm, takes 25 mg in afternoon Eliquis 2.5 mg Tablet 2.5 mg PO BID Discontinued celecoxib 200 MG capsule 200 mg PO DAILY furosemide 40 MG tablet 40 mg PO DAILY Hold Instructions: Resume on 11/18/22. Would advise weighing yourself daily and if you gain more than 2 pounds in 24 hours to please call your primary care physician or if you begin having increasing swelling in your legs as you may need to resume this medication. enalapril maleate 20 MG tablet 20 mg PO BID topiramate [Topamax] 100 mg Tablet 100 mg PO DAILY Referrals / Follow Up: Shaista Luu MD [Med Staff - Consulting] - See Referral Note (Please call upon discharge to schedule hospital follow-up appointment) Pedrito Borrero MD [Med Staff - Active Staff] - See Referral Note (Please call the urology office within 1 week to schedule your outpatient removal of your ureteral stent) Fam Long [Primary Care Provider] - Within 1 Week Disposition Disposition (needs filled in before D/C Order can be placed): Home Health Service
--- NOTE | 2022-11-11 15:26 | PCM.DC.SUM ---
Providers Date of Admission: 11/07/22 Date of Discharge: 11/11/22 Primary Care Physician: Fam Long Consultations 11/07/22 01:23 Consult: Soda Dialyzer / Pulmonary Medicine Routine Consulting Provider: Joaquin Luong Reason for Consult: Sepsis, PARIS, Suspect pyelonephritis EMERGENT Consult: No Notified: Yes Date Notified: 11/07/22 Time Notified: 00:49 Method of Notification: Text Consult: Urology Routine Consulting Provider: Pedrito Borrero Reason for Consult: Sepsis, UTI, R ureteral mildly obstructive stone. EMERGENT Consult: No Notified: Yes Date Notified: 11/07/22 Time Notified: 01:01 Method of Notification: Text 11/07/22 02:57 Consult: Gastroenterology Routine Consulting Provider: [facility] Reason for Consult: GI bleed EMERGENT Consult: No Notified: Yes Date Notified: 11/07/22 Time Notified: 02:57 Method of Notification: Text 11/08/22 07:55 Consult: Nephrology Routine Consulting Provider: Shaista Luu Reason for Consult: PARIS EMERGENT Consult: No Notified: Yes Date Notified: 11/08/22 Time Notified: 07:55 Method of Notification: Text 11/09/22 08:06 Consult: Infectious Disease Routine Consulting Provider: Aniceto Leblanc Reason for Consult: bld cx +ecoli and enterobacter, enterobacter only sensitive to IVabx EMERGENT Consult: No Notified: Yes Date Notified: 11/09/22 Time Notified: 08:06 Method of Notification: Answering Service Reason For Visit: SEPSIS, PARIS, PYLONEPHRITIS Diagnosis Discharge Diagnosis (1) Metabolic acidosis: Status: Acute Code(s): E87.20 - Acidosis, unspecified (2) Acute kidney injury: Status: Acute Code(s): N17.9 - Acute kidney failure, unspecified (3) Hypernatremia: Status: Acute Code(s): E87.0 - Hyperosmolality and hypernatremia Plan #Sepsis secondary to acute pyelonephritis secondary to right obstructing ureteral calculus #Acute C. difficile colitis #PARIS #FOBT positive #History of multiple VTE's #Class III obesity with BMI of 61.5 #History of GERD #Acute metabolic encephalopathy?resolved nt's care documentation, 30 minutes Medications at Discharge Home Medications ascorbic acid (vitamin C) 1,000 mg tablet 500 mg PO DAILY vitamin 05/01/19 bupropion HCl 150 mg tablet,12 hr sustained-release 1 tab PO BID depression 05/01/19 buspirone 15 mg tablet 15 mg PO BID anxiety 05/01/19 lansoprazole 30 mg capsule,delayed release 30 mg PO DAILY gerd 05/01/19 levothyroxine 50 mcg tablet 200 mcg PO DAILY thyroid 05/01/19 metoprolol tartrate 50 mg tablet 50 mg PO BID bp 05/01/19 triamcinolone acetonide 0.1 % topical cream 1 applic topical BID #1 tube 05/02/19 hydrocodone-acetaminophen 5-325mg 5mg-325mg 1 - 2 tab PO BID PRN PRN Pain 11/07/22 pregabalin 25 mg capsule 50 mg PO BID pain 11/07/22 semaglutide (weight loss) 2.4 mg/0.75 mL subcutaneous pen injector (Wegovy) 2.4 mg subcut TH weight loss 11/07/22 apixaban 2.5 mg tablet (Eliquis) 2.5 mg PO BID dvt 11/09/22 estradiol 0.01% (0.1 mg/gram) vaginal cream 1 appful vaginal MOWEFR hormone 11/09/22 multivitamin 1 tab PO DAILY vitamin 11/09/22 pregabalin 25 mg capsule (Lyrica) 25 mg PO DAILY pain 11/09/22 ertapenem 1 gram solution for injection 0.5 g IV Q24H 7 days #7 ea 11/10/22 vancomycin 25 mg/mL oral solution (Firvanq) 125 mg (5 mL) PO Q6 10 days #200 mL 11/10/22 Hospital Course Operations - (Cystoscopy with right ureteral stent placement) Summary of Care Provided Minutes Spent on Discharge: 40 Hospital Course: 62-year-old female with a history of VTE, depression, hypertension, hypothyroidism status post thyroidectomy, morbid obesity who presented to [facility] 11/07 with encephalopathy, nausea vomiting, right flank pain, urinary frequency. She had been having pain radiating toward her right lower quadrant with increased urinary frequency and fevers and chills and increasing confusion so she was brought to the ED. There she was found to have a lactic acid of 6.9 and a urinalysis concerning for UTI. Given 2 L of normal saline, broad-spectrum antibiotics, cultures obtained. CT abdomen and pelvis without contrast in the ED showed right-sided kidney stone which was obstructing. Additionally she was found to have PARIS. She had cystoscopy with stent placement on 11/07. Additionally she was noted to have positive FOBT and was found to have C. difficile and was started on treatment for this. Cultures grew E. coli and Enterobacter and given resistance pattern ID was consulted for likely need for IV antibiotics. Nephrology was also on board for the PARIS and GI saw briefly due to the FOBT positive but that was attributed to the C. difficile. She ultimately was transitioned to cefepime and when culture sensitivity came back ID recommended ertapenem for 7 more days after discharge with 1 dose prior to discharge and vancomycin p.o. for 10 more days. Urology contacted and would like to remove stent in office. Her kidney function did improve and all nephrotoxic agents were held, was cleared for discharge by reception centre manager today and recommended outpatient follow-up. On day of discharge she reported abdomen was beginning to feel better and diarrhea was improving, overall generally feeling better discharge instructions as followed: DISCHARGE INSTRUCTIONS PLEASE READ *Please take this with you to your next doctors appointment* ?Due to your infection in your urine and blood you will be discharged on ertapenem 1 g daily for another 7 days and you will need a weekly BMP, CBC, LFTs which can be faxed to [phone]. ? Due to your infection in your stool you will also need to take vancomycin (Firvanq) every 6 hours at home for another 10 days ?You will need to call Dr. Borrero's office (urologist) upon discharge to set up an appointment to have your stent removed (ph?[phone]) - Would recommend lab work (BMP) to check your kidney function in 3 to 5 days through your primary care physician's office.? Please call their office upon discharge to obtain order for lab work. ?Your kidney function has continued to improve during hospitalization but it is recommended that you follow-up with nephrology (kidney doctor), Dr. Luu, upon discharge.? Please call his office to schedule hospital follow-up appointment ?Due to your kidney function your celecoxib and enalapril have been held.? Please do not resume this until your physician follows up on your kidney function and gives you further instruction.? Also be important that you do not take ibuprofen/Aleve or any other NSAIDs until approved by your doctor and your kidney function improves. ? You indicated that you are no longer taking the furosemide (water pill) to this has been discontinued from your medication list ?Due to your kidney stone your Topamax has been discontinued as this increases your risk of kidney stones ?You are diagnosed with a kidney stone so will be important that you drink plenty of fluids. -Please call your primary care provider's office upon discharge to schedule a hospital follow up within 1 week. -For any concerning signs or symptoms please call 911 or proceed to the nearest emergency department Physical Exam Narrative General: Alert, oriented, no apparent distress HEENT: Atraumatic, normocephalic Eyes: Anicteric, normal conjunctiva, extraocular movements grossly intact Neck: Supple Respiratory: Diminished breath sounds bilaterally secondary to body habitus Cardiovascular: Regular rate and rhythm GI: Soft, nontender, nondistended, no rebound, guarding, rigidity Extremities: No edema Musculoskeletal: Moving all extremities Neuro: No overt focal neurological deficits Skin: No rashes appreciated Psych: Cooperative Weight / BMI Weight Weight: 183.2 kg Body Mass Index (BMI) 61.4 ABG / Lab / Microbiology Data Result Diagrams: 11/11/22 06:08 11/11/22 06:08 Laboratory: Laboratory Results - last 24 hr 11/11/22 06:08: WBC 12.0 H, RBC 4.02 L, Hgb 11.9 L, Hct 37.6, MCV 93.5, MCH 29.6, MCHC 31.6 L, RDW Std Deviation 50.2 H, RDW Coeff of Jose Rafael 14.4, Plt Count 151, MPV 10.8, Neut % (Auto) Not Reportable, Absolute Neuts (auto) 8.4 H, Absolute Lymphs (auto) 1.08, Total Counted 100, Neutrophils % (Manual) 66, Band Neutrophils % 4, Lymphocytes % (Manual) 9 L, Monocytes % (Manual) 15 H, Eosinophils % (Manual) 2, Metamyelocytes % 2 H, Myelocytes % 2 H, Diff Path Review Reviewed, Platelet Estimate ADEQUATE, RBC Morphology NORM C+C 11/11/22 06:08: Sodium 142, Potassium 4.0, Chloride 114 H, Carbon Dioxide 21.0, Anion Gap 7, BUN 35 H, Creatinine 1.93 H, Estim Creat Clear Calc 31.27, Est GFR (MDRD) Af Amer 34 L, Est GFR (MDRD) Non-Af 28 L, BUN/Creatinine Ratio 18.1, Glucose 107 H, Calcium 9.1 Microbiology: Microbiology 11/06/22 22:49 Blood Culture (Wb) - Anticubital Right Blood Culture - Final Escherichia coli Enterobacter cloacae complex 11/06/22 23:18 Urine, Clean Catch Urine Culture - Final Presumptive E. coli 11/06/22 22:35 Blood Culture (Wb) - Left Hand Blood Culture - Final Gram negative maurice Gram negative maurice#2 11/07/22 02:25 Stool Enteric Bacteriology - Final 11/07/22 02:25 Stool C. difficile GDH Antigen & Toxins - Final 11/07/22 02:25 Stool C. difficile DNA Amplification - Final 11/07/22 02:25 Stool Stool Occult Blood (ANGELA) - Final Occult Blood Positive Radiography Diagnostic Testing: Radiology Impression KUB X-Ray 11/11/22 10:45 IMPRESSION: Nonspecific gas pattern. Stable appearance of the right double-J stent catheter Electronically Signed: Fred Monet MD at 14:55 EST , D/C Instructions Discharge Diet: Carb Control Diet Meaningful Use Info Meaningful Use Diagnoses (Choose all that apply): None applicable Discharge Plan Admission Admit Date/Time: 11/07/22 00:48 Primary Reason for Your Visit: Fatigue and nausea Attending Provider: Callie Fernandez Primary Care Provider: Fam Long Consulting Providers: Prudence Vasquez ; Joaquin Luong ; Pedrito Borrero ; Shaista Luu ; Clint Kamara ; Aniceto Leblanc Instructions Patient Instructions: Having a Ureteral Stent, Clostridium Difficile Infection, ED Kidney Stone w/ Colic Additional Instructions / Restrictions: DISCHARGE INSTRUCTIONS PLEASE READ *Please take this with you to your next doctors appointment* ?Due to your infection in your urine and blood you will be discharged on ertapenem 1 g daily for another 7 days and you will need a weekly BMP, CBC, LFTs which can be faxed to [phone]. ? Due to your infection in your stool you will also need to take vancomycin (Firvanq) every 6 hours at home for another 10 days ?You will need to call Dr. Borrero's office (urologist) upon discharge to set up an appointment to have your stent removed (ph [phone]) - Would recommend lab work (BMP) to check your kidney function in 3 to 5 days through your primary care physician's office. Please call their office upon discharge to obtain order for lab work. ?Your kidney function has continued to improve during hospitalization but it is recommended that you follow-up with nephrology (kidney doctor), Dr. Luu, upon discharge. Please call his office to schedule hospital follow-up appointment ?Due to your kidney function your celecoxib and enalapril have been held. Please do not resume this until your physician follows up on your kidney function and gives you further instruction. Also be important that you do not take ibuprofen/Aleve or any other NSAIDs until approved by your doctor and your kidney function improves. ? You indicated that you are no longer taking the furosemide (water pill) to this has been discontinued from your medication list ?Due to your kidney stone your Topamax has been discontinued as this increases your risk of kidney stones ?You are diagnosed with a kidney stone so will be important that you drink plenty of fluids. -Please call your primary care provider's office upon discharge to schedule a hospital follow up within 1 week. -For any concerning signs or symptoms please call 911 or proceed to the nearest emergency department Discharge Orders/Prescriptions Prescriptions: New ertapenem 1 gram recon soln 0.5 g IV Q24H 7 Days Qty: 7 0RF Rx Instructions: weekly bmp, cbc, LFT. Fax to [phone] dx: GNR bacteremia Firvanq 25 mg/mL Recon Soln 125 mg PO Q6 10 Days Qty: 200 0RF Continued bupropion HCl 150 MG tablet sustained-release 12 hr 1 tab PO BID ascorbic acid (vitamin C) 1,000 MG tablet 500 mg PO DAILY levothyroxine 50 MCG tablet 200 mcg PO DAILY lansoprazole 30 MG capsule 30 mg PO DAILY metoprolol tartrate 50 MG tablet 50 mg PO BID buspirone 15 MG tablet 15 mg PO BID triamcinolone acetonide 1 APPLIC cream 1 applic topical BID Qty: 1 0RF pregabalin 25 mg capsule 50 mg PO BID Label Comments: TAKE 2 CAPSULES BY MOUTH EVERY MORNING 1 CAPSULE IN THE AFTERNOON AND 2 CAPSULES AT BEDTIME Rx Instructions: takes 50 mg am and pm, and 25 mg in afternoon Wegovy 2.4 mg/0.75 mL pen injector 2.4 mg SUBCUT TH Label Comments: INJECT 0.75 ML SUBCUTANEOUSLY ONE TIME A WEEK. hydrocodone-acetaminophen 5-325 mg tablet 1 - 2 tab PO BID PRN PRN (Reason: Pain) Label Comments: TAKE 1-2 TABLETS BY MOUTH TWICE DAILY NEEDED FOR PAIN (KNEE PAIN) FOR UP TO 30 DAYS. multivitamin Tablet 1 tab PO DAILY estradiol 0.01 % (0.1 mg/gram) Cream 1 appful VAGINAL MOWEFR Rx Instructions: m,w,f, apply pea sized amt vaginally pregabalin [Lyrica] 25 mg Capsule 25 mg PO DAILY Rx Instructions: takes 50 mg am, and pm, takes 25 mg in afternoon Eliquis 2.5 mg Tablet 2.5 mg PO BID Discontinued celecoxib 200 MG capsule 200 mg PO DAILY furosemide 40 MG tablet 40 mg PO DAILY Hold Instructions: Resume on 11/18/22. Would advise weighing yourself daily and if you gain more than 2 pounds in 24 hours to please call your primary care physician or if you begin having increasing swelling in your legs as you may need to resume this medication. enalapril maleate 20 MG tablet 20 mg PO BID topiramate [Topamax] 100 mg Tablet 100 mg PO DAILY Referrals / Follow Up: Shaista Luu MD [Med Staff - Consulting] - See Referral Note (Please call upon discharge to schedule hospital follow-up appointment) Pedrito Borrero MD [Med Staff - Active Staff] - See Referral Note (Please call the urology office within 1 week to schedule your outpatient removal of your ureteral stent) Fam Long [Primary Care Provider] - Within 1 Week Disposition Disposition (needs filled in before D/C Order can be placed): Home Health Service Charges/Coding Visit Charges Inpatient E&M: 44640 Disch Hosp >30min
[2022-11-11] MEDS: MELATONIN 3 MG TABLET PO (21:31)
[2022-11-12] MEDS: Vancomycin 125 MG/5 ML Susp PO.SYRINGE PO ×3 (00:15→12:02)
[2022-11-12 02:23] VITALS: BP 129/77; PULSE 86; RESP 16; TEMP 36.9; O2SAT 95
[2022-11-12] MEDS: Levothyroxine 100 MCG Tablet 200 MCG PO (05:38)
[2022-11-12 06:35] LABS: Hematocrit 37.7 % (37-47); Mean Corp Hgb Conc 31.8 g/dL (32-36); Mean Corpuscular Hgb 29.6 pg (27.0-32.0); Mean Corpuscular Volume 92.9 fL (81-99); Mean Platelet Vol. 10.2 fl (6.2-12.0); POSITIVE COUNT YES; POSITIVE DIFFERENTIAL YES; POSITIVE MORPHOLOGY YES; Platelet Count 190 K/mm3 (150-450); RBC Distribution Width CV 14.1 % (11.6-14.6); RBC Distribution Width SD 48.6 fl (35.1-43.9); Red Blood Count 4.06 M/mm3 (4.2-5.4); White Blood Count 13.8 K/mm3 (4.4-11.0)
[2022-11-12 06:40] LABS: Differential Indicated MANUAL DIFF
[2022-11-12 07:15] LABS: Anion Gap 6 (5-15); BUN 31 mg/dL (7-18); BUN/Creat Ratio 18.2 RATIO (10-20); Calcium,Total 9.2 mg/dL (8.5-10.1); Chloride 113 mmol/L (98-107); EST Glomerular Filtration Rate 33 mL/min (>60); Est Glom Filt Rate - Afr Amer 39 mL/min (>60); Glucose 117 mg/dL (74-106); Potassium 3.9 mmol/L (3.5-5.1); Sodium Level 141 mmol/L (136-145)
[2022-11-12 07:28] VITALS: O2SAT 93
[2022-11-12 07:39] LABS: Blast 1 % (0-0); Eosinophil 6 % (0-5); Lymphocyte 13 % (19-41); Metamyelocyte 8 % (0-1); Monocyte 4 % (0-10); Neutrophil-Band 9 % (0-5); Neutrophil-Segmented 59 % (47-70); Total Cells Counted 100 (MANUAL DIFF)
[2022-11-12 07:40] LABS: Hypersegmented Neutrophils 1+; Platelet Estimate ADEQUATE (ADEQ); Red Cell Morphology NORM C+C NORMAL (NORM C&C)
[2022-11-12 07:41] LABS: Absolute Neutrophil Count 9.3 X10^3/uL (2.0-7.7)
--- NOTE | 2022-11-12 07:48 | PN.HOSP_ITS ---
Subjective Subjective Doing very well today, this was to be discharged yesterday but difficulty obtaining the vancomycin so she was held overnight for safe discharge plan and coordinating medication. No complaints today Objective Data Objective Data Vital Signs: Vital Signs Temp Pulse Resp BP Pulse Ox O2 Del Method 98.4 F 86 16 129/77 H 95 Room Air 11/12/22 02:23 11/12/22 02:23 11/12/22 02:23 11/12/22 02:23 11/12/22 02:23 11/12/22 02:26 Oxygen Delivery Method Room Air Weight: 190.069 kg Body Mass Index (BMI) 61.4 Intake & Output: Intake and Output for Last 24 Hours 11/10/22 11/11/22 11/12/22 23:59 23:59 23:59 Intake Total 3575.0 / 3575.0 1106 / 1106 900 / 900 Output Total 275 / 275 750 / 750 775 / 775 Balance 3300.0 / 3300.0 356 / 356 125 / 125 Lab / Micro Data Result Diagrams: 11/12/22 06:20 11/12/22 06:20 Labs: Laboratory Results - last 24 hr 11/11/22 06:08: Diff Path Review Reviewed 11/12/22 06:20: WBC 13.8 H, RBC 4.06 L, Hgb 12.0, Hct 37.7, MCV 92.9, MCH 29.6, MCHC 31.8 L, RDW Std Deviation 48.6 H, RDW Coeff of Jose Rafael 14.1, Plt Count 190, MPV 10.2, Neut % (Auto) Not Reportable, Absolute Neuts (auto) 9.3 H, Absolute Lymphs (auto) 1.80, Total Counted 100, Neutrophils % (Manual) 59, Band Neutrophils % 9 H, Lymphocytes % (Manual) 13 L, Monocytes % (Manual) 4, Eosinophils % (Manual) 6 H, Metamyelocytes % 8 H, Blast Cells % 1 H*, Diff Path Review May foll, Hypersegmented Neuts 1+ H, Platelet Estimate ADEQUATE, RBC Morphology NORM C+C 11/12/22 06:20: Sodium 141, Potassium 3.9, Chloride 113 H, Carbon Dioxide 22.0, Anion Gap 6, BUN 31 H, Creatinine 1.70 H, Estim Creat Clear Calc 35.50, Est GFR (MDRD) Af Amer 39 L, Est GFR (MDRD) Non-Af 33 L, BUN/Creatinine Ratio 18.2, Glucose 117 H, Calcium 9.2 Micro: Microbiology 11/06/22 22:49 Blood Culture (Wb) - Anticubital Right Blood Culture - Final Escherichia coli Enterobacter cloacae complex 11/06/22 23:18 Urine, Clean Catch Urine Culture - Final Presumptive E. coli 11/06/22 22:35 Blood Culture (Wb) - Left Hand Blood Culture - Final Gram negative maurice Gram negative maurice#2 11/07/22 02:25 Stool Enteric Bacteriology - Final 11/07/22 02:25 Stool C. difficile GDH Antigen & Toxins - Final 11/07/22 02:25 Stool C. difficile DNA Amplification - Final 11/07/22 02:25 Stool Stool Occult Blood (ANGELA) - Final Occult Blood Positive Radiography Diagnostic Testing: Radiology Impression KUB X-Ray 11/11/22 10:45 IMPRESSION: Nonspecific gas pattern. Stable appearance of the right double-J stent catheter Electronically Signed: Fred Monet MD at 14:55 EST , Physical Exam Narrative General: Alert, oriented, no apparent distress HEENT: Atraumatic, normocephalic Eyes: Anicteric, normal conjunctiva, extraocular movements grossly intact Neck: Supple Respiratory: Diminished breath sounds bilaterally secondary to body habitus Cardiovascular: Regular rate and rhythm GI: Soft, nontender, nondistended, no rebound, guarding, rigidity Extremities: No edema Musculoskeletal: Moving all extremities Neuro: No overt focal neurological deficits Skin: No rashes appreciated Psych: Cooperative Assessment & Plan Assessment/Plan (1) Acute kidney injury: (2) Hypernatremia: (3) Metabolic acidosis: (4) Hypomagnesemia: (5) Sepsis: PLAN: Plan #Sepsis secondary to acute pyelonephritis secondary to right obstructing ureteral calculus Was found to have a right obstructing ureteral calculus for which she underwent cystoscopy with right stent placement by Dr. Borrero 11/07 Blood cultures positive for E. coli and Enterobacter clocae complex E. coli sensitivities pending but Enterobacter sensitive only to cefepime, gentamicin, imipenem, tobramycin Will consult infectious disease as given sensitivities may require IV antibiotics or further tailoring of antibiotic therapy 11/10: Antibiotics changed from cefepime will change to ertapenem for 7 more days at discharge and will need 1 dose prior to discharge and additionally will take p.o. vancomycin for 10 more days. We will need to verify plan for stent removal with urology prior to discharge and then can likely DC home tomorrow if continuing to do well 22: Discharged home today, DC was planned yesterday but unable to get in vanc. Patient stable for discharge today #Acute C. difficile colitis On p.o. vancomycin GI consult GI recommended KUBs to monitor for megacolon, ordered for this a.m., read is pending 11/10: KUB nonspecific, will repeat in the a.m. but abdomen benign 11/12: Vancomycin as a.m. patient #PARIS Baseline 0.9 and on admission 2.77 Initially felt to be prerenal given her sepsis and volume depletion as well as her medications of MARIA E inhibitor, diuretic, Banks 2 prior to admission Concerned that there had been progression to ischemic ATN Has remained on fluids and does not appear overloaded, still significant diarrhea poor appetite Monitor electrolytes Is slightly improved today 22: Outpatient blood work, follow-up with PCP and nephrology #FOBT positive Apixaban was held initially but resumed as it was felt to be positive due to C. difficile colitis P.o. vancomycin GI following Will stop twice daily IV PPI #History of multiple VTE's Maira #Class III obesity with BMI of 61.5 Complicates care #History of GERD Continue home PPI #Acute metabolic encephalopathy?resolved [place] to be due to sepsis secondary to acute Pyelo #DVT ppx: maira Fernandez MD Time spent in the patient's overall evaluation,decision-making process, review of diagnostic data, adjustment of management, discussion with other providers, nursing nursing and ancillary staff involved in patient's care documentation, 20 minutes Charges/Coding Visit Charges Inpatient E&M: 73920 [facility] Hosp L1
--- NOTE | 2022-11-12 08:37 | CASEMGMT ---
TC to Kathy at [facility] to make aware pt did not dc lastnight. Kathy states they plan to see pt at 1pm today and prefer to stick to this schedule rather than tomorrow. TC to [facility] pharmacy, spoke with Ainlsey, she states they do not have Firvanq in stock and have it on order. She states that it would be in today.
[2022-11-12] MEDS: APIXABAN 2.5 MG TABLET (WCH) PO (09:03)
[2022-11-12] MEDS: Pregabalin 50 MG Capsule PO (09:03)
[2022-11-12] MEDS: buPROPion (SR) 150 MG Tablet.SA PO (09:03)
[2022-11-12] MEDS: busPIRone 15 MG TABLET PO (09:04)
[2022-11-12 09:08] VITALS: BP 148/91; PULSE 81; RESP 17; TEMP 36.8; O2SAT 97
[2022-11-12] MEDS: Acetaminophen 325 MG Tablet 650 MG PO (09:12)
--- NOTE | 2022-11-12 11:34 | PCM.PN.REN ---
Subjective Subjective Follow-up on acute kidney injury secondary to ATN, in the recovery phase. She feels great, potential discharge today or tomorrow Objective Data Objective Data Vital Signs: Vital Signs Temp Pulse Resp BP Pulse Ox O2 Del Method 98.2 F 81 17 148/91 H 97 Room Air 11/12/22 09:08 11/12/22 09:08 11/12/22 09:08 11/12/22 09:08 11/12/22 09:08 11/12/22 09:10 Oxygen Delivery Method Room Air Weight: 190.069 kg Body Mass Index (BMI) 61.4 Intake & Output: Intake and Output for Last 24 Hours 11/10/22 11/11/22 11/12/22 23:59 23:59 23:59 Intake Total 3575.0 / 3575.0 1106 / 1106 900 / 900 Output Total 275 / 275 750 / 750 775 / 775 Balance 3300.0 / 3300.0 356 / 356 125 / 125 Lab / Micro Data Attestation: I reviewed the patient's lab results. Result Diagrams: 11/12/22 06:20 11/12/22 06:20 Labs: Laboratory Results - last 24 hr 11/11/22 06:08: Diff Path Review Reviewed 11/12/22 06:20: WBC 13.8 H, RBC 4.06 L, Hgb 12.0, Hct 37.7, MCV 92.9, MCH 29.6, MCHC 31.8 L, RDW Std Deviation 48.6 H, RDW Coeff of Jose Rafael 14.1, Plt Count 190, MPV 10.2, Neut % (Auto) Not Reportable, Absolute Neuts (auto) 9.3 H, Absolute Lymphs (auto) 1.80, Total Counted 100, Neutrophils % (Manual) 59, Band Neutrophils % 9 H, Lymphocytes % (Manual) 13 L, Monocytes % (Manual) 4, Eosinophils % (Manual) 6 H, Metamyelocytes % 8 H, Blast Cells % 1 H*, Diff Path Review May foll, Hypersegmented Neuts 1+ H, Platelet Estimate ADEQUATE, RBC Morphology NORM C+C 11/12/22 06:20: Sodium 141, Potassium 3.9, Chloride 113 H, Carbon Dioxide 22.0, Anion Gap 6, BUN 31 H, Creatinine 1.70 H, Estim Creat Clear Calc 35.50, Est GFR (MDRD) Af Amer 39 L, Est GFR (MDRD) Non-Af 33 L, BUN/Creatinine Ratio 18.2, Glucose 117 H, Calcium 9.2 Micro: Microbiology 11/06/22 22:49 Blood Culture (Wb) - Anticubital Right Blood Culture - Final Escherichia coli Enterobacter cloacae complex 11/06/22 23:18 Urine, Clean Catch Urine Culture - Final Presumptive E. coli 11/06/22 22:35 Blood Culture (Wb) - Left Hand Blood Culture - Final Gram negative maurice Gram negative maurice#2 11/07/22 02:25 Stool Enteric Bacteriology - Final 11/07/22 02:25 Stool C. difficile GDH Antigen & Toxins - Final 11/07/22 02:25 Stool C. difficile DNA Amplification - Final 11/07/22 02:25 Stool Stool Occult Blood (ANGELA) - Final Occult Blood Positive Radiography Diagnostic Testing: Radiology Impression KUB X-Ray 11/11/22 10:45 IMPRESSION: Nonspecific gas pattern. Stable appearance of the right double-J stent catheter Electronically Signed: Fred Monet MD at 14:55 EST , Physical Exam Const alert, oriented x3 and no apparent distress Nutritional Appearance: obese HEENT normocephalic Head and Scalp: atraumatic Neck no lymphadenopathy Resp no use of accessory muscles and clear to auscultation bilaterally Cardio regular rate, no murmurs and no rub GI non-tender and non-distended Auscultation: normoactive bowel sounds Skin no rashes or lesions noted Assessment & Plan Assessment/Plan (1) Acute kidney injury: PLAN: Acute kidney injury secondary to ATN, making great urine, creatinine is going down. No acidosis, normokalemia, sodium is fine. It is okay to be discharged, she needs follow-up labs in about 10 to 14 days
[2022-11-13 09:55] LABS: Pathologist Review Reviewed
== END 2022-11-12 13:02 | disposition home health service (06) | DRG 853 ==
LOC: ED 23:35 → ICU 11-07 01:04 → MS3 11-09 04:25 → ICU 11-09 11:29 → MS3 11-09 11:29
PROVIDERS: Internal Medicine; Urology; Admitting Provider Family Medicine; Emergency Provider Emergency Medicine; PCP Student in an Organized Health Care Education/Training Program; Visit Provider Internal Medicine
PROC: 0T768DZ Dilation of Right Ureter with Intraluminal Device, Via Natural or Artificial Opening Endoscopic (ICD-10-PCS; principal; 2022-11-07 07:30)
DX: A41.51 Sepsis due to Escherichia coli [E. coli] (principal); G93.41 Metabolic encephalopathy; N17.0 Acute kidney failure with tubular necrosis; A04.72 Enterocolitis due to Clostridium difficile, not specified as recurrent; E87.0 Hyperosmolality and hypernatremia; Z68.44 Body mass index [BMI] 60.0-69.9, adult; N10 Acute pyelonephritis; N20.1 Calculus of ureter; I95.9 Hypotension, unspecified; E66.01 Morbid (severe) obesity due to excess calories; E78.5 Hyperlipidemia, unspecified; E86.0 Dehydration; E87.6 Hypokalemia; E89.0 Postprocedural hypothyroidism; I10 Essential (primary) hypertension; E83.42 Hypomagnesemia; G47.33 Obstructive sleep apnea (adult) (pediatric); K21.9 Gastro-esophageal reflux disease without esophagitis; B95.2 Enterococcus as the cause of diseases classified elsewhere; N13.9 Obstructive and reflux uropathy, unspecified; R73.9 Hyperglycemia, unspecified; F32.A Depression, unspecified; F41.9 Anxiety disorder, unspecified; Z23 Encounter for immunization; Z79.01 Long term (current) use of anticoagulants; Z79.890 Hormone replacement therapy; Z79.899 Other long term (current) drug therapy; Z86.718 Personal history of other venous thrombosis and embolism; Z86.711 Personal history of pulmonary embolism; Z87.891 Personal history of nicotine dependence
CPT/HCPCS: 36415; 74018; 74176; 76000; 80048; 80053; 81001; 82274; 82570; 83036; 83605; 83690; 83735; 84100; 84300; 85025; 87040; 87077; 87086; 87088; 87186; 87493; 87506; 94640; 94668; 97110; 97116; 97162; 97166; 97530; 97535; 99252; 99284; J7030; J7040; J7050; 90686; A4216; C1769; G0463; J2405; J3490

== ENCOUNTER 2022-11-16 10:35 | Outpatient (RCR) | payer OTHER, SELFPAY ==
[2022-11-16 12:13] LABS: Hemoglobin 12.9 g/dL (12.0-15.0); Mean Corp Hgb Conc 31.5 g/dL (32-36); Mean Corpuscular Hgb 29.2 pg (27.0-32.0); Mean Corpuscular Volume 92.8 fL (81-99); Mean Platelet Vol. 9.7 fl (6.2-12.0); Platelet Count 552 K/mm3 (150-450); RBC Distribution Width SD 48.1 fl (35.1-43.9); Red Blood Count 4.42 M/mm3 (4.2-5.4); White Blood Count 12.1 K/mm3 (4.4-11.0)
[2022-11-16 13:04] LABS: AST(SGOT) 16 U/L (15-37); Alanine Aminotransfer ALT/SGPT 23 U/L (13-56); Albumin, Serum 2.6 g/dL (3.2-5.0); Alkaline Phosphatase 91 U/L (45-117); Anion Gap 9 (5-15); BUN 16 mg/dL (7-18); Bilirubin, Direct 0.12 mg/dL (0.00-0.30); Calcium,Total 9.2 mg/dL (8.5-10.1); Chloride 108 mmol/L (98-107); Creatinine, Serum 1.45 mg/dL (0.55-1.02); EST Glomerular Filtration Rate 39 mL/min (>60); Est Glom Filt Rate - Afr Amer 47 mL/min (>60); Globulin 4.2 g/dL (2.2-4.2); Glucose 98 mg/dL (74-106); Potassium 3.8 mmol/L (3.5-5.1); Protein, Total 6.8 g/dL (6.4-8.2); Sodium Level 142 mmol/L (136-145)
== END 2022-11-16 18:00 | disposition home or self-care (01) ==
LOC: HHLAB 10:35
PROVIDERS: PCP Student in an Organized Health Care Education/Training Program; Visit Provider Internal Medicine Infectious Disease
DX: R78.81 Bacteremia (principal)
CPT/HCPCS: 80048; 80076; 85027

== ENCOUNTER 2022-11-18 09:45 | Day surgery (SDC) | payer OTHER, SELFPAY ==
[2022-11-18] MEDS: Lactated Ringers 1,000 ML 15 ML IV (10:00)
[2022-11-18 10:07] VITALS: BP 130/91; PULSE 76; RESP 17; TEMP 36.2; O2SAT 93; BMI 62.3
--- NOTE | 2022-11-18 12:28 | DCINST_ITS ---
Discharge Instructions Diet Discharge Diet: No restrictions, Light diet - advance as tolerated and Soft diet Activity Discharge Activity: Return to Normal Activity Follow Up Care Test Results: Test results from this visit will be discussed in further detail at your follow- up appointment, if applicable. Discharge Plan Admission Primary Reason for Your Visit: laser kidney stone Attending Provider: Pedrito Borrero Primary Care Provider: Fam Long Discharge Orders/Prescriptions Prescriptions: Continued bupropion HCl 150 MG tablet sustained-release 12 hr 1 tab PO BID ascorbic acid (vitamin C) 1,000 MG tablet 500 mg PO DAILY levothyroxine 50 MCG tablet 200 mcg PO DAILY lansoprazole 30 MG capsule 30 mg PO DAILY metoprolol tartrate 50 MG tablet 50 mg PO BID buspirone 15 MG tablet 15 mg PO BID triamcinolone acetonide 1 APPLIC cream 1 applic topical BID Qty: 1 0RF pregabalin 25 mg capsule 50 mg PO BID Label Comments: TAKE 2 CAPSULES BY MOUTH EVERY MORNING 1 CAPSULE IN THE AFTERNOON AND 2 CAPSULES AT BEDTIME Rx Instructions: takes 50 mg am and pm, and 25 mg in afternoon Wegovy 2.4 mg/0.75 mL pen injector 2.4 mg SUBCUT TH Label Comments: INJECT 0.75 ML SUBCUTANEOUSLY ONE TIME A WEEK. hydrocodone-acetaminophen 5-325 mg tablet 1 - 2 tab PO BID PRN PRN (Reason: Pain) Label Comments: TAKE 1-2 TABLETS BY MOUTH TWICE DAILY NEEDED FOR PAIN (KNEE PAIN) FOR UP TO 30 DAYS. multivitamin Tablet 1 tab PO DAILY estradiol 0.01 % (0.1 mg/gram) Cream 1 appful VAGINAL MOWEFR Rx Instructions: m,w,f, apply pea sized amt vaginally pregabalin [Lyrica] 25 mg Capsule 25 mg PO DAILY Rx Instructions: takes 50 mg am, and pm, takes 25 mg in afternoon Eliquis 2.5 mg Tablet 2.5 mg PO BID ertapenem 1 gram recon soln 0.5 g IV Q24H 7 Days Qty: 7 0RF Rx Instructions: weekly bmp, cbc, LFT. Fax to [phone] dx: GNR bacteremia Firvanq 25 mg/mL Recon Soln 125 mg PO Q6 10 Days Qty: 200 0RF cholecalciferol (vitamin D3) [Vitamin D3] 25 mcg (1,000 unit) Tablet 25 mcg PO DAILY Referrals / Follow Up: Pedrito Borrero MD [Med Staff - Active Staff] - Fam Long [Primary Care Provider] - Disposition Disposition (needs filled in before D/C Order can be placed): Home, Self Care
--- NOTE | 2022-11-18 12:28 | PCM.HP.STD ---
HPI - General General Date of Service: 11/18/22 HPI Narrative TAYLER CAMPOS, is a 62 F who presents to laser for obstructing distal right ureteral calculi [facility] Medical History (Updated 11/17/22 @ 08:50 by Sherrill Jack) Ambulates with cane Anxiety Anxiety and depression Arthritis Arthritis DVT (deep venous thrombosis) Excessive bleeding Former smoker History of Clostridium difficile infection History of edema History of hiatal hernia History of pain when walking History of venous thromboembolism HTN (hypertension) Hyperlipidemia Hypothyroid Kidney stone Morbid obesity On home oxygen therapy Post-menopausal Pulmonary embolism Shortness of breath on exertion Sleep apnea Thyroid disease Uses wheelchair Walker as ambulation aid Wears glasses Home Medications ascorbic acid (vitamin C) 1,000 mg tablet 500 mg PO DAILY vitamin 05/01/19 [History Last Taken Unknown] bupropion HCl 150 mg tablet,12 hr sustained-release 1 tab PO BID depression 05/01/19 [History Last Taken Unknown] buspirone 15 mg tablet 15 mg PO BID anxiety 05/01/19 [History Last Taken Unknown] lansoprazole 30 mg capsule,delayed release 30 mg PO DAILY gerd 05/01/19 [History Last Taken Unknown] levothyroxine 50 mcg tablet 200 mcg PO DAILY thyroid 05/01/19 [History Last Taken 11/18/22] metoprolol tartrate 50 mg tablet 50 mg PO BID bp 05/01/19 [History Last Taken 11/18/22] triamcinolone acetonide 0.1 % topical cream 1 applic topical BID #1 tube 05/02/19 [Rx Last Taken Unknown] hydrocodone-acetaminophen 5-325mg 5mg-325mg 1 - 2 tab PO BID PRN PRN Pain 11/07/22 [History Last Taken 11/18/22] pregabalin 25 mg capsule 50 mg PO BID pain 11/07/22 [History Last Taken Unknown] semaglutide (weight loss) 2.4 mg/0.75 mL subcutaneous pen injector (Wegovy) 2.4 mg subcut TH weight loss 11/07/22 [History Last Taken Unknown] apixaban 2.5 mg tablet (Eliquis) 2.5 mg PO BID dvt 11/09/22 [History Last Taken 11/16/22 23:00] estradiol 0.01% (0.1 mg/gram) vaginal cream 1 appful vaginal MOWEFR hormone 11/09/22 [History Last Taken Unknown] multivitamin 1 tab PO DAILY vitamin 11/09/22 [History Last Taken Unknown] pregabalin 25 mg capsule (Lyrica) 25 mg PO DAILY pain 11/09/22 [History Last Taken Unknown] ertapenem 1 gram solution for injection 0.5 g IV Q24H 7 days #7 ea 11/10/22 [Rx Last Taken Unknown] vancomycin 25 mg/mL oral solution (Firvanq) 125 mg (5 mL) PO Q6 10 days #200 mL 11/10/22 [Rx Last Taken Unknown] cholecalciferol (vitamin D3) 25 mcg (1,000 unit) tablet (Vitamin D3) 25 mcg PO DAILY 11/17/22 [History Last Taken Unknown] Allergy/AdvReac Type Severity Reaction Status Date / Time cephalexin [From Keflex] AdvReac Upset Verified 11/18/22 10:06 Stomach codeine AdvReac Upset Verified 11/18/22 10:06 Stomach Family History Mother Heart disease Hypertension Father Diabetes Aneurysm Surgical History (Updated 11/17/22 @ 08:50 by Sherrill Jack) History of herniorrhaphy History of parathyroidectomy Hx of cholecystectomy Hx of cystoscopy Hx of thyroidectomy Hx of tubal ligation Social History household members: spouse Smoking Status: Former smoker alcohol intake: never substance use type: does not use Vital Signs Vital Signs Vital Signs: 11/18/22 10:07 11/18/22 10:07 Temperature 97.2 F L Temperature Source Temporal Pulse Rate 76 Respiratory Rate 17 Respiratory Pattern Normal Blood Pressure 130/91 H Blood Pressure Mean 104 Blood Pressure Source Monitor Blood Pressure Position Semi-Fowlers Blood Pressure Location Right Arm Pulse Ox 93 Oxygen Delivery Method Room Air Weight Weight: 186 kg Body Mass Index (BMI) 62.3
--- NOTE | 2022-11-18 12:45 | PCM.OPRPT ---
Report of Operation Date of Procedure: 11/18/22 Pre-Operative Diagnosis: Right ureteral calculi with obstruction status post stent Post-Operative Diagnosis: Same Surgery/Procedure Performed:: Cystoscopy right ureteroscopy laser of stone, removal of stent right and retrograde pyelogram. Description of Surgical Findings:: This is a patient who presents to the hospital for treatment for an obstructing distal ureter calculi. I discussed with the patient how the surgery would be performed and we reviewed the risks and benefits of the surgery. The risk and benefits include the risk of failure to remove the stone completely and that the patient may need multiple procedures. We discussed the risk of an infection, the risk of bleeding. We discussed the very rare risk of serious complicated injury to the ureter. The patient understands that if the stone is not able to be removed safely that we may abort the procedure and place a stent. After full discussion and all questions address with the patient the consent form was signed the side was marked appropriately and the patient was taken back to the operating room for the procedure. The patient was taken back to the operating room. After induction of anesthesia by the anesthesiology team the patient was placed in dorsolithotomy position. The genitals were prepped and draped in usual sterile fashion. I went into the bladder with a 21 [place] rigid cystourethroscope through the urethra. Upon entering the bladder I inspected the trigone the left and right ureteral orifice and the bladder itself. I then cannulated the ureteral orifice and advanced a 0.038 Glidewire up into the kidney. Then over the Glidewire I advanced a 5 Fr Ureteral catheter and performed a retrograde pyelogram with about 10cc of contrast, to delineate the anatomy and identify the stone location. I then placed a second 0.038 Guidewire as a working wire and over the working 0.038 guidewire I went in with the brian rigide 7.5fr ureteroscope. I was able to go inside with the 7.5Fr brian rigid utereroscope and I pulled out the working guidewire and then through the 7.5 fr simirigid ureteroscope I engage the stone in the distal ureter with laser lithotripsy using a 270miron laser fiber with energy setting of 6 Hertz and 0.6 J until the stone was lasered into tiny little pieces that should pass on their own. A retrograde pyelogram was performed with 10cc of contrast and no extravasation of contrast or perforation was identified in the ureter there was some mild irritation of the ureter where the stone was located. I then drained the patient's bladder and the cystoscope was removed and the patient was taken back to the recovery room in good position. The patient was given discharge instructions. No stent was placed. Surgeon: Pedrito Borrero Type of Anesthesia: General Drains: none Admit VTE Documentation VTE Present on Admission: No VTE Mechan Device Prophylaxis: SCD's
[2022-11-18 13:04] VITALS: BP 129/75; BP 130/91; PULSE 73; RESP 16; TEMP 36.2; O2SAT 78
[2022-11-18] MEDS: Ketorolac 15 MG/ML Vial IV (13:11)
[2022-11-18 13:15] VITALS: BP 130/91; BP 142/83; PULSE 75; RESP 16; O2SAT 96
[2022-11-18 13:30] VITALS: BP 130/91; BP 146/72; PULSE 73; RESP 16; TEMP 36.4; O2SAT 96
[2022-11-18] MEDS: Acetaminophen 325 MG Tablet 650 MG PO (14:01)
[2022-11-18 14:45] VITALS: BP 130/91; BP 160/88; PULSE 80; RESP 18; O2SAT 97
== END 2022-11-18 14:46 | disposition home or self-care (01) ==
LOC: SDC 09:48 → AC 09:49
PROVIDERS: PCP Student in an Organized Health Care Education/Training Program; Referring Provider Urology; Visit Provider Urology
PROC: 0TJ98ZZ Inspection of Ureter, Via Natural or Artificial Opening Endoscopic (ICD-10-PCS; CPT 52352; principal; 2022-11-18 12:05)
DX: N20.1 Calculus of ureter (principal); E66.01 Morbid (severe) obesity due to excess calories; Z68.44 Body mass index [BMI] 60.0-69.9, adult; E78.5 Hyperlipidemia, unspecified; I10 Essential (primary) hypertension; E03.9 Hypothyroidism, unspecified; Z79.01 Long term (current) use of anticoagulants; Z79.890 Hormone replacement therapy; Z79.899 Other long term (current) drug therapy; Z86.711 Personal history of pulmonary embolism; Z86.718 Personal history of other venous thrombosis and embolism; Z87.891 Personal history of nicotine dependence
CPT/HCPCS: 52353; 00918; J7120; C1769; J2405

== ENCOUNTER 2024-03-27 15:17 | Inpatient (IN) | payer OTHER, SELFPAY ==
[2024-03-27] VITALS (10 sets, daily range): BP systolic 112–154; BP diastolic 68–128; PULSE 89–102; RESP 16–24; TEMP 35.8–36.7; O2SAT 93–100; BMI 65.7; BMI 66.4
--- NOTE | 2024-03-27 15:43 | CT_ITS ---
EXAM: CT ABDOMEN AND PELVIS WITHOUT INTRAVENOUS CONTRAST CLINICAL INDICATION: Kidney Stone TECHNIQUE: Helically acquired images were obtained of the abdomen and pelvis without intravenous contrast. This CT exam was performed using one or more of the following dose reduction techniques: automated exposure control, adjustment of the mA and/or kV according to patient size, and/or use of iterative reconstruction technique. COMPARISON: No relevant prior studies available. FINDINGS: LOWER THORAX: Small hiatal hernia. ABDOMEN: LIVER: Liver is enlarged measuring 25 cm in cephalocaudad dimension. Question mild hepatic steatosis. GALLBLADDER AND BILE DUCTS: Cholecystectomy clips are in place. PANCREAS: Normal. No focal cystic mass. SPLEEN: Spleen is top normal size. ADRENALS: 2.6 cm left adrenal nodule likely represents an adenoma. KIDNEYS AND URETERS: 2.2 cm low-density lesion within the upper pole left kidney suggestive of cysts. No specific follow-up indicated. STOMACH AND BOWEL: Diverticulosis of the colon noted without evidence of acute diverticulitis. PELVIS: APPENDIX: Appendix is visualized and normal in appearance. BLADDER: Small amount of air noted within the urinary bladder likely related to recent instrumentation. REPRODUCTIVE: 2 cm noncalcified and 2.4 cm calcified uterine fibroids. ABDOMEN and PELVIS: INTRAPERITONEAL SPACE: Normal. No ascites or other fluid collection. No free air. BONES/JOINTS: Prominent degenerative changes are noted within the spine. SOFT TISSUES: Normal. No discrete abdominal or pelvic wall hernia. VASCULATURE: Normal. Abdominal aorta is non-dilated. LYMPH NODES: Normal. No enlarged lymph nodes. CT/Abdomen/Pelvis without Cont IMPRESSION: 1. Hepatomegaly. 2. 2.6 cm left adrenal nodule likely an adenoma. Correlate with hormone levels. 3. Diverticulosis coli. 4. Fibroid uterus. Electronically Signed: Edmundo Currie MD at 16:31 EDT ,
--- NOTE | 2024-03-27 15:44 | EKG12_ITS ---
Test Reason : Blood Pressure : / mmHG Vent. Rate : 089 BPM Atrial Rate : 089 BPM P-R Int : 148 ms QRS Dur : 096 ms QT Int : 356 ms P-R-T Axes : 050 041 064 degrees QTc Int : 433 ms Normal sinus rhythm Normal ECG Confirmed by ERIC READ, FLAVIO ([id number]), scientific editor ELMER KHALIL ([id number]) on 03/28/2024 11:25:33 AM Referred By: Confirmed By:FLAVIO REYES MD
--- NOTE | 2024-03-27 15:44 | RAD_ITS ---
EXAM: XR CHEST, 1 VIEW CLINICAL INDICATION: SOB TECHNIQUE: Frontal view of the chest. COMPARISON: XR Chest dated 04/08/2013 FINDINGS: LUNGS AND PLEURAL SPACES: Normal. No consolidation or edema. No pneumothorax. No effusion. HEART: Normal heart size. MEDIASTINUM: No mediastinal or hilar mass. BONES/JOINTS: No acute abnormality. RAD/Chest 1 View (Portable) IMPRESSION: No acute cardiopulmonary abnormality. No interval change. Electronically Signed: Edmundo Currie MD at 16:32 EDT ,
[2024-03-27] MEDS: 0.9% Normal Saline (1000mL) 1,000 ML 999 ML IV (15:49)
[2024-03-27] MEDS: Ondansetron 4 MG/2 ML Vial IV (15:50)
--- NOTE | 2024-03-27 15:54 | ED.VIS.FEGU ---
HPI <FABY Navarrete - Last Filed: 03/27/24 20:02> HPI - Female History of Present Illness Chief Complaint: Flank Pain Narrative Narrative: Patient presenting today due to right-sided flank pain and hematuria that started on Wednesday. The flank pain radiates to her right lower quadrant. History of cholecystectomy, no other abdominal surgeries. She reports that she has been septic with a kidney stone in the past. She has had subjective fevers, chills, and sweats over the past few days. She also reports that she has felt short of breath with exertion over the past few days which is not normal for her. She is on Eliquis due to history of DVT. She denies chest pain with this. [facility] <FABY Navarrete - Last Filed: 03/27/24 20:02> [facility] Medical History Wears glasses Post-menopausal History of Clostridium difficile infection Anxiety Thyroid disease Uses wheelchair Walker as ambulation aid Ambulates with cane Arthritis Kidney stone Pulmonary embolism DVT (deep venous thrombosis) Excessive bleeding History of hiatal hernia Former smoker Sleep apnea On home oxygen therapy Shortness of breath on exertion History of pain when walking History of edema Hypomagnesemia Metabolic acidosis Hypernatremia Right ureteral calculus History of venous thromboembolism Anxiety and depression Morbid obesity Hyperlipidemia Arthritis Hypothyroid HTN (hypertension) Home Medications ?Medication ?Instructions ?Recorded ?Last Taken ?Type ascorbic acid (vitamin C) 1,000 mg 500 mg PO DAILY vitamin 05/01/19 Unknown History tablet bupropion HCl 150 mg tablet,12 hr 1 tab PO BID depression 05/01/19 Unknown History sustained-release buspirone 15 mg tablet 15 mg PO BID anxiety 05/01/19 Unknown History lansoprazole 30 mg capsule,delayed 30 mg PO DAILY gerd 05/01/19 Unknown History release levothyroxine 50 mcg tablet 200 mcg PO DAILY thyroid 05/01/19 11/18/22 History metoprolol tartrate 50 mg tablet 50 mg PO BID bp 05/01/19 11/18/22 History triamcinolone acetonide 0.1 % 1 applic topical BID #1 tube 05/02/19 Unknown Rx topical cream hydrocodone-acetaminophen 5-325mg 1 - 2 tab PO BID PRN PRN Pain 11/07/22 11/18/22 History 5mg-325mg pregabalin 25 mg capsule 50 mg PO BID pain 11/07/22 Unknown History semaglutide (weight loss) 2.4 2.4 mg subcut TH weight loss 11/07/22 Unknown History mg/0.75 mL subcutaneous pen injector (Wegovy) apixaban 2.5 mg tablet (Eliquis) 2.5 mg PO BID dvt 11/09/22 11/16/22 23:00 History multivitamin 1 tab PO DAILY vitamin 11/09/22 Unknown History pregabalin 25 mg capsule (Lyrica) 25 mg PO DAILY pain 11/09/22 Unknown History cholecalciferol (vitamin D3) 25 25 mcg PO DAILY 11/17/22 Unknown History mcg (1,000 unit) tablet (Vitamin D3) celecoxib 200 mg capsule (Celebrex) 200 mg PO DAILY 03/27/24 Unknown History Allergy/AdvReac Type Severity Reaction Status Date / Time cephalexin (From Keflex) AdvReac Upset Verified 03/27/24 15:19 Stomach codeine AdvReac Upset Verified 03/27/24 15:19 Stomach Family History Mother Heart disease Hypertension Father Diabetes Aneurysm Surgical History Hx of cystoscopy Hx of tubal ligation Hx of thyroidectomy History of parathyroidectomy History of herniorrhaphy Hx of cholecystectomy Social History household members: spouse Smoking Status: Former smoker alcohol intake: never substance use type: does not use ROS <FABY Navarrete - Last Filed: 03/27/24 20:02> ROS ED Constitutional Constitutional ED: Denies chills or fever(s) Cardiovascular Cardiovascular: Denies chest pain Respiratory/Chest Respiratory/Chest: Reports dyspnea on exertion; Denies cough or wheezing Gastrointestinal Gastrointestinal: Reports abdominal pain and nausea; Denies constipation, diarrhea or vomiting Genitourinary Genitourinary ED: Reports hematuria; Denies dysuria or urinary urgency Musculoskeletal Musculoskeletal: Reports back pain Integumentary Denies rash Neurologic Neurologic: Denies weakness EXAM <FABY Navarrete - Last Filed: 03/27/24 20:02> Physical Exam Const Vital Signs: 03/27/24 15:20 03/27/24 16:51 03/27/24 18:00 Temperature 96.4 F L 98.1 F Temperature Source Temporal Oral Pulse Rate 95 97 Respiratory Rate 18 18 Blood Pressure 150/84 H 154/128 H Blood Pressure Mean 106 136 Pulse Ox 95 95 Oxygen Delivery Method Room Air Room Air 03/27/24 19:33 03/27/24 19:35 03/27/24 20:00 Temperature 96.9 F L 96.7 F L Temperature Source Temporal Pulse Rate 93 95 95 Respiratory Rate 17 19 H 24 H Blood Pressure 139/84 H 139/84 H 145/84 H Blood Pressure Mean 102 102 104 Pulse Ox 93 99 96 Oxygen Delivery Method Room Air Room Air Positive well nourished, well developed and no apparent distress General Appearance ED: well developed HEENT Reports normocephalic and head/scalp atraumatic Mouth ED: Yes moist mucous membranes normal Eyes PERRL and EOMs intact bilaterally Neck full ROM and supple Chest Wall inspection of chest normal Resp normal respiratory effort and clear to auscultation bilaterally Cardio regular rate and regular rhythm GI soft to palpation, non-tender, non-distended and no masses Back/Spine normal ROM and normal to inspection General Back: CVA tenderness right Extremity normal to inspection and full ROM Neuro oriented x3, CN's II-XII intact bilaterally, moves all extremities, no focal motor deficits and no sensory deficits noted Sensorium / Orientation: awake and alert Psych mental status grossly normal and thought process normal Skin no rashes or lesions noted and no wounds <Dr. Maurice Butler, DO - Last Filed: 03/28/24 00:25> Physical Exam Const Vital Signs: 03/27/24 15:20 03/27/24 16:51 03/27/24 18:00 Temperature 96.4 F L 98.1 F Temperature Source Temporal Oral Pulse Rate 95 97 Respiratory Rate 18 18 Blood Pressure 150/84 H 154/128 H Blood Pressure Mean 106 136 Pulse Ox 95 95 Oxygen Delivery Method Room Air Room Air 03/27/24 19:33 03/27/24 19:35 03/27/24 20:00 Temperature 96.9 F L 96.7 F L Temperature Source Temporal Pulse Rate 93 95 95 Respiratory Rate 17 19 H 24 H Blood Pressure 139/84 H 139/84 H 145/84 H Blood Pressure Mean 102 102 104 Pulse Ox 93 99 96 Oxygen Delivery Method Room Air Room Air Sepsis Attestation <Dr. Maurice Butler DO - Last Filed: 03/28/24 00:25> Possible Source of Sepsis: Genitourinary Sepsis Organ Dysfunction Criteria Present: Creatinine > 2.0 mg/dL [facility] <FABY Navarrete - Last Filed: 03/27/24 20:02> [facility] Narrative Medical decision making narrative: Presenting today with right-sided flank pain and hematuria that she has had over the last several days. She has been having subjective fevers and chills. Here, she is nontoxic-appearing and in no acute distress. She does have right CVA tenderness with a history of kidney stones and sepsis. CT of the abdomen and pelvis without contrast will be obtained to rule out kidney stone, appendicitis, bowel obstruction, and other etiology. She also reports that she has been short of breath with exertion over the past few days which is now normal for her, EKG, troponin, and chest x-ray were also obtained. WBC is 12.6, UA does show evidence of UTI, patient given Rocephin, CT scan shows an adrenal adenoma but otherwise unremarkable. Chest x-ray negative for any acute findings. Given she is on Eliquis, low suspicion for PE. Her initial troponin is elevated at 280, repeat troponin is 229. I did give her aspirin, I did speak with cardiology, they recommend cycling, no acute intervention. Patient has been given IV fluids but given her UTI, [place]IS, and elevated troponin I will speak with hospitalist for admission. The hospitalist did request that I add on a D-dimer, he will follow this and she will be admitted in stable condition. Lab Data Attestation: I reviewed the patient's lab results. Lab results narrative: WBC 12.6, platelet count 247, BUN 55, creatinine 2.47, ALT 70, troponin 280, repeat troponin 229, Labs: Laboratory Results - last 24 hr 03/27/24 03/27/24 03/27/24 15:33 16:38 17:54 WBC 12.6 H RBC 4.84 Hgb 14.0 Hct 44.2 MCV 91.3 MCH 28.9 MCHC 31.7 L RDW Std Deviation 46.0 H RDW Coeff of Jose Rafael 13.6 Plt Count 247 MPV 11.0 Immature Gran % (Auto) 1.300 H Neut % (Auto) 79.0 H Lymph % (Auto) 10.0 L Early % (Auto) 8.9 Eos % (Auto) 0.2 Baso % (Auto) 0.6 Absolute Neuts (auto) 10.0 H Absolute Lymphs (auto) 1.26 Nucleated RBC % 0 Differential Comment SCANNED PT INR APTT D-Dimer Quant (PE/DVT) Sodium 138 Potassium 3.6 Chloride 105 Carbon Dioxide 24.0 Anion Gap 9 BUN 55 H Creatinine 2.47 H Estim Creat Clear Calc 43.97 Est GFR (MDRD) Af Amer 25 L Est GFR (MDRD) Non-Af 21 L BUN/Creatinine Ratio 22.3 H Glucose 141 H Lactic Acid Calcium 9.8 Total Bilirubin 0.80 Direct Bilirubin 0.27 AST 29 ALT 70 H Alkaline Phosphatase 105 Troponin I High Sens 280 H* 229 H* B-Natriuretic Peptide 63.7 Total Protein 7.1 Albumin 2.6 L Globulin 4.5 H Urine Color Yellow Urine Clarity Cloudy Urine pH 5.0 Ur Specific [place] 1.015 Urine Protein 30 H Urine Glucose (UA) Normal Urine Ketones 5 H Urine Occult Blood 250 H Urine Nitrite Positive H Urine Bilirubin Negative Urine Urobilinogen Normal Ur Leukocyte Esterase 500 H Urine RBC 5-10 SEEN Urine WBC 50-100 SEEN Ur Squamous Epith Cells 0 SEEN Urine Bacteria 3+ Fine Granular Casts 0-5 SEEN Urine Mucus 0 SEEN 03/27/24 18:12 WBC RBC Hgb Hct MCV MCH MCHC RDW Std Deviation RDW Coeff of Jose Rafael Plt Count MPV Immature Gran % (Auto) Neut % (Auto) Lymph % (Auto) Early % (Auto) Eos % (Auto) Baso % (Auto) Absolute Neuts (auto) Absolute Lymphs (auto) Nucleated RBC % Differential Comment PT 15.3 H INR 1.2 APTT 39.1 H D-Dimer Quant (PE/DVT) 2.27 H* Sodium Potassium Chloride Carbon Dioxide Anion Gap BUN Creatinine Estim Creat Clear Calc Est GFR (MDRD) Af Amer Est GFR (MDRD) Non-Af BUN/Creatinine Ratio Glucose Lactic Acid 1.2 Calcium Total Bilirubin Direct Bilirubin AST ALT Alkaline Phosphatase Troponin I High Sens B-Natriuretic Peptide Total Protein Albumin Globulin Urine Color Urine Clarity Urine pH Ur Specific [place] Urine Protein Urine Glucose (UA) Urine Ketones Urine Occult Blood Urine Nitrite Urine Bilirubin Urine Urobilinogen Ur Leukocyte Esterase Urine RBC Urine WBC Ur Squamous Epith Cells Urine Bacteria Fine Granular Casts Urine Mucus Radiography X-Ray: Read by ED Physician Diagnostic Testing: Clinical Impression(s) from Imaging Studies Abdomen/Pelvis CT 03/27/24 15:43 IMPRESSION: 1. Hepatomegaly. 2. 2.6 cm left adrenal nodule likely an adenoma. Correlate with hormone levels. 3. Diverticulosis coli. 4. Fibroid uterus. Electronically Signed: Edmundo Currie MD at 16:31 EDT , Chest X-Ray 03/27/24 15:44 IMPRESSION: No acute cardiopulmonary abnormality. No interval change. Electronically Signed: Edmundo Currie MD at 16:32 EDT , EKG Initial EKG: Comments: 9 bpm, normal sinus rhythm, no ST elevation, no ischemia, interpreted by attending ED physician <Dr. Maurice Butler, DO - Last Filed: 03/28/24 00:25> [facility] Narrative Medical decision making narrative: Presenting today with right-sided flank pain and hematuria that she has had over the last several days. She has been having subjective fevers and chills. Here, she is nontoxic-appearing and in no acute distress. She does have right CVA tenderness with a history of kidney stones and sepsis. CT of the abdomen and pelvis without contrast will be obtained to rule out kidney stone, appendicitis, bowel obstruction, and other etiology. She also reports that she has been short of breath with exertion over the past few days which is now normal for her, EKG, troponin, and chest x-ray were also obtained. WBC is 12.6, UA does show evidence of UTI, patient given Rocephin, CT scan shows an adrenal adenoma but otherwise unremarkable. Chest x-ray negative for any acute findings. Given she is on Eliquis, low suspicion for PE. Her initial troponin is elevated at 280, repeat troponin is 229. I did give her aspirin, I did speak with cardiology, they recommend cycling, no acute intervention. Patient has been given IV fluids but given her UTI, [place], and elevated troponin I will speak with hospitalist for admission. The hospitalist did request that I add on a D-dimer, he will follow this and she will be admitted in stable condition. I have personally performed a face to face assessment of the patient and have reviewed the MARILY Note. I performed a substantive portion of the visit including all aspects of the following. My wilkins findings include: History is 64-year-old female presenting with flank pain and right lower suprapubic abdominal discomfort. She has noted some hematuria. She notes subjective fever and chills. She has had prior sepsis recently requiring ICU admission. Patient does note she felt dyspneic earlier prior to arrival Exam is afebrile vital signs are stable here. Lung sounds clear and equal heart is regular without murmur. She has tenderness in the right flank and in the right lower quadrant in addition to suprapubic region. No guarding or rebound. Medical Decison Making patient's white count 12.6. She has evidence of new [place]. She has evidence of UTI. No evidence on CT of ureterolithiasis pelvic abscess renal abscess colitis. Curiously her troponin returns elevated and is trending down now. Her EKG is nonischemic. Our plan will be admission to the hospital. Will give antibiotics here. History & Record Review Discussion w/independent historian: Patient Lab Data Labs: Laboratory Results - last 24 hr 03/27/24 03/27/24 03/27/24 15:33 16:38 17:54 WBC 12.6 H RBC 4.84 Hgb 14.0 Hct 44.2 MCV 91.3 MCH 28.9 MCHC 31.7 L RDW Std Deviation 46.0 H RDW Coeff of Jose Rafael 13.6 Plt Count 247 MPV 11.0 Immature Gran % (Auto) 1.300 H Neut % (Auto) 79.0 H Lymph % (Auto) 10.0 L Early % (Auto) 8.9 Eos % (Auto) 0.2 Baso % (Auto) 0.6 Absolute Neuts (auto) 10.0 H Absolute Lymphs (auto) 1.26 Nucleated RBC % 0 Differential Comment SCANNED PT INR APTT D-Dimer Quant (PE/DVT) Sodium 138 Potassium 3.6 Chloride 105 Carbon Dioxide 24.0 Anion Gap 9 BUN 55 H Creatinine 2.47 H Estim Creat Clear Calc 43.97 Est GFR (MDRD) Af Amer 25 L Est GFR (MDRD) Non-Af 21 L BUN/Creatinine Ratio 22.3 H Glucose 141 H Lactic Acid Calcium 9.8 Total Bilirubin 0.80 Direct Bilirubin 0.27 AST 29 ALT 70 H Alkaline Phosphatase 105 Troponin I High Sens 280 H* 229 H* B-Natriuretic Peptide 63.7 Total Protein 7.1 Albumin 2.6 L Globulin 4.5 H Urine Color Yellow Urine Clarity Cloudy Urine pH 5.0 Ur Specific [place] 1.015 Urine Protein 30 H Urine Glucose (UA) Normal Urine Ketones 5 H Urine Occult Blood 250 H Urine Nitrite Positive H Urine Bilirubin Negative Urine Urobilinogen Normal Ur Leukocyte Esterase 500 H Urine RBC 5-10 SEEN Urine WBC 50-100 SEEN Ur Squamous Epith Cells 0 SEEN Urine Bacteria 3+ Fine Granular Casts 0-5 SEEN Urine Mucus 0 SEEN 03/27/24 18:12 WBC RBC Hgb Hct MCV MCH MCHC RDW Std Deviation RDW Coeff of Jose Rafael Plt Count MPV Immature Gran % (Auto) Neut % (Auto) Lymph % (Auto) Early % (Auto) Eos % (Auto) Baso % (Auto) Absolute Neuts (auto) Absolute Lymphs (auto) Nucleated RBC % Differential Comment PT 15.3 H INR 1.2 APTT 39.1 H D-Dimer Quant (PE/DVT) 2.27 H* Sodium Potassium Chloride Carbon Dioxide Anion Gap BUN Creatinine Estim Creat Clear Calc Est GFR (MDRD) Af Amer Est GFR (MDRD) Non-Af BUN/Creatinine Ratio Glucose Lactic Acid 1.2 Calcium Total Bilirubin Direct Bilirubin AST ALT Alkaline Phosphatase Troponin I High Sens B-Natriuretic Peptide Total Protein Albumin Globulin Urine Color Urine Clarity Urine pH Ur Specific [place] Urine Protein Urine Glucose (UA) Urine Ketones Urine Occult Blood Urine Nitrite Urine Bilirubin Urine Urobilinogen Ur Leukocyte Esterase Urine RBC Urine WBC Ur Squamous Epith Cells Urine Bacteria Fine Granular Casts Urine Mucus Radiography Diagnostic Testing: Clinical Impression(s) from Imaging Studies Abdomen/Pelvis CT 03/27/24 15:43 IMPRESSION: 1. Hepatomegaly. 2. 2.6 cm left adrenal nodule likely an adenoma. Correlate with hormone levels. 3. Diverticulosis coli. 4. Fibroid uterus. Electronically Signed: Edmundo Currie MD at 16:31 EDT , Chest X-Ray 03/27/24 15:44 IMPRESSION: No acute cardiopulmonary abnormality. No interval change. Electronically Signed: Edmundo Currie MD at 16:32 EDT , Discharge Plan Dx/Rx/DC Orders Clinical Impression: UTI (urinary tract infection), Elevated troponin, Abdominal pain, Acute flank pain, [place] (acute kidney injury) Disposition Disposition: Acute Care Hospital [facility] Discharge Date/Time: 03/27/24 20:43
[2024-03-27 15:55] LABS: Absolute Lymphocyte Count 1.26 X10^3/uL (0.83-4.51); Basophil# 0.08 X10^3/uL; Basophil% 0.6 % (0-1); Eosinophil# 0.02 X10^3/uL; Eosinophils% 0.2 % (0-5); Hematocrit 44.2 % (37-47); Lymphocyte # 1.26 X10^3/ul (0.83-4.51); Mean Corp Hgb Conc 31.7 g/dL (32-36); Mean Corpuscular Hgb 28.9 pg (27.0-32.0); Mean Corpuscular Volume 91.3 fL (81-99); Monocyte# 1.12 X10^3/uL; Monocyte% 8.9 % (0-10); NRBC Flagged by Analyzer 0 % (0-5); Neutrophil # 9.98 X10^3/uL (2.7-7.7); POSITIVE MORPHOLOGY YES; Platelet Count 247 K/mm3 (150-450); RBC Distribution Width CV 13.6 % (11.6-14.6); Red Blood Count 4.84 M/mm3 (4.2-5.4); White Blood Count 12.6 K/mm3 (4.4-11.0)
[2024-03-27 16:22] LABS: Differential Comment SCANNED; Differential Indicated SCAN CRITERIA MET
[2024-03-27 16:43] LABS: Mucous, Urine 0 SEEN /hpf (<or=2+); Squamous Epithelial Cells - UA 0 SEEN /hpf (5-10)
[2024-03-27 16:46] LABS: Color, Urine Yellow (Yellow); Glucose, Dipstick Normal (Normal); Ketone-Dipstick 5 mg/dl (Negative); Leukocyte Esterase-Dipstick 500 /ul (Negative); Nitrite-Dipstick Positive (Negative); Occult Blood-Urine 250 /ul (Negative); Protein-Dipstick 30 mg/dl (Negative); Specific Gravity, Urine 1.015 (1.002-1.030); Urine Bilirubin Dipstick Negative (Negative); Urine Clarity Cloudy (Clear); Urine Urobilinogen Normal (Normal)
[2024-03-27 16:58] LABS: Fine Granular Cast- Urine 0-5 SEEN /lpf (0-5)
[2024-03-27 16:59] LABS: White Blood Cells 50-100 SEEN /hpf (0-5)
[2024-03-27 17:00] LABS: Bacteria 3+ /hpf (None Seen); Red Blood Cells-Urine 5-10 SEEN /hpf (0-5)
[2024-03-27 17:51] LABS: Anion Gap 9 (5-15); BUN 55 mg/dL (7-18); BUN/Creat Ratio 22.3 RATIO (10-20); Calcium,Total 9.8 mg/dL (8.5-10.1); Chloride 105 mmol/L (98-107); Creatinine, Serum 2.47 mg/dL (0.55-1.02); EST Glomerular Filtration Rate 21 mL/min (>60); Est Glom Filt Rate - Afr Amer 25 mL/min (>60); Estimated Creatinine Clearance 43.97 ml/min; Glucose 141 mg/dL (74-106); Potassium 3.6 mmol/L (3.5-5.1); Sodium Level 138 mmol/L (136-145); Troponin-I HS 280 pg/mL (3.0-54.0)
[2024-03-27] MEDS: Aspirin 325 MG Tablet PO (18:00)
[2024-03-27] MEDS: Ceftriaxone 1 GM/50 ML BAG IV (18:31)
[2024-03-27] MEDS: 0.9% Normal Saline (1000mL) 1,000 ML 250 ML IV (18:31)
[2024-03-27 18:39] LABS: International Normalized Ratio 1.2; Prothrombin Time (Protime)PT. 15.3 SECONDS (11.7-14.9)
[2024-03-27 18:40] LABS: Partial Thromboplast Time 39.1 Seconds (24.1-36.2)
[2024-03-27 18:45] LABS: AST(SGOT) 29 U/L (15-37); Alanine Aminotransfer ALT/SGPT 70 U/L (13-56); Albumin, Serum 2.6 g/dL (3.2-5.0); Alkaline Phosphatase 105 U/L (45-117); Bilirubin, Direct 0.27 mg/dL (0.00-0.30); Globulin 4.5 g/dL (2.2-4.2); Protein, Total 7.1 g/dL (6.4-8.2)
[2024-03-27 18:53] LABS: Lactic Acid 1.2 mmol/L (0.4-1.9)
[2024-03-27 18:53] LABS: Troponin-I HS 229 pg/mL (3.0-54.0)
--- NOTE | 2024-03-27 19:30 | PCM.HP.STD ---
[facility] - General General Date of Admission: 03/27/24 Date of Service: 03/27/24 Chief Complaint: Right Flank Pain. HPI Narrative TAYLER HAMPTON, is a 64 F with a past medical history of essential hypertension, hyperlipidemia, hypothyroidism, morbid obesity; with BMI of 65.7 this admission on Wegovy, obstructive sleep apnea, history of DVT/PE on Eliquis, history of tobacco abuse, history of C. difficile colitis, history of neuropathy; on Lyrica, depression with anxiety, GERD, osteoarthritis and history of renal calculi who presents to [facility] ER complaining of Right flank pain. Ms. Hampton reports her symptoms began approximately 3 days prior to admission on Sunday, March 24, 2024 with the abrupt onset of right-sided flank pain and hematuria. She explained that her flank pain radiates to her right lower quadrant and she admits to subjective fever, chills and sweats over the past few days. She reports she has been previously diagnosed with sepsis due to a kidney stone in the past with a similar presentation previously. She also admits to increasing dyspnea on exertion over the past few days that is not normal for her and she admits to poor oral intake of solids and liquids for the past 3 days due to her progressively worsening acute illness. She claims she has been taking her Eliquis as prescribed for her previously diagnosed DVT. She denies associated chest pain, nausea, vomiting, diarrhea or constipation but she does admit to pinkish discoloration of her urine. In the ER she was noted to have a urinalysis positive for acute cystitis; with microscopic hematuria and leukocytosis of 12.6 K present on admission (but without other signs of sepsis present on admission) complicated by suspected PARIS in the setting of stage III-IV CKD with elevated serum creatinine of 2.47 mg/dL present on admission (up from her previous reading of 1.45 mg/dL) compounded by an elevated troponin of 229 pg/mL present on admission suspicious for possible NSTEMI versus acute cardiac strain along with an elevated D-dimer of 2.27 present on admission with a known history of DVT already on treatment with Eliquis with possible treatment failure indicated by patient's worsening dyspnea on exertion with a CT scan of the abdomen and pelvis this admission in the ER that revealed incidentally noted hepatomegaly and ~2.6 cm Left adrenal nodule with radiology recommending correlation with hormone levels and she was then admitted to the PCU for ongoing care for stay that is expected to extend beyond 2 midnights. [facility] Medical History Wears glasses Post-menopausal History of Clostridium difficile infection Anxiety Thyroid disease Uses wheelchair Walker as ambulation aid Ambulates with cane Arthritis Kidney stone Pulmonary embolism DVT (deep venous thrombosis) Excessive bleeding History of hiatal hernia Former smoker Sleep apnea On home oxygen therapy Shortness of breath on exertion History of pain when walking History of edema Hypomagnesemia Metabolic acidosis Hypernatremia Right ureteral calculus History of venous thromboembolism Anxiety and depression Morbid obesity Hyperlipidemia Arthritis Hypothyroid HTN (hypertension) Home Medications ?Medication ?Instructions ?Recorded ?Last Taken ?Type ascorbic acid (vitamin C) 1,000 mg 500 mg PO DAILY vitamin 05/01/19 Unknown History tablet bupropion HCl 150 mg tablet,12 hr 1 tab PO BID depression 05/01/19 Unknown History sustained-release buspirone 15 mg tablet 15 mg PO BID anxiety 05/01/19 Unknown History lansoprazole 30 mg capsule,delayed 30 mg PO DAILY gerd 05/01/19 Unknown History release levothyroxine 50 mcg tablet 200 mcg PO DAILY thyroid 05/01/19 11/18/22 History metoprolol tartrate 50 mg tablet 50 mg PO BID bp 05/01/19 11/18/22 History triamcinolone acetonide 0.1 % 1 applic topical BID #1 tube 05/02/19 Unknown Rx topical cream hydrocodone-acetaminophen 5-325mg 1 - 2 tab PO BID PRN PRN Pain 11/07/22 11/18/22 History 5mg-325mg pregabalin 25 mg capsule 50 mg PO BID pain 11/07/22 Unknown History semaglutide (weight loss) 2.4 2.4 mg subcut TH weight loss 11/07/22 Unknown History mg/0.75 mL subcutaneous pen injector (Wegovy) apixaban 2.5 mg tablet (Eliquis) 2.5 mg PO BID dvt 11/09/22 11/16/22 23:00 History multivitamin 1 tab PO DAILY vitamin 11/09/22 Unknown History pregabalin 25 mg capsule (Lyrica) 25 mg PO DAILY pain 11/09/22 Unknown History cholecalciferol (vitamin D3) 25 25 mcg PO DAILY 11/17/22 Unknown History mcg (1,000 unit) tablet (Vitamin D3) celecoxib 200 mg capsule (Celebrex) 200 mg PO DAILY 03/27/24 Unknown History Allergy/AdvReac Type Severity Reaction Status Date / Time cephalexin (From Keflex) AdvReac Upset Verified 03/27/24 15:19 Stomach codeine AdvReac Upset Verified 03/27/24 15:19 Stomach Family History Mother Heart disease Hypertension Father Diabetes Aneurysm Surgical History Hx of cystoscopy Hx of tubal ligation Hx of thyroidectomy History of parathyroidectomy History of herniorrhaphy Hx of cholecystectomy Social History household members: spouse Smoking Status: Former smoker alcohol intake: never substance use type: does not use ROS ROS Narrative Review of systems: General: Patient admits to subjective fever and chills with new increasing dyspnea on exertion as per HPI. HENT: Denies headache, denies stuffy nose, denies sore throat EYES: Denies changes in vision or discharge from eyes. Resp: Patient admits to shortness of breath with minimal exertion as per HPI but she denies chest pain. Cardiac: Denies chest pain, palpitations or heart racing. GI: Denies abdominal pain, denies changes in bowel, denies nausea or vomiting. : Patient admits to Right flank pain radiating to her RLQ with dysuria and mild hematuria as per HPI. Extremity: Denies swelling Musculoskeletal: Feels somewhat generally weak and unwell but denies arthralgias or myalgias. Neuro: Patient denies headache, paresthesias or focal neurologic weakness. Heme: Patient admits to pinkish discoloration of urine. Skin: Denies rashes Psychiatric: No complaints voiced related to uncontrolled depression or anxiety. Endocrine: No polyuria, polydipsia or polyphagia. The rest of the 14 point ROS was negative except for positives in HPI. Vital Signs Vital Signs Vital Signs: 03/27/24 15:20 03/27/24 16:51 03/27/24 18:00 Temperature 96.4 F L 98.1 F Temperature Source Temporal Oral Pulse Rate 95 97 Respiratory Rate 18 18 Blood Pressure 150/84 H 154/128 H Blood Pressure Mean 106 136 Pulse Ox 95 95 Oxygen Delivery Method Room Air Room Air Weight Weight: 438 lb 11.518 oz Body Mass Index (BMI) 65.7 Physical Exam Const alert, oriented x3 and no apparent distress Constitutional Narrative: Patient is morbidly obese and appears moderately ill. General Appearance: cooperative HEENT normocephalic, head/scalp atraumatic and hearing grossly normal bilaterally HEENT Narrative: Mucous membranes dry. Eyes PERRL, EOMs intact bilaterally and conjunctivae normal Neck no lymphadenopathy and supple Resp normal respiratory effort, no retractions, no use of accessory muscles and clear to auscultation bilaterally Cardio regular rate and regular rhythm GI normal to inspection, nondistended, normoactive bowel sounds, soft to palpation and non-distended GI Narrative: Mild tenderness to palpation in Right lower quadrant. Extremity normal to inspection, full ROM and no clubbing, cyanosis or edema Skin Skin Narrative: Patient has no evidence of abscess, jaundice or rash. Neuro oriented x3, CN's II-XII intact bilaterally, moves all extremities and no focal motor deficits Sensorium / Orientation: awake, alert, oriented to person, oriented to place and oriented to time Speech: speech normal Psych affect normal Results Medical Records Data Attestation: I reviewed the patient's medical records Lab / Micro Data Attestation: I reviewed the patient's lab results. 03/28/24 04:35 03/27/24 15:33 Labs: Laboratory Results - last 24 hr 03/27/24 15:33: WBC 12.6 H, RBC 4.84, Hgb 14.0, Hct 44.2, MCV 91.3, MCH 28.9, MCHC 31.7 L, RDW Std Deviation 46.0 H, RDW Coeff of Jose Rafael 13.6, Plt Count 247, MPV 11.0, Immature Gran % (Auto) 1.300 H, Neut % (Auto) 79.0 H, Lymph % (Auto) 10.0 L, [place] % (Auto) 8.9, Eos % (Auto) 0.2, Baso % (Auto) 0.6, Absolute Neuts (auto) 10.0 H, Absolute Lymphs (auto) 1.26, Nucleated RBC % 0, Differential Comment SCANNED, Sodium 138, Potassium 3.6, Chloride 105, Carbon Dioxide 24.0, Anion Gap 9, BUN 55 H, Creatinine 2.47 H, Estim Creat Clear Calc 43.97, Est GFR (MDRD) Af Amer 25 L, Est GFR (MDRD) Non-Af 21 L, BUN/Creatinine Ratio 22.3 H, Glucose 141 H, Calcium 9.8, Total Bilirubin 0.80, Direct Bilirubin 0.27, AST 29, ALT 70 H, Alkaline Phosphatase 105, Troponin I High Sens 280 H*, Total Protein 7.1, Albumin 2.6 L, Globulin 4.5 H 03/27/24 16:38: Urine Color Yellow, Urine Clarity Cloudy, Urine pH 5.0, Ur Specific [place] 1.015, Urine Protein 30 H, Urine Glucose (UA) Normal, Urine Ketones 5 H, Urine Occult Blood 250 H, Urine Nitrite Positive H, Urine Bilirubin Negative, Urine Urobilinogen Normal, Ur Leukocyte Esterase 500 H, Urine RBC 5-10 SEEN, Urine WBC 50-100 SEEN, Ur Squamous Epith Cells 0 SEEN, Urine Bacteria 3+, Fine Granular Casts 0-5 SEEN, Urine Mucus 0 SEEN 03/27/24 17:54: Troponin I High Sens 229 H* 03/27/24 18:12: PT 15.3 H, INR 1.2, APTT 39.1 H, Lactic Acid 1.2 Imaging Radiology Impression Abdomen/Pelvis CT 03/27/24 15:43 IMPRESSION: 1. Hepatomegaly. 2. 2.6 cm left adrenal nodule likely an adenoma. Correlate with hormone levels. 3. Diverticulosis coli. 4. Fibroid uterus. Electronically Signed: Edmundo Currie MD at 16:31 EDT Reading Location ID and State: [facility] / [place] Tel , Service support , Chest X-Ray 03/27/24 15:44 IMPRESSION: No acute cardiopulmonary abnormality. No interval change. Electronically Signed: Edmundo Currie MD at 16:32 EDT , Assessment & Plan Assessment/Plan (1) Acute cystitis with hematuria: (2) PARIS (acute kidney injury): (3) D-dimer, elevated: (4) Elevated troponin: (5) Personal history of DVT (deep vein thrombosis): (6) Hyperlipidemia: QUALIFIERS: Hyperlipidemia type: unspecified Qualified Code(s): E78.5 - Hyperlipidemia, unspecified (7) Hypothyroidism: QUALIFIERS: Hypothyroidism type: unspecified Qualified Code(s): E03.9 - Hypothyroidism, unspecified (8) Morbid obesity with BMI of 60.0-69.9, adult: PLAN: Plan 1. Acute cystitis; with microscopic hematuria and leukocytosis of 12.6 K with Left shift present on admission (but without signs of sepsis present on admission) - Admit to PCU. Continue empiric Rocephin begun in the ER and await culture and sensitivity data. Give Tylenol as needed mild to moderate (level 1-5 out of 10) pain or fever. Continue hydrocodone-acetaminophen as needed for severe (level 6-10 out of 10) pain. 2. Suspected PARIS; in the setting of stage III-IV CKD with elevated serum creatinine of 2.47 mg/dL present on admission (up from her previous reading of 1.45 mg/dL) with poor oral intake for the past ~3 days due to her acute illness complicating #1 - Give normal saline IV fluid to volume resuscitate and recheck levels in the a.m. to ensure improvement. Avoid potentially nephrotoxic agents. 3. Elevated troponin of 229 pg/mL suspicious for possible underlying non-ST elevation MN versus acute cardiac strain compounding #1 & #2 - Serialize troponin. Check echocardiogram to evaluate LVEF. Hold Eliquis in favor of full dose IV heparin per protocol. Give enteric-coated aspirin plus continue metoprolol as previous but hold celecoxib with known increased risk of potential cardiovascular events with this agent. 4. Elevated D-dimer of 2.27 present on admission in the setting of a known history of DVT/PE already on Eliquis - Possible treatment failure with Eliquis with severe shortness of breath with minimal exertion that is new with patient reporting she did not have shortness of breath with exertion when previously diagnosed with DVT and PE. Therefore, hold this agent in favor of IV heparin until V/Q scan can be obtained to confirm suspicion. Check bilateral lower extremity Doppler to evaluate for evidence of DVT. 5. Hypoalbuminemia of 2.6 g/dL present on admission suspicious for underlying protein calorie malnutrition - Check prealbumin to confirm suspicion plus add Ensure to meals. 6. Super morbid obesity with a BMI of 65.7 present on admission in the setting of known DAVID adding to the pathology of #1 - #5 - Weight loss will be recommended. Patient currently on sq Wegovy every . Check TSH. Resume nocturnal CPAP as previous. This adds to the complexity of her case and may hamper recovery. 7. Incidentally noted hepatomegaly and ~2.6 cm Left adrenal nodule; likely an adenoma according to radiology with recommendation to correlate hormone level - Noted. Check 8 AM cortisol level. 8. Essential hypertension - Continue home regimen plus give as needed IV hydralazine for systolic blood pressure greater than 160 mmHg. 9. Hyperlipidemia - Resume statin and check lipid profile in light of #3. 10. Hypothyroidism - Continue levothyroxine and check TSH in light of #6. 11. History of tobacco abuse - Noted. 12. History of C. difficile colitis - Noted. Watch out for signs of diarrhea with IV antibiotics this admission to treat #1. 13. History of neuropathy; on Lyrica - Resume Lyrica as previous. 14. Depression with anxiety - Continue home regimen plus give as needed low-dose Xanax for breakthrough symptoms. 15. GERD - Resume PPI. 16. History of renal calculi - Noted with no evidence of obstructing stone on CT this admission. 17. Osteoarthritis - Give Tylenol as needed. 18. DVT prophylaxis - Patient on IV heparin for #2 & #3. Total time: Approximately 85 minutes. Charges/Coding Visit Charges Inpatient E&M: 47336 Init Hosp L3
[2024-03-27 19:38] LABS: BNP,B-Type NATRIURETIC PEPTIDE 63.7 pg/mL (0-100)
[2024-03-27 20:02] LABS: D-Dimer Quantitative (DVT/PE) 2.27 FEU/ug/m (0.27-0.49)
--- NOTE | 2024-03-27 20:56 | VDLE_ITS ---
Reason For Study: ELEVATED D-DIMER RIGHT LEFT GSV is normal. GSV is normal. CFV is compressible, spontaneous, phasic, CFV is compressible, spontaneous, phasic, competent and demonstrates normal competent, and demonstrates normal augmentation. augmentation. FV is compressible, spontaneous, phasic, FV is compressible, spontaneous, phasic, competent and demonstrates normal competent and demonstrates normal augmentation. augmentation. POP V is compressible, spontaneous, phasic, POP V is compressible, spontaneous, phasic, competent and demonstrates normal competent and demonstrates normal augmentation. augmentation. T/P Trunk is compressible. T/P Trunk is compressible. PTV is compressible. PTV is compressible. RT PerV is compressible. LT PerV is compressible. Procedure This is a venous duplex using B-mode, color flow and spectral Doppler. Exam performed portable in patient room. The study was technically difficult. Due to body habitus; BMI 65.7. A preliminary report was called and/or faxed to [facility]. VL/Venous Duplex US - Joe Extrem Interpretation Summary Deep veins of the bilateral lower extremities are patent and compressible segme ntally. There is no evidence of bilateral lower extremity deep vein thrombosis. The bilateral great saphenous veins appear patent and compressible segmentally. Ordering Physician: Clint Webster Referring Physician: Fam Long Performed By: Lizeth Rose, KORY, RVT
--- NOTE | 2024-03-27 20:56 | ECHOCS_ITS ---
Reason For Study: s/p CO Procedure This was a 2D Doppler, Color Flow transthoracic echocardiogram. The study was technically difficult. Contrast injection was performed. Exam performed portable in patient room. Left Ventricle Normal LV size. Left ventricular systolic function is normal. The left ventricular ejection fraction is 65 %. Stage 1 diastolic dysfunction. No regional wall motion abnormalities noted. Right Ventricle Normal RV size. Normal systolic function. Atria Normal left atrium. Normal right atrium. Mitral Valve Mitral valve not well visualized. Tricuspid Valve Normal tricuspid valve. Moderate (2+) tricuspid valve insufficiency. Pulmonary artery systolic pressure is 64 mmHg. Moderate pulmonary hypertension. Aortic Valve The aortic valve is not well visualized. Great Vessels Normal aortic root. The pulmonary artery is normal size. Normal inferior vena cava. Pericardium/Pleural No pericardial effusion. Medication Diluted definity 3ml given slow IV push to enhance endocardial definition. MMode/2D Measurements & Calculations LVIDd: 6.1 cm IVSd: 1.3 cm LVOT diam: 2.1 cm LVIDs: 4.5 cm LVPWd: 1.0 cm LVOT area: 3.4 cm2 RVDd: 4.3 cm FS: 27.3 % Ao root diam: 3.0 cm LAV(MOD-bp): 59.9 ml LA A4 area: 22.8 cm2 LA dimension: 3.8 cm LAV(MOD-bp) Indexed: 21.0 ml/m2 LAV(MOD-sp2): 53.1 ml LAV(MOD-sp4): 68.7 ml RA A4 area: 20.1 cm2 Time Measurements MV dec time: 0.29 sec Doppler Measurements & Calculations MV E max dion: 67.5 cm/sec Lat Peak E' Dion: 18.1 cm/sec Med Peak E' Dion: 11.1 cm/sec MV A max dion: 97.2 cm/sec E/E' lat: 3.7 E/E' med: 6.1 MV E/A: 0.69 MV V2 max: 115.9 cm/sec MV P1/2t max dion: 98.7 cm/sec Ao V2 max: 241.1 cm/sec MV max P.4 mmHg MV P1/2t: 104.8 msec Ao max P.3 mmHg MV V2 mean: 64.5 cm/sec MV dec slope: 275.8 cm/sec2 Ao V2 mean: 158.9 cm/sec MV mean P.0 mmHg Ao mean P.0 mmHg MV V2 VTI: 24.0 cm MVA(P1/2t): 2.1 cm2 Ao V2 VTI: 38.1 cm MVA(VTI): 3.5 cm2 AV (velocity ratio): 0.66 KAREN(I,D): 2.2 cm2 KAREN(V,D): 2.0 cm2 LV V1 max: 145.8 cm/sec SV(LVOT): 85.0 ml PA V2 max: 133.6 cm/sec LV V1 max P.5 mmHg LV V1 mean P.6 mmHg LV V1 mean: 98.7 cm/sec LV V1 VTI: 25.1 cm TR max dino: 380.7 cm/sec TR max P.0 mmHg ECHO/Echo Complete W/ Contrast Interpretation Summary Normal LV size. Left ventricular systolic function is normal. The left ventricular ejection fraction is 65 %. Stage 1 diastolic dysfunction. Pulmonary artery systolic pressure is 64 mmHg. Moderate pulmonary hypertension. Contrast injection was performed. The study was technically difficult. Ordering Physician: Clint Webster Performed By: Jacob Olsen RCS
--- NOTE | 2024-03-27 21:12 | EKG12_ITS ---
Test Reason : ELEVATED TROP Blood Pressure : / mmHG Vent. Rate : 096 BPM Atrial Rate : 096 BPM P-R Int : 198 ms QRS Dur : 102 ms QT Int : 346 ms P-R-T Axes : 068 013 065 degrees QTc Int : 437 ms Normal sinus rhythm Normal ECG When compared with ECG of 27-MAR-2024 16:28, MANUAL COMPARISON REQUIRED, DATA IS UNCONFIRMED Confirmed by ERIC READ, FLAVIO ([id number]), news video editor ELMER KHALIL ([id number]) on 03/29/2024 9:45:42 AM Referred By: Confirmed By:FLAVIO REYES MD
[2024-03-27] MEDS: 0.9% Normal Saline (1000mL) 1,000 ML 70 ML IV (21:15)
[2024-03-27] MEDS: Lactobacillis Acidophilus 2 CAP PO (22:26)
[2024-03-27] MEDS: HEPARIN/D5w 25,000 UNITS 25,000 UNITS/250 ML IV.SOLN. 22 UNITS CONT INF (22:26)
[2024-03-27] MEDS: busPIRone 15 MG TABLET PO (22:27)
[2024-03-27] MEDS: Metoprolol Tartrate 50 MG Tablet PO (22:27)
[2024-03-27 22:28] LABS: Cholesterol 107 mg/dL (200); High Density Lipoprotein 20 mg/dL; Thyroid Stim Hormone (TSH) 0.61 uIU/mL (0.358-3.74); Triglycerides 151 mg/dL; Troponin-I HS 171 pg/mL (3.0-54.0); Very Low Density Lipoprotein 30 mg/dL (5-40)
[2024-03-27] MEDS: buPROPion (SR) 150 MG Tablet.SA PO (22:29)
[2024-03-27] MEDS: Triamcinolone Acetonide 0.1% Cream 15 gm 1 APPLIC TOPICAL (22:29)
[2024-03-27] MEDS: Pregabalin 50 MG Capsule PO (22:33)
[2024-03-27] MEDS: HYDROcodone Bitartrate/Apap 5/325 Tablet PO (23:37)
[2024-03-28] VITALS (8 sets, daily range): BP systolic 131–136; BP diastolic 81–86; PULSE 72–89; RESP 16–18; TEMP 36.3–37.2; O2SAT 93–94; BMI 66.4
[2024-03-28 04:46] LABS: Absolute Lymphocyte Count 1.11 X10^3/uL (0.83-4.51); Basophil# 0.07 X10^3/uL; Basophil% 0.8 % (0-1); Eosinophil# 0.17 X10^3/uL; Eosinophils% 1.9 % (0-5); Hematocrit 38.2 % (37-47); Lymphocyte # 1.11 X10^3/ul (0.83-4.51); Lymphocyte % 12.3 % (19-41); Mean Corp Hgb Conc 31.4 g/dL (32-36); Mean Corpuscular Hgb 28.8 pg (27.0-32.0); Mean Corpuscular Volume 91.6 fL (81-99); Mean Platelet Vol. 10.3 fl (6.2-12.0); Monocyte# 1.51 X10^3/uL; Monocyte% 16.7 % (0-10); NRBC Flagged by Analyzer 0 % (0-5); Neutrophil # 6.03 X10^3/uL (2.7-7.7); Neutrophil % 66.5 % (47-70); POSITIVE DIFFERENTIAL YES; Platelet Count 200 K/mm3 (150-450); RBC Distribution Width CV 13.6 % (11.6-14.6); RBC Distribution Width SD 46.1 fl (35.1-43.9); Red Blood Count 4.17 M/mm3 (4.2-5.4); White Blood Count 9.1 K/mm3 (4.4-11.0)
[2024-03-28 05:09] LABS: Differential Indicated SCAN CRITERIA MET
[2024-03-28 05:47] LABS: Partial Thromboplast Time 113.3 Seconds (24.1-36.2)
[2024-03-28 05:53] LABS: Differential Comment SCANNED
[2024-03-28] MEDS: Levothyroxine 100 MCG Tablet 200 MCG PO (06:05)
[2024-03-28] MEDS: 0.9% Normal Saline (1000mL) 1,000 ML 70 ML IV ×2 (06:12→19:04)
[2024-03-28 06:21] LABS: ALB/GLOB Ratio 0.6 RATIO (0.9-2.4); AST(SGOT) 23 U/L (15-37); Alanine Aminotransfer ALT/SGPT 54 U/L (13-56); Albumin, Serum 2.1 g/dL (3.2-5.0); Alkaline Phosphatase 81 U/L (45-117); Anion Gap 6 (5-15); BUN 43 mg/dL (7-18); BUN/Creat Ratio 24.6 RATIO (10-20); Chloride 106 mmol/L (98-107); Creatinine, Serum 1.75 mg/dL (0.55-1.02); EST Glomerular Filtration Rate 31 mL/min (>60); Est Glom Filt Rate - Afr Amer 38 mL/min (>60); Estimated Creatinine Clearance 61.85 ml/min; Globulin 3.7 g/dL (2.2-4.2); Glucose 137 mg/dL (74-106); Magnesium 1.9 mg/dL (1.6-2.6); Phosphorus 2.3 mg/dL (2.5-4.9); Potassium 3.5 mmol/L (3.5-5.1); Protein, Total 5.8 g/dL (6.4-8.2); Sodium Level 138 mmol/L (136-145)
--- NOTE | 2024-03-28 08:02 | PCM.PN.HOSP ---
Reason for Visit Reason for Visit: Right flank pain Subjective Subjective Ms. Hampton is a 64-year-old white female who presented to the emergency department at [facility] on 03/27/2024 due to right flank pain. Her symptoms began approximately 3 days prior to presentation with the abrupt onset of right-sided flank pain and hematuria. She explained that her flank pain radiated to her right lower quadrant and admitted to subjective fevers and chills as well as sweats over the past few days prior to presentation. She has history of sepsis related to kidney stones and felt like her symptoms were similar to what they were at the time of presentation. She is on Eliquis chronically for history of DVT. Associated symptoms or dyspnea with exertion, decreased oral intake and progressively worse general malaise. Chuy hematuria has resolved but she has had some ongoing pinkish discoloration to her urine. Vital signs on presentation showed temperature of 96.4, heart rate 95, respiratory was 18, blood pressure was 150/84 and oxygen saturations were 95% on room air. CBC showed a leukocytosis with a white count of 12.6 and a left shift with a 79.0% neutrophilia. Her chemistry panel showed normal electrolytes however she had an elevated BUN and creatinine at 55 and 2.47 respectively (baseline serum creatinine appears to fluctuate but most consistently runs between 1.4 and 1.7. Her blood glucose level was elevated at 141. Lactic acid was normal at 1.2. Initial ALT was slightly elevated at 70 but has resolved and AST was negative. Bilirubin was normal. Initial troponin was 280 with subsequent troponin being 229 and 171. Blood and urine cultures were obtained and she was started on ceftriaxone by the emergency department. She was admitted to the telemetry floor due to her elevated troponins and maintained on IV antibiotics. Preliminary cultures at this time show gram-negative rods and urine culture is pending. She did have D-dimer elevation and troponin elevation as noted above so an VQ scan has been ordered to rule out PE that would be breakthrough as the patient is chronically anticoagulated however I suspect that her D-dimer elevation is an acute phase reactant related to infection and her troponin elevation is related to subendocardial ischemia from UTI with bacteremia. An echocardiogram has been ordered and is pending as well. Patient states she is feeling better today. Her flank pain has resolved since she is been treated with antibiotics. Has no complaints at this time. We did discuss the finding of her elevated D-dimer and troponin and what the plan is ongoing with this she voiced understanding. She is unclear why she is only on apixaban 2.5 mg daily. I did discuss that we will likely increase her dose to 5 mg twice daily with her history of VTE. Objective Data Objective Data Vital Signs: Vital Signs Temp Pulse Resp BP Pulse Ox O2 Del Method 97.8 F 87 16 131/81 H 94 Room Air 03/28/24 06:03 03/28/24 06:03 03/28/24 06:03 03/28/24 06:03 03/28/24 06:03 03/28/24 06:03 Oxygen Delivery Method Room Air Weight: 198.2 kg Body Mass Index (BMI) 66.4 Intake & Output: Intake and Output for Last 24 Hours 03/26/24 03/27/24 03/28/24 23:59 23:59 23:59 Intake Total 1629.17 / 1629.17 789.3 / 789.3 Output Total 300 / 300 250 / 250 Balance 1329.17 / 1329.17 539.3 / 539.3 Lab / Micro Data 03/28/24 04:35 03/28/24 04:35 Labs: Laboratory Results - last 24 hr 03/27/24 15:33: WBC 12.6 H, RBC 4.84, Hgb 14.0, Hct 44.2, MCV 91.3, MCH 28.9, MCHC 31.7 L, RDW Std Deviation 46.0 H, RDW Coeff of Jose Rafael 13.6, Plt Count 247, MPV 11.0, Immature Gran % (Auto) 1.300 H, Neut % (Auto) 79.0 H, Lymph % (Auto) 10.0 L, Stafford % (Auto) 8.9, Eos % (Auto) 0.2, Baso % (Auto) 0.6, Absolute Neuts (auto) 10.0 H, Absolute Lymphs (auto) 1.26, Nucleated RBC % 0, Differential Comment SCANNED, Sodium 138, Potassium 3.6, Chloride 105, Carbon Dioxide 24.0, Anion Gap 9, BUN 55 H, Creatinine 2.47 H, Estim Creat Clear Calc 43.97, Est GFR (MDRD) Af Amer 25 L, Est GFR (MDRD) Non-Af 21 L, BUN/Creatinine Ratio 22.3 H, Glucose 141 H, Calcium 9.8, Total Bilirubin 0.80, Direct Bilirubin 0.27, AST 29, ALT 70 H, Alkaline Phosphatase 105, Troponin I High Sens 280 H*, B-Natriuretic Peptide 63.7, Total Protein 7.1, Albumin 2.6 L, Globulin 4.5 H 03/27/24 16:38: Urine Color Yellow, Urine Clarity Cloudy, Urine pH 5.0, Ur Specific [place] 1.015, Urine Protein 30 H, Urine Glucose (UA) Normal, Urine Ketones 5 H, Urine Occult Blood 250 H, Urine Nitrite Positive H, Urine Bilirubin Negative, Urine Urobilinogen Normal, Ur Leukocyte Esterase 500 H, Urine RBC 5-10 SEEN, Urine WBC 50-100 SEEN, Ur Squamous Epith Cells 0 SEEN, Urine Bacteria 3+, Fine Granular Casts 0-5 SEEN, Urine Mucus 0 SEEN 03/27/24 17:54: Troponin I High Sens 229 H* 03/27/24 18:12: PT 15.3 H, INR 1.2, APTT 39.1 H, D-Dimer Quant (PE/DVT) 2.27 H*, Lactic Acid 1.2 03/27/24 21:51: Troponin I High Sens 171 H*, Prealbumin 9.0 L, Triglycerides 151, Cholesterol 107, LDL Cholesterol 57, VLDL Cholesterol 30, HDL Cholesterol 20 L, TSH 0.61 03/28/24 04:35: WBC 9.1, RBC 4.17 L, Hgb 12.0, Hct 38.2, MCV 91.6, MCH 28.8, MCHC 31.4 L, RDW Std Deviation 46.1 H, RDW Coeff of Jose Rafael 13.6, Plt Count 200, MPV 10.3, Immature Gran % (Auto) 1.800 H, Neut % (Auto) 66.5, Lymph % (Auto) 12.3 L, Stafford % (Auto) 16.7 H, Eos % (Auto) 1.9, Baso % (Auto) 0.8, Absolute Neuts (auto) 6.0, Absolute Lymphs (auto) 1.11, Nucleated RBC % 0, Differential Comment SCANNED, APTT 113.3 H*, Sodium 138, Potassium 3.5, Chloride 106, Carbon Dioxide 26.0, Anion Gap 6, BUN 43 H, Creatinine 1.75 H, Estim Creat Clear Calc 61.85, Est GFR (MDRD) Af Amer 38 L, Est GFR (MDRD) Non-Af 31 L, BUN/Creatinine Ratio 24.6 H, Glucose 137 H, Calcium 9.0, Phosphorus 2.3 L, Magnesium 1.9, Total Bilirubin 0.50, AST 23, ALT 54, Alkaline Phosphatase 81, Total Protein 5.8 L, Albumin 2.1 L, Globulin 3.7, Albumin/Globulin Ratio 0.6 L, Cortisol 15.50 Micro: Microbiology 03/27/24 18:32 Blood Culture (Wb) - Anticubital Right Blood Culture - Preliminary Radiography Diagnostic Testing: Radiology Impression Abdomen/Pelvis CT 03/27/24 15:43 IMPRESSION: 1. Hepatomegaly. 2. 2.6 cm left adrenal nodule likely an adenoma. Correlate with hormone levels. 3. Diverticulosis coli. 4. Fibroid uterus. Electronically Signed: Edmundo Currie MD at 16:31 EDT , Chest X-Ray 03/27/24 15:44 IMPRESSION: No acute cardiopulmonary abnormality. No interval change. Electronically Signed: Edmundo Currie MD at 16:32 EDT , Physical Exam Const alert, oriented x3, no apparent distress and well nourished; Negative for average body habitus or healthy appearing Constitutional Narrative: Morbidly obese, middle-aged, white female, sitting up in bed watching television, family at bedside, technical sme getting ready to start echo, patient appears comfortable, currently does not appear toxic HEENT head/scalp atraumatic, moist oral mucous membranes and oropharynx normal HEENT Narrative: Mallampati 3, no thrush Head and Scalp: normocephalic Eyes PERRL, EOMs intact bilaterally and conjunctivae normal Eyes Narrative: No scleral icterus Neck no lymphadenopathy and supple Neck Narrative: Trachea midline, no thyroid enlargement, neck is short and thick Resp normal respiratory effort, no retractions, no use of accessory muscles and clear to auscultation bilaterally Auscultation: Negative for rales, rhonchi or wheezes Cardio regular rate, regular rhythm, S1 normal heart sound, S2 normal heart sound, no murmurs, no rub, no gallops and no clicks GI normal to inspection, nondistended, normoactive bowel sounds, soft to palpation and non-tender Extremity no clubbing, cyanosis or edema Extremity Narrative: Pedal pulses are 2+ Skin no rashes or lesions noted, no wounds, skin turgor normal, no jaundice, no petechiae and no mottling Neuro oriented x3, moves all extremities and no focal motor deficits Speech: speech normal Psych affect normal Psych Narrative: Very pleasant, eye contact is good, patient interacts appropriately Assessment & Plan Assessment/Plan (1) Acute cystitis with hematuria: (2) D-dimer, elevated: (3) PARIS (acute kidney injury): (4) Elevated troponin: (5) Gram-negative bacteremia: (6) Hypophosphatemia: PLAN: Plan Gram-negative bacteremia secondary to acute cystitis -Continue ceftriaxone but increase dose from 1 to 2 g given bacteremia -Blood and urine cultures are pending however preliminary blood culture is showing gram-negative rods -Patient does not meet sepsis criteria per Sep 3 guidelines -Imaging was performed and there is no obstruction PARIS on CKD stage IIIb -Baseline serum creatinine appears to run between 1.4 and 1.7 most recently -Serum creatinine on presentation was 2.47--> has improved to 1.75 this morning -Continue IV fluids for now until we assure p.o. intake is adequate -Likely related to decreased p.o. intake and dehydration -Avoid nephrotoxins as able -Repeat lab in a.m. -Hold Celebrex and would recommend discontinuation at discharge -Recommend nephrology follow-up after discharge Troponin elevation -Highly suspect related to subendocardial ischemia/demand ischemia from bacteremia -VQ scan is pending to help try to rule out PE -Echocardiogram pending -If no wall motion abnormality will not pursue any further workup at this time -Could consider outpatient stress test once all of her acute issues are resolved Elevated D-dimer -2.27 on presentation -Patient with history of DVT/PE and already taking Eliquis -Admitting physician was concern for treatment failure and VQ scan and echo are pending -Highly suspect this is related to acute phase reactant with infection as above -Placed on heparin drip due to DOAC failure concern -If imaging is negative we will transition back to oral Eliquis and discontinue heparin drip Leukocytosis -Resolved Hypophosphatemia -Mild at 2.3 -Will replace with oral phosphorus History of PE/DVT -Interestingly, patient is only on 2.5 mg p.o. twice daily -I will increase to 5 mg p.o. twice daily when I reinitiate this as there is not dose adjustment for VTE with Eliquis use -Currently on heparin drip Pulmonary hypertension -Highly suspect this is related to untreated sleep apnea -Right ventricular systolic pressure on echo was 64 mmHg -No current signs of decompensation -Would recommend pulmonary follow-up after discharge GERD -continue home PPI Hypertension -Continue home metoprolol Adrenal nodule -Cortisol level is normal -Recommend ongoing outpatient follow-up as this is suspected to be an adenoma based on read Hypothyroidism -Continue levothyroxine -TSH within normal limits History of C. difficile colitis -No diarrhea on presentation -Monitor Neuropathy -Continue home Lyrica History nephrolithiasis -No evidence of any on CT on presentation Osteoarthritis -As needed pain medication -Discontinue Celebrex and would stop on discharge due to chronic renal disease Morbid obesity -BMI 66.4 -Complicates treatment, prognosis, outcomes -Patient is on Wegovy for weight loss -Recommend ongoing weight loss attempts Depression/anxiety -Continue home BuSpar -Continue home Wellbutrin DVT prophylaxis -Heparin drip for now and will transition back to Eliquis 5 mg p.o. twice daily if imaging negative for any acute PE CODE STATUS -Full code Charges/Coding Visit Charges Inpatient E&M: 74942 Subs Hosp L3
[2024-03-28] MEDS: HYDROcodone Bitartrate/Apap 5/325 Tablet PO ×2 (08:56→21:00)
[2024-03-28] MEDS: Ensure Plus High Protein 120 ML LIQUID PO ×2 (08:56→12:47)
[2024-03-28] MEDS: Aspirin 81 MG TAB.CHEW PO (08:57)
[2024-03-28] MEDS: Multivitamins,Therapeutic Tablet 1 TABLET PO (08:57)
[2024-03-28] MEDS: Ascorbic Acid 500 MG Tablet PO (08:58)
[2024-03-28] MEDS: Lactobacillis Acidophilus 2 CAP PO ×2 (08:58→20:54)
[2024-03-28] MEDS: Pantoprazole Sodium 40 MG Tablet PO (08:58)
[2024-03-28] MEDS: Na Biphos/Potassium Phosphate PACKET 1 PACKET PO ×3 (08:58→20:56)
[2024-03-28] MEDS: buPROPion (SR) 150 MG Tablet.SA PO ×2 (08:58→20:57)
[2024-03-28] MEDS: Metoprolol Tartrate 50 MG Tablet PO ×2 (08:59→20:54)
[2024-03-28] MEDS: Cholecalciferol (VIT D3) 25 MCG TABLET (1,000 UNITS) PO (08:59)
[2024-03-28] MEDS: busPIRone 15 MG TABLET PO ×2 (09:01→20:54)
[2024-03-28] MEDS: Triamcinolone Acetonide 0.1% Cream 15 gm 1 APPLIC TOPICAL ×2 (09:02→20:56)
[2024-03-28] MEDS: Ceftriaxone 2 GM in 0.9% Normal Saline (50mL MB+) 50 ML IV (09:23)
[2024-03-28] MEDS: Pregabalin 50 MG Capsule PO ×2 (09:25→20:55)
--- NOTE | 2024-03-28 11:59 | CASEMGMT ---
ADVANCE DIRECTIVE VALIDATION Received notice of advance directive validation. Patient answered upon admission that does not have any directives in placed; also declined wanting any further information on this topic. No further needs requested or indicated for this topic. -ALFRED Coon
[2024-03-28] MEDS: HEPARIN/D5w 25,000 UNITS 25,000 UNITS/250 ML IV.SOLN. 19 UNITS CONT INF (12:26)
--- NOTE | 2024-03-28 13:30 | CASEMGMT ---
FIONA CHOPRA Assessment Face to Face with patient for initial transition planning/care coordination assessment. FIONA CHOPRA introduced self and role at [facility], pt voices understanding. Pt is A&Ox4 and is resting comfortably in bed and is calm. Care providers, pharmacy, and demographics verified. Admitting dx: Acute Cystitis with microscopic hematuria, PARIS PCP: Fam Long Specialists: Denies Preferred Pharmacy: [facility] Insurance: [facility] Prescription Benefit: Yes LNOK: Cisco Hampton (H) Living Arrangements: Pt lives with her in a 2 story home with 3 steps to enter ADLs/IADLs: Ind with ADLs. helps with IADLs. Transportation: Pt does not drive. Pt drives DME: [employer], [employer], [employer]. HHC/SNF: [facility] HH Hx as well as [facility] for home IV infusions. Denies SNF Pt?s goal: Return to PLOF Plan: TBD. 6-Click is 16. PT evaluation is pending. Pt refuses SNF at this time. Pt states that it is too early in her stay to decipher what she will need at time of DC. Pt states that the MD told the pt that the plan/goal is to send her home on oral ATBs and not IV. CM and SW to follow to ensure safe DC from [facility]. Trudy Bradford RN, CM
[2024-03-28] MEDS: 0.9% Saline Lock 10 ML Syringe IV ×2 (14:22→16:35)
[2024-03-28] MEDS: Pregabalin 25 MG Capsule PO (14:22)
[2024-03-28 14:23] LABS: Partial Thromboplast Time 55.3 Seconds (24.1-36.2)
[2024-03-28] MEDS: Acetaminophen 325 MG Tablet 650 MG PO (16:35)
[2024-03-28 20:08] LABS: Partial Thromboplast Time 36.6 Seconds (24.1-36.2)
[2024-03-28] MEDS: APIXABAN 5 MG TABLET PO (20:55)
[2024-03-29] VITALS (8 sets, daily range): BP systolic 126–155; BP diastolic 72–98; PULSE 74–87; RESP 16–18; TEMP 36.2–37; O2SAT 94–98; BMI 68.0
[2024-03-29] MEDS: Levothyroxine 100 MCG Tablet 200 MCG PO (06:13)
[2024-03-29] MEDS: Na Biphos/Potassium Phosphate PACKET 1 PACKET PO (06:13)
[2024-03-29 06:35] LABS: Hematocrit 39.3 % (37-47); Hemoglobin 12.2 g/dL (12.0-15.0); Mean Corpuscular Hgb 28.7 pg (27.0-32.0); Mean Corpuscular Volume 92.5 fL (81-99); Mean Platelet Vol. 10.7 fl (6.2-12.0); POSITIVE COUNT YES; POSITIVE DIFFERENTIAL YES; POSITIVE MORPHOLOGY YES; Platelet Count 223 K/mm3 (150-450); RBC Distribution Width CV 13.8 % (11.6-14.6); RBC Distribution Width SD 47.2 fl (35.1-43.9); Red Blood Count 4.25 M/mm3 (4.2-5.4); White Blood Count 9.7 K/mm3 (4.4-11.0)
[2024-03-29 06:42] LABS: Differential Indicated MANUAL DIFF
[2024-03-29 07:03] LABS: ALB/GLOB Ratio 0.5 RATIO (0.9-2.4); AST(SGOT) 21 U/L (15-37); Alanine Aminotransfer ALT/SGPT 43 U/L (13-56); Alkaline Phosphatase 83 U/L (45-117); Anion Gap 7 (5-15); BUN 28 mg/dL (7-18); BUN/Creat Ratio 19.7 RATIO (10-20); Calcium,Total 9.1 mg/dL (8.5-10.1); Chloride 109 mmol/L (98-107); Creatinine, Serum 1.42 mg/dL (0.55-1.02); EST Glomerular Filtration Rate 40 mL/min (>60); Est Glom Filt Rate - Afr Amer 48 mL/min (>60); Estimated Creatinine Clearance 77.49 ml/min; Globulin 3.9 g/dL (2.2-4.2); Glucose 119 mg/dL (74-106); Magnesium 1.8 mg/dL (1.6-2.6); Phosphorus 2.5 mg/dL (2.5-4.9); Protein, Total 5.9 g/dL (6.4-8.2); Sodium Level 141 mmol/L (136-145)
[2024-03-29 08:42] LABS: Eosinophil 2 % (0-5); Lymphocyte 18 % (19-41); Metamyelocyte 2 % (0-1); Monocyte 14 % (0-10); Myelocyte 4 % (0-0); Neutrophil-Band 4 % (0-5); Neutrophil-Segmented 56 % (47-70); Total Cells Counted 100 (MANUAL DIFF)
[2024-03-29 08:46] LABS: Platelet Estimate ADEQUATE (ADEQ); Red Cell Morphology NORM C+C NORMAL (NORM C&C)
[2024-03-29 08:48] LABS: Absolute Neutrophil Count 5.8 X10^3/uL (2.0-7.7)
[2024-03-29] MEDS: HYDROcodone Bitartrate/Apap 5/325 Tablet PO ×2 (09:39→20:20)
[2024-03-29] MEDS: Ceftriaxone 2 GM in 0.9% Normal Saline (50mL MB+) 50 ML IV (09:39)
[2024-03-29] MEDS: Triamcinolone Acetonide 0.1% Cream 15 gm 1 APPLIC TOPICAL ×2 (09:42→21:28)
[2024-03-29] MEDS: Ascorbic Acid 500 MG Tablet PO (09:43)
[2024-03-29] MEDS: Pantoprazole Sodium 40 MG Tablet PO (09:43)
[2024-03-29] MEDS: Lactobacillis Acidophilus 2 CAP PO ×2 (09:43→21:28)
[2024-03-29] MEDS: Aspirin 81 MG TAB.CHEW PO (09:43)
[2024-03-29] MEDS: Cholecalciferol (VIT D3) 25 MCG TABLET (1,000 UNITS) PO (09:43)
[2024-03-29] MEDS: buPROPion (SR) 150 MG Tablet.SA PO ×2 (09:43→21:29)
[2024-03-29] MEDS: Multivitamins,Therapeutic Tablet 1 TABLET PO (09:44)
[2024-03-29] MEDS: busPIRone 15 MG TABLET PO ×2 (09:44→21:28)
[2024-03-29] MEDS: APIXABAN 5 MG TABLET PO ×2 (09:44→21:28)
[2024-03-29] MEDS: Metoprolol Tartrate 50 MG Tablet PO ×2 (09:44→21:29)
[2024-03-29] MEDS: Pregabalin 50 MG Capsule PO ×2 (09:50→21:29)
--- NOTE | 2024-03-29 13:20 | PCM.PN.HOSP ---
Reason for Visit Reason for Visit: Right flank pain Subjective Subjective Patient states overall she is feeling much better. States she had some back pain overnight but this was different than the flank pain that brought her in and she feels that is related to lying in the bed. No complaints at this time. Denies any needs. Objective Data Objective Data Vital Signs: Vital Signs Temp Pulse Resp BP Pulse Ox O2 Del Method 98.5 F 83 16 144/72 H 94 Room Air 03/29/24 09:36 03/29/24 09:44 03/29/24 09:36 03/29/24 09:44 03/29/24 09:36 03/29/24 09:36 Oxygen Delivery Method Room Air Weight: 202.9 kg Body Mass Index (BMI) 68.0 Intake & Output: Intake and Output for Last 24 Hours 03/27/24 03/28/24 03/29/24 23:59 23:59 23:59 Intake Total 1629.17 / 1629.17 3687.29 / 3687.29 1050 / 1050 Output Total 300 / 300 1550 / 1550 900 / 900 Balance 1329.17 / 1329.17 2137.29 / 2137.29 150 / 150 Lab / Micro Data 03/29/24 06:18 03/29/24 06:18 Labs: Laboratory Results - last 24 hr 03/28/24 13:40: APTT 55.3 H 03/28/24 19:32: APTT 36.6 H 03/29/24 06:18: WBC 9.7, RBC 4.25, Hgb 12.2, Hct 39.3, MCV 92.5, MCH 28.7, MCHC 31.0 L, RDW Std Deviation 47.2 H, RDW Coeff of Jose Rafael 13.8, Plt Count 223, MPV 10.7, Neut % (Auto) Not Reportable, Absolute Neuts (auto) 5.8, Absolute Lymphs (auto) 1.70, Total Counted 100, Neutrophils % (Manual) 56, Band Neutrophils % 4, Lymphocytes % (Manual) 18 L, Monocytes % (Manual) 14 H, Eosinophils % (Manual) 2, Metamyelocytes % 2 H, Myelocytes % 4 H, Diff Path Review May foll, Platelet Estimate ADEQUATE, RBC Morphology NORM C+C, Sodium 141, Potassium 4.0, Chloride 109 H, Carbon Dioxide 25.0, Anion Gap 7, BUN 28 H, Creatinine 1.42 H, Estim Creat Clear Calc 77.49, Est GFR (MDRD) Af Amer 48 L, Est GFR (MDRD) Non-Af 40 L, BUN/Creatinine Ratio 19.7, Glucose 119 H, Calcium 9.1, Phosphorus 2.5, Magnesium 1.8, Total Bilirubin 0.30, AST 21, ALT 43, Alkaline Phosphatase 83, Total Protein 5.9 L, Albumin 2.0 L, Globulin 3.9, Albumin/Globulin Ratio 0.5 L Micro: Microbiology 03/27/24 16:38 Urine, Catheterized Urine Culture - Final Presumptive E. coli 03/27/24 18:17 Blood Culture (Wb) - Right Forearm Blood Culture - Preliminary Gram negative maurice 03/27/24 18:32 Blood Culture (Wb) - Anticubital Right Blood Culture - Preliminary Gram negative maurice Physical Exam Const alert, oriented x3, no apparent distress and well nourished; Negative for average body habitus or healthy appearing Constitutional Narrative: Morbidly obese, middle-aged, white female, sitting up in bed watching television, patient appears comfortable, currently does not appear toxic General Appearance: cooperative HEENT normocephalic, head/scalp atraumatic, hearing grossly normal bilaterally and moist oral mucous membranes HEENT Narrative: Mallampati 3, no thrush Resp normal respiratory effort, no retractions, no use of accessory muscles and clear to auscultation bilaterally Auscultation: Negative for rales, rhonchi or wheezes Cardio regular rate, regular rhythm, S1 normal heart sound, S2 normal heart sound, no murmurs, no rub, no gallops and no clicks GI normal to inspection, nondistended, normoactive bowel sounds, soft to palpation and non-tender GI Narrative: Large protuberant abdomen Extremity no clubbing, cyanosis or edema Extremity Narrative: Pedal pulses are 2+ Neuro oriented x3, moves all extremities and no focal motor deficits Speech: speech normal Psych affect normal Psych Narrative: Very pleasant, eye contact is good, patient interacts appropriately Assessment & Plan Assessment/Plan (1) Acute cystitis with hematuria: (2) D-dimer, elevated: (3) PARIS (acute kidney injury): (4) Elevated troponin: (5) Gram-negative bacteremia: (6) Hypophosphatemia: PLAN: Plan Gram-negative bacteremia secondary to acute cystitis -Continue ceftriaxone 2 g daily--> day 2 of antibiotic administration -Both sets of blood cultures are showing gram-negative rods and urine culture has presumptive E. coli -Awaiting complete identification and sensitivities -Imaging was performed and there is no obstruction -Clinically much improved PARIS on CKD stage IIIb -PARIS has resolved -Baseline serum creatinine appears to run between 1.4 and 1.7 most recently -Serum creatinine on presentation was 2.47--> serum creatinine now 1.42 -Discontinue IV fluids -Avoid nephrotoxins as able -Repeat lab in a.m. -Hold Celebrex and would recommend discontinuation at discharge -Recommend nephrology follow-up after discharge Troponin elevation secondary to demand ischemia/subendocardial ischemia from infection -Unable to obtain VQ scan due to size -Echocardiogram done on 03/27/2024 and showed a normal EF with no wall motion abnormality, stage I diastolic dysfunction, pulmonary systolic pressure 64 mmHg and moderate pulmonary hypertension - Elevated D-dimer -2.27 on presentation -Patient with history of DVT/PE and already taking Eliquis -Dopplers were negative -Unable to obtain VQ scan due to patient's body habitus -Overall suspicion for VTE is very low as patient is 98% on room air and no signs or symptoms of VTE -Discontinue heparin drip -Restart Eliquis but will restart at therapeutic dosing for VTE at 5 mg twice daily -Patient previously on 2.5 mg twice daily but dosing is not corrected for VTE only for A-fib Hypophosphatemia -Resolved History of PE/DVT -Discontinue heparin drip -Restart Eliquis 5 mg p.o. twice daily Pulmonary hypertension -Highly suspect this is related to untreated sleep apnea -Right ventricular systolic pressure on echo was 64 mmHg -No current signs of decompensation -Would recommend pulmonary follow-up after discharge GERD -continue home PPI Hypertension -Continue home metoprolol Adrenal nodule -Cortisol level is normal -Recommend ongoing outpatient follow-up as this is suspected to be an adenoma based on read Hypothyroidism -Continue levothyroxine -TSH within normal limits History of C. difficile colitis -No diarrhea on presentation -Monitor Neuropathy -Continue home Lyrica History nephrolithiasis -No evidence of any on CT on presentation Osteoarthritis -As needed pain medication -Discontinue Celebrex and would stop on discharge due to chronic renal disease Morbid obesity -BMI 68 -Complicates treatment, prognosis, outcomes -Patient is on Wegovy for weight loss -Recommend ongoing weight loss attempts Depression/anxiety -Continue home BuSpar -Continue home Wellbutrin DVT prophylaxis -Eliquis 5 mg p.o. twice daily CODE STATUS -Full code Charges/Coding Visit Charges Inpatient E&M: 57440 Subs Hosp L2
[2024-03-29] MEDS: Pregabalin 25 MG Capsule PO (14:02)
--- NOTE | 2024-03-29 16:03 | CHAPLAIN ---
Type of Pastoral Visit ___ Initial Visit ___ Follow-up Visit ___ On-call Visit ___ General Patient Visit ___ Spiritual Assessment ___ Family Conference ___ Bereavement ___ Rapid Response ___ Code Blue ___ Other (describe below) Pastoral Care Referral From ___ Patient ___ Family ___ Nurse ___ Physician ___ Agricultural Education Teacher ___ Division Commander ___ Other (describe below) Sacrament/Intervention ___ Active listening ___ Anointing ___ Episcopalian ___ Bereavement ___ Communion ___ Yudi exploration ___ ___ Life review ___ Prayer ___ Reconciliation ___ Sacrament of Sick ___ Supportive presence ___ Wedding ___ Other (describe below) Pastoral Comments made three attempts to visit this patient; the first time there were other staff in the room; the last attempt the pt was sleeping and did not awaken to her name; left a calling card
[2024-03-30 03:15] VITALS: BMI 67.3
[2024-03-30 03:45] VITALS: BP 147/77; PULSE 78; RESP 18; TEMP 35.8; O2SAT 96
[2024-03-30 05:31] LABS: Absolute Lymphocyte Count 1.83 X10^3/uL (0.83-4.51); Absolute Neutrophil Count 7.5 X10^3/uL (2.0-7.7); Basophil# 0.03 X10^3/uL; Basophil% 0.2 % (0-1); Eosinophils% 2.4 % (0-5); Hematocrit 40.5 % (37-47); Hemoglobin 12.6 g/dL (12.0-15.0); Lymphocyte # 1.83 X10^3/ul (0.83-4.51); Lymphocyte % 14.5 % (19-41); Mean Corp Hgb Conc 31.1 g/dL (32-36); Mean Corpuscular Hgb 28.6 pg (27.0-32.0); Mean Corpuscular Volume 91.8 fL (81-99); Mean Platelet Vol. 10.1 fl (6.2-12.0); Monocyte# 1.91 X10^3/uL; Monocyte% 15.2 % (0-10); NRBC Flagged by Analyzer 0 % (0-5); Neutrophil # 7.48 X10^3/uL (2.7-7.7); Neutrophil % 59.5 % (47-70); POSITIVE COUNT YES; POSITIVE DIFFERENTIAL YES; POSITIVE MORPHOLOGY YES; Platelet Count 268 K/mm3 (150-450); RBC Distribution Width CV 13.6 % (11.6-14.6); RBC Distribution Width SD 46.4 fl (35.1-43.9); Red Blood Count 4.41 M/mm3 (4.2-5.4); White Blood Count 12.6 K/mm3 (4.4-11.0)
[2024-03-30 05:52] LABS: Anion Gap 4 (5-15); BUN 21 mg/dL (7-18); BUN/Creat Ratio 17.9 RATIO (10-20); Calcium,Total 9.3 mg/dL (8.5-10.1); Chloride 107 mmol/L (98-107); Creatinine, Serum 1.17 mg/dL (0.55-1.02); EST Glomerular Filtration Rate 50 mL/min (>60); Est Glom Filt Rate - Afr Amer 60 mL/min (>60); Estimated Creatinine Clearance 93.45 ml/min; Glucose 122 mg/dL (74-106); Sodium Level 140 mmol/L (136-145)
[2024-03-30 05:55] LABS: Differential Indicated SCAN CRITERIA MET
[2024-03-30 06:01] LABS: Differential Comment SCANNED
[2024-03-30] MEDS: Levothyroxine 100 MCG Tablet 200 MCG PO (06:11)
[2024-03-30 07:08] VITALS: O2SAT 96
[2024-03-30 09:14] VITALS: BP 141/83; PULSE 80; RESP 16; TEMP 36.3; O2SAT 94
[2024-03-30] MEDS: Pantoprazole Sodium 40 MG Tablet PO (09:18)
[2024-03-30] MEDS: Triamcinolone Acetonide 0.1% Cream 15 gm 1 APPLIC TOPICAL (09:18)
[2024-03-30] MEDS: buPROPion (SR) 150 MG Tablet.SA PO (09:19)
[2024-03-30] MEDS: Cholecalciferol (VIT D3) 25 MCG TABLET (1,000 UNITS) PO (09:19)
[2024-03-30] MEDS: Lactobacillis Acidophilus 2 CAP PO (09:19)
[2024-03-30] MEDS: Ascorbic Acid 500 MG Tablet PO (09:19)
[2024-03-30] MEDS: Multivitamins,Therapeutic Tablet 1 TABLET PO (09:19)
[2024-03-30] MEDS: Aspirin 81 MG TAB.CHEW PO (09:19)
[2024-03-30 09:20] VITALS: BP 141/83; PULSE 80
[2024-03-30] MEDS: APIXABAN 5 MG TABLET PO (09:20)
[2024-03-30] MEDS: Metoprolol Tartrate 50 MG Tablet PO (09:20)
[2024-03-30] MEDS: busPIRone 15 MG TABLET PO (09:20)
[2024-03-30] MEDS: Ceftriaxone 2 GM in 0.9% Normal Saline (50mL MB+) 50 ML IV (09:21)
[2024-03-30] MEDS: Pregabalin 50 MG Capsule PO (09:30)
[2024-03-30] MEDS: HYDROcodone Bitartrate/Apap 5/325 Tablet PO (11:42)
--- NOTE | 2024-03-30 12:02 | PCM.DC.SUM ---
Providers Date of Admission: 03/27/24 Date of Discharge: 03/30/24 Primary Care Physician: Dr. Fam Long DO Reason For Visit: ACUTE CYSTITIS; WITH MICROSCOPIC HEMATURIA, PARIS Diagnosis Discharge Diagnosis (1) Acute cystitis with hematuria: Status: Acute Code(s): N30.01 - Acute cystitis with hematuria (2) D-dimer, elevated: Status: Acute Code(s): R79.89 - Other specified abnormal findings of blood chemistry (3) PARIS (acute kidney injury): Status: Acute Code(s): N17.9 - Acute kidney failure, unspecified (4) Elevated troponin: Status: Acute Code(s): R79.89 - Other specified abnormal findings of blood chemistry (5) Gram-negative bacteremia: Status: Acute Code(s): R78.81 - Bacteremia (6) Hypophosphatemia: Status: Acute Code(s): E83.39 - Other disorders of phosphorus metabolism Medications at Discharge Home Medications ascorbic acid (vitamin C) 1,000 mg tablet 500 mg PO DAILY vitamin 05/01/19 bupropion HCl 150 mg tablet,12 hr sustained-release 1 tab PO BID depression 05/01/19 buspirone 15 mg tablet 15 mg PO BID anxiety 05/01/19 lansoprazole 30 mg capsule,delayed release 30 mg PO DAILY gerd 05/01/19 levothyroxine 50 mcg tablet 200 mcg PO DAILY thyroid 05/01/19 metoprolol tartrate 50 mg tablet 50 mg PO BID bp 05/01/19 triamcinolone acetonide 0.1 % topical cream 1 applic topical BID #1 tube 05/02/19 hydrocodone-acetaminophen 5-325mg 5mg-325mg 1 - 2 tab PO BID PRN PRN Pain 11/07/22 pregabalin 25 mg capsule 50 mg PO BID pain 11/07/22 semaglutide (weight loss) 2.4 mg/0.75 mL subcutaneous pen injector (Wegovy) 2.4 mg subcut TH weight loss 11/07/22 multivitamin 1 tab PO DAILY vitamin 11/09/22 pregabalin 25 mg capsule (Lyrica) 25 mg PO DAILY pain 11/09/22 cholecalciferol (vitamin D3) 25 mcg (1,000 unit) tablet (Vitamin D3) 25 mcg PO DAILY 11/17/22 apixaban 5 mg tablet (Eliquis) 5 mg PO BID #60 tabs 03/30/24 cefdinir 300 mg capsule 300 mg PO BID #16 caps 03/30/24 ondansetron 4 mg disintegrating tablet 4 mg PO Q8H PRN nausea and vomiting #15 tabs 03/30/24 Hospital Course Procedures 2-D Echocardiogram, EKG and - (CT abdomen pelvis/lower extremity Dopplers/chest x-ray) Summary of Care Provided Minutes Spent on Discharge: 45 Hospital Course: Ms. Hampton is a 64-year-old white female who presented to the emergency department at [facility] on 03/27/2024 due to right flank pain. Her symptoms began approximately 3 days prior to presentation with the abrupt onset of right-sided flank pain and hematuria. She explained that her flank pain radiated to her right lower quadrant and admitted to subjective fevers and chills as well as sweats over the past few days prior to presentation. She has history of sepsis related to kidney stones and felt like her symptoms were similar to what they were at the time of presentation. She is on Eliquis chronically for history of DVT. Associated symptoms or dyspnea with exertion, decreased oral intake and progressively worse general malaise. Chuy hematuria has resolved but she has had some ongoing pinkish discoloration to her urine. Vital signs on presentation showed temperature of 96.4, heart rate 95, respiratory was 18, blood pressure was 150/84 and oxygen saturations were 95% on room air. CBC showed a leukocytosis with a white count of 12.6 and a left shift with a 79.0% neutrophilia. Her chemistry panel showed normal electrolytes however she had an elevated BUN and creatinine at 55 and 2.47 respectively (baseline serum creatinine appears to fluctuate but most consistently runs between 1.4 and 1.7. Her blood glucose level was elevated at 141. Lactic acid was normal at 1.2. Initial ALT was slightly elevated at 70 but has resolved and AST was negative. Bilirubin was normal. Initial troponin was 280 with subsequent troponin being 229 and 171. Blood and urine cultures were obtained and she was started on ceftriaxone by the emergency department. She was admitted to the telemetry floor due to her elevated troponins and maintained on IV antibiotics. Preliminary cultures at this time show gram-negative rods and urine culture is pending. She did have D-dimer elevation and troponin elevation as noted above so a VQ scan was ordered to rule out PE however body habitus precluded this test being performed and her lower extremity Dopplers were negative. Our overall suspicion for PE is extremely low so we restarted her anticoagulation and discontinued heparin drip that was started. We did note that she was only on 2.5 mg twice daily for history of VTE however guidelines recommend 5 mg p.o. twice daily for treatment of VTE with no reduced dosing for renal function or otherwise so we restarted her dosing at 5 mg p.o. twice daily. I suspect that her D-dimer elevation is an acute phase reactant related to infection and her troponin elevation is related to subendocardial ischemia from UTI with bacteremia. An echocardiogram was done to assess wall motion with her troponin elevation and her EF was found to be 65% with stage I diastolic dysfunction, pulmonary artery systolic pressure of 64 mmHg indicating moderate pulmonary hypertension and normal LV function without wall motion abnormality. CT of the abdomen and pelvis was done to rule out any obstructing stones and showed no abnormalities with the kidneys but did show hepatomegaly, 2.6 cm left adrenal nodule that was suspicious for adenoma, diverticulosis coli and a fibroid uterus. She was placed on ceftriaxone on admission and cultures showed E. coli UTI and bacteremia. Both were fairly pansensitive and she clinically improved dramatically on 2 g of Rocephin over 72-hour period. Her weakness improved significantly. Her flank pain complete resolved. And she clinically was feeling much better and anxious to go home. At discharge we transition from ceftriaxone to cefdinir 300 mg p.o. twice daily for another 8 days to complete treatment for her bacteremia and UTI. She has had recurrent infections so I have advised her to call urology office (Dr. Benoit) for outpatient follow-up and further investigation as to why she is getting recurrent infections with bacteremia. Prescriptions for the change in her Eliquis, cefdinir, and Zofran were given at the time of discharge. Zofran was given as she has had issues with antibiotics previously causing nausea. She was able to be discharged home in stable condition on 03/30/2024. I have advised her to follow-up with her primary care physician within the next [address] Benoit as soon as an appointment is available. Discharge diagnoses: E. coli bacteremia E. coli UTI Elevated D-dimer Elevated troponin PARIS-resolved CKD stage IIIb Hypophosphatemia History of PE DVT Pulmonary hypertension GERD Hypertension Adrenal nodule Hypothyroidism History of C. difficile colitis Neuropathy History nephrolithiasis Osteoarthritis Morbid obesity Depression Anxiety Physical Exam Const alert, oriented x3, no apparent distress and well nourished; Negative for average body habitus or healthy appearing Constitutional Narrative: Morbidly obese, middle-aged, white female, sitting up in bed watching television, patient appears comfortable, currently does not appear toxic General Appearance: cooperative, comfortable, well kempt and well developed Orientation / Consciousness: awake, oriented to person, oriented to place and oriented to time Exam Limitations: no limitations Nutritional Appearance: morbidly obese HEENT normocephalic, head/scalp atraumatic, hearing grossly normal bilaterally, moist oral mucous membranes and oropharynx normal HEENT Narrative: Mallampati 3-4, no thrush Eyes PERRL, EOMs intact bilaterally and conjunctivae normal Eyes Narrative: No scleral icterus Neck no lymphadenopathy and supple Neck Narrative: Trachea midline, no thyroid enlargement, neck is short and thick Resp normal respiratory effort, no retractions, no use of accessory muscles and clear to auscultation bilaterally Auscultation: Negative for rales, rhonchi or wheezes Cardio regular rate, regular rhythm, S1 normal heart sound, S2 normal heart sound, no murmurs, no rub, no gallops and no clicks GI normal to inspection, nondistended, normoactive bowel sounds, soft to palpation and non-tender GI Narrative: Large protuberant abdomen Extremity no clubbing, cyanosis or edema Extremity Narrative: Pedal pulses are 2+ Skin no rashes or lesions noted, no wounds, skin turgor normal, no jaundice, no petechiae and no mottling Skin Narrative: Patient has no evidence of abscess, jaundice or rash. Neuro oriented x3, CN's II-XII intact bilaterally, moves all extremities and no focal motor deficits Speech: speech normal Psych affect normal Psych Narrative: Very pleasant, eye contact is good, patient interacts appropriately Weight / BMI Weight Weight: 201 kg Body Mass Index (BMI) 67.3 ABG / Lab / Microbiology Data 03/30/24 05:26 03/30/24 05:26 Laboratory: Laboratory Results - last 24 hr 03/30/24 05:26: WBC 12.6 H, RBC 4.41, Hgb 12.6, Hct 40.5, MCV 91.8, MCH 28.6, MCHC 31.1 L, RDW Std Deviation 46.4 H, RDW Coeff of Jose Rafael 13.6, Plt Count 268, MPV 10.1, Immature Gran % (Auto) 8.200 H, Neut % (Auto) 59.5, Lymph % (Auto) 14.5 L, [place] % (Auto) 15.2 H, Eos % (Auto) 2.4, Baso % (Auto) 0.2, Absolute Neuts (auto) 7.5, Absolute Lymphs (auto) 1.83, Nucleated RBC % 0, Differential Comment SCANNED, Sodium 140, Potassium 4.0, Chloride 107, Carbon Dioxide 29.0, Anion Gap 4 L, BUN 21 H, Creatinine 1.17 H, Estim Creat Clear Calc 93.45, Est GFR (MDRD) Af Amer 60, Est GFR (MDRD) Non-Af 50 L, BUN/Creatinine Ratio 17.9, Glucose 122 H, Calcium 9.3 Microbiology: Microbiology 03/27/24 18:17 Blood Culture (Wb) - Right Forearm Blood Culture - Final GNR lactose building architectural designer 03/27/24 18:32 Blood Culture (Wb) - Anticubital Right Blood Culture - Final Escherichia coli 03/27/24 16:38 Urine, Catheterized Urine Culture - Final Presumptive E. coli D/C Instructions Discharge Diet: Low fat / Low cholesterol Discharge Activity: Return to Normal Activity Return to work on: 04/03/24 Meaningful Use Info Meaningful Use Meaningful Use Diagnoses (Choose all that apply): None applicable Ischemic Stroke Statin Dosing Therapy Reference: STATIN DOSE THERAPY REFERENCE: * Patients > 75 years receive moderate or high dose statin therapy. * Patients 75 years or YOUNGER should receive HIGH intensity statin dose unless contraindicated. You will be required to document reason for non-treatment if statin daily dose does not meet guidelines. HIGH DOSE STATIN THERAPY DAILY Atorvastatin > than or = to 40 mg Rosuvastatin > than or = to 20 mg Amlodipine + Atorvastatin > than or = to 2.5/40 mg Ezetimibe + Simvastatin 10/80 mg Simvastatin 80mg Discharge Plan Admission Admit Date/Time: 03/27/24 20:25 Primary Reason for Your Visit: Right flank pain Attending Provider: [place] Primary Care Provider: Fam Long Consulting Providers: Clint Webster Discharge Orders/Prescriptions Prescriptions: New Eliquis 5 mg Tablet 5 mg PO BID Qty: 60 3RF cefdinir 300 mg capsule 300 mg PO BID Qty: 16 0RF ondansetron 4 mg tablet,disintegrating 4 mg PO Q8H PRN (Reason: nausea and vomiting) Qty: 15 0RF Discontinued Eliquis 2.5 mg Tablet 2.5 mg PO BID celecoxib [Celebrex] 200 mg capsule 200 mg PO DAILY No Action bupropion HCl 150 MG tablet sustained-release 12 hr 1 tab PO BID ascorbic acid (vitamin C) 1,000 MG tablet 500 mg PO DAILY levothyroxine 50 MCG tablet 200 mcg PO DAILY lansoprazole 30 MG capsule 30 mg PO DAILY metoprolol tartrate 50 MG tablet 50 mg PO BID buspirone 15 MG tablet 15 mg PO BID triamcinolone acetonide 1 APPLIC cream 1 applic topical BID Qty: 1 0RF pregabalin 25 mg capsule 50 mg PO BID Patient Comments: TAKE 2 CAPSULES BY MOUTH EVERY MORNING 1 CAPSULE IN THE AFTERNOON AND 2 CAPSULES AT BEDTIME Rx Instructions: takes 50 mg am and pm, and 25 mg in afternoon Wegovy 2.4 mg/0.75 mL pen injector 2.4 mg SUBCUT TH Patient Comments: INJECT 0.75 ML SUBCUTANEOUSLY ONE TIME A WEEK. hydrocodone-acetaminophen 5-325 mg tablet 1 - 2 tab PO BID PRN PRN (Reason: Pain) Patient Comments: TAKE 1-2 TABLETS BY MOUTH TWICE DAILY NEEDED FOR PAIN (KNEE PAIN) FOR UP TO 30 DAYS. multivitamin Tablet 1 tab PO DAILY pregabalin [Lyrica] 25 mg Capsule 25 mg PO DAILY Rx Instructions: takes 50 mg am, and pm, takes 25 mg in afternoon cholecalciferol (vitamin D3) [Vitamin D3] 25 mcg (1,000 unit) Tablet 25 mcg PO DAILY Referrals / Follow Up: Kelsea Benoit MD [Med Staff - Active Staff] - See Referral Note (Please call later today or tomorrow to set up an appointment to be seen by urology at their first availability) Fam Long DO [Primary Care Provider] - Within 2 Weeks Fam Long [[facility]] - Disposition Disposition (needs filled in before D/C Order can be placed): Home, Self Care Charges/Coding Visit Charges Inpatient E&M: 90973 Disch Hosp >30min
[2024-03-30] MEDS: Pregabalin 25 MG Capsule PO (13:33)
[2024-03-30 13:34] VITALS: BP 142/94; PULSE 72; RESP 18; TEMP 36.8; O2SAT 94
--- NOTE | 2024-03-30 13:50 | PHA.DC.MC.R ---
Pharmacy [facility] has performed discharge medication reconciliation and counseling for this patient. The patient's discharge medication list was reviewed for discrepancies and discrepancies were resolved. The patient was counseled on the following discharge medications and changes in medications for homegoing were reviewed. 1. CEFDINIR 2. ZOFRAN 3. ELIQUIS --> DOSE INCREASE The Reason for Use, instructions for use, and potential side effects were reviewed for all new medications. The patient's questions regarding all of their medications were answered. The patient was able to verbally demonstrate an understanding of their discharge medications. Medications at Discharge Home Medications ascorbic acid (vitamin C) 1,000 mg tablet 500 mg PO DAILY vitamin 05/01/19 bupropion HCl 150 mg tablet,12 hr sustained-release 1 tab PO BID depression 05/01/19 buspirone 15 mg tablet 15 mg PO BID anxiety 05/01/19 lansoprazole 30 mg capsule,delayed release 30 mg PO DAILY gerd 05/01/19 levothyroxine 50 mcg tablet 200 mcg PO DAILY thyroid 05/01/19 metoprolol tartrate 50 mg tablet 50 mg PO BID bp 05/01/19 triamcinolone acetonide 0.1 % topical cream 1 applic topical BID #1 tube 05/02/19 hydrocodone-acetaminophen 5-325mg 5mg-325mg 1 - 2 tab PO BID PRN PRN Pain 11/07/22 pregabalin 25 mg capsule 50 mg PO BID pain 11/07/22 semaglutide (weight loss) 2.4 mg/0.75 mL subcutaneous pen injector (Wegovy) 2.4 mg subcut TH weight loss 11/07/22 multivitamin 1 tab PO DAILY vitamin 11/09/22 pregabalin 25 mg capsule (Lyrica) 25 mg PO DAILY pain 11/09/22 cholecalciferol (vitamin D3) 25 mcg (1,000 unit) tablet (Vitamin D3) 25 mcg PO DAILY 11/17/22 apixaban 5 mg tablet (Eliquis) 5 mg PO BID #60 tabs 03/30/24 cefdinir 300 mg capsule 300 mg PO BID #16 caps 03/30/24 ondansetron 4 mg disintegrating tablet 4 mg PO Q8H PRN nausea and vomiting #15 tabs 03/30/24
--- NOTE | 2024-03-30 13:50 | CASEMGMT ---
Patient has order for discharge. Patient walked 60ft contact guard. FIONA CHOPRA in to discuss needs at discharge with patient. Patient declining HHC at this time. [facility] and advised to follow-up with PCP if she reconsiders, patient voiced understanding. Patient states she was on Eliquis already and has copay of $0. Patient had no further questions or concerns.
[2024-03-30 15:32] LABS: Pathologist Review Reviewed
--- NOTE | 2024-03-30 15:39 | CHAPLAIN ---
Type of Pastoral Visit _x__ Initial Visit ___ Follow-up Visit ___ On-call Visit ___ General Patient Visit ___ Spiritual Assessment ___ Family Conference ___ Bereavement ___ Rapid Response ___ Code Blue ___ Other (describe below) Pastoral Care Referral From _x__ Patient ___ Family ___ Nurse ___ Physician ___ Scholastic Aptitude Test Grader ___ Geometry Professor ___ Other (describe below) Sacrament/Intervention _x__ Active listening ___ Anointing ___ Adventism ___ Bereavement ___ Communion ___ Yudi exploration ___ ___ Life review _x__ Prayer ___ Reconciliation ___ Sacrament of Sick ___ Supportive presence ___ Wedding ___ Other (describe below) Pastoral Comments patient reports that he situation has improved and that the plan is to go home soon; pt has had much activity this morning so this telecommunicator was just now able to see her; pt reports that she is confident about going home and is happy about it; pt says that a prayer would be welcome at this time
== END 2024-03-30 15:00 | disposition home or self-care (01) | DRG 690 ==
LOC: ED 19:27 → PCU 20:50
PROVIDERS: Physician Assistant; Admitting Provider Internal Medicine; Emergency Provider Emergency Medicine; PCP Student in an Organized Health Care Education/Training Program; Visit Provider Internal Medicine
DX: N30.01 Acute cystitis with hematuria (principal); R78.81 Bacteremia; I24.89 Other forms of acute ischemic heart disease; N17.9 Acute kidney failure, unspecified; Z68.44 Body mass index [BMI] 60.0-69.9, adult; I27.20 Pulmonary hypertension, unspecified; E88.09 Other disorders of plasma-protein metabolism, not elsewhere classified; E83.39 Other disorders of phosphorus metabolism; N18.32 Chronic kidney disease, stage 3b; E66.01 Morbid (severe) obesity due to excess calories; E89.0 Postprocedural hypothyroidism; I12.9 Hypertensive chronic kidney disease with stage 1 through stage 4 chronic kidney disease, or unspecified chronic kidney disease; F32.A Depression, unspecified; E78.5 Hyperlipidemia, unspecified; M19.90 Unspecified osteoarthritis, unspecified site; K21.9 Gastro-esophageal reflux disease without esophagitis; F41.9 Anxiety disorder, unspecified; G62.9 Polyneuropathy, unspecified; G47.33 Obstructive sleep apnea (adult) (pediatric); R31.29 Other microscopic hematuria; B96.20 Unspecified Escherichia coli [E. coli] as the cause of diseases classified elsewhere; D35.02 Benign neoplasm of left adrenal gland; R16.0 Hepatomegaly, not elsewhere classified; Z79.1 Long term (current) use of non-steroidal anti-inflammatories (NSAID); Z79.01 Long term (current) use of anticoagulants; Z99.81 Dependence on supplemental oxygen; Z79.890 Hormone replacement therapy; Z79.899 Other long term (current) drug therapy; Z87.891 Personal history of nicotine dependence; Z86.718 Personal history of other venous thrombosis and embolism; Z86.711 Personal history of pulmonary embolism
CPT/HCPCS: 36415; 71045; 74176; 80048; 80053; 80061; 80076; 81001; 82533; 83605; 83735; 83880; 84100; 84134; 84443; 84484; 85025; 85379; 85610; 85730; 87040; 87077; 87086; 87088; 87186; 93005; 93306; 93970; 94668; 97162; 97530; 99285; J7030; P9612; Q9957; A4216; C8929; J0696; J2405

== ENCOUNTER 2024-11-20 22:00 | Inpatient (IN) | payer OTHER, SELFPAY ==
[2024-11-20 22:01] VITALS: BP 140/95; PULSE 113; RESP 20; TEMP 38.1; O2SAT 94
[2024-11-20 22:05] VITALS: BP 140/95; PULSE 117; RESP 20; TEMP 38.1; O2SAT 95
--- NOTE | 2024-11-20 22:27 | RAD_ITS ---
PROCEDURE: CHEST PA AND LATERAL REASON FOR EXAM: Fever. TECHNIQUE: Frontal and lateral views of the chest. COMPARISON: 03/27/2024. FINDINGS: Cardiac size is mildly enlarged and stable. Pulmonary vasculature is within normal limits. No consolidation, pleural effusion, or pneumothorax is present. RAD/Chest PA and Lateral IMPRESSION: No acute cardiopulmonary process. Reading [facility]
--- NOTE | 2024-11-20 22:27 | EKG12_ITS ---
Test Reason : Blood Pressure : */* mmHG Vent. Rate : 99 BPM Atrial Rate : 99 BPM P-R Int : 150 ms QRS Dur : 92 ms QT Int : 336 ms P-R-T Axes : 37 9 46 degrees QTcB Int : 431 ms Normal sinus rhythm Normal ECG Confirmed by Darien Ortega ([id number]), editor managing newspaper ELMER KHALIL ([id number]) on 11/21/2024 10:01:47 AM Referred By: Confirmed By: Darien Ortega
[2024-11-20 22:41] VITALS: BMI 68.5
--- NOTE | 2024-11-20 22:42 | CT_ITS ---
PROCEDURE: CT brain without IV contrast REASON FOR EXAM: Neurologic deficit, CVA TECHNIQUE: Multiple contiguous axial images through the brain were obtained without the administration of intravenous contrast. Two-dimensional coronal and sagittal reformatted images were reconstructed. Low-dose imaging technique was utilized. COMPARISON: None FINDINGS: No evidence of acute intracranial hemorrhage, midline shift or mass effect. No definite CT evidence of acute territorial cortical infarction. No hydrocephalus. Calvarium is intact. Paranasal sinuses and mastoid air cells are clear. CT/Brain/Head without Contrast IMPRESSION: No acute process. If there is persistent clinical concern for acute ischemia, MRI is most sensitive. One or more dose reduction techniques were used (e.g., Automated exposure contr ol, adjustment of the mA and/or kV according to patient size, use of iterative reconstruction technique). Reading Location: [facility]
[2024-11-20] MEDS: 0.9% Normal Saline (1000mL) 1,000 ML 999 ML IV ×2 (22:48→23:55)
[2024-11-20] MEDS: Acetaminophen 500 MG Tablet 1000 MG PO (22:48)
--- NOTE | 2024-11-20 22:52 | EX.ED.DYSGE1 ---
HPI History of Present Illness Chief Complaint: General Illness Narrative Narrative: Patient is a 64-year-old female with past medical history of PE/DVT on Eliquis, anxiety, hypothyroidism, hypertension, hyperlipidemia, BMI of 68.6, DAVID, urosepsis who presented to the emerged part with chief complaint of altered mental status. According to family members at bedside they noted that for the past few days she had not been feeling well however her notes that she laid in bed all day and became very confused within the last 4 hours and given her history of sepsis they brought her here for the valuation management. She denies any recent sick contacts. Patient states that she does have some abdominal discomfort. [facility] Medical History Morbid obesity with BMI of 60.0-69.9, adult Personal history of DVT (deep vein thrombosis) Hyperlipidemia Hypothyroidism Wears glasses Post-menopausal History of Clostridium difficile infection Anxiety Thyroid disease Uses wheelchair Walker as ambulation aid Ambulates with cane Arthritis Kidney stone Pulmonary embolism DVT (deep venous thrombosis) Excessive bleeding History of hiatal hernia Former smoker Sleep apnea On home oxygen therapy Shortness of breath on exertion History of pain when walking History of edema Hypomagnesemia Metabolic acidosis Hypernatremia Right ureteral calculus History of venous thromboembolism Anxiety and depression Morbid obesity Hyperlipidemia Arthritis Hypothyroid HTN (hypertension) Home Medications ?Medication ?Instructions ?Recorded ?Last Taken ?Type ascorbic acid (vitamin C) 1,000 mg 500 mg PO DAILY vitamin 05/01/19 Unknown History tablet bupropion HCl 150 mg tablet,12 hr 1 tab PO BID depression 05/01/19 Unknown History sustained-release buspirone 15 mg tablet 15 mg PO BID anxiety 05/01/19 Unknown History lansoprazole 30 mg capsule,delayed 30 mg PO DAILY gerd 05/01/19 Unknown History release levothyroxine 50 mcg tablet 200 mcg PO DAILY thyroid 05/01/19 11/18/22 History metoprolol tartrate 50 mg tablet 50 mg PO BID bp 05/01/19 11/18/22 History triamcinolone acetonide 0.1 % 1 applic topical BID #1 tube 05/02/19 Unknown Rx topical cream hydrocodone-acetaminophen 5-325mg 1 - 2 tab PO BID PRN PRN Pain 11/07/22 11/18/22 History 5mg-325mg pregabalin 25 mg capsule 50 mg PO BID pain 11/07/22 Unknown History semaglutide (weight loss) 2.4 2.4 mg subcut TH weight loss 11/07/22 Unknown History mg/0.75 mL subcutaneous pen injector (Wegovy) multivitamin 1 tab PO DAILY vitamin 11/09/22 Unknown History pregabalin 25 mg capsule (Lyrica) 25 mg PO DAILY pain 11/09/22 Unknown History cholecalciferol (vitamin D3) 25 25 mcg PO DAILY 11/17/22 Unknown History mcg (1,000 unit) tablet (Vitamin D3) apixaban 5 mg tablet (Eliquis) 5 mg PO BID #60 tabs 03/30/24 Unknown Rx cefdinir 300 mg capsule 300 mg PO BID #16 caps 03/30/24 Unknown Rx ondansetron 4 mg disintegrating 4 mg PO Q8H PRN nausea and 03/30/24 Unknown Rx tablet vomiting #15 tabs celecoxib 200 mg capsule (Celebrex) 200 mg PO DAILY 11/20/24 Unknown History furosemide 40 mg tablet 40 mg PO DAILY 11/20/24 Unknown History Allergy/AdvReac Type Severity Reaction Status Date / Time cephalexin (From Keflex) AdvReac Upset Verified 11/20/24 22:01 Stomach codeine AdvReac Upset Verified 11/20/24 22:01 Stomach Family History Mother Heart disease Hypertension Father Diabetes Aneurysm Surgical History Hx of cystoscopy Hx of tubal ligation Hx of thyroidectomy History of parathyroidectomy History of herniorrhaphy Hx of cholecystectomy Social History household members: spouse Smoking Status: Former smoker alcohol intake: never substance use type: does not use ROS ROS ED ROS Narrative Constitutional: Complains of fever and chills denies any headaches Eyes: Denies change in vision double vision blurry vision Cardiovascular: Denies chest pain Respiratory: Denies coughing wheezing shortness of breath Abdomen: Complains of abdominal pain and nausea denies diarrhea : Denies painful urination, hematuria, polyuria Neurological: Denies any numbness, wheeze, tingling Musculoskeletal: Denies back pain Skin: Denies any rashes or lesions EXAM Physical Exam Narrative Exam Narrative: General: Patient lying in bed rest comfortably did not appear to be in acute distress Head: Atraumatic, normocephalic Eyes: PERRL bilaterally, EOMI bilaterally, no conjunctival injection noted Neck: Soft, supple, trachea midline Cardiovascular: Patient tachycardic with a regular rhythm no murmurs gallops rubs noted Respiratory: Clear to auscultation bilaterally Abdomen: Soft, nondistended, diffuse tenderness to palpation no rebound or guarding on exam Extremities: +4/5 strength noted in the bilateral upper and lower extremities, radial pulses +2/4 in the bilateral extremities Neurological: Patient following commands knew that she was at the hospital and the year is 2024 Skin: Warm, dry, intact no rashes lesions noted Const Vital Signs: 11/20/24 22:01 11/20/24 22:05 11/20/24 22:41 Temperature 100.5 F H 100.5 F H Temperature Source Oral Oral Pulse Rate 113 H 117 H Respiratory Rate 20 H 20 H Respiratory Effort Normal Respiratory Pattern Normal Blood Pressure 140/95 H 140/95 H Blood Pressure Mean 110 110 Pulse Ox 94 95 Oxygen Delivery Method Room Air Room Air 11/20/24 22:41 11/20/24 23:05 11/21/24 00:00 Temperature 100.5 F H 98.8 F Temperature Source Oral Oral Pulse Rate 94 104 H Respiratory Rate 20 H 18 Respiratory Effort Respiratory Pattern Blood Pressure 137/79 H 137/73 H Blood Pressure Mean 98 94 Pulse Ox 100 94 Oxygen Delivery Method Room Air Room Air Room Air 11/21/24 01:00 Temperature 98.8 F Temperature Source Oral Pulse Rate 76 Respiratory Rate 20 H Respiratory Effort Respiratory Pattern Blood Pressure 121/71 H Blood Pressure Mean 87 Pulse Ox 94 Oxygen Delivery Method Room Air MDM MDM MDM Narrative Medical decision making narrative: Patient is a 64-year-old female who presented to the emergency department with a chief complaint of increased confusion over the last few hours, fever and not feeling well. On the differential diagnose includes but not limited to UTI, pyelonephritis, diverticulitis, intracranial hemorrhage, electrolyte abnormality, dehydration, COVID/flu. Once workup is obtained reviewed she will be reevaluated. Patient be given 30 cc per per kilogram bolus based on ideal body weight as her BMI is greater than 30. Patient was noted be febrile she be given a gram of Tylenol. Patient CBC was significant for leukocytosis of 17,000, hemoglobin noted to be 15.1, MCV of 89.7, INR 1.4, PT of 17 she is chronically anticoagulated on Eliquis. Patient sodium normal 136, potassium normal 3.5, creatinine elevated 1.78 indicating acute kidney injury, lactic acidosis of 2.4. Patient's AST and ALT are 24 and 37 respectively. Patient's urinalysis was significant for a urinary tract infection with 500 leukocyte esterase 0-5 white cells with 4+ bacteria she was given 2 g of Rocephin. Patient's CT head and brain without contrast reviewed and showed no acute processes. Patient was unable to have the CT abdomen/pelvis with IV contrast obtained secondary to her lower body not fitting into the CT scanner. We called multiple other facilities and they do not have a scanner that she will fit through either. At this point time will discuss with hospitalist for admission. Discussed case with hospitalist Dr. Ngo at 1:08 AM and she will be admitted to the intensive care unit. Will add on a KUB. Patient was notified as well as family members all question concerns answered. Lab Data Labs: Laboratory Results - last 24 hr 11/20/24 11/21/24 22:52 00:16 WBC 17.4 H RBC 5.13 Hgb 15.1 H Hct 46.0 MCV 89.7 MCH 29.4 MCHC 32.8 RDW Std Deviation 46.2 H RDW Coeff of Jose Rafael 13.9 Plt Count 232 MPV 9.9 Immature Gran % (Auto) 1.200 H Neut % (Auto) 81.4 H Lymph % (Auto) 2.0 L Schoolcraft % (Auto) 11.4 H Eos % (Auto) 3.6 Baso % (Auto) 0.4 Absolute Neuts (auto) 14.1 H Absolute Lymphs (auto) 0.34 L Nucleated RBC % 0 Differential Comment SCANNED Diff Path Review May foll Toxic Vacuolation 1+ PT 17.0 H INR 1.4 APTT 36.5 H Sodium 136 Potassium 3.5 Chloride 103 Carbon Dioxide 22.0 Anion Gap 11 BUN 26 H Creatinine 1.78 H Estim Creat Clear Calc 62.15 Est GFR (MDRD) Af Amer 37 L Est GFR (MDRD) Non-Af 31 L BUN/Creatinine Ratio 14.6 Glucose 180 H Lactic Acid 2.4 H* Calcium 9.1 Total Bilirubin 1.70 H AST 24 ALT 37 Alkaline Phosphatase 88 Troponin I High Sens 23 Total Protein 7.0 Albumin 2.8 L Globulin 4.2 Albumin/Globulin Ratio 0.7 L Urine Color Destiny Urine Clarity Sl. Cloudy Urine pH 5.0 Ur Specific Reynolds 1.020 Urine Protein 30 H Urine Glucose (UA) Normal Urine Ketones 15 H Urine Occult Blood 250 H Urine Nitrite Negative Urine Bilirubin Negative Urine Urobilinogen 4 H Ur Leukocyte Esterase 500 H Urine RBC 0 SEEN Urine WBC 0-5 SEEN Ur Squamous Epith Cells 0-5 SEEN Urine Bacteria 4+ Urine Mucus 0 SEEN Radiography Diagnostic Testing: Clinical Impression(s) from Imaging Studies Chest X-Ray 11/20/24 22:27 IMPRESSION: No acute cardiopulmonary process. Reading Location: [facility] Brain CT 11/20/24 22:42 IMPRESSION: No acute process. If there is persistent clinical concern for acute ischemia, MRI is most sensitive. One or more dose reduction techniques were used (e.g., Automated exposure control, adjustment of the mA and/or kV according to patient size, use of iterative reconstruction technique). Reading Location: [facility] Discharge Plan Triage Chief Complaint: General Illness ED Provider: Gene Carvalho Dx/Rx/DC Orders Clinical Impression: Urinary tract infection, Sepsis, Acidosis, lactic Primary Care Provider: Fam Long Disposition Disposition: Acute Care Hospital [facility]
[2024-11-20 23:03] LABS: Absolute Lymphocyte Count 0.34 X10^3/uL (0.83-4.51); Absolute Neutrophil Count 14.1 X10^3/uL (2.0-7.7); Basophil# 0.07 X10^3/uL; Basophil% 0.4 % (0-1); Eosinophil# 0.62 X10^3/uL; Eosinophils% 3.6 % (0-5); Hemoglobin 15.1 g/dL (12.0-15.0); Lymphocyte # 0.34 X10^3/ul (0.83-4.51); Mean Corp Hgb Conc 32.8 g/dL (32-36); Mean Corpuscular Hgb 29.4 pg (27.0-32.0); Mean Corpuscular Volume 89.7 fL (81-99); Mean Platelet Vol. 9.9 fl (6.2-12.0); Monocyte# 1.98 X10^3/uL; Monocyte% 11.4 % (0-10); NRBC Flagged by Analyzer 0 % (0-5); Neutrophil # 14.14 X10^3/uL (2.7-7.7); Neutrophil % 81.4 % (47-70); POSITIVE DIFFERENTIAL YES; POSITIVE MORPHOLOGY YES; Platelet Count 232 K/mm3 (150-450); RBC Distribution Width CV 13.9 % (11.6-14.6); RBC Distribution Width SD 46.2 fl (35.1-43.9); Red Blood Count 5.13 M/mm3 (4.2-5.4); White Blood Count 17.4 K/mm3 (4.4-11.0)
[2024-11-20 23:05] VITALS: BP 137/79; PULSE 94; RESP 20; TEMP 38.1; O2SAT 100
[2024-11-20 23:09] LABS: Differential Indicated SCAN CRITERIA MET
[2024-11-20 23:17] LABS: International Normalized Ratio 1.4
[2024-11-20 23:18] LABS: Partial Thromboplast Time 36.5 Seconds (24.1-36.2)
[2024-11-20 23:23] LABS: ALB/GLOB Ratio 0.7 RATIO (0.9-2.4); AST(SGOT) 24 U/L (15-37); Alanine Aminotransfer ALT/SGPT 37 U/L (13-56); Albumin, Serum 2.8 g/dL (3.2-5.0); Alkaline Phosphatase 88 U/L (45-117); Anion Gap 11 (5-15); BUN 26 mg/dL (7-18); BUN/Creat Ratio 14.6 RATIO (10-20); Calcium,Total 9.1 mg/dL (8.5-10.1); Chloride 103 mmol/L (98-107); Creatinine, Serum 1.78 mg/dL (0.55-1.02); EST Glomerular Filtration Rate 31 mL/min (>60); Est Glom Filt Rate - Afr Amer 37 mL/min (>60); Estimated Creatinine Clearance 62.15 ml/min; Globulin 4.2 g/dL (2.2-4.2); Glucose 180 mg/dL (74-106); Potassium 3.5 mmol/L (3.5-5.1); Sodium Level 136 mmol/L (136-145); Troponin-I HS 23 pg/mL (3.0-54.0)
[2024-11-20 23:40] LABS: Lactic Acid 2.4 mmol/L (0.4-1.9)
[2024-11-20 23:44] LABS: Differential Comment SCANNED; Vacuolated Cells 1+
[2024-11-21] VITALS (19 sets, daily range): BP systolic 119–166; BP diastolic 64–114; PULSE 70–115; RESP 14–26; TEMP 36.7–38.8; O2SAT 89–99; BMI 67.4; BMI 67.2
[2024-11-21 00:23] LABS: Mucous, Urine 0 SEEN /hpf (<or=2+)
[2024-11-21 00:24] LABS: Color, Urine Amber (Yellow); Glucose, Dipstick Normal (Normal); Ketone-Dipstick 15 mg/dl (Negative); Leukocyte Esterase-Dipstick 500 /ul (Negative); Nitrite-Dipstick Negative (Negative); Occult Blood-Urine 250 /ul (Negative); Protein-Dipstick 30 mg/dl (Negative); Urine Bilirubin Dipstick Negative (Negative); Urine Clarity Sl. Cloudy (Clear); Urine Urobilinogen 4 mg/dl (Normal)
[2024-11-21] MEDS: Ceftriaxone 2 GM in 0.9% Normal Saline (50mL MB+) 50 ML IV (00:32)
[2024-11-21 00:33] LABS: Bacteria 4+ /hpf (None Seen); Red Blood Cells-Urine 0 SEEN /hpf (0-5); Squamous Epithelial Cells - UA 0-5 SEEN /hpf (5-10); White Blood Cells 0-5 SEEN /hpf (0-5)
--- NOTE | 2024-11-21 01:06 | PCM.HP.STD ---
[facility] - General General Date of Admission: 11/21/24 Date of Service: 11/21/24 Chief Complaint: AMS and Fever. HPI Narrative TAYLER HAMPTON, is a 64 F with a past medical history of essential hypertension; on metoprolol and furosemide, history of thyroidectomy with subsequent hypothyroidism; on levothyroxine, history of parathyroidectomy, super-morbid obesity; with BMI of 68.6 this admission on Wegovy, DAVID; noncompliant with CPAP, 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 twice daily, depression with anxiety; on bupropion and buspirone, history of hernia; s/p repair, history of cholecystectomy, remote history of tubal ligation, history of C. difficile infection, history of Right renal calculus; status post cystoscopy with stent (2022), GERD with history of hiatal hernia; on lansoprazole, OA; on as needed hydrocodone-acetaminophen twice daily and history of admission here from March 27, 2024 to March 30, 2024 for treatment of Right flank pain with acute Cystitis; with microscopic hematuria and Leukocytosis of 12.6 K with Left-shift of 1.3% causing bacteremia with E. coli sensitive to ceftriaxone complicated by PARIS in the setting of CKD; stage III-IV and elevated troponin of 229 pg/mL due to subendocardial ischemia with CT scan positive for incidentally noted hepatomegaly and a ~2.6 cm left adrenal nodule (suspected to be an adenoma) who presents to [facility] ER after her family noted altered mental status. Mrs. Hampton is not a fully-reliable historian at this time to information gathered from chart, medical staff and computer. According to the records the family noticed that the patient has not been feeling well for the past few days and has been staying in the bed all day. Then over the last 4 hours prior to arrival her symptoms became worse with a similar presentation to her previous episode of sepsis due to UTI so they brought her in for further evaluation and management. The patient does have abdominal pain but her body size prohibits CT scan. She admits to fever, chills, abdominal pain and painful urination but she denies headache, changes in vision, shortness of breath, cough, vomiting, diarrhea, hematuria, paresthesias back pain or rash. In the ER she was noted to have fever of 100.5 degrees Fahrenheit with a pulse rate of 113 bpm present on admission in addition to Leukocytosis of 17.4 K with Left-shift of 1.2% and Lactic Acidosis of 2.4 mmol/L present on admission consistent with suspected Sepsis due to likely UTI with possible Stone complicated by laboratory evidence of suspected PARIS; with elevated serum creatinine of 1.78 mg/dL present on admission (up from her baseline of 1.17 mg/dL last admission) compounded by Hyperbilirubinemia of 1.7 mg/dL present on admission with clinical evidence of Metabolic Encephalopathy and she was then admitted to the ICU for ongoing care under the sepsis protocol for stay that is expected to extend beyond 2 midnights. [facility] Medical History (Updated 11/21/24 @ 03:[address] Clint Webster, ) Morbid obesity with BMI of 60.0-69.9, adult Personal history of DVT (deep vein thrombosis) Hyperlipidemia Hypothyroidism Wears glasses Post-menopausal History of Clostridium difficile infection Anxiety Thyroid disease Uses wheelchair Walker as ambulation aid Ambulates with cane Arthritis Kidney stone Pulmonary embolism DVT (deep venous thrombosis) Excessive bleeding History of hiatal hernia Former smoker Sleep apnea On home oxygen therapy Shortness of breath on exertion History of pain when walking History of edema Hypomagnesemia Metabolic acidosis Hypernatremia Right ureteral calculus History of venous thromboembolism Anxiety and depression Morbid obesity Hyperlipidemia Arthritis Hypothyroid HTN (hypertension) Home Medications ?Medication ?Instructions ?Recorded ?Last Taken ?Type ascorbic acid (vitamin C) 1,000 mg 500 mg PO DAILY vitamin 05/01/19 Unknown History tablet bupropion HCl 150 mg tablet,12 hr 1 tab PO BID depression 05/01/19 Unknown History sustained-release buspirone 15 mg tablet 15 mg PO BID anxiety 05/01/19 Unknown History lansoprazole 30 mg capsule,delayed 30 mg PO DAILY gerd 05/01/19 Unknown History release levothyroxine 50 mcg tablet 200 mcg PO DAILY thyroid 05/01/19 11/18/22 History metoprolol tartrate 50 mg tablet 50 mg PO BID bp 05/01/19 11/18/22 History triamcinolone acetonide 0.1 % 1 applic topical BID #1 tube 05/02/19 Unknown Rx topical cream hydrocodone-acetaminophen 5-325mg 1 - 2 tab PO BID PRN PRN Pain 01/28/23 02/08/23 History 5mg-325mg pregabalin 25 mg capsule 50 mg PO BID pain 11/07/22 Unknown History semaglutide (weight loss) 2.4 2.4 mg subcut TH weight loss 11/07/22 Unknown History mg/0.75 mL subcutaneous pen injector (Wegovy) multivitamin 1 tab PO DAILY vitamin 11/09/22 Unknown History pregabalin 25 mg capsule (Lyrica) 25 mg PO DAILY pain 11/09/22 Unknown History cholecalciferol (vitamin D3) 25 25 mcg PO DAILY 11/17/22 Unknown History mcg (1,000 unit) tablet (Vitamin D3) apixaban 5 mg tablet (Eliquis) 5 mg PO BID #60 tabs 03/30/24 Unknown Rx cefdinir 300 mg capsule 300 mg PO BID #16 caps 03/30/24 Unknown Rx ondansetron 4 mg disintegrating 4 mg PO Q8H PRN nausea and 03/30/24 Unknown Rx tablet vomiting #15 tabs celecoxib 200 mg capsule (Celebrex) 200 mg PO DAILY 11/20/24 Unknown History furosemide 40 mg tablet 40 mg PO DAILY 11/20/24 Unknown History Allergy/AdvReac Type Severity Reaction Status Date / Time cephalexin (From Keflex) AdvReac Upset Verified 11/20/24 22:01 Stomach codeine AdvReac Upset Verified 11/20/24 22:01 Stomach Family History Mother Heart disease Hypertension Father Diabetes Aneurysm Surgical History Hx of cystoscopy Hx of tubal ligation Hx of thyroidectomy History of parathyroidectomy History of herniorrhaphy Hx of cholecystectomy Social History household members: spouse Smoking Status: Former smoker alcohol intake: never substance use type: does not use ROS ROS Narrative Full review of systems was not possible due to patient's altered mental status. Vital Signs Vital Signs Vital Signs: 11/20/24 22:01 11/20/24 22:05 11/20/24 22:41 Temperature 100.5 F H 100.5 F H Temperature Source Oral Oral Pulse Rate 113 H 117 H Respiratory Rate 20 H 20 H Respiratory Effort Normal Respiratory Pattern Normal Blood Pressure 140/95 H 140/95 H Blood Pressure Mean 110 110 Pulse Ox 94 95 Oxygen Delivery Method Room Air Room Air 11/20/24 22:41 11/20/24 23:05 11/21/24 00:00 Temperature 100.5 F H 98.8 F Temperature Source Oral Oral Pulse Rate 94 104 H Respiratory Rate 20 H 18 Respiratory Effort Respiratory Pattern Blood Pressure 137/79 H 137/73 H Blood Pressure Mean 98 94 Pulse Ox 100 94 Oxygen Delivery Method Room Air Room Air Room Air 11/21/24 01:00 Temperature 98.8 F Temperature Source Oral Pulse Rate 76 Respiratory Rate 20 H Respiratory Effort Respiratory Pattern Blood Pressure 121/71 H Blood Pressure Mean 87 Pulse Ox 94 Oxygen Delivery Method Room Air Weight Weight: 450 lb 13.525 oz Body Mass Index (BMI) 68.5 Physical Exam Const alert and no apparent distress Constitutional Narrative: Patient is morbidly obese and appears chronically ill. General Appearance: cooperative Orientation / Consciousness: confused HEENT normocephalic, head/scalp atraumatic and hearing grossly normal bilaterally HEENT Narrative: Mucous membranes dry. Eyes PERRL, EOMs intact bilaterally and conjunctivae normal Neck no lymphadenopathy and supple Resp normal respiratory effort, no retractions, no use of accessory muscles and clear to auscultation bilaterally Cardio regular rate and regular rhythm Cardio Narrative: Regularly tachycardic at ~110 bpm. GI normal to inspection, nondistended, normoactive bowel sounds, soft to palpation, non-tender and non-distended GI Narrative: Morbidly obese. Extremity normal to inspection, full ROM and no clubbing, cyanosis or edema Skin Skin Narrative: Patient has no evidence of rash, abscess wounds or jaundice. Neuro CN's II-XII intact bilaterally, moves all extremities and no focal motor deficits Sensorium / Orientation: awake, alert, oriented to person and oriented to place Speech: speech normal Psych affect normal Results Medical Records Data Attestation: I reviewed the patient's medical records Lab / Micro Data Attestation: I reviewed the patient's lab results. 11/20/24 22:52 11/20/24 22:52 Labs: Laboratory Results - last 24 hr 11/20/24 22:52: WBC 17.4 H, RBC 5.13, Hgb 15.1 H, Hct 46.0, MCV 89.7, MCH 29.4, MCHC 32.8, RDW Std Deviation 46.2 H, RDW Coeff of [place] 13.9, Plt Count 232, MPV 9.9, Immature Gran % (Auto) 1.200 H, Neut % (Auto) 81.4 H, Lymph % (Auto) 2.0 L, [place] % (Auto) 11.4 H, Eos % (Auto) 3.6, Baso % (Auto) 0.4, Absolute Neuts (auto) 14.1 H, Absolute Lymphs (auto) 0.34 L, Nucleated RBC % 0, Differential Comment SCANNED, Diff Path Review February foll, Toxic Vacuolation 1+, PT 17.0 H, INR 1.4, APTT 36.5 H, Sodium 136, Potassium 3.5, Chloride 103, Carbon Dioxide 22.0, Anion Gap 11, BUN 26 H, Creatinine 1.78 H, Estim Creat Clear Calc 62.15, Est GFR (MDRD) Af Amer 37 L, Est GFR (MDRD) Non-Af 31 L, BUN/Creatinine Ratio 14.6, Glucose 180 H, Lactic Acid 2.4 H*, Calcium 9.1, Total Bilirubin 1.70 H, AST 24, ALT 37, Alkaline Phosphatase 88, Troponin I High Sens 23, Total Protein 7.0, Albumin 2.8 L, Globulin 4.2, Albumin/Globulin Ratio 0.7 L 11/21/24 00:16: Urine Color [place], Urine Clarity Sl. Cloudy, Urine pH 5.0, Ur Specific [place] 1.020, Urine Protein 30 H, Urine Glucose (UA) Normal, Urine Ketones 15 H, Urine Occult Blood 250 H, Urine Nitrite Negative, Urine Bilirubin Negative, Urine Urobilinogen 4 H, Ur Leukocyte Esterase 500 H, Urine RBC 0 SEEN, Urine WBC 0-5 SEEN, Ur Squamous Epith Cells 0-5 SEEN, Urine Bacteria 4+, Urine Mucus 0 SEEN Micro: Microbiology 11/20/24 22:57 Mucosa - Nose SARS-CoV-2, Influenza & RSV (PCR) - Final Imaging Radiology Impression Chest X-Ray 11/20/24 22:27 IMPRESSION: No acute cardiopulmonary process. Reading Location: [facility] Brain CT 02/10/25 22:42 IMPRESSION: No acute process. If there is persistent clinical concern for acute ischemia, MRI is most sensitive. One or more dose reduction techniques were used (e.g., Automated exposure control, adjustment of the mA and/or kV according to patient size, use of iterative reconstruction technique). Reading Location: [facility] Imaging Services [address] [place] [address] [id number] Abdomen Single View MR#: [id number] Acct: [id number] Name: TAYLER HAMPTON Rep #: [id number] : 1960 F 64 From: Jeff Brantley DO PCP: Dr. Fam Long DO Status: ADM IN Study: Abdomen Single View Date of Exam: 11/21/24 Exam# [id number] Ordering Dr: Gene Carvalho DO PROCEDURE: ABDOMEN SINGLE VIEW REASON FOR EXAM: Sepsis. Concern for stone. TECHNIQUE: Single view abdomen. COMPARISON: CT abdomen/pelvis from 03/27/2024. FINDINGS: Retained air and stool within the bowel limits evaluation of the bilateral kidneys. However, there are 2 right renal stones measuring approximately 4 mm. Nonobstructive bowel gas pattern is identified. Tubal ligation clips are present in the pelvis. Calcified density in the pelvis measuring 2.6 cm likely relates to a calcified uterine fibroid. No definite free air is identified. Surgical clips in the right upper abdominal quadrant likely relates to prior cholecystectomy. Degenerative changes are present. RAD/Abdomen Single View IMPRESSION: Right renal stones. Reading [facility] CC: Dr. Fam Long, DO; Dr. Gene Carvalho DO ~ Residential Field Manager: Signed Assessment & Plan Assessment/Plan (1) Sepsis: QUALIFIERS: Sepsis acute organ dysfunction status: with acute organ dysfunction Sepsis type: sepsis due to unspecified organism Severe sepsis acute organ dysfunction type: encephalopathy Severe sepsis shock status: without septic shock Qualified Code(s): A41.9 - Sepsis, unspecified organism; R65.20 - Severe sepsis without septic shock; G93.41 - Metabolic encephalopathy (2) Acidosis, lactic: (3) Leukocytosis: QUALIFIERS: Leukocytosis type: unspecified Qualified Code(s): D72.829 - Elevated white blood cell count, unspecified (4) Urinary tract infection: QUALIFIERS: Hematuria presence: without hematuria Urinary tract infection type: acute cystitis Qualified Code(s): N30.00 - Acute cystitis without hematuria (5) Acute kidney injury: (6) Metabolic encephalopathy: (7) Hyperbilirubinemia: (8) Morbid obesity with BMI of 60.0-69.9, adult: PLAN: Plan 1. Fever of 100.5 degrees Fahrenheit with a pulse rate of 113 bpm present on admission in addition to Leukocytosis of 17.4 K with Left-shift of 1.2% and Lactic Acidosis of 2.4 mmol/L present on admission consistent with suspected Sepsis due to likely UTI with possible Stone - Admit to ICU for treatment under the Sepsis protocol. Stop empiric Rocephin begun in the ER and start IV Zosyn then await culture and sensitivity data. Give probiotic to replace normal alo. Give acetaminophen as needed pain or fever. 2. Suspected PARIS; with elevated serum creatinine of 1.78 mg/dL present on admission (up from her baseline of 1.17 mg/dL last admission) complicating #1 - Aggressively volume resuscitate and recheck renal indices daily to follow response to treatment. 3. Hyperbilirubinemia of 1.7 mg/dL present on admission compounding #1 & #2 - Check CMP daily to follow trend. 4. Acute metabolic encephalopathy arising from #1 - #3 - Minimize CAR WASHER-active medications in an effort to allow sensorium to clear. Check TSH, B12, Folate, VITA and UDS to evaluate for potentially reversible causes of confusion. Otherwise, continue care plan as outlined above and monitor for improvement. 5. Super-morbid obesity; with BMI of 68.6 this admission on Wegovy plus DAVID; noncompliant with CPAP adding to the burden of disease outlined from #1 - #4 - Weight loss will be recommended. Check TSH. This complicates her case and may hamper recovery. 6. History of admission here from March 27, 2024 to March 30, 2024 for treatment of Right flank pain with acute Cystitis; with microscopic hematuria and Leukocytosis of 12.6 K with Left-shift of 1.3% causing bacteremia with E. coli sensitive to ceftriaxone complicated by PARIS in the setting of CKD; stage III-IV and elevated troponin of 229 pg/mL due to subendocardial ischemia with CT scan positive for incidentally noted hepatomegaly and a ~2.6 cm left adrenal nodule (suspected to be an adenoma) - Noted with somewhat similar presentation this admission. 7. Essential Hypertension; on metoprolol and furosemide - Hold scheduled antihypertensives until infection outlined in #1 has been neutralized. 8. History of thyroidectomy with subsequent hypothyroidism; on levothyroxine - Resume levothyroxine and check TSH this admission. 9. History of parathyroidectomy - Noted. 10. History of suspected VTE (03/2024); on apixaban - Maintain on apixaban for now unless patient is confirmed to have renal calculus on KUB or ultrasound. 11. Former tobacco abuse (quit 1999) - Noted. 12. Neuropathy; on pregabalin 50 mg p.o. twice daily - Continue pregabalin as before. 13. Depression with anxiety; on bupropion and buspirone - Home regimen to continue as previous. 14. History of hernia; s/p repair - Noted. 15. History of cholecystectomy - Noted. 16. Remote history of tubal ligation - Noted for the sake of completeness. 17. History of C. difficile infection - We we will watch closely for signs of diarrhea. 18. History of Right renal calculus; status post cystoscopy with stent (2022) - Noted. 19. GERD with history of hiatal hernia; on lansoprazole - Continue PPI. 20. OA; on as needed hydrocodone-acetaminophen twice daily - Patient will only receive acetaminophen until her mental status issues have resolved. 21. DVT prophylaxis - Patient already on apixaban for #10 which will be continued. Total time: Approximately (but not less than) 75 minutes. Sepsis Attestation Sepsis Alert: Yes Sepsis Attestation: Agree w/Sepsis Date exam was performed: 11/21/24 Time exam was performed: 02:00 Possible Source of Sepsis: Genitourinary Sepsis Organ Dysfunction Criteria Present: Lactic Acid > 2 mmol/L and New/Unexplained change in mental status Fluid Resuscitation Fluid resuscitation indicated?: Yes Fluid Resuscitation ordered: 30 ml/kg fluid bolus ordered Amount of fluid ordered: 4 Sepsis Note Date exam was performed: 11/21/24 Time exam was performed: 06:00 Sepsis Attestation: Sepsis re-evaluation was performed Response to fluids: Fluid responsive hypotension Charges/Coding Visit Charges Inpatient E&M: 59933 Init Hosp L3
--- NOTE | 2024-11-21 01:55 | US_ITS ---
PROCEDURE: KIDNEY AND BLADDER REASON FOR EXAM: UTI and flank pain. TECHNIQUE: Ultrasound of the kidneys and bladder COMPARISON: None. FINDINGS: Normal renal sizes, parenchymal thicknesses, and echotextures. No hydronephrosis. No cysts or large solid renal masses. Grossly normal bladder contour. No large bladder wall mass visualized. RIGHT Kidney Size: 11.6 cm x 5.2 cm x 4.8 cm Cortical Thickness (if discernible): 1.1 (>6mm is normal) LEFT Kidney Size: 10.8 cm x 5.1 cm x 6.5 cm Cortical Thickness (if discernible): 1.3 (>6mm is normal) BLADDER: Bladder not adequately filled for assessment. US/Kidney and Bladder IMPRESSION: NORMAL RENAL AND BLADDER ULTRASOUND. Reading Location: [id number]
[2024-11-21] MEDS: 0.9% Normal Saline (1000mL) 1,000 ML 999 ML IV ×4 (02:30→05:25)
[2024-11-21 02:57] LABS: Reflex Lactate? Y
[2024-11-21] MEDS: Morphine 2 MG/ML Syringe IV (04:05)
[2024-11-21 04:14] LABS: Alcohol, Blood (Medical)-Serum < 3.0 mg/dL
[2024-11-21 04:18] LABS: Lactic Acid 1.5 mmol/L (0.4-1.9)
[2024-11-21 04:20] LABS: Vitamin B12 415 pg/mL (211-911)
[2024-11-21 05:21] LABS: Thyroid Stim Hormone (TSH) 0.214 uIU/mL (0.358-3.740); Troponin-I HS 23 pg/mL (3.0-54.0)
[2024-11-21] MEDS: Levothyroxine 50 MCG Tablet PO (05:25)
[2024-11-21] MEDS: Acetaminophen 325 MG Tablet 650 MG PO (05:27)
--- NOTE | 2024-11-21 07:44 | EX.PCM.CONCC ---
Assessment & Plan Assessment/Plan (1) Sepsis: QUALIFIERS: Sepsis type: sepsis due to unspecified organism Sepsis acute organ dysfunction status: with acute organ dysfunction Severe sepsis acute organ dysfunction type: encephalopathy Severe sepsis shock status: without septic shock Qualified Code(s): A41.9 - Sepsis, unspecified organism; R65.20 - Severe sepsis without septic shock; G93.41 - Metabolic encephalopathy PLAN: Plan RECOMMENDATIONS: 1. Continue empiric antimicrobials. 2. Await urology evaluation. 3. Renal ultrasound is pending. 4. Recommend empiric PAP therapy with naps and nightly. 5. The patient should remain n.p.o. for now, pending further workup. IMPRESSIONS: 1. Sepsis The patient presented to the hospital with sepsis due to suspected urinary tract source of infection/pyelonephritis with acute sepsis related organ dysfunction as evidenced by lactic acidemia. The patient did receive supplemental IV fluid resuscitation with subsequent resolution of her lactic acidemia. She remains hemodynamically stable on room air. Currently, urology consultation is pending given concerns for renal calculi noted on KUB. Dedicated renal ultrasound is currently pending. Agree with continuing empiric antibiotics. 2. Acute kidney injury Most likely prerenal in etiology in the setting of #1. Continue to monitor urine output for now. No current indication for renal replacement therapy. Renal ultrasound is pending. 3. History of obstructive sleep apnea/super morbid obesity/hypertension/hypothyroidism/neuropathy/GERD Complicates care, management, recovery and prognosis. Continue home medications as indicated. This note was generated with [employer] dictation software. It may contain incorrect words, spelling, and punctuation that were not noted in checking the note before signing. HPI Consult Data Date of Consult: 11/21/24 HPI Narrative Reason for Consultation: Sepsis HPI Narrative: The patient is a 64-year-old female, with a history as outlined below, who presented to the emergency department on November 21 with altered mental status, abdominal discomfort and foul-smelling urine. The patient has a known history of super morbid obesity, obstructive sleep apnea with PAP noncompliance, hypertension, hypothyroidism, prior tobacco dependency, neuropathy and history of right renal calculus status post cystoscopy with stent placement in 2022. On presentation to the emergency department, the patient was documented to have a low-grade fever and was mildly tachycardic and tachypneic. She was otherwise hemodynamically stable on room air. Laboratory evaluation was notable for a white blood cell count of 17,000. Chemistry profile was notable for a creatinine of 1.78. Lactate was mildly elevated at 2.4. Urine analysis was notable for leukocyte esterase and 4+ urine bacteria. Chest x-ray demonstrated no acute cardiopulmonary process. CT head was unremarkable. Due to the patient's size, CT abdomen/pelvis was unable to be obtained. However, KUB demonstrated evidence of right renal calculi. Therefore, a dedicated renal ultrasound was ordered. The patient received supplemental IV fluid hydration and was initiated on antimicrobial therapy. She was subsequently admitted to the medical intensive care unit, with consultation placed to urology. This morning, the patient is alert and appropriately interactive. She is resting comfortably in bed. She has remained hemodynamically stable on room air. [facility] Medical History (Updated 11/21/24 @ 03:[address] Clint Webster, DO) Morbid obesity with BMI of 60.0-69.9, adult Personal history of DVT (deep vein thrombosis) Hyperlipidemia Hypothyroidism Wears glasses Post-menopausal History of Clostridium difficile infection Anxiety Thyroid disease Uses wheelchair Walker as ambulation aid Ambulates with cane Arthritis Kidney stone Pulmonary embolism DVT (deep venous thrombosis) Excessive bleeding History of hiatal hernia Former smoker Sleep apnea On home oxygen therapy Shortness of breath on exertion History of pain when walking History of edema Hypomagnesemia Metabolic acidosis Hypernatremia Right ureteral calculus History of venous thromboembolism Anxiety and depression Morbid obesity Hyperlipidemia Arthritis Hypothyroid HTN (hypertension) Home Medications ?Medication ?Instructions ?Recorded ?Last Taken ?Type ascorbic acid (vitamin C) 1,000 mg 500 mg PO DAILY vitamin 05/01/19 Unknown History tablet bupropion HCl 150 mg tablet,12 hr 1 tab PO BID depression 05/01/19 Unknown History sustained-release buspirone 15 mg tablet 15 mg PO BID anxiety 05/01/19 Unknown History lansoprazole 30 mg capsule,delayed 30 mg PO DAILY gerd 05/01/19 Unknown History release levothyroxine 50 mcg tablet 200 mcg PO DAILY thyroid 05/01/19 11/18/22 History metoprolol tartrate 50 mg tablet 50 mg PO BID bp 05/01/19 11/18/22 History triamcinolone acetonide 0.1 % 1 applic topical BID #1 tube 05/02/19 Unknown Rx topical cream hydrocodone-acetaminophen 5-325mg 1 - 2 tab PO BID PRN PRN Pain 11/07/22 11/18/22 History 5mg-325mg pregabalin 25 mg capsule 50 mg PO BID pain 11/07/22 Unknown History semaglutide (weight loss) 2.4 2.4 mg subcut TH weight loss 11/07/22 Unknown History mg/0.75 mL subcutaneous pen injector (Wegovy) multivitamin 1 tab PO DAILY vitamin 11/09/22 Unknown History pregabalin 25 mg capsule (Lyrica) 25 mg PO DAILY pain 11/09/22 Unknown History cholecalciferol (vitamin D3) 25 25 mcg PO DAILY 11/17/22 Unknown History mcg (1,000 unit) tablet (Vitamin D3) apixaban 5 mg tablet (Eliquis) 5 mg PO BID #60 tabs 03/30/24 Unknown Rx cefdinir 300 mg capsule 300 mg PO BID #16 caps 03/30/24 Unknown Rx ondansetron 4 mg disintegrating 4 mg PO Q8H PRN nausea and 03/30/24 Unknown Rx tablet vomiting #15 tabs celecoxib 200 mg capsule (Celebrex) 200 mg PO DAILY 11/20/24 Unknown History furosemide 40 mg tablet 40 mg PO DAILY 11/20/24 Unknown History Allergy/AdvReac Type Severity Reaction Status Date / Time cephalexin (From Keflex) AdvReac Upset Verified 11/20/24 22:01 Stomach codeine AdvReac Upset Verified 11/20/24 22:01 Stomach Family History Mother Heart disease Hypertension Father Diabetes Aneurysm Surgical History Hx of cystoscopy Hx of tubal ligation Hx of thyroidectomy History of parathyroidectomy History of herniorrhaphy Hx of cholecystectomy Social History household members: spouse Smoking Status: Former smoker alcohol intake: never substance use type: does not use ROS ROS Narrative 10 systems were reviewed with pertinent positives as noted in the HPI above. Physical Exam Const alert and no apparent distress Constitutional Narrative: Super morbidly obese. Resting comfortably in bed. General Appearance: cooperative HEENT normocephalic, head/scalp atraumatic and moist oral mucous membranes Eyes PERRL, EOMs intact bilaterally and conjunctivae normal Neck supple General: trachea midline Chest inspection of chest normal Resp normal respiratory effort Auscultation: Negative for rales, rhonchi or wheezes Cardio S1 normal heart sound and S2 normal heart sound Rate: tachycardic GI soft to palpation GI Narrative: Mild diffuse tenderness to palpation. No guarding, rebound or rigidity. Extremity General Extremity: edema; Negative for clubbing Skin no rashes or lesions noted Neuro CN's II-XII intact bilaterally and no focal motor deficits Psych cooperative and affect normal Lab / Micro Data 11/20/24 22:52 11/20/24 22:52 Labs: Laboratory Results - last 24 hr 11/20/24 22:52: WBC 17.4 H, RBC 5.13, Hgb 15.1 H, Hct 46.0, MCV 89.7, MCH 29.4, MCHC 32.8, RDW Std Deviation 46.2 H, RDW Coeff of Jose Rafael 13.9, Plt Count 232, MPV 9.9, Immature Gran % (Auto) 1.200 H, Neut % (Auto) 81.4 H, Lymph % (Auto) 2.0 L, [place] % (Auto) 11.4 H, Eos % (Auto) 3.6, Baso % (Auto) 0.4, Absolute Neuts (auto) 14.1 H, Absolute Lymphs (auto) 0.34 L, Nucleated RBC % 0, Differential Comment SCANNED, Diff Path Review May foll, Toxic Vacuolation 1+, PT 17.0 H, INR 1.4, APTT 36.5 H, Sodium 136, Potassium 3.5, Chloride 103, Carbon Dioxide 22.0, Anion Gap 11, BUN 26 H, Creatinine 1.78 H, Estim Creat Clear Calc 62.15, Est GFR (MDRD) Af Amer 37 L, Est GFR (MDRD) Non-Af 31 L, BUN/Creatinine Ratio 14.6, Glucose 180 H, Lactic Acid 2.4 H*, Calcium 9.1, Total Bilirubin 1.70 H, AST 24, ALT 37, Alkaline Phosphatase 88, Troponin I High Sens 23, Total Protein 7.0, Albumin 2.8 L, Globulin 4.2, Albumin/Globulin Ratio 0.7 L 11/21/24 00:16: Urine Color Destiny, Urine Clarity Sl. Cloudy, Urine pH 5.0, Ur Specific [place] 1.020, Urine Protein 30 H, Urine Glucose (UA) Normal, Urine Ketones 15 H, Urine Occult Blood 250 H, Urine Nitrite Negative, Urine Bilirubin Negative, Urine Urobilinogen 4 H, Ur Leukocyte Esterase 500 H, Urine RBC 0 SEEN, Urine WBC 0-5 SEEN, Ur Squamous Epith Cells 0-5 SEEN, Urine Bacteria 4+, Urine Mucus 0 SEEN 11/21/24 03:39: Lactic Acid 1.5, Troponin I High Sens 23, Vitamin B12 415, Folate 21.50, TSH 0.214 L, Ethyl Alcohol < 3.0 Micro: Microbiology 11/20/24 22:57 Mucosa - Nose SARS-CoV-2, Influenza & RSV (PCR) - Final Imaging Radiology Impression Chest X-Ray 11/20/24 22:27 IMPRESSION: No acute cardiopulmonary process. Reading Location: [facility] Brain CT 11/20/24 22:42 IMPRESSION: No acute process. If there is persistent clinical concern for acute ischemia, MRI is most sensitive. One or more dose reduction techniques were used (e.g., Automated exposure control, adjustment of the mA and/or kV according to patient size, use of iterative reconstruction technique). Reading Location: [facility] X-Ray 11/21/24 01:07 IMPRESSION: Right renal stones. Reading Location: [facility] Charges/Coding Visit Charges Inpatient E&M: 66210 Init Hosp L3
--- NOTE | 2024-11-21 09:13 | CON.PCM.UR_ITS ---
HPI Consult Data Date of Consult: 11/21/24 HPI Narrative Reason for Consultation: Sepsis HPI Narrative: TAYLER CAMPOS, is a 64 F who presents To the hospital with altered mental status she's found to have sepsis lactic acid is raised she has sepsis unclear of the cause of the sepsis. In the past he did have kidney stones. Plane x-ray was done and there was a 4 mm stones seen in the right kidney but this appearrs to be nonobstructive on x-ray I don't have any signs of obstruction. Patients very high risk for surgery I don't plan to take her to surgery for a stent unless it clear evidence that she does have an obstructing stone is causing the sepsis she will need to have a CT scan done. She is morbidly obese but she's had CAT scans done before, six months ago she had a CAT scan. So CAT scans imperative that be done to evaluate the source of her sepsis if the CAT scan shows that she has an obstructing stone that I to take the patient the surgery for stent placement. So I called the nurse and recommmended that the patient have CT scan done and up in order in. [facility] Medical History (Updated 11/21/24 @ 03:[address] Clint Webster, DO) Morbid obesity with BMI of 60.0-69.9, adult Personal history of DVT (deep vein thrombosis) Hyperlipidemia Hypothyroidism Wears glasses Post-menopausal History of Clostridium difficile infection Anxiety Thyroid disease Uses wheelchair Walker as ambulation aid Ambulates with cane Arthritis Kidney stone Pulmonary embolism DVT (deep venous thrombosis) Excessive bleeding History of hiatal hernia Former smoker Sleep apnea On home oxygen therapy Shortness of breath on exertion History of pain when walking History of edema Hypomagnesemia Metabolic acidosis Hypernatremia Right ureteral calculus History of venous thromboembolism Anxiety and depression Morbid obesity Hyperlipidemia Arthritis Hypothyroid HTN (hypertension) Home Medications ?Medication ?Instructions ?Recorded ?Last Taken ?Type ascorbic acid (vitamin C) 1,000 mg 500 mg PO DAILY vit serrano 05/01/19 Unknown History tablet bupropion HCl 150 mg tablet,12 hr 1 tab PO BID depress ion 05/01/19 Unknown History sustained-release buspirone 15 mg tablet 15 mg PO BID anxiety 9 Unknown History lansoprazole 30 mg capsule,delayed 30 mg PO DAILY gerd 05/01/19 Unknown History release levothyroxine 50 mcg tablet 200 mcg PO DAILY thyroid 0 7/22/19 02/08/23 History metoprolol tartrate 50 mg tablet 50 mg PO BID bp 05/0111/18/22 History triamcinolone acetonide 0.1 % 1 applic topical BID #1 tube 05/02/19 Unknown Rx topical cream hydrocodone-acetaminophen 5-325mg 1 - 2 tab PO BID PRN PRN Pain 11/07/22 11/18/22 History 5mg-325mg pregabalin 25 mg capsule 50 mg PO BID pain 11/07/22 U nknown History semaglutide (weight loss) 2.4 2.4 mg subcut TH weight loss 11/07/22 Unknown History mg/0.75 mL subcutaneous pen injector (Wegovy) multivitamin 1 tab PO DAILY vitamin 11/09 Unknown History pregabalin 25 mg capsule (Lyrica) 25 mg PO DAILY pain 11/09/22 Unknown History cholecalciferol (vitamin D3) 25 25 mcg PO DAILY Unknown History mcg (1,000 unit) tablet (Vitamin D3) apixaban 5 mg tablet (Eliquis) 5 mg PO BID #60 tabs Unknown Rx cefdinir 300 mg capsule 300 mg PO BID #16 caps 03/30 Unknown Rx ondansetron 4 mg disintegrating 4 mg PO Q8H PRN nausea and 03/30/24 Unknown Rx tablet vomiting #15 tabs celecoxib 200 mg capsule (Celebrex) 200 mg PO DAILY Unknown History furosemide 40 mg tablet 40 mg PO DAILY 11/20/24 Unkn own History Allergy/AdvReac Type Severity Reaction Status Date / Time cephalexin (From Keflex) AdvReac Upset Verified 11/20/24 22:01 Stomach codeine AdvReac Upset Verified 11/20/24 22:01 Stomach Family History Mother Heart disease Hypertension Father Diabetes Aneurysm Surgical History Hx of cystoscopy Hx of tubal ligation Hx of thyroidectomy History of parathyroidectomy History of herniorrhaphy Hx of cholecystectomy Social History household members: spouse Smoking Status: Former smoker alcohol intake: never substance use type: does not use Lab / Micro Data 11/20/24 22:52 11/20/24 22:52 Labs: Laboratory Results - last 24 hr 11/20/24 22:52: WBC 17.4 H, RBC 5.13, Hgb 15.1 H, Hct 46.0, MCV 89.7, MCH 29.4, MCHC 32.8, RDW Std Deviation 46.2 H, RDW Coeff of Jose Rafael 13.9, Plt Count 232, MPV 9.9, Immature Gran % (Auto) 1.200 H, Neut % (Auto) 81.4 H, Lymph % (Auto) 2.0 L, [place] % (Auto) 11.4 H, Eos % (Auto) 3.6, Baso % (Auto) 0.4, Absolute Neuts (auto) 14.1 H, Absolute Lymphs (auto) 0.34 L, Nucleated RBC % 0, Differential Comment SCANNED, Diff Path Review May foll, Toxic Vacuolation 1+, PT 17.0 H, INR 1.4, A PTT 36.5 H, Sodium 136, Potassium 3.5, Chloride 103, Carbon Dioxide 22.0, Anion Gap 11, BUN 26 H, Creatinine 1.78 H, Estim Creat Clear Calc 62.15, Est GFR (MDRD) Af Amer 37 L, Est GFR (MDRD) Non-Af 31 L, BUN/Creatinine Ratio 14.6, G lucose 180 H, Lactic Acid 2.4 H*, Calcium 9.1, Total Bilirubin 1.70 H, AST 24, ALT 37, Alkaline Phosphatase 88, Troponin I High Sens 23, Total Protein 7.0, A lbumin 2.8 L, Globulin 4.2, Albumin/Globulin Ratio 0.7 L 11/21/24 00:16: Urine Color Destiny, Urine Clarity Sl. Cloudy, Urine pH 5.0, Ur Specific [place] 1.020, Urine Protein 30 H, Urine Glucose (UA) Normal, Urine Ketones 15 H, Urine Occult Blood 250 H, Urine Nitrite Negative, Urine Bilirubin Negative, Urine Urobilinogen 4 H, Ur Leukocyte Esterase 500 H, Urine RBC 0 SEEN, Urine WBC 0-5 SEEN, Ur Squamous Epith Cells 0-5 SEEN, Urine Bacteria 4+, Urine Mucus 0 SEEN 11/21/24 03:39: Lactic Acid 1.5, Troponin I High Sens 23, Vitamin B12 415, Folate 21.50, TSH 0.214 L, Ethyl Alcohol < 3.0 Micro: Microbiology 11/20/24 22:57 Mucosa - Nose SARS-CoV-2, Influenza & RSV (PCR) - Final Imaging Radiology Impression Chest X-Ray 11/20/24 22:27 IMPRESSION: No acute cardiopulmonary process. [facility] 11/20/24 22:42 IMPRESSION: No acute process. If there is persistent clinical concern for acute ischemia, MRI is most sensitive. One or more dose reduction techniques were used (e.g., Automated exposure control, adjustment of the mA and/or kV according to patient size, use of iterative reconstruction technique). Reading Location: [facility] X-Ray 11/21/24 01:07 IMPRESSION: Right renal stones. [facility]
[2024-11-21] MEDS: buPROPion (SR) 150 MG Tablet.SA PO ×2 (09:38→21:25)
[2024-11-21] MEDS: Zinc Sulfate 50 mg zinc (220 mg) ORAL capsule PO (09:38)
[2024-11-21] MEDS: Piperacil/Tazobactam 3.375 GM in 0.9% Normal Saline (50mL MB+) 50 ML IV ×3 (09:39→21:26)
[2024-11-21] MEDS: Lansoprazole 15 MG Capsule.DR 30 MG PO (09:39)
[2024-11-21] MEDS: Cholecalciferol (VIT D3) 25 MCG TABLET (1,000 UNITS) PO (09:39)
[2024-11-21] MEDS: busPIRone 15 MG TABLET PO ×2 (09:39→21:25)
[2024-11-21] MEDS: Multivitamins,Therapeutic Tablet 1 TABLET PO (09:39)
[2024-11-21] MEDS: Lactobacillis Acidophilus 1 CAP PO ×4 (09:39→21:25)
[2024-11-21] MEDS: Ascorbic Acid 500 MG Tablet PO (09:39)
[2024-11-21] MEDS: Triamcinolone Acetonide 0.1% Cream 15 gm 1 APPLIC TOPICAL (09:40)
[2024-11-21] MEDS: Pregabalin 50 MG Capsule PO ×2 (09:42→21:24)
--- NOTE | 2024-11-21 09:46 | CASEMGMT ---
Insurance review for hospitals In-network with?[facility] Choice insurance if transfer is recommended is as follows: [facility], [facility], [place], [facility], [facility], [facility], , [place], [facility], [facility], and [place]. Jamila Palmer, Discharge Planning Asst.
--- NOTE | 2024-11-21 10:56 | CASEMGMT ---
Addendum entered by Natalie Newell 11/21/24 11:41: Social Work SW did make a Passport referral for pt. Daughter Destiny Zhong's phone number if needed is [phone]. SW did also create, should it be needed, a list via [facility] facilities in network w/pt's insurance, in pt's preferred geographic area and complete w/quality and resource use data. CHIP Hicks-S Original Note: Social Work SW participated in ICU rounds, after rounds pt's daughter Destiny came out of the room, wants to speak further about the discharge plan. After rounds, SW spoke w/pt's daughter Destiny and son Clint in the waiting room. SW completed assessment w/family, then spoke w/family as well. PCP: Dr. Long Specialists: None Insurance: [facility] Pharmacy: [facility] L[place]: , three children, grandchildren LW/POA: Has not completed Living arrangements/prior level of function: Pt lives at home w/ Cisco in a two story home, bedroom on the second floor. There is no bathroom on the first floor. Cisco's son Tylor is on a medical leave from the [employer] and is also currently living there. Pt does not move well, uses a walker or cane at times. Pt struggles to get up the stairs. Pt spends most of her time upstairs, eats in her bed. Pt can get up and get to the restroom, though as per daughter is incontinent and uses Poise Pads. Pt sponge bathes, as she is not able to get in and out of the tub. Pt's son will help her up the stairs when she does go downstairs--as per daughter she goes to the first floor about once per month. As per family, in 2019 when MARTINA vanessa pt started doing appts virtually, sees her physician virtually. Destiny and Clint both attribute this timeframe as when things started to decline for pt. Pt sees Dr. Long, but only virtually, is not getting out for appts. Pt needs hip and knee replacement but is not able due to her health. Pt also was going through the process at one time to complete gastric bypass, however too much time has passed and she now has to start the process over. Pt had home health in the past, was told by the therapists that her doing therapy is causing more harm than good. Both pt and family told SW this, that when she moves her joints click. Pt is not cooking, the home is cluttered as per daughter. Pt not able to cook or clean at this time. As per Destiny and Clint, pt's also is not very mobile. He works from home for [employer], sits in his recliner all day working. Transportation: Pt's or family takes pt when she does need to go somewhere, pt does not drive. DME: Pt has a walker, cane, toilet riser HHC: History of [facility] HH SNF: No history of SNF SW spoke w/Destiny and Clint at length about options at discharge. Destiny would like to see pt go somewhere for rehab, but knows pt will not agree to this. Destiny states pt thinks people will be mean to her should she go somewhere for rehab. LESLIE spoke w/them about Passport and about HHC as well. Clint would like to see pt get some help in the home. SW explained will speak w/pt about this, see if she may be agreeable to a referral to Passport. SW explained will speak w/pt, Destiny is fine w/SW disclosing spoke to daughter. LESLIE then met w/pt about discharge plan. Pt states she just wants to go home, not agreeable to a SNF referral. When SW inquired as to the reason, she states that she would not be treated nicely. SW spoke w/her about both home health and a Passport referral as well. Pt does not want HHC as she states that it was not helpful last time. SW educated pt on Passport, she is agreeable to a referral. SW will make a referral online today. LESLIE asked pt also about mental health. Pt states she does have depression, takes medication but is not sure if it helps. LESLIE asked about mental health resources, pt declined. She states when she goes through the process for gastric bypass will have counseling then. LESLIE also spoke w/pt about the possibility of getting transferred to another facility. Pt states she does not want to but if it's needed understands and will go to a different facility. As per RN, no determination has yet been made, though pt does not fit in the CT here, prompting the discussion of possible transfer. SW will continue to follow along w/CM, for appropriate discharge plan. ESPINOZA Hicsk
[2024-11-21] MEDS: Ondansetron 4 MG/2 ML Vial IV (11:23)
[2024-11-21] MEDS: 0.9% Saline Lock 10 ML Syringe IV (11:23)
[2024-11-21 13:23] LABS: Amphetamine Urine NEGATIVE (<1000 ng/mL); Barbiturate Urine NEGATIVE (< 200 ng/mL); Benzodiazepine Urine NEGATIVE (< 200 ng/mL); Cocaine Urine NEGATIVE (< 300 ng/mL); Ecstacy Urine POSITIVE (< 500 ng/mL); Methadone Urine NEGATIVE (< 300 ng/mL); Opiates Urine POSITIVE (< 300 ng/mL); PCP Urine NEGATIVE (< 25 ng/mL); THC Urine NEGATIVE (< 50 ng/mL)
[2024-11-21 14:45] LABS: Pathologist Review Reviewed
[2024-11-21] MEDS: HYDROcodone Bitartrate/Apap 5/325 Tablet PO ×2 (15:22→21:24)
[2024-11-21] MEDS: Pregabalin 25 MG Capsule PO (15:44)
[2024-11-21 20:59] LABS: Vista UDS pH Range 5
[2024-11-22 02:00] VITALS: BP 139/62; PULSE 97; RESP 25; TEMP 36.7; O2SAT 97
[2024-11-22 06:00] VITALS: BMI 67.4
[2024-11-22 06:18] LABS: Absolute Lymphocyte Count 0.77 X10^3/uL (0.83-4.51); Absolute Neutrophil Count 7.1 X10^3/uL (2.0-7.7); Basophil# 0.03 X10^3/uL; Basophil% 0.3 % (0-1); Eosinophil# 0.03 X10^3/uL; Eosinophils% 0.3 % (0-5); Hematocrit 40.1 % (37-47); Hemoglobin 12.3 g/dL (12.0-15.0); Lymphocyte # 0.77 X10^3/ul (0.83-4.51); Lymphocyte % 8.2 % (19-41); Mean Corp Hgb Conc 30.7 g/dL (32-36); Mean Corpuscular Hgb 28.4 pg (27.0-32.0); Mean Corpuscular Volume 92.6 fL (81-99); Mean Platelet Vol. 10.2 fl (6.2-12.0); Monocyte# 1.38 X10^3/uL; Monocyte% 14.7 % (0-10); NRBC Flagged by Analyzer 0 % (0-5); Neutrophil # 7.09 X10^3/uL (2.7-7.7); Neutrophil % 75.9 % (47-70); Platelet Count 197 K/mm3 (150-450); RBC Distribution Width CV 14.1 % (11.6-14.6); RBC Distribution Width SD 47.8 fl (35.1-43.9); Red Blood Count 4.33 M/mm3 (4.2-5.4); White Blood Count 9.4 K/mm3 (4.4-11.0)
[2024-11-22 06:37] LABS: Anion Gap 6 (5-15); BUN 21 mg/dL (7-18); BUN/Creat Ratio 15.2 RATIO (10-20); Calcium,Total 9.1 mg/dL (8.5-10.1); Chloride 108 mmol/L (98-107); Creatinine, Serum 1.38 mg/dL (0.55-1.02); EST Glomerular Filtration Rate 41 mL/min (>60); Est Glom Filt Rate - Afr Amer 50 mL/min (>60); Glucose 117 mg/dL (74-106); Potassium 3.4 mmol/L (3.5-5.1); Sodium Level 140 mmol/L (136-145)
[2024-11-22] MEDS: Levothyroxine 50 MCG Tablet PO (06:50)
[2024-11-22] MEDS: Piperacil/Tazobactam 3.375 GM in 0.9% Normal Saline (50mL MB+) 50 ML IV ×3 (06:50→21:15)
[2024-11-22 08:00] VITALS: BP 136/77; PULSE 97; RESP 20; TEMP 36.7; O2SAT 97
--- NOTE | 2024-11-22 08:47 | PN.HOSP_ITS ---
Subjective Subjective No issues overnight, fevers resolved Objective Data Objective Data Vital Signs: Vital Signs Temp Pulse Resp BP Pulse Ox O2 Del Method 98.1 F 97 25 H 139/62 H 97 Room Air 11/22/24 02:00 11/22/24 02:00 11/22/24 02:00 11/22/24 02:00 11/22/24 02:00 11/22/24 03:09 Oxygen Delivery Method Room Air Weight: 445 lb 5.34 oz Body Mass Index (BMI) 67.4 Intake & Output: Intake and Output for Last 24 Hours 11/21/24 11/22/24 11/23/24 03:59 03:59 03:59 Intake Total 3550 / 3550 3069.5 / 3069.5 120 / 120 Output Total 1400 / 1400 Balance 3550 / 3550 1669.5 / 1669.5 120 / 120 Lab / Micro Data 11/22/24 05:26 11/22/24 05:26 Labs: Laboratory Results - last 24 hr 11/20/24 22:38: Urine Opiates Screen POSITIVE H, Urine Methadone Screen NEGATIVE, Ur Barbiturates Screen NEGATIVE, Ur Phencyclidine Scrn NEGATIVE, Ur Amphetamines Screen NEGATIVE, MDMA (Ecstasy) Screen POSITIVE H, U Benzodiazepines Scrn NEGATIVE, Urine Cocaine Screen NEGATIVE, U Cannabinoids Screen NEGATIVE, Ur Drug Screen Comment 11/20/24 22:52: Diff Path Review Reviewed 11/22/24 05:26: WBC 9.4, RBC 4.33, Hgb 12.3, Hct 40.1, MCV 92.6, MCH 28.4, MCHC 30.7 L D, RDW Std Deviation 47.8 H, RDW Coeff of Jose Rafael 14.1, Plt Count 197, MPV 10.2, Immature Gran % (Auto) 0.600, Neut % (Auto) 75.9 H, Lymph % (Auto) 8.2 L, [place] % (Auto) 14.7 H, Eos % (Auto) 0.3, Baso % (Auto) 0.3, Absolute Neuts (auto) 7.1, Absolute Lymphs (auto) 0.77 L, Nucleated RBC % 0, Sodium 140, Potassium 3.4 L, Chloride 108 H, Carbon Dioxide 26.0, Anion Gap 6, BUN 21 H, Creatinine 1.38 H , Estim Creat Clear Calc 79.50, Est GFR (MDRD) Af Amer 50 L, Est GFR (MDRD) Non- Af 41 L, BUN/Creatinine Ratio 15.2, Glucose 117 H, Calcium 9.1 Micro: Microbiology 11/20/24 22:52 Blood Culture (Wb) - Right Wrist Blood Culture - Preliminary GNR lactose automatic trimming sewer 11/20/24 22:50 Blood Culture (Wb) - Left Wrist Blood Culture - Preliminary GNR lactose automatic trimming sewer 11/20/24 22:57 Mucosa - Nose SARS-CoV-2, Influenza & RSV (PCR) - Final Radiography Diagnostic Testing: Radiology Impression Renal Ultrasound 11/21/24 01:55 IMPRESSION: NORMAL RENAL AND BLADDER ULTRASOUND. Reading Location: [facility] Physical Exam Narrative General: Alert, Oriented x3, Cooperative, No apparent distress HEENT: Atraumatic, PERRLA, EOMI, Normocephalic Oral: Moist Mucosa Neck: Supple, No JVD Lungs: Diminished, Normal air movement, No rhonchi, No wheeze, No rales Cardiovascular: Tachycardic, Regular Rhythm, Normal S1, Normal S2, No murmurs Abdomen: Soft, mildly tender, Non-Distended, No Hepato-splenomegaly Extremities: Edema, Capillary Refill Less than 3 Seconds Skin: No rashes, No breakdown Musculoskeletal: No Tenderness to Palpation of Joints or Extremities Neurological: No focal neurological deficits, Motor Exam 5/5 strength throughout, Sensory exam intact to light touch and pain Psych/Mental Status: Normal Affect, Appropriate Assessment & Plan Assessment/Plan (1) Sepsis: QUALIFIERS: Sepsis type: sepsis due to unspecified organism S epsis acute organ dysfunction status: with acute organ dysfunction Severe sepsis acute organ dysfunction type: encephalopathy Severe sepsis shock status: without septic shock Qualified Code(s): A41.9 - Sepsis, unspecified organism; R65.20 - Severe sepsis without septic shock; G93.41 - Metabolic encephalopathy (2) Urinary tract infection: QUALIFIERS: Urinary tract infection type: acute cystitis H ematuria presence: without hematuria Qualified Code(s): N30.00 - Acute cystitis without hematuria (3) Metabolic encephalopathy: PLAN: Plan 1. Sepsis secondary to UTI with gram-negative maurice bacteremia in the setting of urolithiasis and metabolic encephalopathy ? This is likely related to her kidney stones though there are only 4 mm and on the right so therefore nonobstructive ? Unfortunate no transfer is pending as the CT that was requested by urology cannot be done at any institution in [facility] given her size of the openings where the CT scans are about 26 inches regardless of institution ? Continue with broad-spectrum antibiotics ? Will start her on Flomax ? No PARIS, renal function on admission was close to baseline ? Fever curve is improving ? Urology does not plan an intervention 2. Essential HTN/history of VTE ? Continue with her home blood pressure medications once her infection significantly improves ? Will monitor make adjustments as necessary ? Continue with Eliquis 3. Super morbid obesity ? BMI of 68.6 on admission ? Discussed lifestyle modifications 4. GERD ? Stable ? Continue with PPI 5. Hypothyroidism ? Stable ? Continue with Synthroid DVT: Eliquis Charges/Coding Visit Charges Inpatient E&M: 34008 Subs Hosp L2
[2024-11-22] MEDS: 0.9% Saline Lock 10 ML Syringe IV (09:59)
[2024-11-22] MEDS: busPIRone 15 MG TABLET PO ×2 (09:59→21:16)
[2024-11-22] MEDS: Cholecalciferol (VIT D3) 25 MCG TABLET (1,000 UNITS) PO (09:59)
[2024-11-22] MEDS: Ondansetron 4 MG/2 ML Vial IV (09:59)
[2024-11-22] MEDS: Pregabalin 50 MG Capsule PO ×2 (09:59→21:54)
[2024-11-22] MEDS: Ascorbic Acid 500 MG Tablet PO (09:59)
[2024-11-22] MEDS: Multivitamins,Therapeutic Tablet 1 TABLET PO (09:59)
[2024-11-22] MEDS: buPROPion (SR) 150 MG Tablet.SA PO ×2 (09:59→21:15)
[2024-11-22] MEDS: Lactobacillis Acidophilus 1 CAP PO ×4 (09:59→21:15)
[2024-11-22] MEDS: Lansoprazole 15 MG Capsule.DR 30 MG PO (09:59)
[2024-11-22] MEDS: Zinc Sulfate 50 mg zinc (220 mg) ORAL capsule PO (09:59)
[2024-11-22] MEDS: HYDROcodone Bitartrate/Apap 5/325 Tablet PO ×2 (10:00→21:54)
[2024-11-22] MEDS: Triamcinolone Acetonide 0.1% Cream 15 gm 1 APPLIC TOPICAL ×2 (10:00→21:16)
[2024-11-22 14:00] VITALS: BP 109/59; PULSE 78; RESP 16; TEMP 36.1; O2SAT 97
[2024-11-22] MEDS: Pregabalin 25 MG Capsule PO (15:17)
[2024-11-22] MEDS: Acetaminophen 325 MG Tablet 650 MG PO (16:47)
[2024-11-22] MEDS: Tamsulosin HCl 0.4 MG Capsule PO (16:48)
[2024-11-22 20:00] VITALS: BP 133/82; PULSE 99; RESP 24; TEMP 36.6; O2SAT 99
[2024-11-22] MEDS: Loperamide 2 MG Capsule 4 MG PO (21:54)
[2024-11-23] MEDS: MENTHOL 226.8 GM JAR 1 APPLIC TOPICAL (01:08)
[2024-11-23] MEDS: Acetaminophen 325 MG Tablet 650 MG PO (01:35)
[2024-11-23 02:00] VITALS: BP 139/87; PULSE 87; RESP 20; TEMP 36.6; O2SAT 95
[2024-11-23] MEDS: Piperacil/Tazobactam 3.375 GM in 0.9% Normal Saline (50mL MB+) 50 ML IV (05:20)
[2024-11-23] MEDS: Levothyroxine 50 MCG Tablet PO (05:21)
[2024-11-23 05:22] VITALS: BMI 67.9
[2024-11-23 05:24] LABS: Absolute Lymphocyte Count 1.21 X10^3/uL (0.83-4.51); Absolute Neutrophil Count 4.1 X10^3/uL (2.0-7.7); Basophil# 0.04 X10^3/uL; Basophil% 0.6 % (0-1); Eosinophil# 0.25 X10^3/uL; Eosinophils% 3.6 % (0-5); Hemoglobin 11.8 g/dL (12.0-15.0); Lymphocyte # 1.21 X10^3/ul (0.83-4.51); Lymphocyte % 17.4 % (19-41); Mean Corp Hgb Conc 31.1 g/dL (32-36); Mean Corpuscular Hgb 28.4 pg (27.0-32.0); Mean Corpuscular Volume 91.6 fL (81-99); Mean Platelet Vol. 10.3 fl (6.2-12.0); Monocyte# 1.36 X10^3/uL; Monocyte% 19.5 % (0-10); NRBC Flagged by Analyzer 0 % (0-5); Neutrophil # 4.07 X10^3/uL (2.7-7.7); Neutrophil % 58.5 % (47-70); Platelet Count 222 K/mm3 (150-450); RBC Distribution Width CV 13.8 % (11.6-14.6); RBC Distribution Width SD 46.8 fl (35.1-43.9); Red Blood Count 4.15 M/mm3 (4.2-5.4)
[2024-11-23 06:06] LABS: Anion Gap 5 (5-15); BUN 17 mg/dL (7-18); BUN/Creat Ratio 12.9 RATIO (10-20); Chloride 109 mmol/L (98-107); Creatinine, Serum 1.32 mg/dL (0.55-1.02); EST Glomerular Filtration Rate 43 mL/min (>60); Est Glom Filt Rate - Afr Amer 52 mL/min (>60); Estimated Creatinine Clearance 83.47 ml/min; Glucose 115 mg/dL (74-106); Potassium 3.2 mmol/L (3.5-5.1); Sodium Level 140 mmol/L (136-145)
[2024-11-23 07:58] VITALS: BP 145/80; PULSE 82; RESP 18; TEMP 36.5; O2SAT 94
[2024-11-23] MEDS: Multivitamins,Therapeutic Tablet 1 TABLET PO (08:40)
[2024-11-23] MEDS: Lactobacillis Acidophilus 1 CAP PO (08:40)
[2024-11-23] MEDS: Lansoprazole 15 MG Capsule.DR 30 MG PO (08:41)
[2024-11-23] MEDS: buPROPion (SR) 150 MG Tablet.SA PO (08:41)
[2024-11-23] MEDS: Ascorbic Acid 500 MG Tablet PO (08:41)
[2024-11-23] MEDS: Cholecalciferol (VIT D3) 25 MCG TABLET (1,000 UNITS) PO (08:41)
[2024-11-23] MEDS: Zinc Sulfate 50 mg zinc (220 mg) ORAL capsule PO (08:41)
[2024-11-23] MEDS: Triamcinolone Acetonide 0.1% Cream 15 gm 1 APPLIC TOPICAL (08:42)
[2024-11-23] MEDS: busPIRone 15 MG TABLET PO (08:42)
[2024-11-23] MEDS: Potassium Chloride Oral Tablet 20 MEQ 40 MEQ PO (08:46)
[2024-11-23] MEDS: Pregabalin 50 MG Capsule PO (08:47)
--- NOTE | 2024-11-23 10:08 | CASEMGMT ---
Per Dr. Daily, this pt will be discharging today. This RN CM discussed DC planning with the pt. Pt denies (again) the need for HH, OP Tx, SNF, or CCN. Pt states that she plans to return home today with her . Pt is aware of the [employer] referral and thanks SW for the referral. Pts only concern is to talk to the hospitalist today. SW notified the MD and Dr Daily talked to the pt face to face. Pt denies further concerns at this time and is ready for DC today.
--- NOTE | 2024-11-23 10:17 | PCM.DC ---
Discharge Instructions Diet Discharge Diet: Low fat / Low cholesterol DC O2, CPAP, BIPAP needs Home O2 Discharge instructions: No Dressing / Incision Discharge Activity: Return to Normal Activity Dressing / Incision Call your doctor if you observe: Fever of 101 or Higher, Shortness of breath, Dizziness, Fainting spells, Swelling in the ankles, Chest pain and Increased palpitations (irregular heartbeat) Follow Up Care Test Results: Test results from this visit will be discussed in further detail at your follow-up appointment, if applicable. Discharge Plan Admission Admit Date/Time: 11/21/24 01:49 Attending Provider: Niko Daily Primary Care Provider: Fam Long Consulting Providers: Clint Webster; Jaron Pringle; Haris Cleaning; Prieto Lyons; Joaquin Luong; Clint Kline; Pieter Harmon; Naveed Velazquez; Ibeth Samuels; Cesar Olvera; Ranjeet Kingsley; Lamont Dhaliwal; Bhumi Velasquez; Lavonne Felipe; Sheeba Mendez; Des Diane; Bala Toure; Paolo Blair; Ronny Guthrie; Basilio Angel; Jim Gonzalez; Moris Fish; Elieser Hernandez; Woodrow Back; Pedrito Borrero Instructions Patient Instructions: ED Bacteremia, Suspected (Adult) Discharge Orders/Prescriptions Prescriptions: New levofloxacin 750 mg tablet 750 mg PO DAILY Qty: 10 0RF Continued bupropion HCl 150 MG tablet sustained-release 12 hr 1 tab PO BID ascorbic acid (vitamin C) 1,000 MG tablet 500 mg PO DAILY levothyroxine 50 MCG tablet 200 mcg PO DAILY lansoprazole 30 MG capsule 30 mg PO DAILY metoprolol tartrate 50 MG tablet 50 mg PO BID buspirone 15 MG tablet 15 mg PO BID triamcinolone acetonide 1 APPLIC cream 1 applic topical BID Qty: 1 0RF pregabalin 25 mg capsule 50 mg PO BID Patient Comments: TAKE 2 CAPSULES BY MOUTH EVERY MORNING 1 CAPSULE IN THE AFTERNOON AND 2 CAPSULES AT BEDTIME Rx Instructions: takes 50 mg am and pm, and 25 mg in afternoon Wegovy 2.4 mg/0.75 mL pen injector 2.4 mg SUBCUT TH Patient Comments: INJECT 0.75 ML SUBCUTANEOUSLY ONE TIME A WEEK. hydrocodone-acetaminophen 5-325 mg tablet 1 - 2 tab PO BID PRN PRN (Reason: Pain) Patient Comments: TAKE 1-2 TABLETS BY MOUTH TWICE DAILY NEEDED FOR PAIN (KNEE PAIN) FOR UP TO 30 DAYS. multivitamin Tablet 1 tab PO DAILY pregabalin [Lyrica] 25 mg Capsule 25 mg PO DAILY Rx Instructions: takes 50 mg am, and pm, takes 25 mg in afternoon cholecalciferol (vitamin D3) [Vitamin D3] 25 mcg (1,000 unit) Tablet 25 mcg PO DAILY Eliquis 5 mg Tablet 5 mg PO BID Qty: 60 3RF furosemide 40 mg tablet 40 mg PO DAILY celecoxib [Celebrex] 200 mg capsule 200 mg PO DAILY Referrals / Follow Up: Fam Long DO [Primary Care Provider] - Within 1 Week Disposition Disposition (needs filled in before D/C Order can be placed): Home, Self Care
[2024-11-23] MEDS: Loperamide 2 MG Capsule 4 MG PO ×3 (10:27→11:44)
[2024-11-23] MEDS: HYDROcodone Bitartrate/Apap 5/325 Tablet PO (12:22)
--- NOTE | 2024-11-23 16:31 | DS.PCM_ITS ---
Providers Date of Admission: 11/21/24 Primary Care Physician: Dr. Fam Long, DO Consultations 11/21/24 03:29 Consult: Internet Sales Associate / Pulmonary Medicine Routine Consulting Provider: Intensivists/Pulmonary Med Reason for Consult: Sepsis due to suspected UTI with PARIS and AMS EMERGENT Consult: No Notified: Yes Date Notified: 11/21/24 Time Notified: 05:03 Method of Notification: Text 11/21/24 03:40 Consult: Urology Routine Consulting Provider: Pedrito Borrero Reason for Consult: Right Renal Calculi with Abdominal Pain and Sepsis. EMERGENT Consult: No Notified: Yes Date Notified: 11/21/24 Time Notified: 03:40 Method of Notification: Answering Service Reason For Visit: SEPSIS WITH LACTIC ACIDOSIS LIKELY DUE TO ACUTE Diagnosis Discharge Diagnosis (1) Sepsis: Status: Acute Code(s): A41.9 - Sepsis, unspecified organism Qualifiers: Sepsis type: sepsis due to unspecified organism Sepsis acute organ dysfunction status: with acute organ dysfunction Severe sepsis acute organ dysfunction type: encephalopathy Severe sepsis shock status: without septic shock Qualified Code(s): A41.9 - Sepsis, unspecified organism; R65.20 - Severe sepsis without septic shock; G93.41 - Metabolic encephalopathy (2) Urinary tract infection: Status: Acute Code(s): N39.0 - Urinary tract infection, site not specified Qualifiers: Urinary tract infection type: acute cystitis Hematuria presence: w ithout hematuria Qualified Code(s): N30.00 - Acute cystitis without hematuria (3) Metabolic encephalopathy: Status: Acute Code(s): G93.41 - Metabolic encephalopathy Medications at Discharge Home Medications ascorbic acid (vitamin C) 1,000 mg tablet 500 mg PO DAILY vitamin 05/01/19 bupropion HCl 150 mg tablet,12 hr sustained-release 1 tab PO BID depression 05/01/19 buspirone 15 mg tablet 15 mg PO BID anxiety 05/01/19 lansoprazole 30 mg capsule,delayed release 30 mg PO DAILY gerd 05/01/19 levothyroxine 50 mcg tablet 200 mcg PO DAILY thyroid 05/01/19 metoprolol tartrate 50 mg tablet 50 mg PO BID bp 05/01/19 triamcinolone acetonide 0.1 % topical cream 1 applic topical BID #1 tube 05/02/19 hydrocodone-acetaminophen 5-325mg 5mg-325mg 1 - 2 tab PO BID PRN PRN Pain 11/07/22 pregabalin 25 mg capsule 50 mg PO BID pain 11/07/22 semaglutide (weight loss) 2.4 mg/0.75 mL subcutaneous pen injector (Wegovy) 2.4 mg subcut TH weight loss 11/07/22 multivitamin 1 tab PO DAILY vitamin 11/09/22 pregabalin 25 mg capsule (Lyrica) 25 mg PO DAILY pain 11/09/22 cholecalciferol (vitamin D3) 25 mcg (1,000 unit) tablet (Vitamin D3) 25 mcg PO DAILY 11/17/22 apixaban 5 mg tablet (Eliquis) 5 mg PO BID #60 tabs 03/30/24 celecoxib 200 mg capsule (Celebrex) 200 mg PO DAILY 11/20/24 furosemide 40 mg tablet 40 mg PO DAILY 11/20/24 levofloxacin 750 mg tablet 750 mg PO DAILY #10 tabs 11/23/24 Hospital Course Operations None Procedures None Summary of Care Provided Minutes Spent on Discharge: 35 Hospital Course: Per HPI: TAYLER CAMPOS, is a 64 F with a past medical history of essential hypertension; on metoprolol and furosemide, history of thyroidectomy with subsequent hypothyroidism; on levothyroxine, history of parathyroidectomy, super-morbid obesity; with BMI of 68.6 this admission on Wegovy, DAVID; noncompliant with CPAP, 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 twice daily, depression with anxiety; on bupropion and buspirone, history of hernia; s/p repair, history of cholecystectomy, remote history of tubal ligation, history of C. difficile infection, history of Right renal calculus; status post cystoscopy with stent (2022), GERD with history of hiatal hernia; on lansoprazole, OA; on as needed hydrocodone-acetaminophen twice daily and history of admission here from March 27, 2024 to March 30, 2024 for treatment of Right flank pain with acute Cystitis; with microscopic hematuria and Leukocytosis of 12.6 K with Left-shift of 1.3% causing bacteremia with E. coli sensitive to ceftriaxone complicated by PARIS in the setting of CKD; stage III-IV and elevated troponin of 229 pg/mL due to subendocardial ischemia with CT scan positive for incidentally noted hepatomegaly and a ~2.6 cm left adrenal nodule (suspected to be an adenoma) who presents to [facility] ER after her family noted altered mental status. Mrs. Campos is not a fully-reliable historian at this time to information gathered from chart, medical staff and computer. According to the records the family noticed that the patient has not been feeling well for the past few days and has been staying in the bed all day. Then over the last 4 hours prior to arrival her symptoms became worse with a similar presentation to her previous episode of sepsis due to UTI so they brought her in for further evaluation and management. The patient does have abdominal pain but her body size prohibits CT scan. She admits to fever, chills, abdominal pain and painful urination but she denies headache, changes in vision, shortness of breath, cough, vomiting, diarrhea, hematuria, paresthesias back pain or rash. In the ER she was noted to have fever of 100.5 degrees Fahrenheit with a pulse rate of 113 bpm present on admission in addition to Leukocytosis of 17.4 K with Left-shift of 1.2% and Lactic Acidosis of 2.4 mmol/L present on admission consistent with suspected Sepsis due to likely UTI with possible Stone complicated by laboratory evidence of suspected PARIS; with elevated serum creatinine of 1.78 mg/dL present on admission (up from her baseline of 1.17 mg/dL last admission) compounded by Hyperbilirubinemia of 1.7 mg/dL present on admission with clinical evidence of Metabolic Encephalopathy and she was then admitted to the ICU for ongoing care under the sepsis protocol for stay that is expected to extend beyond 2 midnights. Hospital Course: 1. Sepsis secondary to UTI with gram-negative maurice bacteremia in the setting of urolithiasis and metabolic encephalopathy ? This is likely related to her kidney stones though there are only 4 mm and on the right so therefore nonobstructive ? Unfortunate no transfer is pending as the CT that was requested by urology cannot be done at any institution in [facility] given her size of the openings where the CT scans are about 26 inches regardless of institution ? Continue with broad-spectrum antibiotics ? Will start her on Flomax ? No PARIS, renal function on admission was close to baseline ? Fever curve is improving ? Urology does not plan an intervention 11/23/2024: She is much improved today, no abdominal pain her leukocytosis has resolved. Cultures did come back positive with a pansensitive E. coli in her urine and a sensitive Klebsiella in her blood. I discussed with her the possibility for discharge today she expressed understanding of the risk and benefits of going home and would like to go home today. Will continue with Levaquin for 10 more days to complete 10 to 14 days of antibiotic therapy for her bacteremia and UTI. She does have right-sided stones and she appears to have passage that she is completely pain-free at this time. I do recommend that if she has any further episodes that she is to follow-up with urology as an outpatient 2. Essential HTN/history of VTE ? Continue with her home blood pressure medications once her infection significantly improves ? Will monitor make adjustments as necessary ? Continue with Eliquis 3. Super morbid obesity ? BMI of 68.6 on admission ? Discussed lifestyle modifications 4. GERD ? Stable ? Continue with PPI 5. Hypothyroidism ? Stable ? Continue with Synthroid Physical Exam Narrative General: Alert, Oriented x3, Cooperative, No apparent distress HEENT: Atraumatic, PERRLA, EOMI, Normocephalic Oral: Moist Mucosa Neck: Supple, No JVD Lungs: Diminished, Normal air movement, No rhonchi, No wheeze, No rales Cardiovascular: Tachycardic, Regular Rhythm, Normal S1, Normal S2, No murmurs Abdomen: Soft, mildly tender, Non-Distended, No Hepato-splenomegaly Extremities: Edema, Capillary Refill Less than 3 Seconds Skin: No rashes, No breakdown Musculoskeletal: No Tenderness to Palpation of Joints or Extremities Neurological: No focal neurological deficits, Motor Exam 5/5 strength throughout, Sensory exam intact to light touch and pain Psych/Mental Status: Normal Affect, Appropriate Weight / BMI Weight Weight: 448 lb 3.196 oz Body Mass Index (BMI) 67.9 ABG / Lab / Microbiology Data 11/23/24 05:05 11/23/24 05:05 Laboratory: Laboratory Results - last 24 hr 11/20/24 22:52: Sodium 136, Potassium 3.5, Chloride 103, Carbon Dioxide 22.0, Anion Gap 11, BUN 26 H, Creatinine 1.78 H, Estim Creat Clear Calc 62.15, Est GFR (MDRD) Af Amer 37 L, Est GFR (MDRD) Non-Af 31 L, BUN/Creatinine Ratio 14.6, G lucose 180 H, Calcium 9.1, Total Bilirubin 1.70 H, AST 24, ALT 37, Alkaline Phosphatase 88, Troponin I High Sens 23, Total Protein 7.0, Albumin 2.8 L, Globulin 4.2, Albumin/Globulin Ratio 0.7 L 11/23/24 05:05: WBC 7.0, RBC 4.15 L, Hgb 11.8 L, Hct 38.0, MCV 91.6, MCH 28.4, M CHC 31.1 L, RDW Std Deviation 46.8 H, RDW Coeff of Jose Rafael 13.8, Plt Count 222, MPV 10.3, Immature Gran % (Auto) 0.400, Neut % (Auto) 58.5, Lymph % (Auto) 17.4 L, M heidi % (Auto) 19.5 H, Eos % (Auto) 3.6, Baso % (Auto) 0.6, Absolute Neuts (auto) 4.1, Absolute Lymphs (auto) 1.21, Nucleated RBC % 0, Sodium 140, Potassium 3.2 L , Chloride 109 H, Carbon Dioxide 26.0, Anion Gap 5, BUN 17, Creatinine 1.32 H, Estim Creat Clear Calc 83.47, Est GFR (MDRD) Af Amer 52 L, Est GFR (MDRD) Non-Af 43 L, BUN/Creatinine Ratio 12.9, Glucose 115 H, Calcium 9.0 Microbiology: Microbiology 11/20/24 22:52 Blood Culture (Wb) - Right Wrist Blood Culture - Final GNR lactose computing machine operator 11/20/24 22:50 Blood Culture (Wb) - Left Wrist Blood Culture - Final Klebsiella pneumoniae sp pneum 11/21/24 00:16 Urine, Catheterized Urine Culture - Final Escherichia coli 11/20/24 22:57 Mucosa - Nose SARS-CoV-2, Influenza & RSV (PCR) - Final D/C Instructions Discharge Diet: Low fat / Low cholesterol Call your doctor if you observe: Fever of 101 or Higher, Shortness of breath, Dizziness, Fainting spells, Swelling in the ankles, Chest pain and Increased palpitations (irregular heartbeat) DC O2, CPAP, BIPAP Needs Home O2 Discharge instructions: No Meaningful Use Info Meaningful Use Meaningful Use Diagnoses (Choose all that apply): None applicable Ischemic Stroke Statin Dosing Therapy Reference: STATIN DOSE THERAPY REFERENCE: * Patients > 75 years receive moderate or high dose statin therapy. * Patients 75 years or YOUNGER should receive HIGH intensity statin dose unless contraindicated. You will be required to document reason for non-treatment if statin daily dose does not meet guidelines. HIGH DOSE STATIN THERAPY DAILY Atorvastatin > than or = to 40 mg Rosuvastatin > than or = to 20 mg Amlodipine + Atorvastatin > than or = to 2.5/40 mg Ezetimibe + Simvastatin 10/80 mg Simvastatin 80mg Discharge Plan Admission Admit Date/Time: 11/21/24 01:49 Attending Provider: Niko Daily Primary Care Provider: Fam Long Consulting Providers: Clint Webster; Jaron Pringle; Haris Cleaning; Prieto Lyons; Joaquin Luong; Clint Kline; Pieter Harmon; Naveed Velazquez; Ibeth Samuels; Cesar Olvera; Ranjeet Kingsley; Lamont Dhaliwal; Bhumi Velasquez; Lavonne Felipe; Sheeba Mendez; Des Diane; Bala Toure; Paolo Blair; Ronny Guthrie; Basilio Angel; Jim Gonzalez; Moris Fish; Elieser Hernandez; Woodrow Back; Pedrito Borrero Instructions Patient Instructions: ED Bacteremia, Suspected (Adult) Discharge Orders/Prescriptions Prescriptions: New levofloxacin 750 mg tablet 750 mg PO DAILY Qty: 10 0RF Continued bupropion HCl 150 MG tablet sustained-release 12 hr 1 tab PO BID ascorbic acid (vitamin C) 1,000 MG tablet 500 mg PO DAILY levothyroxine 50 MCG tablet 200 mcg PO DAILY lansoprazole 30 MG capsule 30 mg PO DAILY metoprolol tartrate 50 MG tablet 50 mg PO BID buspirone 15 MG tablet 15 mg PO BID triamcinolone acetonide 1 APPLIC cream 1 applic topical BID Qty: 1 0RF pregabalin 25 mg capsule 50 mg PO BID Patient Comments: TAKE 2 CAPSULES BY MOUTH EVERY MORNING 1 CAPSULE IN THE AFTERNOON AND 2 CAPSULES AT BEDTIME Rx Instructions: takes 50 mg am and pm, and 25 mg in afternoon Wegovy 2.4 mg/0.75 mL pen injector 2.4 mg SUBCUT TH Patient Comments: INJECT 0.75 ML SUBCUTANEOUSLY ONE TIME A WEEK. hydrocodone-acetaminophen 5-325 mg tablet 1 - 2 tab PO BID PRN PRN (Reason: Pain) Patient Comments: TAKE 1-2 TABLETS BY MOUTH TWICE DAILY NEEDED FOR PAIN (KNEE PAIN) FOR UP TO 30 DAYS. multivitamin Tablet 1 tab PO DAILY pregabalin [Lyrica] 25 mg Capsule 25 mg PO DAILY Rx Instructions: takes 50 mg am, and pm, takes 25 mg in afternoon cholecalciferol (vitamin D3) [Vitamin D3] 25 mcg (1,000 unit) Tablet 25 mcg PO DAILY Eliquis 5 mg Tablet 5 mg PO BID Qty: 60 3RF furosemide 40 mg tablet 40 mg PO DAILY celecoxib [Celebrex] 200 mg capsule 200 mg PO DAILY Referrals / Follow Up: Fam Long DO [Primary Care Provider] - Within 1 Week Disposition Disposition (needs filled in before D/C Order can be placed): Home, Self Care Charges/Coding Visit Charges Inpatient E&M: 18780 Disch Hosp >30min
== END 2024-11-23 14:10 | disposition home or self-care (01) | DRG 689 ==
LOC: ED 23:02 → ICU 11-21 01:33
PROVIDERS: Admitting Provider Internal Medicine; Emergency Provider Emergency Medicine; PCP Student in an Organized Health Care Education/Training Program; Visit Provider Family Medicine
DX: N30.00 Acute cystitis without hematuria (principal); G93.41 Metabolic encephalopathy; E87.20 Acidosis, unspecified; Z68.44 Body mass index [BMI] 60.0-69.9, adult; Z99.81 Dependence on supplemental oxygen; N18.30 Chronic kidney disease, stage 3 unspecified; I12.9 Hypertensive chronic kidney disease with stage 1 through stage 4 chronic kidney disease, or unspecified chronic kidney disease; E89.0 Postprocedural hypothyroidism; G62.9 Polyneuropathy, unspecified; M19.90 Unspecified osteoarthritis, unspecified site; G47.33 Obstructive sleep apnea (adult) (pediatric); E78.5 Hyperlipidemia, unspecified; F41.8 Other specified anxiety disorders; E80.6 Other disorders of bilirubin metabolism; E66.01 Morbid (severe) obesity due to excess calories; K21.9 Gastro-esophageal reflux disease without esophagitis; B96.1 Klebsiella pneumoniae [K. pneumoniae] as the cause of diseases classified elsewhere; Z87.891 Personal history of nicotine dependence; D35.02 Benign neoplasm of left adrenal gland; N20.0 Calculus of kidney; Z79.01 Long term (current) use of anticoagulants; Z79.890 Hormone replacement therapy; B96.20 Unspecified Escherichia coli [E. coli] as the cause of diseases classified elsewhere; Z86.711 Personal history of pulmonary embolism; Z86.718 Personal history of other venous thrombosis and embolism; Z79.899 Other long term (current) drug therapy
CPT/HCPCS: 36415; 70450; 71046; 74018; 76770; 80048; 80053; 80307; 81001; 82077; 82607; 82746; 83605; 84443; 84484; 85025; 85610; 85730; 87040; 87077; 87086; 87088; 87186; 87631; 93005; 94762; 97162; 97166; 97530; 97535; 99285; A4216; J0696; J2405